=== PATIENT | male | born 1945 | race Caucasian/White ===

== ENCOUNTER 2020-08-12 10:28 | Observation (INO) | payer OTHER, MEDICARE ==
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
[2020-08-12 11:28] LABS: Basophils # (A) 0.1 k/uL (0-0.2); Basophils % (A) 1 %; Eosinophils # (A) 0.4 k/uL (0-0.7); Eosinophils % (A) 6 %; HCT 43.8 % (39.0-53.0); HGB 13.9 gm/dL (13.0-17.5); Lymphocytes # (A) 1.1 k/uL (1.0-4.8); Lymphocytes % (A) 20 %; MCH 30.9 pg (25.0-35.0); MCHC 31.8 g/dL (31.0-37.0); MCV 97.5 fL (80.0-100.0); Mean Platelet Volume 8.3; Monocytes # (A) 0.3 k/uL (0-1.0); Monocytes % (A) 5 %; Neutrophils # (A) 3.7 k/uL (1.3-7.7); Neutrophils % (A) 65 %; Platelet Count 161 k/uL (150-450); RDW 15.2 % (11.5-15.5); WBC 5.6 k/uL (3.8-10.6)
[2020-08-12 11:38] LABS: Calcium 9.4 mg/dL (8.4-10.2)
[2020-08-12 11:54] LABS: Potassium 3.6 mmol/L (3.5-5.1)
--- NOTE | 2020-08-12 13:21 | CT ---
EXAMINATION TYPE: CT angio thor/abd pel aorta DATE OF EXAM: 08/12/2020 COMPARISON: None HISTORY: Aneursylm. aortic CT DLP: 913.4 mGycm CONTRAST: CTA thoracic and abdominal aorta with 3-D reconstruction is performed and without and with IV Contras t, patient injected with 100 ml mL of Isovue 370. Contrast CTA of the thoracic and abdominal aorta was performed from the lung apex through the base of the pelvis. 3-D reconstruction imaging obtained at a separate workstation. CT Chest: THORACIC AORTA: There is ascending thoracic aortic aneurysm noted measuring 4.2 cm AP dimension. In a ddition the distal thoracic aorta the level of the hiatus measures 3.8 cm with mural thrombus noted. No dissection or mediastinal hematoma. Mild atheromatous changes are seen. LUNGS: The lungs are clear and free of infiltrate or atelectasis. Severe emphysematous changes are n oted. No pulmonary nodule or mass is detected. No pleural effusion or CT evidence of interstitial phuong ng disease. MEDIASTINUM: The heart is enlarged. No evidence for mediastinal mass or adenopathy. HILAR STRUCTURES: No evidence for mass. No hilar adenopathy is appreciated. OTHER: No significant abnormality. CONTRAST CT ABDOMEN AND PELVIS ABDOMINAL AORTA: There is a large saccular aneurysm involving the abdominal aorta extending from just below the level of the renal arteries through the aortic bifurcation. Aneurysm measures 11.5 cm in l ength by 8.6 cm in AP dimension and 8.8 cm in transverse dimension. Extensive mural thrombus. LIVER/GB- No significant abnormality is seen. PANCREAS- No significant abnormality is seen. SPLEEN- No significant abnormality is seen. ADRENALS- No significant abnormality is seen. KIDNEYS/BLADDER-there is decreased perfusion in the involving the left kidney relative to the right w ith the left kidney being slightly diminutive. The findings may reflect chronic decreased into the le ft kidney although acute process not excluded. BOWEL- No Significant abnormality GENITAL ORGANS: No gross abnormality seen. LYMPH NODES- No greater than 1cm abdominal or pelvic lymph nodes are appreciated. OSSEOUS STRUCTURES- No significant abnormality is seen. OTHER- No significant abnormality is seen. IMPRESSION- 1. Large saccular Aneurysm involving the abdominal aorta as noted above. 2. Decreased perfusion of the left kidney as noted above indicating vascular compromise. 3. Ascending thoracic aortic aneurysm as well as aneurysm of the descending thoracic aorta. 4 severe emphysematous changes.
[2020-08-12 14:09] LABS: Appearance,Urine Clear (Clear); Bilirubin,Urine Negative (Negative); Blood,Urine Negative (Negative); Color,Urine Yellow; Glucose,Urine (UA) 1+ (Negative); Ketones,Urine 1+ (Negative); Leukocyte Esterase,Urine Negative (Negative); Nitrite,Urine Negative (Negative); Protein,Urine Trace (Negative); Urobilinogen,Urine <2.0 mg/dL (<2.0)
[2020-08-12] MEDS ORDERED: NALOXONE 0.4 MG/ML 1 ML VIAL IV PRN (14:19)
[2020-08-12] MEDS ORDERED: SODIUM CHLORIDE 0.9% 1,000 ML IV SCH (14:30)
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
--- NOTE | 2020-08-12 16:52 | US ---
EXAMINATION TYPE: US carotid duplex BILAT DATE OF EXAM: 08/12/2020 COMPARISON: NONE CLINICAL HISTORY: bruit, hx CVA. AAA CVA EXAM MEASUREMENTS: RIGHT: Peak Systolic Velocity (PSV) cm/sec ----- Right CCA: 31.8 ----- Right ICA: 98.6 ----- Right ECA: 102.1 ICA/CCA ratio: 3.1 RIGHT: End Diastole cm/sec ----- Right CCA: 12.9 ----- Right ICA: 40.4 ----- Right ECA: 14.9 LEFT: Peak Systolic Velocity (PSV) cm/sec ----- Left CCA: 42.3 ----- Left ICA: 47.5 ----- Left ECA: 61.8 ICA/CCA ratio: 1.1 LEFT: End Diastole cm/sec ----- Left CCA: 18.1 ----- Left ICA: 18.9 ----- Left ECA: 7.9 VERTEBRALS (direction of flow): Right Vertebral: Antegrade Left Vertebral: Antegrade Rhythm: No significant stenosis seen IMPRESSION: There is antegrade flow in the vertebral arteries. The images and measurements suggest l ess than 25% stenosis in both internal carotid arteries. Criteria for Assigning % of Stenosis / Diameter reduction (Estimation based on the indirect measurements of the internal carotid artery velocities (ICA PSV). 1. Normal (no stenosis)=ICA PSV < 125 cm/s: ratio < 2.0: ICA EDV<40 cm/s. 2. Less than 50% stenosis=ICA PSV < 125 cm/s: ratio < 2.0: ICA EDV<40 cm/s. 3. 50 to 69% stenosis=ICA PSV of 125 to 230 cm/s: ration 2.0 ? 4.0: ICA EDV 40-100 cm/s. 4. Greater than 70% stenosis to near occlusion= ICA PSV > 230 cm/s: ratio > 4.0: ICA EDV > 100 cm/s. 5. Near occlusion= ICA PSV velocities may be low or undetectable: variable ratio and ICA EDV. 6. Total occlusion=unable to detect flow.
[2020-08-12] MEDS ORDERED: ACETAMINOPHEN TAB 325 MG TAB PO PRN (22:13)
[2020-08-12] MEDS ORDERED: APIXABAN 5 MG TAB PO SCH (22:15)
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
[2020-08-12] MEDS: NICOTINE 14MG/24HR PATCH TRANSDERM SCH (23:04)
[2020-08-12] MEDS: predniSONE 20 MG TAB PO SCH (23:05)
[2020-08-13] MEDS: IPRATROPIUM-ALBUTEROL 3 ML NEB INHALATION SCH ×5 (00:52→15:54)
[2020-08-13 07:35] LABS: Basophils % (A) 1 %; Eosinophils % (A) 0 %; HCT 42.6 % (39.0-53.0); HGB 13.8 gm/dL (13.0-17.5); Lymphocytes # (A) 0.4 k/uL (1.0-4.8); Lymphocytes % (A) 11 %; MCH 31.8 pg (25.0-35.0); MCHC 32.4 g/dL (31.0-37.0); MCV 98.2 fL (80.0-100.0); Mean Platelet Volume 8.2; Monocytes # (A) 0.1 k/uL (0-1.0); Monocytes % (A) 2 %; Neutrophils # (A) 3.5 k/uL (1.3-7.7); Neutrophils % (A) 85 %; Platelet Count 148 k/uL (150-450); RBC 4.34 m/uL (4.30-5.90); RDW 14.8 % (11.5-15.5); WBC 4.1 k/uL (3.8-10.6)
[2020-08-13 07:45] LABS: African American GFR (CKD) >90 (>60 ml/min/1.73 sqM); Anion Gap 6 mmol/L; Blood Urea Nitrogen 19 mg/dL (9-20); Calcium 9.2 mg/dL (8.4-10.2); Carbon Dioxide 28 mmol/L (22-30); Chloride 103 mmol/L (98-107); Glucose 133 mg/dL (74-99); Non-African American GFR(CKD) 80 (>60 ml/min/1.73 sqM); Potassium 4.3 mmol/L (3.5-5.1); Sodium 137 mmol/L (137-145)
[2020-08-13] MEDS ORDERED: SYMBICORT 160-4.5 MCG INHALER INHALATION SCH (08:00)
[2020-08-13] MEDS ORDERED: ALBUTEROL NEBULIZED 2.5 MG/3 ML INHALATION SCH (08:00)
[2020-08-13] MEDS ORDERED: CAFFEINE CITRATE 60 MG/3 ML VIAL IV PRN (08:50)
[2020-08-13] MEDS ORDERED: REGADENOSON 0.4 MG/5 ML SYRINGE IV PRN (08:50)
[2020-08-13] MEDS ORDERED: AMINOPHYLLINE 500 MG/20 ML VIAL IV PRN (08:50)
[2020-08-13] MEDS ORDERED: POTASSIUM CHLORIDE ER 10 MEQ TAB.ER.PRT PO SCH (09:00)
[2020-08-13] MEDS ORDERED: NON FORMULARY DRUG (Vitamin B Complex [Vitamin B Complex] 1 EACH Capsule) PO SCH (09:00)
[2020-08-13] MEDS ORDERED: THIAMINE 100 MG TAB PO SCH (09:00)
[2020-08-13] MEDS ORDERED: ATORVASTATIN 40 MG TAB PO SCH (09:00)
[2020-08-13] MEDS ORDERED: FUROSEMIDE 20 MG TAB PO SCH (09:00)
[2020-08-13] MEDS ORDERED: allopurinoL 300 MG TAB PO SCH (09:00)
[2020-08-13] MEDS ORDERED: ASPIRIN 81 MG PO SCH (09:00)
[2020-08-13] MEDS ORDERED: FOLIC ACID 1 MG TAB PO SCH (09:00)
[2020-08-13] MEDS ORDERED: DILTIAZEM CD 180 MG CAP.ER.24H PO SCH (09:00)
[2020-08-13] MEDS ORDERED: MULTIVITAMINS, THERA 1 EACH TAB PO SCH (09:00)
[2020-08-13] MEDS ORDERED: LOSARTAN 50 MG TAB PO SCH (09:00)
--- NOTE | 2020-08-13 11:25 | P.PN ---
Subjective Progress Note Date: 08/13/20 Principal diagnosis: Abdominal aortic aneurysm Without any acute changes through the night. Denies any chest pain, shortness of breath or abdominal pain. Cardiology and pulmonology on consult. Patient is scheduled for echocardiogram and stress test. Bilateral carotid duplex showed antegrade flow in the vertebral arteries. Images the measurement suggests less than 25% stenosis in both internal carotid arteries. Objective - Vital Signs Vital signs: Vital Signs Temp 98.1 F 08/13/20 08:00 Pulse 74 08/13/20 08:00 Resp 20 08/13/20 08:00 BP 139/97 08/13/20 08:00 Pulse Ox 94 L 08/13/20 08:00 Intake & Output 08/12/20 08/13/20 08/13/20 18:59 06:59 18:59 Intake Total 10 Balance 10 Weight 86.183 kg 82.6 kg Intake: Intake, IV Titration 10 Amount Sodium Chloride 0.9% 1, 10 000 ml @ 50 mls/hr IV . Q20H MITZY Rx#:[id number] Other: Voiding Method Toilet # Voids 1 - Exam General appearance: The patient is alert, oriented, in no acute distress. HET: Head is normocephalic and atraumatic. Neck: Supple without lymphadenopathy. Trachea midline. Heart: S1 S2. Regular rate and rhythm. Lungs: Diminished with bilateral wheezes Abdomen: Soft, nontender, nondistended with bowel sounds. Extremities: Normal skin color and turgor. No cyanosis, rash, ulceration, clubbing, or edema. . Neurological: No focal deficits. Strength and sensation are grossly intact. - Labs CBC & Chem 7: 08/13/20 06:59 08/13/20 06:59 Labs: Abnormal Lab Results - Last 24 Hours (Table) 08/12/20 08/12/20 08/13/20 Range/Units 11:04 13:50 06:59 Plt Count 148 L (150-450) k/uL Lymphocytes # 0.4 L (1.0-4.8) k/uL Glucose 108 H (74-99) mg/dL Ur Specific [place] 1.050 H (1.001-1.035) Urine Protein Trace H (Negative) Urine Glucose (UA) 1+ H (Negative) Urine Ketones 1+ H (Negative) 08/13/20 Range/Units 06:59 Plt Count (150-450) k/uL Lymphocytes # (1.0-4.8) k/uL Glucose 133 H (74-99) mg/dL Ur Specific [place] (1.001-1.035) Urine Protein (Negative) Urine Glucose (UA) (Negative) Urine Ketones (Negative) Assessment and Plan Assessment: 1. Abdominal aortic aneurysm 2. Hypertension 3. Recent CVA within the past 1 month duration, currently on Eliquis 4. Tobacco abuse, 65 year pack per day smoker 5. Emphysema Plan: CT angiogram reviewed by Dr. Devries and Dr. Graham. Due to the size of the abdominal aortic aneurysm and anatomy he is not a candidate for endovascular repair, and will need open surgery. Cardiology and pulmonology consulted for medical clearance. Await their commendations. Patient is asymptomatic, therefore there has no acute indication for emergent vascular surgery. Carotid duplex ordered and reviewed. If Patient is medically cleared and remaines stable patient will likely be scheduled within the week for outpatient aortic aneurysm repair. The impression and plan of care has been dictated as directed. Dr. Graham I performed a history and examination of this patient, discussed the same with the dictator. I agree with the dictator's note ,documented as a scribe. Any additional findings or plans will be noted.
--- NOTE | 2020-08-13 11:50 | ECHOF ---
Referral Reason:Smoker MEASUREMENTS -------- HEIGHT: 177.8 cm WEIGHT: 82.6 kg BP: IVSd: 2.0 cm (0.6 - 1.1) LVIDd: 4.3 cm (3.9 - 5.3) LVPWd: 1.7 cm (0.6 - 1.1) IVSs: 2.2 cm LVIDs: 3.3 cm LVPWs: 1.9 cm LAESV Index (A-L): 46.20 ml/m Ao Diam: 3.4 cm (2.0 - 3.7) AV Cusp: 1.4 cm (1.5 - 2.6) LA Diam: 4.2 cm (2.7 - 3.8) MV EXCURSION: 17.310 mm (> 18.000) MV EF SLOPE: 104 mm/s (70 - 150) EPSS: 0.7 cm AV maxP.22 mmHg AV meanP.96 mmHg RAP: 5.00 mmHg RVSP: 17.01 mmHg FINDINGS -------- Atrial fibrillation. This was a technically adequate study. The left ventricular size is normal. There is severe concentric left ventricular hypertrophy. Ove rall left ventricular systolic function is normal with, an EF between 55 - 60 %. The right ventricle is normal in size. LA is severely dilated >40 ml/m2 The right atrial size is normal. Interatrial and interventricular septum intact. There is mild aortic valve sclerosis. Peak/mean gradient across the Aortic Valve is 10.22mmHg / 6.9 6mmHg. The mitral valve leaflets are mildly thickened. Mild mitral regurgitation is present. The tricuspid valve appears structurally normal. Mild tricuspid regurgitation present. Right vent ricular systolic pressure is normal at < 35 mmHg. There is no pulmonic regurgitation present. The aortic root size is normal. IVC Not well visulized. There is no pericardial effusion. CONCLUSIONS -------- 1. There is severe concentric left ventricular hypertrophy. 2. Overall left ventricular systolic function is normal with, an EF between 55 - 60 %. 3. LA is severely dilated >40 ml/m2 4. There is mild aortic valve sclerosis. 5. Peak/mean gradient across the Aortic Valve is 10.22mmHg / 6.96mmHg. 6. The mitral valve leaflets are mildly thickened. 7. Mild mitral regurgitation is present. 8. Mild tricuspid regurgitation present. 9. There is no pericardial effusion. [employer] SUPERVISOR: Beatrice Giles RDCS
[2020-08-13 11:55] VITALS: BP 141/80; TEMP 98.3
[2020-08-13] MEDS: NICOTINE 14MG/24HR PATCH TRANSDERM SCH (12:03)
--- NOTE | 2020-08-13 12:04 | NM ---
EXAMINATION TYPE: NM stress lexiscan cardiolite DATE OF EXAM: 08/13/2020 COMPARISON: NONE HISTORY: pre op TECHNIQUE: After the intravenous administration of 10.6 mCi Tc 99m Sestamibi - Cardiolite resting SP ECT images acquired 45 minutes post injection. The patient received 0.4mg Lexiscan, 25.7 mCi Tc 99m Sestamibi - Stress images obtained [address] injection FINDINGS: Review of stress and rest SPECT images demonstrates no distinct perfusion abnormality. Gated analysi s shows normal wall motion with an estimated left ventricular ejection fraction of 53 %. IMPRESSION: No scintigraphic evidence for reversible ischemia.
[2020-08-13 12:09] VITALS: RESP 18
[2020-08-13] MEDS: predniSONE 20 MG TAB PO SCH (12:18)
[2020-08-13] MEDS ORDERED: METOPROLOL TARTRATE 12.5 MG TAB PO SCH (13:00)
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
--- NOTE | 2020-08-13 15:25 | EST ---
EXERCISE STRESS AGE: 74 SEX: Male HT: 5'9" WT: 182 lbs. PROTOCOL: Lexiscan Cardiolite STAGE: N/A DURATION OF EXERCISE: N/A HEART RATE REST: 83 BLOOD PRESSURE REST: 155/88 MAXIMUM HEART RATE ACHIEVED: 124 MAXIMUM BLOOD PRESSURE: 155/88 85% MPHR: 124 100% MPHR: 146 METS: N/A INDICATIONS: Pre-Surgical CLINICAL INFORMATION: Baseline rhythm is atrial fibrillation, rate of 83, poor R progression, nonspecific ST- T wave changes. Baseline blood pressure 155/88 mmHg. Patient received injection of Lexiscan. Electrocardiograph monitoring revealed no evidence of diagnostic ischemic ST deviation. Cardiolite was injected per protocol. CONCLUSION: 1. Nondiagnostic electrocardiograph stress testing. 2. Nuclear images will be reported separately. MMODL / IJN: [id number] /
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
[2020-08-13 16:20] VITALS: PULSE 92
--- NOTE | 2020-08-13 23:00 | P.DS ---
Providers Date of admission: 08/12/20 14:19 Expected date of discharge: 08/13/20 Attending physician: Jesus Lai Consults: 08/12/20 14:19 Consult Physician Stat Consulting Provider: Maroc Donovan Consult Reason/Comments: AAA Do you want consulting provider notified?: Yes 08/12/20 15:27 Consult Physician Urgent Consulting Provider: Judith Duran Consult Reason/Comments: Emphysema, clearance for abdominal aortic aneurysm repair Do you want consulting provider notified?: Yes 08/12/20 15:29 Consult Physician Urgent Consulting Provider: Stanley Daley Consult Reason/Comments: Cardiac clearance for open AAA repair Do you want consulting provider notified?: Yes Primary care physician: Ravin Olivas MD Hospital Course: Chief Complaint: Abdominal aortic aneurysm History of presenting complaint: This is a 74-year-old patient who follows with Dr. olivas from [place]. Chronic stable medical conditions include COPD, coronary artery disease with previous DE, Gideon arthritis, chronic nicotine dependence. Patient this morning came in for an outpatient for screening for abdominal aortic aneurysm. It was found to be 9.5 x 8.2 cm in the midportion. Internal thrombus seen surrounding the small bowel in the lumen. It also extends into the right and left common iliac arteries. Patient was therefore sent to the ER. Further computed tomography scan of the chest and abdomen in the ER showed 4.2 cm ascending thoracic aneurysm and 3.8 cm descending thoracic aorta with mural thrombus. Patient denies any abdominal pain. Does get charley horses. At the baseline is a short of breath and wheezing. He is an active smoker. No chest pain. Today-patient underwent a nuclear stress test. That was negative. Also had a PFTs before being discharged. Patient advised against smoking. Cardiology wanted to discontinue the eliquis. Dr. Devries wanted the patient go home on eliquis and didn't feel the risk was any higher for bleeding. Or rupture. Patient is to stop his eliquis on Wednesday. Patient is being scheduled for surgery as outpatient by Dr. Devries Discussion and discharge planning more than 35 minutes Consultation: Dr. Devries from vascular surgery Dr. ARIA Solis from cardiology Dr. Duran from pulmonary Past medical history to include: COPD, coronary artery disease with DE, osteoarthritis Social history: Smokes currently half a pack a day. Smoking for many years. About 2 beers a day. Retired Physical examination: VITAL SIGNS: 98.3, 94, 20, 141 bradycardia, 93% room air GENERAL: BMI 28.1, sitting up in bed, slightly short of breath EYES: Pupils equal. Conjunctiva normal. HEENT: External appearance of nose and ears normal, oral cavity grossly normal. NECK: JVD not raised; masses not palpable. HEART: First and second heart sounds are normal; no edema. LUNGS: Respiratory rate increased decreased breath sounds, mild wheezing. ABDOMEN: Soft, slight pulsation nontender, liver spleen not palpable, no masses palpable. PSYCH: Alert and oriented x3; mood and affect normal. INVESTIGATIONS, reviewed in the clinical context: 2-D echocardiogram-EF 55-60%. Severe concentric LVH. Nuclear stress test-negative ischemia White count 5.6 hemoglobin 13.9 platelets 161 potassium 3.6 creatinine 1.14 Carotid Doppler-less than 25% stenosis on both sides CT angiogram of the thorax and abdomen-ascending thoracic aortic aneurysm 4.2 cm Descending thoracic aorta 3.8 cm with mural thrombus Abdominal aortic and resume 7.5 cm in length and 8.8 cm in transverse dimension. Extensive mural thrombus decreased perfusion of the left kidney Center to the right Emphysema changes EKG tracing-atrial fibrillation Assessment: -Abdominal aortic aneurysm 8.8 cm, also involving the iliac arteries, with in traluminal thrombus -Ascending thoracic aortic is a 4.2 cm, descending thoracic aorta 3.8 cm with mural thrombus -Chronic nicotine dependence patient cigarette smoker -Emphysema, with some exacerbation in a current smoker -Coronary artery disease and a prior history of DE -Suspect peripheral arterial disease -Persistent atrial fibrillation rate controlled Disposition: Home Patient Condition at Discharge: Undetermined Plan - Discharge Summary Discharge Rx Participant: No New Discharge Prescriptions: New Ipratropium-Albuterol Nebulize [Duoneb 0.5 mg-3 mg/3 ml Soln] 3 ml INHALATION QID #120 ml Nicotine 14Mg/24Hr Patch [Habitrol] 1 patch TRANSDERM DAILY #14 patch Metoprolol Tartrate [Lopressor] 12.5 mg PO BID #60 tab predniSONE 10 mg PO DAILY #30 tab Continue Potassium Chloride [K-Tab ER] 10 meq PO DAILY Vitamin B Complex 1 cap PO DAILY Thiamine [Vitamin B-1] 100 mg PO DAILY Multivitamins, Thera [Multivitamin (formulary)] 1 tab PO DAILY Losartan Potassium 50 mg PO DAILY Furosemide [Lasix] 20 mg PO DAILY Aspirin 81 mg PO DAILY Folic Acid 1 mg PO DAILY Diltiazem HCl [Diltiazem HCl 24Hr ER (CD)] 360 mg PO DAILY Budesonide/Formoterol Fumarate [Symbicort 160-4.5 Mcg Inhaler] 2 puff INHALATION RT-BID Apixaban [Eliquis] 5 mg PO BID Atorvastatin Calcium [Lipitor] 40 mg PO DAILY Allopurinol [Zyloprim] 300 mg PO DAILY Acetaminophen [Tylenol] 325 mg PO Q6H PRN PRN Reason: Pain Or Fever > 100.5 Changed Albuterol Nebulized [Ventolin Nebulized] 2.5 mg INHALATION RT-TID PRN #1 PRN Reason: Wheezing Discharge Medication List Potassium Chloride [K-Tab ER] 10 meq PO DAILY 05/25/14 [History] Acetaminophen [Tylenol] 325 mg PO Q6H PRN 08/12/20 [History] Allopurinol [Zyloprim] 300 mg PO DAILY 08/12/20 [History] Apixaban [Eliquis] 5 mg PO BID 08/12/20 [History] Aspirin 81 mg PO DAILY 08/12/20 [History] Atorvastatin Calcium [Lipitor] 40 mg PO DAILY 08/12/20 [History] Budesonide/Formoterol Fumarate [Symbicort 160-4.5 Mcg Inhaler] 2 puff INHALATION RT-BID 08/12/20 [History] Diltiazem HCl [Diltiazem HCl 24Hr ER (CD)] 360 mg PO DAILY 08/12/20 [History] Folic Acid 1 mg PO DAILY 08/12/20 [History] Furosemide [Lasix] 20 mg PO DAILY 08/12/20 [History] Losartan Potassium 50 mg PO DAILY 08/12/20 [History] Multivitamins, Thera [Multivitamin (formulary)] 1 tab PO DAILY 08/12/20 [History] Thiamine [Vitamin B-1] 100 mg PO DAILY 08/12/20 [History] Vitamin B Complex 1 cap PO DAILY 08/12/20 [History] Albuterol Nebulized [Ventolin Nebulized] 2.5 mg INHALATION RT-TID PRN #1 08/13/20 [Rx] Ipratropium-Albuterol Nebulize [Duoneb 0.5 mg-3 mg/3 ml Soln] 3 ml INHALATION QID #120 ml 08/13/20 [Rx] Metoprolol Tartrate [Lopressor] 12.5 mg PO BID #60 tab 08/13/20 [Rx] Nicotine 14Mg/24Hr Patch [Habitrol] 1 patch TRANSDERM DAILY #14 patch 08/13/20 [Rx] predniSONE 10 mg PO DAILY #30 tab 08/13/20 [Rx] Follow up Appointment(s)/Referral(s): Judith Duran MD [STAFF PHYSICIAN] - 08/19/20 1:00 pm (WEDNESDAY ) Marco Donovan DO [Doctor of Osteopathic Medicine] - 08/21/20 (Scheduled for Abdominal aortic aneurysm repair) Ravin Olivas MD [Primary Care Provider] - 08/16/20 4:15 pm (WEDNESDAY) Patient Instructions/Handouts: Thoracic Aortic Aneurysm (DC) Activity/Diet/Wound Care/Special Instructions: STOP ELIQUIS ON Wednesday08/19/20 Discharge Disposition: HOME SELF-CARE
== END 2020-08-13 17:08 | disposition home or self-care (01) ==
LOC: EC 10:28 → 3SCARD 14:19 → INTOOBSV 14:19 → 3SCARD 20:14 → UNDODISIN 08-13 17:08
PROVIDERS: ADMIT Hospitalist; ATTEND Hospitalist
DX: I71.4 Abdominal aortic aneurysm, without rupture (principal); I71.2 Thoracic aortic aneurysm, without rupture; I48.19 Other persistent atrial fibrillation; I51.3 Intracardiac thrombosis, not elsewhere classified; I11.9 Hypertensive heart disease without heart failure; J43.9 Emphysema, unspecified; I08.3 Combined rheumatic disorders of mitral, aortic and tricuspid valves; I25.10 Atherosclerotic heart disease of native coronary artery without angina pectoris; I25.2 Old myocardial infarction; M19.90 Unspecified osteoarthritis, unspecified site; F17.210 Nicotine dependence, cigarettes, uncomplicated; Z79.01 Long term (current) use of anticoagulants; Z79.82 Long term (current) use of aspirin; Z79.51 Long term (current) use of inhaled steroids; Z79.899 Other long term (current) drug therapy; Z88.2 Allergy status to sulfonamides; Z86.73 Personal history of transient ischemic attack (TIA), and cerebral infarction without residual deficits; Z87.01 Personal history of pneumonia (recurrent); Z87.19 Personal history of other diseases of the digestive system; Z87.2 Personal history of diseases of the skin and subcutaneous tissue; Z90.89 Acquired absence of other organs; Z85.9 Personal history of malignant neoplasm, unspecified; Z98.890 Other specified postprocedural states; Z82.2 Family history of deafness and hearing loss; Z82.49 Family history of ischemic heart disease and other diseases of the circulatory system; Z82.3 Family history of stroke; Z82.61 Family history of arthritis
CPT/HCPCS: 93005 ×2; 99285; 36415; 94640 ×2; 94010; 94060; 93017; 93306; 80048 ×2; 84484; 85025 ×2; 81003; 93880; 71275; 74174; 78452; G0378 ×2; A9500; J2785; J7512 ×2; Q9967

== ENCOUNTER → 2020-08-12 | Outpatient (CLI) | payer OTHER, MEDICARE ==
--- NOTE | 2020-08-12 08:32 | US ---
EXAMINATION TYPE: US duplex aorta DATE OF EXAM: 08/12/2020 COMPARISON: NONE CLINICAL HISTORY: 74-year-old male Z13.6 screening for abd aorta aneurysm. Smoker x 65 years EXAM MEASUREMENTS: Abdominal Aorta: Proximal: 4.9 x 3.3cm Mid: 9.5 x 8.2cm Distal: 5.5 x 9.2cm The aneurysm has a and a 15.9 cm. Bifurcation: Right GAYATRI = 2.2 x 4.1cm; Left GAYATRI = 2.4 x 4.1cm. Internal thrombus seen surrounding small internal lumen within abdominal aortic aneurysm extending in to bilateral Common Iliac Arteries. Lumen is narrowed down to 2.7 cm in some portions of the aneurys m IMPRESSION: 1. Diffuse aneurysmal abdominal aorta. The mid segment measures up to a massive 9.5 cm. Proximally me asuring 4.9 cm and distally 5.5 cm. Prominent mural based plaque and thrombus narrowing the lumen elpidio n to 2.7 cm in some portions. 2. Aneurysm extends into the right and left common iliac arteries. The amusement park ride mechanic demonstrates measu rements of up to 4.1 cm which is very large. The amusement park ride mechanic attempted to call Dr. Olivas's office. No response at this time. The patient will b e escorted to the ER.
== END | disposition home or self-care (01) ==
LOC: RADUSWWP 07:44
PROVIDERS: ATTEND Family Medicine
DX: I71.4 Abdominal aortic aneurysm, without rupture (principal); I74.09 Other arterial embolism and thrombosis of abdominal aorta; I70.0 Atherosclerosis of aorta; I72.8 Aneurysm of other specified arteries
CPT/HCPCS: 93979

== ENCOUNTER 2020-08-21 05:33 | Inpatient (IN) | payer OTHER, MEDICARE ==
[~2020-08-21 05:33] MED LIST: DEXAMETHASONE SOD PHOSPHATE 4 MG/ML 1 ML VIAL IV ONE; LIDOCAINE 1% (10MG/ML) FOR IV START INTRADERMA PRN; MIDAZOLAM 2 MG/2 ML VIAL IV PRN; ONDANSETRON 4 MG/2 ML VIAL IVP ONE
[2020-08-21 06:19] LABS: Glucose,Whole Blood 102 mg/dL (75-99)
[2020-08-21] MEDS: LACTATED RINGERS 1,000 ML IV SCH ×4 (06:24→17:50)
[2020-08-21] MEDS ORDERED: fentaNYL (PF) 50 MCG/ML 2 ML AMP IVP PRN (07:00)
[2020-08-21] MEDS ORDERED: MIDAZOLAM 2 MG/2 ML VIAL IV ONE (07:26)
[2020-08-21] MEDS ORDERED: fentaNYL (PF) 50 MCG/ML 2 ML AMP IV ONE (07:26)
[2020-08-21] MEDS ORDERED: LIDOCAINE 1% INJ 10MG/ML (20 ML MDV) ONE (08:00)
[2020-08-21] MEDS ORDERED: PHENYLEPHRINE-0.9% NACL SYG 1,000 MCG/10 ML SYRINGE ONE (08:00)
[2020-08-21] MEDS ORDERED: PROTAMINE SULFATE 10 MG/ML 5 ML VIAL IV ONE (08:00)
[2020-08-21] MEDS ORDERED: INSULIN REGULAR 100 UNIT/ML VIAL ONE (08:00)
[2020-08-21] MEDS ORDERED: PROPOFOL 10 MG/ML 20 ML VIAL IV ONE (08:00)
[2020-08-21] MEDS ORDERED: fentaNYL (PF) 50 MCG/ML 2 ML AMP ONE (08:00)
[2020-08-21] MEDS ORDERED: ALBUMIN HUMAN 5% (25gm) 500 ML VIAL IVPB ONE (08:00)
[2020-08-21] MEDS ORDERED: VECURONIUM 10 MG VIAL IV ONE (08:00)
[2020-08-21] MEDS ORDERED: SODIUM BICARB 8.4% 50 ML SYR (1 MEQ/ML) ONE (08:00)
[2020-08-21] MEDS ORDERED: GLYCOPYRROLATE 0.2 MG/ML 2 ML VIAL ONE (08:00)
[2020-08-21] MEDS ORDERED: ePHEDrine SULFATE/0.9% NACL/PF 50 MG/5 ML SYRINGE IV ONE (08:00)
[2020-08-21] MEDS ORDERED: methylPREDNISolone SOD SUCCI 125 MG/2 ML VIAL ONE (08:00)
[2020-08-21] MEDS ORDERED: FUROSEMIDE 10 MG/ML 2 ML VIAL ONE (08:00)
[2020-08-21] MEDS ORDERED: MIDAZOLAM 2 MG/2 ML VIAL ONE (08:00)
[2020-08-21] MEDS ORDERED: HEPARIN SODIUM,PORCINE 10,000 UNIT/ML 1 ML VIAL ONE (08:00)
[2020-08-21] MEDS ORDERED: SODIUM CHLORIDE 0.9% 1,000 ML IV ONE ×2 (08:12→09:35)
[2020-08-21] MEDS ORDERED: HEPARIN SODIUM (1,000 UNIT/ML) 10,000 UNIT in SODIUM CHLORIDE 0.9% 1,000 ML IRRIGATION ONE (08:43)
[2020-08-21] MEDS ORDERED: ceFAZolin 4,000 MG in SODIUM CHLORIDE 0.9% 1,000 ML IRRIGATION ONE ×2 (08:43→10:46)
--- NOTE | 2020-08-21 10:25 | P.ANPRN ---
Procedure Note - Anesthesia - Nerve Block Performed Bilateral Rectus Abdominis Single Time Out Performed: Yes (725) Date of Procedure: 08/21/20 Procedure Start Time: 07:26 Procedure Stop Time: 07:32 Location of Patient: PreOp Indication: Acute Post-Operative Pain, Requested by Surgeon Specifically requested for management of pain by DrHolli: Marco Donovan Sedation Type: Sedate with meaningful contact maintained Preparation: Sterile Prep Position: Supine Catheter: None Needle Types: Pajunk Needle Gauge: 21 Ultrasound used to visualize needle placement: Yes Ultrasound used to observe medication spread: Yes Injectate: 0.5% Ropivacaine (see comment for volume) (20cc each side) Blood Aspirated: No Pain Paresthesia on Injection Noted: No Resistance on Injection: Normal Image Stored and Saved: Yes Events: Uneventful and Well Tolerated
--- NOTE | 2020-08-21 10:28 | P.ANPRN ---
Procedure Note - Anesthesia - Invasive Line Right Central Line Time Out Performed: Yes (735) Date of Procedure: 08/21/20 Time of Procedure: 07:36 Location of Patient: Phase I Preparation: Sterile Prep, Sterile Dressing Arterial Line Location: Radial Ultrasound Used: Yes Purpose - Visualization and Identification of Vasculature: Yes Needle Guage: 18g angio Image Stored and Saved: Yes Narrative: Central line placement per sterile protocol utilized. sterile prep. +local +angio +cvp +jwire +uneventful introduction and dilation right IJ cordis
[2020-08-21] MEDS ORDERED: LACTATED RINGERS 1,000 ML IV ONE ×5 (11:27→12:56)
[2020-08-21 14:38] LABS: Glucose,Whole Blood 148 mg/dL (75-99)
--- NOTE | 2020-08-21 14:48 | P.OP ---
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 Postoperative Diagnosis: Same. Procedure(s) Performed: Open repair of abdominal aortic aneurysm with 30 mm sleeve graft. Anesthesia: REBEKAH Surgeon: Marco Donovan Live Hanger #1: Mil Graham Live Hanger #2: Elvia Murillo Pathology: none sent Condition: stable Disposition: ICU Indications for Procedure: Patient is a 74-year-old male who was found to be suffering from an 8.8 cm abdo jimmy aortic aneurysm. This aneurysm did not meet anatomic criteria for stent graft repair and thus the patient would require open aneurysm repair. The procedure, risk and benefits were discussed with the patient. Patient wished to proceed. Description of Procedure: Patient brought the upper and placed in the supine position Mr. general endotracheal anesthesia delivered by the department anesthesiology. Preoperatively the patient had a Cordis central venous catheter placed as well as a radial artery catheter for hemodynamic monitoring. Murillo catheter was placed to gravity drainage. Pneumatic hose were placed on the lower extremities bilaterally patient received 2 g of Ancef intravenously in the perioperative period for prophylactic antibiotic therapy. Patient's abdomen inguinal areas and anterior thighs were sterilely prepped and draped in usual manner. Skin incision was made extending from the xiphoid level down to just above the pubic bone. The incision was deepened through the subcu change tissues. Hemostasis was achieved using electrocautery. The midline was identified and the fascia was incised. The fascial at the midline had previously placed mesh. The fascia was completely opened and entrance was gained to the peritoneal cavity. Omental adhesions were encountered to it being adherent to the anterior abdominal wall. These were taken down with electrocautery. Manual inspection abdominal pelvic contents demonstrated findings consistent with diverticular disease and will within the colon. There is no palpable mass concerning for malignancy. Stomach and liver gallbladder and spleen were all normal to palpation. Nasogastric tube was positioned within the stomach. Small bowel was retracted superiorly and laterally to the right. The peritoneum was incised over the abdominal aorta. Care was taken to avoid the duodenum which was significantly adhered to the sac. The inferior mesenteric vein was identified and mobilized from harm's way. The vena cava was densely adherent to the lateral aortic wall. This was carefully mobilized off of the aorta. Multiple crossing veins were encountered and these were ligated and divided as appropriate. Eventually it became obvious to reach the neck of the aneurysm the left renal vein would need to be sacrificed. This was doubly ligated on both sides and divided between the ligatures. The peritoneum overlying the aorta was then opened down to the aortic bifurcation. Once again significant inflammatory reaction was identified. The air team was carefully taken down. The origin of the right iliac and eventually the left iliac artery was identified. No attempt was made to separate the iliac vein from the overlying iliac artery for fear of injuring the iliac vein in this scenario difficult anatomy. This appeared mesenteric artery was identified dissected free of investing tissues and encircled Vesseloops. No pulse was identified within this artery. During dissection of the neck to more clearly identify the renal arteries a hole was created in the aorta. The aorta was then clamped and the patient was systemically heparinized. The iliac arteries were then clamped at their origins. The aortic sac was opened large amount of mural thrombus was removed. No back bleeding from the SERGIO was noted. The dissection of the sac was carried up to the more normal-appearing neck of the aorta at which point it was teed off. Similar procedure was performed at the lower end of the aorta at the bifurcation. The's of the iliac arteries were clearly identified. When halves were released backbleeding from the iliac arteries was identified. These were flushed with heparinized saline solution. A 30 mm woven graft was selected and end-to-side anastomosis between the proximal transected portion of the aorta and the graft was completed with 3-0 Prolene suture with the aid of pledgets along the back wall. The clamp on the air was released and the anastomotic line was noted to be hemostatic. The graft was then occluded with a vascular clamp. The graft was then cut to the appropriate length and end-to-side anastomosis between the distal aorta and the graft was completed with 3-0 Prolene suture. Just prior to completion of the anastomotic line the aortic graft was flushed backbleeding from the iliac arteries were was allowed to occur. Neither case produced any thrombotic/atherosclerotic material. The anastomotic line was completed. Flow was restored through 1 iliac artery and when the patient's blood pressure was stable flow was then restored through the meaning iliac artery. Excellent pulse in both iliac arteries was identified. Bleeding from the left upper quadrant was identified and this was venous in origin. This was controlled with Vicryl suture. Raw surface ooze was identified and a few other points of bleeding were identified from the aneurysmal sac. These were controlled with electrocautery and suture ligature where appropriate. The patient received 25 mg protamine to reverse the heparin effect. Surgicel as well as powdered Surgicel and FloSeal were placed about the anastomotic lines and raw surface areas to help assure hemostasis. This was performed after the peritoneal cavity was irrigated with antibiotic containing solution. The sac was then closed over the graft with the 2-0 chromic suture. The peritoneum was reapproximated using 3-0 Vicryl suture. Small large bowel were inspected and these were found to be unremarkable and there were returned to the normal anatomic positions. Omentum was pulled down as far as possible. The anterior abdominal wall was closed with looped PDS suture in a running fashion. The wound was then irrigated and skin edges were reapproximated utilizing skin hien. Appropriate dressings were applied. Patient tolerated the procedure relatively well. He was kept intubated and transferred to the intensive care unit in stable condition.
[2020-08-21] MEDS ORDERED: NOREPINEPHRIN 4 MG-0.9% NS PMX 4 MG/250 ML ML IV ONE (15:16)
[2020-08-21] MEDS ORDERED: propofoL 50 ML IV ONE ×2 (15:16)
[2020-08-21] MEDS ORDERED: IPRATROPIUM-ALBUTEROL 3 ML NEB INHALATION PRN (15:20)
[2020-08-21 15:26] LABS: ABG Base Excess -0.6 mmol/L; ABG HCO3 25 mmol/L (21-25); ABG PCO2 44 mmHg (35-45); ABG PH 7.36 (7.35-7.45); ABG PO2 224 mmHg (83-108); ABG TCO2 26 mmol/L (19-24)
[2020-08-21 15:27] LABS: HCT 36.7 % (39.0-53.0); HGB 12.2 gm/dL (13.0-17.5); MCH 32.7 pg (25.0-35.0); MCHC 33.3 g/dL (31.0-37.0); MCV 98.2 fL (80.0-100.0); Mean Platelet Volume 9.5; RBC 3.74 m/uL (4.30-5.90); RDW 14.7 % (11.5-15.5); WBC 8.7 k/uL (3.8-10.6)
[2020-08-21 15:31] LABS: Allen Test Performed? NO
[2020-08-21] MEDS: NOREPINEPHRINE 32 MG in SODIUM CHLORIDE 0.9% 218 ML IV SCH (15:45)
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
[2020-08-21 15:48] LABS: Platelet Count 70 k/uL (150-450)
--- NOTE | 2020-08-21 16:04 | XR ---
EXAMINATION TYPE: XR chest 1V portable DATE OF EXAM: 08/21/2020 COMPARISON: NONE HISTORY: NG tube placement, intubated TECHNIQUE: Single frontal view of the chest is obtained. FINDINGS: Endotracheal tube and NG tube are overlying appropriate positions. Patient is rotated. The re is no evident pneumothorax or pleural effusion. Patchy basilar density is noted. Heart is enlarged . Aorta is dense. IMPRESSION: Patchy basilar atelectasis. Intubation as described.
--- NOTE | 2020-08-21 16:06 | XR ---
EXAMINATION TYPE: XR chest 1V portable DATE OF EXAM: 08/21/2020 COMPARISON: Chest x-ray 08/21/2020 HISTORY: Shortness of breath, NG tube placement TECHNIQUE: Single frontal view of the chest is obtained. FINDINGS: Endotracheal tube and NG tube are overlying appropriate positions, distal tip the NG tube has been withdrawn slightly, side-port of the NG tube is now overlying the distal thoracic esophagus . No other interval change. IMPRESSION: NG tube has withdrawn and the side-port is now in the thoracic esophagus.
[2020-08-21] MEDS: HYDROCORTISONE SUCCINATE 100 MG/2 ML VIAL IV SCH ×2 (17:29→23:31)
[2020-08-21] MEDS: HEPARIN SODIUM,PORCINE 5,000 UNIT/ML 1 ML VIAL SQ SCH ×2 (17:30→23:31)
[2020-08-21] MEDS: IPRATROPIUM-ALBUTEROL 3 ML NEB INHALATION SCH ×2 (17:44→21:23)
[2020-08-21] MEDS: CHLORHEXIDINE GLUCONATE 15 ML CUP MUCOUS MEM SCH (20:22)
[2020-08-22] MEDS: IPRATROPIUM-ALBUTEROL 3 ML NEB INHALATION SCH ×6 (00:38→20:37)
[2020-08-22] MEDS ORDERED: SODIUM CHLORIDE 0.9% 1,000 ML IV ONE ×2 (00:48→20:44)
[2020-08-22] MEDS: LACTATED RINGERS 1,000 ML IV SCH ×5 (00:54→21:58)
[2020-08-22 03:42] LABS: HCT 34.4 % (39.0-53.0); MCH 32.1 pg (25.0-35.0); MCV 100.2 fL (80.0-100.0); Macrocytosis Slight; Mean Platelet Volume 10.5; RBC 3.44 m/uL (4.30-5.90); RDW 15.5 % (11.5-15.5); WBC 12.1 k/uL (3.8-10.6)
[2020-08-22 03:43] LABS: Platelet Count 80 k/uL (150-450)
[2020-08-22 03:59] LABS: Calcium 7.1 mg/dL (8.4-10.2); Potassium 4.7 mmol/L (3.5-5.1)
[2020-08-22 05:08] LABS: ABG Base Excess -0.5 mmol/L; ABG HCO3 25 mmol/L (21-25); ABG Oxygen Saturation 94.9 % (94-97); ABG PCO2 44 mmHg (35-45); ABG PH 7.36 (7.35-7.45); ABG PO2 74 mmHg (83-108); ABG TCO2 26 mmol/L (19-24)
--- NOTE | 2020-08-22 07:33 | XR ---
EXAMINATION TYPE: XR chest 1V portable DATE OF EXAM: 08/22/2020 COMPARISON: 08/21/2020 INDICATION: Tube placement TECHNIQUE: Single frontal view of the chest is obtained. FINDINGS: The heart size is normal. The pulmonary vasculature is normal. Some mild scattered infiltrate is present. Some more focal infiltrate may be at the left base. Correl ate for atelectasis or pneumonia. Endotracheal tube tip is 5.7 cm above the clover. Nasogastric tube transverses the [id number]. Right central venous catheter sheath is present IMPRESSION: 1. Increasing left lower lobe infiltrate. Correlate for pneumonia. Follow-up is recommended. 2. Lines and catheters discussed above.
--- NOTE | 2020-08-22 08:52 | P.PN ---
Subjective Progress Note Date: 08/22/20 Principal diagnosis: Ventilator management. 74-year-old male with a history of abdominal aortic aneurysm, history of myocardial infarction, CVA, essential hypertension, chronic atrial fibrillation, on Ahlquist, 65 year pack tobacco use, COPD, DJD, pneumonia, and questionable alcohol abuse syndrome. The patient underwent a open repair of abdominal aortic aneurysm with 30 mm sleeve graft. The patient lost about 4 L of blood in the operating room. The patient did receive 1 L of colloid, 1 L of Cell Saver, 5 L of crystalloid, 3 amps of sodium bicarbonate, and 1 unit of packed red blood cells. In addition, the patient did receive Lasix 20 mg IV push in the operating room. Currently, the patient's on a volume assist control mode, rate of 12, tidal volume 500, FiO2 60%, and PEEP of 5. Arterial blood gases show a PaO2 of 224, PaCO2 of 44, and a pH of 7.36. The FiO2 was dropped next day to 40%. No other changes were made. We did add DuoNeb every 4 hours around the clock. Currently, the patient is on Rolando-Synephrine for blood pressure support, and lactated Ringer's at 100 mL an hour. We'll switch his Rolando-Synephrine to norepinephrine. He's also on subcutaneous heparin, Ancef, and Protonix IV for GI prophylaxis. I did speak to the surgeon, Dr. Donovan. Progress note dated 08/22/2020. 74-year-old male, postop day #1, status post abdominal aortic aneurysm repair. Currently, the patient remains on the mechanical ventilator. He is on the volume assist control mode, rate 12, tidal volume 500, FiO2 40%, and a PEEP of 5. Arterial blood gases show a PaO2 of 74, a PaCO2 of 44, and pH is 7.36. The patient is currently on propofol at 45 mcg/kg/m, lactated Ringer's at 100 mL an hour, and norepinephrine at 10 mcg/m. Today, the patient will have a daily eruption of sedation, and spontaneous breathing trial, with the idea of getting him extubated. The patient received a lot of blood and blood products in the operating room including 1 L of colloid, 1 L of Cell Saver, 5 L of crystalloid, 3 ampules of sodium bicarbonate, and 1 unit of packed red blood cells. Estimated blood loss was 4 L. Objective - Vital Signs Vital signs: Vital Signs Temp 98.4 F 08/22/20 04:00 Pulse 107 H 08/22/20 07:56 Resp 22 08/22/20 07:00 BP 106/70 08/22/20 04:15 Pulse Ox 96 08/22/20 07:00 Intake & Output 08/21/20 08/22/20 08/22/20 18:59 06:59 18:59 Intake Total 8233.856 2447.384 153.712 Output Total 5130 265 10 Balance 3103.856 2182.384 143.712 Weight 90 kg Intake: IV 7903 2166 106 LR 500 1100 100 Sodium Chloride 0.9% 1, 1000 000 ml @ 999 mls/hr IV . Q1H1M [facility] Rx#:[id number] pressure bag 66 6 Intake, IV Titration 20.856 281.384 47.712 Amount Norepinephrine 32 mg In 12.581 58.679 Sodium Chloride 0.9% 218 ml @ 0.05 MCG/KG/MIN 2.02 mls/hr IV .Q24H [facility] Rx#: [id number] propofoL 500 mg In Empty 8.275 222.705 47.712 Bag 1 bag @ Titrate IV . Q0M [facility] Rx#:[id number] Blood Product 310 Rc As-1 Unit 310 [id number] Output: Urine 630 265 10 Estimated Blood Loss 4500 Other: Voiding Method Indwelling Catheter Indwelling Catheter ABP, PAP, CO, CI - Last Documented Arterial Blood Pressure 118/63 - Exam Sedated, and mechanically ventilated, with an orally placed endotracheal tube and NG tube. HEENT examination is grossly unremarkable. Neck supple. Full range of motion. No adenopathy thyromegaly or neck vein distention. Cardiovascular examination reveals regular rhythm rate. S1-S2 normal. No S3 or S4. No discernible murmur noted. Heart rate is 107 bpm. Lungs reveal mostly clear breath sounds. A few scattered rhonchi are noted. There are no wheezes. Breath sounds equal bilaterally. Abdomen is soft, without masses. No bowel sounds noted. Extremities are intact. No cyanosis clubbing or significant edema. Skin is without rash or lesion. Neurologic examination cannot be properly assessed. - Labs CBC & Chem 7: 08/22/20 03:28 08/22/20 03:28 Labs: Abnormal Lab Results - Last 24 Hours (Table) 08/21/20 08/21/20 08/21/20 Range/Units 06:14 14:36 15:20 WBC (3.8-10.6) k/uL RBC 3.74 L (4.30-5.90) m/uL Hgb 12.2 L (13.0-17.5) gm/dL Hct 36.7 L (39.0-53.0) % MCV (80.0-100.0) fL Plt Count 70 L D (150-450) k/uL ABG pO2 (83-108) mmHg ABG Total CO2 (19-24) mmol/L ABG O2 Saturation (94-97) % Sodium (137-145) mmol/L BUN (9-20) mg/dL Creatinine (0.66-1.25) mg/dL Glucose (74-99) mg/dL POC Glucose (mg/dL) 148 H (75-99) mg/dL Calcium (8.4-10.2) mg/dL Crossmatch See Detail 08/21/20 08/22/20 08/22/20 Range/Units 15:21 03:28 03:28 WBC 12.1 H (3.8-10.6) k/uL RBC 3.44 L (4.30-5.90) m/uL Hgb 11.0 L (13.0-17.5) gm/dL Hct 34.4 L (39.0-53.0) % MCV 100.2 H (80.0-100.0) fL Plt Count 80 L (150-450) k/uL ABG pO2 224 H (83-108) mmHg ABG Total CO2 26 H (19-24) mmol/L ABG O2 Saturation 100.0 H (94-97) % Sodium 135 L (137-145) mmol/L BUN 40 H (9-20) mg/dL Creatinine 1.67 H (0.66-1.25) mg/dL Glucose 162 H (74-99) mg/dL POC Glucose (mg/dL) (75-99) mg/dL Calcium 7.1 L (8.4-10.2) mg/dL Crossmatch 08/22/20 Range/Units 05:01 WBC (3.8-10.6) k/uL RBC (4.30-5.90) m/uL Hgb (13.0-17.5) gm/dL Hct (39.0-53.0) % MCV (80.0-100.0) fL Plt Count (150-450) k/uL ABG pO2 74 L (83-108) mmHg ABG Total CO2 26 H (19-24) mmol/L ABG O2 Saturation (94-97) % Sodium (137-145) mmol/L BUN (9-20) mg/dL Creatinine (0.66-1.25) mg/dL Glucose (74-99) mg/dL POC Glucose (mg/dL) (75-99) mg/dL Calcium (8.4-10.2) mg/dL Crossmatch Assessment and Plan Assessment: Postop day #1, status post open repair of abdominal aortic aneurysm, with 30 mm sleeve graft. Routine postoperative ventilator management. Significant blood loss during procedure, 4 L. Status post 1 L of colloid, 1 L of Cell Saver, 5 L of crystalloid, 3 ampules of sodium bicarbonate, and 1 unit PRBCs. Postoperative hypotension, being managed with fluids, and vasopressors. Rule out adrenal insufficiency, patient started on hydrocortisone, 50 mg IV push every 6 hours. History of previous myocardial infarction. History of CVA. History of essential hypertension. History of chronic atrial fibrillation, on Eliquis. History of [id number] history of tobacco use. Probable underlying COPD. Questionable history of alcohol abuse. History of DJD. History of pneumonia Plan: Plan dated 08/21/2020. A blood gas was done stat. The blood gas results were noted. FiO2 was dropped to 40%. We also added DuoNeb, every 4 hours [id number]. In addition, the patient's receiving Protonix IV for GI prophylaxis, and subcu heparin. In addition, the patient's receiving Ancef as an antibiotic. Also, because of concerns of adrenal insufficiency, the patient is started on hydrocortisone, 50 mg IV push every 6 hours. The Rolando-Synephrine will be switched over to norepinephrine. Morning labs x-rays and blood gases will be done. Hopefully we can get this patient extubated tomorrow morning. Additional recommendations and suggestions are forthcoming. Prognosis is guarded. Plan dated 08/22/2020. The patient's respiratory status is stable. The patient's chest x-ray looks relatively clear. The patient will have a daily interruption of sedation and spontaneous breathing trial today. Today is postop day #1. White count is 12.1, hemoglobin 11, hematocrit 34.4, and platelet count 80,000. Sodium 135, potassium 4.7, chlorides 106, CO2 26, anion gap 3, and BUN/creatinine 40 and 1.67. His medications are reviewed. His chest x-rays reviewed. His overall prognosis remains guarded. We did give him hydrocortisone, 50 mg IV push, every 6 hours, for suspected adrenal insufficiency. Additional recommendations and suggestions are forthcoming. We will continue to follow. Time with Patient: Greater than 30
[2020-08-22] MEDS: HYDROCORTISONE SUCCINATE 100 MG/2 ML VIAL IV SCH ×2 (09:03→17:45)
[2020-08-22] MEDS: HEPARIN SODIUM,PORCINE 5,000 UNIT/ML 1 ML VIAL SQ SCH ×2 (09:03→17:45)
[2020-08-22] MEDS: CHLORHEXIDINE GLUCONATE 15 ML CUP MUCOUS MEM SCH ×2 (09:03→20:59)
[2020-08-22] MEDS: HYDROmorphone 0.5 MG/0.5 ML SYRINGE IVP PRN ×2 (09:27→13:55)
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
--- NOTE | 2020-08-22 13:26 | P.PN ---
Subjective Progress Note Date: 08/22/20 Principal diagnosis: Abdominal aortic aneurysm As a 74-year-old male patient who came in for repair of an abdominal aortic aneurysm. He is postop day #1 for open abdominal aortic aneurysm repair with graft. He is seen and examined in the ICU. He remains intubated. Vital signs have been stable, hemoglobin stable at 11.0, platelets 80, WBC 12.6. He had no acute changes through the night. Objective - Vital Signs Vital signs: Vital Signs Temp 98.2 F 08/22/20 08:00 Pulse 105 H 08/22/20 09:00 Resp 23 08/22/20 09:00 BP 106/70 08/22/20 04:15 Pulse Ox 96 08/22/20 09:00 Intake & Output 08/21/20 08/22/20 08/22/20 18:59 06:59 18:59 Intake Total 8233.856 2447.384 415.712 Output Total 5130 265 27 Balance 3103.856 2182.384 388.712 Weight 90 kg Intake: IV 7903 2166 318 LR 500 1100 300 Sodium Chloride 0.9% 1, 1000 000 ml @ 999 mls/hr IV . Q1H1M [facility] Rx#:[id number] pressure bag 66 18 Intake, IV Titration 20.856 281.384 97.712 Amount Norepinephrine 32 mg In 12.581 58.679 Sodium Chloride 0.9% 218 ml @ 0.05 MCG/KG/MIN 2.02 mls/hr IV .Q24H [facility] Rx#: [id number] propofoL 500 mg In Empty 8.275 222.705 97.712 Bag 1 bag @ Titrate IV . Q0M [facility] Rx#:[id number] Blood Product 310 Rc As-1 Unit 310 [id number] Output: Urine 630 265 27 Estimated Blood Loss 4500 Other: Voiding Method Indwelling Catheter Indwelling Catheter ABP, PAP, CO, CI - Last Documented Arterial Blood Pressure 99/56 - Exam General appearance: The patient is sedated and intubated. HET: Head is normocephalic and atraumatic. Neck: Supple without lymphadenopathy. Trachea midline. Heart: S1 S2. Regular rate and rhythm. Lungs: No crackles or wheezes are heard. Abdomen: Soft, nontender, nondistended with bowel sounds. Incision with dressing clean dry and intact. Extremities: Bilateral lower extremities warm to touch, reported left DP Doppler signal and bright PT Doppler signal. Neurological: Intubated and sedated.. - Labs CBC & Chem 7: 08/22/20 03:28 08/22/20 03:28 Labs: Abnormal Lab Results - Last 24 Hours (Table) 08/21/20 08/21/20 08/21/20 Range/Units 06:14 14:36 15:20 WBC (3.8-10.6) k/uL RBC 3.74 L (4.30-5.90) m/uL Hgb 12.2 L (13.0-17.5) gm/dL Hct 36.7 L (39.0-53.0) % MCV (80.0-100.0) fL Plt Count 70 L D (150-450) k/uL ABG pO2 (83-108) mmHg ABG Total CO2 (19-24) mmol/L ABG O2 Saturation (94-97) % Sodium (137-145) mmol/L BUN (9-20) mg/dL Creatinine (0.66-1.25) mg/dL Glucose (74-99) mg/dL POC Glucose (mg/dL) 148 H (75-99) mg/dL Calcium (8.4-10.2) mg/dL Crossmatch See Detail 08/21/20 08/22/20 08/22/20 Range/Units 15:21 03:28 03:28 WBC 12.1 H (3.8-10.6) k/uL RBC 3.44 L (4.30-5.90) m/uL Hgb 11.0 L (13.0-17.5) gm/dL Hct 34.4 L (39.0-53.0) % MCV 100.2 H (80.0-100.0) fL Plt Count 80 L (150-450) k/uL ABG pO2 224 H (83-108) mmHg ABG Total CO2 26 H (19-24) mmol/L ABG O2 Saturation 100.0 H (94-97) % Sodium 135 L (137-145) mmol/L BUN 40 H (9-20) mg/dL Creatinine 1.67 H (0.66-1.25) mg/dL Glucose 162 H (74-99) mg/dL POC Glucose (mg/dL) (75-99) mg/dL Calcium 7.1 L (8.4-10.2) mg/dL Crossmatch 08/22/20 Range/Units 05:01 WBC (3.8-10.6) k/uL RBC (4.30-5.90) m/uL Hgb (13.0-17.5) gm/dL Hct (39.0-53.0) % MCV (80.0-100.0) fL Plt Count (150-450) k/uL ABG pO2 74 L (83-108) mmHg ABG Total CO2 26 H (19-24) mmol/L ABG O2 Saturation (94-97) % Sodium (137-145) mmol/L BUN (9-20) mg/dL Creatinine (0.66-1.25) mg/dL Glucose (74-99) mg/dL POC Glucose (mg/dL) (75-99) mg/dL Calcium (8.4-10.2) mg/dL Crossmatch Assessment and Plan Assessment: 1. Postop day #1 abdominal aortic aneurysm repair graft 2. Abdominal aortic aneurysm, 8.8 cm 3. Hypertension 4. Coronary artery disease 5. Atrial fibrillation 6. TIA/CVA 7. Long-standing history of tobacco use 8. COPD Plan: 1. Supportive care 2. Appreciate ICU management 3. Agree with trial of sedation holiday, possible extubation 4. Keep nothing by mouth 5. IV Dilaudid ordered 6. Consult primary medicine for medical management 7. We follow with you closely The impression and plan of care has been dictated as directed. Dr. Donovan I performed a history and examination of this patient, discussed the same with the dictator. I agree with the dictator's note ,documented as a scribe. Any additional findings or plans will be noted.
[2020-08-22 15:26] LABS: Basophils % (A) 0 %; Eosinophils % (A) 0 %; HCT 36.5 % (39.0-53.0); HGB 11.8 gm/dL (13.0-17.5); Lymphocytes # (A) 0.8 k/uL (1.0-4.8); Lymphocytes % (A) 5 %; MCH 32.1 pg (25.0-35.0); MCHC 32.2 g/dL (31.0-37.0); MCV 99.6 fL (80.0-100.0); Macrocytosis Slight; Mean Platelet Volume 10.2; Monocytes # (A) 0.5 k/uL (0-1.0); Monocytes % (A) 3 %; Neutrophils # (A) 16.9 k/uL (1.3-7.7); Neutrophils % (A) 92 %; RBC 3.67 m/uL (4.30-5.90); RDW 15.2 % (11.5-15.5); WBC 18.3 k/uL (3.8-10.6)
[2020-08-22 15:27] LABS: Platelet Count 72 k/uL (150-450)
[2020-08-22 17:32] LABS: Glucose,Whole Blood 120 mg/dL (75-99)
[2020-08-22] MEDS: DILTIAZEM 125 MG in SODIUM CHLORIDE 0.9% 100 ML IV SCH (19:07)
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
[2020-08-22] MEDS: HYDROmorphone 1 MG/ML 1 ML SYRINGE IVP PRN (21:01)
[2020-08-22] MEDS: NOREPINEPHRINE 32 MG in SODIUM CHLORIDE 0.9% 218 ML IV SCH (23:53)
[2020-08-23] MEDS: HYDROCORTISONE SUCCINATE 100 MG/2 ML VIAL IV SCH ×4 (00:13→23:37)
[2020-08-23] MEDS: HEPARIN SODIUM,PORCINE 5,000 UNIT/ML 1 ML VIAL SQ SCH ×4 (00:13→23:37)
[2020-08-23] MEDS ORDERED: SODIUM CHLORIDE 0.9% 1,000 ML IV ONE (00:14)
[2020-08-23 00:33] LABS: Allen Test Performed? Yes
[2020-08-23] MEDS: IPRATROPIUM-ALBUTEROL 3 ML NEB INHALATION SCH ×6 (00:42→21:49)
[2020-08-23 00:46] LABS: ABG PCO2 44 mmHg (35-45); ABG PH 7.32 (7.35-7.45)
[2020-08-23 00:47] LABS: ABG HCO3 23 mmol/L (21-25); ABG PO2 59 mmHg (83-108); ABG TCO2 24 mmol/L (19-24)
[2020-08-23] MEDS: DILTIAZEM 125 MG in SODIUM CHLORIDE 0.9% 100 ML IV SCH ×3 (03:14→23:28)
[2020-08-23 05:29] LABS: Potassium 4.6 mmol/L (3.5-5.1)
[2020-08-23 05:31] LABS: HGB 10.8 gm/dL (13.0-17.5); MCH 32.1 pg (25.0-35.0); MCHC 32.6 g/dL (31.0-37.0); MCV 98.5 fL (80.0-100.0); Macrocytosis Slight; Mean Platelet Volume 10.2; RBC 3.35 m/uL (4.30-5.90); RDW 15.6 % (11.5-15.5); WBC 10.9 k/uL (3.8-10.6)
[2020-08-23 05:39] LABS: ABG Base Excess -4.3 mmol/L; ABG HCO3 22 mmol/L (21-25); ABG Oxygen Saturation 93.1 % (94-97); ABG PCO2 40 mmHg (35-45); ABG PH 7.34 (7.35-7.45); ABG PO2 66 mmHg (83-108); ABG TCO2 23 mmol/L (19-24); Allen Test Performed? Yes
[2020-08-23 05:44] LABS: Platelet Count 75 k/uL (150-450)
[2020-08-23] MEDS: LACTATED RINGERS 1,000 ML IV SCH (06:15)
[2020-08-23 06:50] LABS: Band Neutrophils % 38 %; Lymphocytes # (M) 0.65 k/uL (1.0-4.8); Metamyelocytes # (M) 0.33 k/uL (0); Metamyelocytes % 3 %; Monocytes # (M) 0.11 k/uL (0-1.0); Myelocytes # (M) 0.11 k/uL (0); Myelocytes % 1 %; Neutrophils % (M) 52 %; Nucleated Red Blood Cells 0 /100 WBC (0-0); Total Cells Counted 200
[2020-08-23 06:51] LABS: Anisocytosis (M) Present
[2020-08-23 06:52] LABS: Large Platelets Present
--- NOTE | 2020-08-23 07:26 | XR ---
EXAMINATION TYPE: XR chest 1V portable DATE OF EXAM: 08/23/2020 COMPARISON: August 22, 2020 HISTORY: SOB, Follow Up FINDINGS: Indwelling tubes and catheters are unchanged. Increasing patchy basilar infiltrates noted. Stable appearance of the cardio-mediastinal structures at this time. IMPRESSION: 1. Increasing patchy basilar infiltrates noted.Clinical correlation and follow up until resolution i s recommended.
[2020-08-23] MEDS: ATORVASTATIN 40 MG TAB PO SCH (07:59)
[2020-08-23] MEDS: allopurinoL 300 MG TAB PO SCH (07:59)
[2020-08-23] MEDS: CHLORHEXIDINE GLUCONATE 15 ML CUP MUCOUS MEM SCH ×2 (08:08→21:10)
[2020-08-23] MEDS: SODIUM CHLORIDE 0.9% 1,000 ML IV SCH ×2 (10:24→21:28)
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
--- NOTE | 2020-08-23 11:17 | P.PN ---
Subjective Progress Note Date: 08/23/20 Principal diagnosis: Ventilator management. 74-year-old male with a history of abdominal aortic aneurysm, history of myocardial infarction, CVA, essential hypertension, chronic atrial fibrillation, on Ahlquist, 65 year pack tobacco use, COPD, DJD, pneumonia, and questionable alcohol abuse syndrome. The patient underwent a open repair of abdominal aortic aneurysm with 30 mm sleeve graft. The patient lost about 4 L of blood in the operating room. The patient did receive 1 L of colloid, 1 L of Cell Saver, 5 L of crystalloid, 3 amps of sodium bicarbonate, and 1 unit of packed red blood cells. In addition, the patient did receive Lasix 20 mg IV push in the operating room. Currently, the patient's on a volume assist control mode, rate of 12, tidal volume 500, FiO2 60%, and PEEP of 5. Arterial blood gases show a PaO2 of 224, PaCO2 of 44, and a pH of 7.36. The FiO2 was dropped next day to 40%. No other changes were made. We did add DuoNeb every 4 hours around the clock. Currently, the patient is on Rolando-Synephrine for blood pressure support, and lactated Ringer's at 100 mL an hour. We'll switch his Rolando-Synephrine to norepinephrine. He's also on subcutaneous heparin, Ancef, and Protonix IV for GI prophylaxis. I did speak to the surgeon, Dr. Donovan. Progress note dated 08/22/2020. 74-year-old male, postop day #1, status post abdominal aortic aneurysm repair. Currently, the patient remains on the mechanical ventilator. He is on the volume assist control mode, rate 12, tidal volume 500, FiO2 40%, and a PEEP of 5. Arterial blood gases show a PaO2 of 74, a PaCO2 of 44, and pH is 7.36. The patient is currently on propofol at 45 mcg/kg/m, lactated Ringer's at 100 mL an hour, and norepinephrine at 10 mcg/m. Today, the patient will have a daily eruption of sedation, and spontaneous breathing trial, with the idea of getting him extubated. The patient received a lot of blood and blood products in the operating room including 1 L of colloid, 1 L of Cell Saver, 5 L of crystalloid, 3 ampules of sodium bicarbonate, and 1 unit of packed red blood cells. Estimated blood loss was 4 L. Progress note dated 08/23/2020 74-year-old male, postop day #2, status post abdominal aortic aneurysm repair. Yesterday, we attempted a daily interruption of sedation and spontaneous breathing trial. Unfortunately, the patient did not do well. He remains on the mechanical ventilator, on the volume assist control mode, rate 12, tidal volume 500, FiO2 50%, and PEEP of 5. His arterial blood gases show a PaO2 of 66, PaCO2 of 40, and a pH is 7.34. He remains on Cardizem drip at 15 mg an hour, propofol at 40 mcg/kg/m, norepinephrine at 45 mcg/m, and lactated Ringer's at 100 mL an hour. We will start him on TPN. Because of no or little urine output, will have nephrology see the patient. He may need dialysis or continuous renal replacement therapy. In the operating room, because of a 4 L estimated blood loss, the patient received 1 L of colloid, 1 L of Cell Saver, 5 L of crystalloid, 3 ampules of sodium bicarbonate, and 1 unit of packed red blood cells. Objective - Vital Signs Vital signs: Vital Signs Temp 99.7 F H 08/23/20 08:00 Pulse 112 H 08/23/20 10:59 Resp 27 H 08/23/20 10:00 BP 107/60 08/23/20 06:45 Pulse Ox 93 L 08/23/20 10:00 Intake & Output 08/22/20 08/23/20 08/23/20 18:59 06:59 18:59 Intake Total 0038.861 1896.952 572.96 Output Total 119 23 12 Balance 8084.357 1421.952 560.96 Weight 90.6 kg Intake: IV 1672 2272 474 LR 1500 1200 400 Sodium Chloride 0.9% 1, 1000 000 ml @ 999 mls/hr IV . Q1H1M [facility] Rx#:[id number] ceFAZolin 1,000 mg In 100 50 Sodium Chloride 0.9% 50 ml @ 100 mls/hr IVPB Q8HR [facility] Rx#:[id number] pressure bag 72 72 24 Intake, IV Titration 319.982 512.952 98.96 Amount Diltiazem 125 mg In 77.917 Sodium Chloride 0.9% 100 ml @ 5 MG/HR 5 mls/hr IV .Q24H [facility] Rx#:[id number] Norepinephrine 32 mg In 72.270 206.645 Sodium Chloride 0.9% 218 ml @ 0.05 MCG/KG/MIN 2.02 mls/hr IV .Q24H [facility] Rx#: [id number] propofoL 500 mg In Empty 247.712 228.39 98.96 Bag 1 bag @ Titrate IV . Q0M [facility] Rx#:[id number] Output: Urine 119 23 12 Other: Voiding Method Indwelling Catheter Indwelling Catheter Indwelling Catheter ABP, PAP, CO, CI - Last Documented Arterial Blood Pressure 90/54 - Exam Sedated, and mechanically ventilated, with an orally placed endotracheal tube and NG tube. HEENT examination is grossly unremarkable. Neck supple. Full range of motion. No adenopathy thyromegaly or neck vein distention. Cardiovascular examination reveals regular rhythm rate. S1-S2 normal. No S3 or S4. No discernible murmur noted. Heart rate is 112 bpm. Heart sounds are distant. Lungs reveal mostly clear breath sounds. A few scattered rhonchi are noted. There are no wheezes. Breath sounds equal bilaterally. Abdomen is soft, without masses. No bowel sounds noted. Extremities are intact. No cyanosis clubbing or significant edema. Skin is without rash or lesion. Neurologic examination cannot be properly assessed. - Labs CBC & Chem 7: 08/23/20 05:05 08/23/20 05:05 Labs: Abnormal Lab Results - Last 24 Hours (Table) 08/21/20 08/22/20 08/22/20 Range/Units 06:14 14:55 17:31 WBC 18.3 H (3.8-10.6) k/uL RBC 3.67 L (4.30-5.90) m/uL Hgb 11.8 L (13.0-17.5) gm/dL Hct 36.5 L (39.0-53.0) % RDW (11.5-15.5) % Plt Count 72 L (150-450) k/uL Neutrophils # 16.9 H (1.3-7.7) k/uL Neutrophils # (Manual) (1.3-7.7) k/uL Lymphocytes # 0.8 L (1.0-4.8) k/uL Lymphocytes # (Manual) (1.0-4.8) k/uL Metamyelocytes # (Man) (0) k/uL Myelocytes # (Manual) (0) k/uL ABG pH (7.35-7.45) ABG pO2 (83-108) mmHg ABG O2 Saturation (94-97) % Sodium (137-145) mmol/L BUN (9-20) mg/dL Creatinine (0.66-1.25) mg/dL Glucose (74-99) mg/dL POC Glucose (mg/dL) 120 H (75-99) mg/dL Calcium (8.4-10.2) mg/dL Crossmatch See Detail 08/23/20 08/23/20 08/23/20 Range/Units 00:26 05:05 05:05 WBC 10.9 H (3.8-10.6) k/uL RBC 3.35 L (4.30-5.90) m/uL Hgb 10.8 L (13.0-17.5) gm/dL Hct 33.0 L (39.0-53.0) % RDW 15.6 H (11.5-15.5) % Plt Count 75 L (150-450) k/uL Neutrophils # (1.3-7.7) k/uL Neutrophils # (Manual) 9.80 H (1.3-7.7) k/uL Lymphocytes # (1.0-4.8) k/uL Lymphocytes # (Manual) 0.65 L (1.0-4.8) k/uL Metamyelocytes # (Man) 0.33 H (0) k/uL Myelocytes # (Manual) 0.11 H (0) k/uL ABG pH 7.32 L (7.35-7.45) ABG pO2 59 L* (83-108) mmHg ABG O2 Saturation 89.0 L (94-97) % Sodium 136 L (137-145) mmol/L BUN 53 H (9-20) mg/dL Creatinine 2.95 H (0.66-1.25) mg/dL Glucose 118 H (74-99) mg/dL POC Glucose (mg/dL) (75-99) mg/dL Calcium 7.0 L (8.4-10.2) mg/dL Crossmatch 08/23/20 Range/Units 05:31 WBC (3.8-10.6) k/uL RBC (4.30-5.90) m/uL Hgb (13.0-17.5) gm/dL Hct (39.0-53.0) % RDW (11.5-15.5) % Plt Count (150-450) k/uL Neutrophils # (1.3-7.7) k/uL Neutrophils # (Manual) (1.3-7.7) k/uL Lymphocytes # (1.0-4.8) k/uL Lymphocytes # (Manual) (1.0-4.8) k/uL Metamyelocytes # (Man) (0) k/uL Myelocytes # (Manual) (0) k/uL ABG pH 7.34 L (7.35-7.45) ABG pO2 66 L (83-108) mmHg ABG O2 Saturation 93.1 L (94-97) % Sodium (137-145) mmol/L BUN (9-20) mg/dL Creatinine (0.66-1.25) mg/dL Glucose (74-99) mg/dL POC Glucose (mg/dL) (75-99) mg/dL Calcium (8.4-10.2) mg/dL Crossmatch Microbiology - Last 24 Hours (Table) 08/22/20 21:08 Sputum Culture - Preliminary Sputum Assessment and Plan Assessment: Postop day #2, status post open repair of abdominal aortic aneurysm, with 30 mm sleeve graft. Routine postoperative ventilator management. Significant blood loss during procedure, 4 L. Status post 1 L of colloid, 1 L of Cell Saver, 5 L of crystalloid, 3 ampules of sodium bicarbonate, and 1 unit PRBCs. Postoperative hypotension, being managed with fluids, and vasopressors. Rule out adrenal insufficiency, patient started on hydrocortisone, 50 mg IV push every 6 hours. History of previous myocardial infarction. History of CVA. History of essential hypertension. History of chronic atrial fibrillation, on Eliquis. History of [id number] history of tobacco use. Probable underlying COPD. Questionable history of alcohol abuse. History of DJD. History of pneumonia Plan: Plan dated 08/23/2020. The patient will be started on total parenteral nutrition, as a surgeon with prefer the patient not have anything enterally. The patient remains on the mechanical ventilator. Not a candidate for weaning today. The patient's on Cardizem drip at 15 mg an hour, propofol at 40 mcg/kg/m, and norepinephrine at 45 mcg/m. The patient is getting hydrocortisone stress doses, 50 mg IV push, every 6 hours. Microbiology is as far negative. The patient overall prognosis is guarded. We'll continue to follow make appropriate recommendations. Time with Patient: Greater than 30
--- NOTE | 2020-08-23 11:32 | P.PN ---
Subjective Progress Note Date: 08/23/20 Principal diagnosis: Abdominal aortic aneurysm As a 74-year-old male patient who came in for repair of an abdominal aortic aneurysm. He is postop day #2 for open abdominal aortic aneurysm repair with graft. He is seen and examined in the ICU. He remains intubated. Vital signs have been stable, hemoglobin stable at 10.8, platelets 75, WBC 10.9, sodium 136, potassium 4.6, BUN 53, creatinine 2.95. Patient went into A. fib with RVR yesterday, cardiology is following and patient is on Cardizem drip. This patient does have a history of chronic atrial fibrillation and was on Eliquis. Patient has been hypotensive and is on Levophed. The nurse reported changing his abdominal dressing yesterday and noted a large clot, and was given report that the nightmares also change the dressing and removed a large clot. He has had approximately 25 mL's of maroon colored drainage from his NG tube. Decreased urine output, therefore nephrology is on consult. The patient remains sedated and intubated. Objective - Vital Signs Vital signs: Vital Signs Temp 99.7 F H 08/23/20 08:00 Pulse 113 H 08/23/20 08:00 Resp 27 H 08/23/20 08:00 BP 107/60 08/23/20 06:45 Pulse Ox 93 L 08/23/20 08:00 Intake & Output 08/22/20 08/23/20 08/23/20 18:59 06:59 18:59 Intake Total 4126.935 0626.952 312 Output Total 119 23 7 Balance 2766.571 4684.952 305 Weight 90.6 kg Intake: IV 1672 2272 262 LR 1500 1200 200 Sodium Chloride 0.9% 1, 1000 000 ml @ 999 mls/hr IV . Q1H1M [facility] Rx#:[id number] ceFAZolin 1,000 mg In 100 50 Sodium Chloride 0.9% 50 ml @ 100 mls/hr IVPB Q8HR [facility] Rx#:[id number] pressure bag 72 72 12 Intake, IV Titration 319.982 512.952 50 Amount Diltiazem 125 mg In 77.917 Sodium Chloride 0.9% 100 ml @ 5 MG/HR 5 mls/hr IV .Q24H [facility] Rx#:[id number] Norepinephrine 32 mg In 72.270 206.645 Sodium Chloride 0.9% 218 ml @ 0.05 MCG/KG/MIN 2.02 mls/hr IV .Q24H [facility] Rx#: [id number] propofoL 500 mg In Empty 247.712 228.39 50 Bag 1 bag @ Titrate IV . Q0M [facility] Rx#:[id number] Output: Urine 119 23 7 Other: Voiding Method Indwelling Catheter Indwelling Catheter Indwelling Catheter ABP, PAP, CO, CI - Last Documented Arterial Blood Pressure 96/59 - Exam General appearance: The patient is sedated and intubated. HET: Head is normocephalic and atraumatic. Neck: Supple without lymphadenopathy. Trachea midline. Heart: S1 S2. Regular rate and rhythm. Lungs: No crackles or wheezes are heard. Abdomen: Soft, nontender, nondistended with bowel sounds. Incision with dressing clean dry and intact with small area of marked drainage. Extremities: Bilateral lower extremities to touch, positive left DP Doppler signal and positive right PT Doppler signal. Neurological: Intubated and sedated.. - Labs CBC & Chem 7: 08/23/20 05:05 08/23/20 05:05 Labs: Abnormal Lab Results - Last 24 Hours (Table) 08/21/20 08/22/20 08/22/20 Range/Units 06:14 14:55 17:31 WBC 18.3 H (3.8-10.6) k/uL RBC 3.67 L (4.30-5.90) m/uL Hgb 11.8 L (13.0-17.5) gm/dL Hct 36.5 L (39.0-53.0) % RDW (11.5-15.5) % Plt Count 72 L (150-450) k/uL Neutrophils # 16.9 H (1.3-7.7) k/uL Neutrophils # (Manual) (1.3-7.7) k/uL Lymphocytes # 0.8 L (1.0-4.8) k/uL Lymphocytes # (Manual) (1.0-4.8) k/uL Metamyelocytes # (Man) (0) k/uL Myelocytes # (Manual) (0) k/uL ABG pH (7.35-7.45) ABG pO2 (83-108) mmHg ABG O2 Saturation (94-97) % Sodium (137-145) mmol/L BUN (9-20) mg/dL Creatinine (0.66-1.25) mg/dL Glucose (74-99) mg/dL POC Glucose (mg/dL) 120 H (75-99) mg/dL Calcium (8.4-10.2) mg/dL Crossmatch See Detail 08/23/20 08/23/20 08/23/20 Range/Units 00:26 05:05 05:05 WBC 10.9 H (3.8-10.6) k/uL RBC 3.35 L (4.30-5.90) m/uL Hgb 10.8 L (13.0-17.5) gm/dL Hct 33.0 L (39.0-53.0) % RDW 15.6 H (11.5-15.5) % Plt Count 75 L (150-450) k/uL Neutrophils # (1.3-7.7) k/uL Neutrophils # (Manual) 9.80 H (1.3-7.7) k/uL Lymphocytes # (1.0-4.8) k/uL Lymphocytes # (Manual) 0.65 L (1.0-4.8) k/uL Metamyelocytes # (Man) 0.33 H (0) k/uL Myelocytes # (Manual) 0.11 H (0) k/uL ABG pH 7.32 L (7.35-7.45) ABG pO2 59 L* (83-108) mmHg ABG O2 Saturation 89.0 L (94-97) % Sodium 136 L (137-145) mmol/L BUN 53 H (9-20) mg/dL Creatinine 2.95 H (0.66-1.25) mg/dL Glucose 118 H (74-99) mg/dL POC Glucose (mg/dL) (75-99) mg/dL Calcium 7.0 L (8.4-10.2) mg/dL Crossmatch 08/23/20 Range/Units 05:31 WBC (3.8-10.6) k/uL RBC (4.30-5.90) m/uL Hgb (13.0-17.5) gm/dL Hct (39.0-53.0) % RDW (11.5-15.5) % Plt Count (150-450) k/uL Neutrophils # (1.3-7.7) k/uL Neutrophils # (Manual) (1.3-7.7) k/uL Lymphocytes # (1.0-4.8) k/uL Lymphocytes # (Manual) (1.0-4.8) k/uL Metamyelocytes # (Man) (0) k/uL Myelocytes # (Manual) (0) k/uL ABG pH 7.34 L (7.35-7.45) ABG pO2 66 L (83-108) mmHg ABG O2 Saturation 93.1 L (94-97) % Sodium (137-145) mmol/L BUN (9-20) mg/dL Creatinine (0.66-1.25) mg/dL Glucose (74-99) mg/dL POC Glucose (mg/dL) (75-99) mg/dL Calcium (8.4-10.2) mg/dL Crossmatch Assessment and Plan Assessment: 1. Postop day #1 abdominal aortic aneurysm repair graft 2. Abdominal aortic aneurysm, 8.8 cm 3. Hypertension 4. Coronary artery disease 5. Atrial fibrillation 6. TIA/CVA 7. Long-standing history of tobacco use 8. COPD Plan: 1. Supportive care 2. Continue with ICU medical management and recommendations 4. Keep nothing by mouth 5. IV Dilaudid ordered 6. Consult primary medicine for medical management 7. Agree with TPN for nutrition 8. Appreciate recommendations from nephrology 9. Repeat labs in the a.m. We will continue to follow closely The above dictated assessment and findings were discussed with Dr. Devries. The impression and plan of care have been directed as dictated.
--- NOTE | 2020-08-23 11:46 | US ---
EXAMINATION TYPE: US kidneys/renal and bladder DATE OF EXAM: 08/23/2020 COMPARISON: NONE CLINICAL HISTORY: maia. EXAM MEASUREMENTS: Right Kidney: 9.2 x 4.2 x 4.1 cm Left Kidney: not visualized ICU patient done portable on a vent, in restraints, non-responsive. Technically difficult, limited st udy. Right Kidney: No hydronephrosis or masses as seen Left Kidney: unable to visualize Bladder: not visualized due to bandaging Fluid seen left flank. There is no evidence for hydronephrosis at this point in time. No nephrolithiasis is seen. No luke s are identified. The urinary bladder is anechoic. IMPRESSION: As above
[2020-08-23] MEDS: NOREPINEPHRINE 32 MG in SODIUM CHLORIDE 0.9% 218 ML IV SCH ×2 (11:59→23:25)
[2020-08-23 12:04] LABS: Glucose,Whole Blood 90 mg/dL (75-99)
[2020-08-23] MEDS: HYDROmorphone 1 MG/ML 1 ML SYRINGE IVP PRN (12:35)
[2020-08-23 12:58] LABS: Ionized Calcium 4.4 mg/dL (4.5-5.3)
[2020-08-23 13:06] LABS: Albumin 2.1 g/dL (3.5-5.0); Magnesium 1.6 mg/dL (1.6-2.3); Phosphorus 5.9 mg/dL (2.5-4.5)
[2020-08-23] MEDS ORDERED: Magnesium Replacement Protocol 1 EACH MISC MISCELLANE PRN (13:10)
--- NOTE | 2020-08-23 13:10 | CDI ---
Documentation Clarification Form Date: 08/23/2020 12:45:20 PM From: Bhavya Mccarthy RN, CCDS Admit Date: 08/21/2020 05:33:00 AM Patient Name: Taj Peoples Visit Number: [id number] ATTENTION: The Clinical Documentation Specialists (CDI) and [facility] Coding Staff appreciate your assistance in clarifying documentation. Please respond to the clarification below the line at the bottom and electronically sign. The CDI & [facility] Coding staff will review the response and follow-up if needed. Please note: Queries are made part of the Legal Health Record. If you have any questions, please contact the author of this message via ITS. Dr. Marco Donovan Shock is documented in the Nephrology Consult in a patient with documented with documented significant blood loss and postoperative hypotension being managed with fluids and pressors and requires further specificity. Patient history/risk factors: Chronic atrial fib on Eliquis, AAA, ND, CVA, tobacco use, COPD, questionable ETOH abuse Clinical Indicators: 2/3 Procedure note: 8.8 cm juxtarenal abdominal aortic aneurysm. Open repair of abdominal aortic aneurysm with 30 mm sleeve graft. 2/3 Pulmonary consult and subsequent progress notes: "Significant blood loss during procedure, 4 L. Status post 1 L of colloid, 1 L of Cell Saver, 5 L of crystalloid, 3 ampules of sodium bicarbonate, and 1 unit PRBCs. Postoperative hypotension, being managed with fluids, and vasopressors." 08/23 Nephrology Consult: Acute kidney injury secondary to ATN secondary to hypotension/shock. Baseline creatinine near 1 and is 2.95 today. Oliguric. Status post open AAA repair 08/21/2020. Acute blood loss anemia status post crystalloid and packed red cell transfusion during surgery. Shock maintained on max dose Levophed." 08/21 1445 ICU admission Vitals: HR 64, RR 17, ABP 128/74, CVP 12, Spo2 100% on 60% FIO2 MV Treatment: See pulmonary progress notes regarding Fluids received on OR 2/3 Decadron 4 mg IVP OT 2/3 Solu-Cortef 50 mg IVP Q 8 hrs. 2/3 Levophed Gtt titrate for B/P 2/3 1 unit PRBC's transfused 2/ 2L 0.9% NS IVF Bolus 2/5 1L 0.9% NS IVF Bolus followed by 100 cc/hr. In your professional opinion, can you please further specify the postoperative hypotension if known and if this diagnosis was expected or unexpected in relation to the patient's surgical procedure? Hypovolemic Shock Cause_blood / fluid loss Cardiogenic Shock Cause__unknown to me, please inquire of cardiology Other, please specify Unable to determine (Last Revision: April 2017) MTDD
[2020-08-23] MEDS: MAGNESIUM SULFATE-D5W PMX 1 GM in DEXTROSE/WATER 1 100ML.BAG IVPB SCH ×2 (13:16→15:22)
[2020-08-23] MEDS ORDERED: LIDOCAINE 1% INJ 10MG/ML (20 ML MDV) ONE (13:34)
[2020-08-23] MEDS ORDERED: LIDOCAINE 1% INJ 10MG/ML (20 ML MDV) SQ ONE (14:08)
--- NOTE | 2020-08-23 14:33 | XR ---
EXAMINATION TYPE: XR chest 1V confirm line [facility] [place] DATE OF EXAM: 08/23/2020 COMPARISON: Prior chest x-ray same dated earlier time HISTORY: PICC line placement TECHNIQUE: Single frontal view of the chest is obtained. FINDINGS: Right-sided PICC line is been placed in the interval, distal tip is overlying superior yovani a cava. No other significant interval change. Side-port of the NG tube is in the distal thoracic esop hagus. Postop changes noted to the abdomen. IMPRESSION: No evident application status post PICC line placement. NG tube shows the side port in t he distal thoracic esophagus level.
[2020-08-23] MEDS ORDERED: PARENTERAL ELECTROLYTES 20 ML, MVI, ADULT NO.4 WITH VIT K 10 ML, TRACE (CONC-1ML/DOSE) ... IV SCH ×4 (15:00)
--- NOTE | 2020-08-23 15:07 | P.PN ---
Subjective Pt is seen and examined on the ventilator with NG tube in place with dark maroon output. He underwent open repair of an abdominal aortic aneurysm. He is requiring levophed and cardizem was initiated today for tachycardia. Tracings indicate atrial fibrillation. Blood pressure 87/54 heart rate 133. Laboratory data reviewed, WBC 10.9, hemoglobin 10.8, platelets 75, pH 7.3, pCO2 66, sodium 136, potassium 4.6, creatinine 2.95 and magnesium 1.6. GENERAL: Sedated and maintained on mechanical ventilation. NECK: Supple without JVD or thyromegaly. LUNGS: Breath sounds clear to auscultation bilaterally. Respiration equal and unlabored. No wheezes, rales or rhonchi. HEART: Irregular rate and rhythm with systolic ejection murmur at the base, no rubs or gallops. S1 and S2 heard. EXTREMITIES: Normal range of motion, no edema. No clubbing or cyanosis. Peripheral pulses intact. ASSESSMENT Chronic persistent atrial fibrillation with RVR s/p abdominal aortic aneurysm repair PLAN Continue supportive measures with cardizem for rate control, however if blood pressure cannot tolerate this will need to be shut off. Nurse Practitioner note has been reviewed, I agree with a documented findings and plan of care. Patient was seen and examined. Objective - Vital Signs Vital signs: Vital Signs Temp 99.7 F H 08/23/20 12:00 Pulse 133 H 08/23/20 13:00 Resp 21 08/23/20 13:00 BP 107/60 08/23/20 06:45 Pulse Ox 93 L 08/23/20 13:00 Intake & Output 08/22/20 08/23/20 08/23/20 18:59 06:59 18:59 Intake Total 0221.417 0954.952 1222.701 Output Total 119 23 29 Balance 2158.192 2390.952 1193.701 Weight 90.6 kg 90.6 kg Intake: IV 1672 2272 792 LR 1500 1200 400 Sodium Chloride 0.9% 1, 300 000 ml @ 100 mls/hr IV . Q10H [facility] Rx#:[id number] Sodium Chloride 0.9% 1, 1000 000 ml @ 999 mls/hr IV . Q1H1M [facility] Rx#:[id number] ceFAZolin 1,000 mg In 100 50 Sodium Chloride 0.9% 50 ml @ 100 mls/hr IVPB Q8HR [facility] Rx#:[id number] pressure bag 72 72 42 Intake, IV Titration 319.982 512.952 430.701 Amount Diltiazem 125 mg In 77.917 125 Sodium Chloride 0.9% 100 ml @ 5 MG/HR 5 mls/hr IV .Q24H [facility] Rx#:[id number] Norepinephrine 32 mg In 72.270 206.645 159.941 Sodium Chloride 0.9% 218 ml @ 0.05 MCG/KG/MIN 2.02 mls/hr IV .Q24H [facility] Rx#: [id number] propofoL 500 mg In Empty 247.712 228.39 145.76 Bag 1 bag @ Titrate IV . Q0M [facility] Rx#:[id number] Output: Urine 119 23 29 Other: Voiding Method Indwelling Catheter Indwelling Catheter Indwelling Catheter ABP, PAP, CO, CI - Last Documented Arterial Blood Pressure 87/54 - Labs CBC & Chem 7: 08/23/20 05:05 08/23/20 05:05 Labs: Abnormal Lab Results - Last 24 Hours (Table) 08/21/20 08/22/20 08/22/20 Range/Units 06:14 14:55 17:31 WBC 18.3 H (3.8-10.6) k/uL RBC 3.67 L (4.30-5.90) m/uL Hgb 11.8 L (13.0-17.5) gm/dL Hct 36.5 L (39.0-53.0) % RDW (11.5-15.5) % Plt Count 72 L (150-450) k/uL Neutrophils # 16.9 H (1.3-7.7) k/uL Neutrophils # (Manual) (1.3-7.7) k/uL Lymphocytes # 0.8 L (1.0-4.8) k/uL Lymphocytes # (Manual) (1.0-4.8) k/uL Metamyelocytes # (Man) (0) k/uL Myelocytes # (Manual) (0) k/uL ABG pH (7.35-7.45) ABG pO2 (83-108) mmHg ABG O2 Saturation (94-97) % Sodium (137-145) mmol/L BUN (9-20) mg/dL Creatinine (0.66-1.25) mg/dL Glucose (74-99) mg/dL POC Glucose (mg/dL) 120 H (75-99) mg/dL Calcium (8.4-10.2) mg/dL Ionized Calcium Vee (4.5-5.3) mg/dL Phosphorus (2.5-4.5) mg/dL Albumin (3.5-5.0) g/dL Triglycerides (<150) mg/dL Crossmatch See Detail 08/23/20 08/23/20 08/23/20 Range/Units 00:26 05:05 05:05 WBC 10.9 H (3.8-10.6) k/uL RBC 3.35 L (4.30-5.90) m/uL Hgb 10.8 L (13.0-17.5) gm/dL Hct 33.0 L (39.0-53.0) % RDW 15.6 H (11.5-15.5) % Plt Count 75 L (150-450) k/uL Neutrophils # (1.3-7.7) k/uL Neutrophils # (Manual) 9.80 H (1.3-7.7) k/uL Lymphocytes # (1.0-4.8) k/uL Lymphocytes # (Manual) 0.65 L (1.0-4.8) k/uL Metamyelocytes # (Man) 0.33 H (0) k/uL Myelocytes # (Manual) 0.11 H (0) k/uL ABG pH 7.32 L (7.35-7.45) ABG pO2 59 L* (83-108) mmHg ABG O2 Saturation 89.0 L (94-97) % Sodium 136 L (137-145) mmol/L BUN 53 H (9-20) mg/dL Creatinine 2.95 H (0.66-1.25) mg/dL Glucose 118 H (74-99) mg/dL POC Glucose (mg/dL) (75-99) mg/dL Calcium 7.0 L (8.4-10.2) mg/dL Ionized Calcium Vee (4.5-5.3) mg/dL Phosphorus (2.5-4.5) mg/dL Albumin (3.5-5.0) g/dL Triglycerides (<150) mg/dL Crossmatch 08/23/20 08/23/20 Range/Units 05:31 11:51 WBC (3.8-10.6) k/uL RBC (4.30-5.90) m/uL Hgb (13.0-17.5) gm/dL Hct (39.0-53.0) % RDW (11.5-15.5) % Plt Count (150-450) k/uL Neutrophils # (1.3-7.7) k/uL Neutrophils # (Manual) (1.3-7.7) k/uL Lymphocytes # (1.0-4.8) k/uL Lymphocytes # (Manual) (1.0-4.8) k/uL Metamyelocytes # (Man) (0) k/uL Myelocytes # (Manual) (0) k/uL ABG pH 7.34 L (7.35-7.45) ABG pO2 66 L (83-108) mmHg ABG O2 Saturation 93.1 L (94-97) % Sodium (137-145) mmol/L BUN (9-20) mg/dL Creatinine (0.66-1.25) mg/dL Glucose (74-99) mg/dL POC Glucose (mg/dL) (75-99) mg/dL Calcium (8.4-10.2) mg/dL Ionized Calcium Vee 4.4 L (4.5-5.3) mg/dL Phosphorus 5.9 H (2.5-4.5) mg/dL Albumin 2.1 L (3.5-5.0) g/dL Triglycerides 250 H (<150) mg/dL Crossmatch Microbiology - Last 24 Hours (Table) 08/22/20 21:08 Gram Stain - Preliminary Sputum Sputum Culture - Preliminary
[2020-08-23] MEDS: SODIUM CHLORIDE 0.9% 150 ML with VASOPRESSIN 60 UNIT IV SCH ×2 (15:22)
--- NOTE | 2020-08-23 16:31 | IR ---
EXAMINATION TYPE: IR cvc insert >=5 years DATE OF EXAM: 08/23/2020 COMPARISON: NONE HISTORY: Needs long-term intravenous access for total parenteral nutrition FINDINGS: Maximal barrier technique was utilized. Hand hygiene obtained with soap and water and alco hol-based hand rub. The skin overlying the right brachial vein was localized with ultrasound and note d to be compressible and patent by ultrasound. An ultrasound image was obtained and submitted on pat ient's chart. Sterile technique utilized with the ultrasound machine. The skin overlying was prepped and draped and Lidocaine used for local anesthesia. A skin raymundo was made with a scalpel. Access was gained to the vein under direct ultrasound guidance with a 21-gauge needle and a 0.018 inch wire was advanced. Access site was dilated with a peel-away sheath and the catheter tailored to length. Cat heter advanced centrally and a post procedure chest x-ray verified placement. Catheter was fixed to the skin and a sterile dressing placed. Hemostasis achieved and the catheter was aspirated and flush ed with sterile saline. The patient remained in stable condition. IMPRESSION: STATUS POST ULTRASOUND GUIDED PICC LINE PLACEMENT, READY FOR USE. THIS PROCEDURE WAS PER FORMED BY THE UNDERSIGNED.
[2020-08-23 18:06] LABS: Potassium 4.8 mmol/L (3.5-5.1)
--- NOTE | 2020-08-23 19:28 | P.PN ---
Progress Note - Text Progress Note Date: 08/23/20 - Chief Complaint Abdominal surgery - History of Present Illness Consultation: This is a 74-year-old patient who follows with Dr. rollins from [employer]. Chronic stable medical conditions include COPD, coronary artery disease with previous AK, osteoarthritis, chronic nicotine dependence. Patient was recently in the hospital following outpatient screening for abdominal aortic aneurysm. It was found to be 9.5 x 8.2 cm in the midportion. Internal thrombus seen surrounding the small bowel in the lumen. It also extends into the right and left common iliac arteries. Patient was therefore sent to the ER. Further computed tomography scan of the chest and abdomen in the ER showed 4.2 cm ascending thoracic aneurysm and 3.8 cm descending thoracic aorta with mural thrombus. Patient denies any abdominal pain. Does get charley horses. At the baseline is a short of breath and wheezing. He is an active smoker. No chest pain. Patient was then discharged to return for surgery. August 21: patient underwent open repair of abdominal aortic aneurysm with a 30 mm sleeve graft. Currently in the ICU. On the ventilator intubated. FiO2 40 and a PEEP of 5. Has NG tube in place. Murillo catheter. Endotracheal tube. Drips include IV propofol and norepinephrine. Telemetry shows atrial fibrillation Today-ICU: On the ventilator with FiO2 50 to PEEP of 5. Drips include norepinephrine, propofol, Cardizem drip. Telemetry shows atrial fibrillation with a heart of 120s. NG tube patient putting out dark aspirate. Review of systems: Patient intubated Past medical history to include: COPD, coronary artery disease with AK, osteoarthritis, abdominal aortic aneurysm 8.8 cm, 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 Smoking for many years. About 2 beers a day. Retired Physical examination: VITAL SIGNS: 99.7, 121, 27, 93/56, 92% on 50% FiO2 GENERAL: BMI 29.3, laying in bed, intubated. EYES: Pupils equal. Conjunctiva normal. HEENT: External appearance of nose and ears normal, oral cavity-endotracheal tube, NG tube-dark aspirate NECK: JVD unable to assess; masses not palpable. HEART: Irregular heart sounds; no edema. LUNGS: Respiratory rate increased decreased breath sounds,. ABDOMEN: Soft, dressing over the midline incision, liver spleen not palpable, no masses palpable. PSYCH: Sedated EXTREMITIES: Diminished peripheral pulses INVESTIGATIONS, reviewed in the clinical context: Fabry fifth: White count 10.9 hemoglobin 10.8 platelets 75 potassium 4.6 bun 53 creatinine 2.95 White count 18.3 hemoglobin 11.8 platelets 72 potassium 4.7 bun 40 creatinine 1.67 Previous testin08/13/2020: White count 4.1 hemoglobin 13.8 platelets 148 bun 19 creatinine 0.94 Assessment: -Abdominal aortic aneurysm 8.8 cm, also involving the iliac arteries, with intraluminal thrombus-followed by open repair with a 30 minute per day sleeve graft on 08/21/2020 -Ascending thoracic aortic is a 4.2 cm, descending thoracic aorta 3.8 cm with mural thrombus -Chronic nicotine dependence patient cigarette smoker -Emphysema, with some exacerbation in a current smoker -Coronary artery disease and a prior history of AK -Suspect peripheral arterial disease -Persistent atrial fibrillation rate uncontrolled-on IV Cardizem drip -Acute hypoxic respiratory failure, requiring ventilator support -Acute kidney injury patient's creatinine was 0.94 on August 13. Possible ATN. Oliguric. -Upper GI bleed with NG tube putting out dark aspirate Plan: Patient's currently on DuoNeb, IV Ancef, IV Cardizem drip, IV Solu-Cortef, lactated Ringer's, norepinephrine, propofol. Patient on PPN. Started IV PPI. Poor urine output. Consult nephrology. Thank you Dr. Donovan
[2020-08-23 20:18] LABS: ABG Base Excess -9.9 mmol/L; ABG HCO3 19 mmol/L (21-25); ABG Oxygen Saturation 89.7 % (94-97); ABG PCO2 58 mmHg (35-45); ABG PO2 67 mmHg (83-108); ABG TCO2 21 mmol/L (19-24); Allen Test Performed? Yes
[2020-08-23 20:22] LABS: ABG PH 7.13 (7.35-7.45)
[2020-08-23] MEDS ORDERED: SODIUM BICARB 8.4% 50 ML SYR (1 MEQ/ML) IV STA (20:58)
[2020-08-24] MEDS: IPRATROPIUM-ALBUTEROL 3 ML NEB INHALATION SCH ×6 (00:51→19:08)
[2020-08-24 03:41] LABS: Glucose,Whole Blood 255 mg/dL (75-99)
[2020-08-24 04:06] LABS: HGB 9.7 gm/dL (13.0-17.5); Hypochromasia Slight; MCH 32.8 pg (25.0-35.0); MCHC 32.2 g/dL (31.0-37.0); Macrocytosis Slight; Mean Platelet Volume 10.1; RBC 2.94 m/uL (4.30-5.90); RDW 14.9 % (11.5-15.5); WBC 17.7 k/uL (3.8-10.6)
[2020-08-24 04:13] LABS: Platelet Count 74 k/uL (150-450)
[2020-08-24 04:17] LABS: Magnesium 2.3 mg/dL (1.6-2.3); Phosphorus 8.3 mg/dL (2.5-4.5); Potassium 5.1 mmol/L (3.5-5.1)
[2020-08-24 05:28] LABS: ABG Base Excess -7.9 mmol/L; ABG HCO3 20 mmol/L (21-25); ABG Oxygen Saturation 93.6 % (94-97); ABG PCO2 53 mmHg (35-45); ABG PO2 72 mmHg (83-108); ABG TCO2 22 mmol/L (19-24); Allen Test Performed? Yes
[2020-08-24 05:35] LABS: ABG PH 7.19 (7.35-7.45)
[2020-08-24 06:49] LABS: Glucose,Whole Blood 203 mg/dL (75-99)
[2020-08-24] MEDS: INSULIN ASPART (NovoLOG) 100 UNIT/ML VIAL SQ SCH ×3 (07:19→18:11)
[2020-08-24] MEDS: SODIUM CHLORIDE 0.9% 1,000 ML IV SCH (07:20)
--- NOTE | 2020-08-24 07:28 | XR ---
EXAMINATION TYPE: XR chest 1V portable DATE OF EXAM: 08/24/2020 COMPARISON: NONE HISTORY: SOB, Follow Up FINDINGS: Indwelling tubes and catheters are unchanged. Perihilar and basilar infiltrates persist. Stable appearance of the cardio-mediastinal structures at this time. Pleural effusion unchanged. IMPRESSION: 1. Stable portable chest. Clinical correlation and follow up until resolution is recommended.
[2020-08-24] MEDS: NOREPINEPHRINE 32 MG in SODIUM CHLORIDE 0.9% 218 ML IV SCH ×2 (08:28→16:24)
[2020-08-24] MEDS: ATORVASTATIN 40 MG TAB PO SCH (09:17)
[2020-08-24] MEDS: allopurinoL 300 MG TAB PO SCH (09:17)
[2020-08-24] MEDS ORDERED: FUROSEMIDE 100 MG in SODIUM CHLORIDE 0.9% 90 ML IV SCH (09:30)
[2020-08-24] MEDS: CHLORHEXIDINE GLUCONATE 15 ML CUP MUCOUS MEM SCH ×2 (10:09→20:25)
[2020-08-24] MEDS: HYDROCORTISONE SUCCINATE 100 MG/2 ML VIAL IV SCH ×2 (10:09→17:02)
[2020-08-24] MEDS: HEPARIN SODIUM,PORCINE 5,000 UNIT/ML 1 ML VIAL SQ SCH ×2 (10:10→17:04)
[2020-08-24] MEDS: PIPERACILLIN-TAZOBACTAM 3.375 GM in SODIUM CHLORIDE 0.9% 100 ML IVPB SCH ×2 (10:12→20:26)
[2020-08-24 10:18] LABS: ABG Base Excess -7.5 mmol/L; ABG HCO3 20 mmol/L (21-25); ABG PCO2 47 mmHg (35-45); ABG PH 7.24 (7.35-7.45); ABG PO2 68 mmHg (83-108); ABG TCO2 21 mmol/L (19-24)
[2020-08-24 10:20] LABS: Allen Test Performed? no
--- NOTE | 2020-08-24 10:35 | P.PN ---
Subjective Progress Note Date: 08/24/20 Principal diagnosis: Ventilator management. 74-year-old male with a history of abdominal aortic aneurysm, history of myocardial infarction, CVA, essential hypertension, chronic atrial fibrillation, on Ahlquist, 65 year pack tobacco use, COPD, DJD, pneumonia, and questionable alcohol abuse syndrome. The patient underwent a open repair of abdominal aortic aneurysm with 30 mm sleeve graft. The patient lost about 4 L of blood in the operating room. The patient did receive 1 L of colloid, 1 L of Cell Saver, 5 L of crystalloid, 3 amps of sodium bicarbonate, and 1 unit of packed red blood cells. In addition, the patient did receive Lasix 20 mg IV push in the operating room. Currently, the patient's on a volume assist control mode, rate of 12, tidal volume 500, FiO2 60%, and PEEP of 5. Arterial blood gases show a PaO2 of 224, PaCO2 of 44, and a pH of 7.36. The FiO2 was dropped next day to 40%. No other changes were made. We did add DuoNeb every 4 hours around the clock. Currently, the patient is on Rolando-Synephrine for blood pressure support, and lactated Ringer's at 100 mL an hour. We'll switch his Rolando-Synephrine to norepinephrine. He's also on subcutaneous heparin, Ancef, and Protonix IV for GI prophylaxis. I did speak to the surgeon, Dr. Donovan. Progress note dated 08/22/2020. 74-year-old male, postop day #1, status post abdominal aortic aneurysm repair. Currently, the patient remains on the mechanical ventilator. He is on the volume assist control mode, rate 12, tidal volume 500, FiO2 40%, and a PEEP of 5. Arterial blood gases show a PaO2 of 74, a PaCO2 of 44, and pH is 7.36. The patient is currently on propofol at 45 mcg/kg/m, lactated Ringer's at 100 mL an hour, and norepinephrine at 10 mcg/m. Today, the patient will have a daily eruption of sedation, and spontaneous breathing trial, with the idea of getting him extubated. The patient received a lot of blood and blood products in the operating room including 1 L of colloid, 1 L of Cell Saver, 5 L of crystalloid, 3 ampules of sodium bicarbonate, and 1 unit of packed red blood cells. Estimated blood loss was 4 L. Progress note dated 08/23/2020 74-year-old male, postop day #2, status post abdominal aortic aneurysm repair. Yesterday, we attempted a daily interruption of sedation and spontaneous breathing trial. Unfortunately, the patient did not do well. He remains on the mechanical ventilator, on the volume assist control mode, rate 12, tidal volume 500, FiO2 50%, and PEEP of 5. His arterial blood gases show a PaO2 of 66, PaCO2 of 40, and a pH is 7.34. He remains on Cardizem drip at 15 mg an hour, propofol at 40 mcg/kg/m, norepinephrine at 45 mcg/m, and lactated Ringer's at 100 mL an hour. We will start him on TPN. Because of no or little urine output, will have nephrology see the patient. He may need dialysis or continuous renal replacement therapy. In the operating room, because of a 4 L estimated blood loss, the patient received 1 L of colloid, 1 L of Cell Saver, 5 L of crystalloid, 3 ampules of sodium bicarbonate, and 1 unit of packed red blood cells. Progress note dated 08/24/2020. 74-year-old male, postop day #3, status post abdominal aortic aneurysm repair. Unfortunately, the patient has done poorly since coming back from the operating room. He remains on the mechanical ventilator, on the volume assist control mode, rate 26, to be increased up to 32, tidal volume 500, FiO2 60%, and PEEP of 13. Blood gases on those same settings but with a rate of 26, show a PaO2 of 72, PaCO2 of 53, and a pH 7.19. The patient is on a Cardizem drip at 10 mg an hour, propofol at 45 mcg/kg/m, TPN at 30 mL an hour, vasopressin at 0.03 units per minute, and norepinephrine at 57 mcg/m. In addition, the patient is on a saline IV at 100 mL an hour. We changed his antibiotics to Zosyn. Nephrology was consulted and the patient may very well require hemodialysis today. During the surgery, he had 4 L of estimated blood loss, and received 1 L of colloid, 1 L of Cell Saver, 5 L of crystalloid, 3 ampules of sodium bicarbonate, and 1 unit of packed red blood cells. Currently, his white count is 17.7, hemoglobin 9.7, hematocrit 30, and platelet count 74,000. A repeat blood gas after the vent changes were made show a PaO2 of 68, a PaCO2 which is now down to 47, and a pH which is 7.24, up from 7.19. Sodium is 136, potassium 5.1, chlorides 105, CO2 21, anion gap 10, BUN 64, and creatinine 4.38. Microbiology is currently pending or negative and I did ask the nurse to make sure that there was blood urine and sputum cultures. Objective - Vital Signs Vital signs: Vital Signs Temp 98.3 F 08/24/20 08:00 Pulse 105 H 08/24/20 09:15 Resp 26 H 08/24/20 09:15 BP 108/88 08/24/20 09:15 Pulse Ox 93 L 08/24/20 09:15 Intake & Output 08/23/20 08/24/20 08/24/20 18:59 06:59 18:59 Intake Total 2389.846 2047.679 725.721 Output Total 37 10 0 Balance 2352.846 2037.679 725.721 Weight 90.6 kg 98.1 kg Intake: IV 1679 1649 499 LR 400 Magnesium Sulfate-D5w Pmx 200 1 gm In Dextrose/Water 1 100ml.bag @ 100 mls/hr IVPB Q1H [facility] Rx#: [id number] Parenteral Electrolytes 60 360 90 20 ml Mvi, Adult No.4 with Vit K 10 ml Trace ( Conc-1Ml/Dose) 1 ml In Amino Acid 5%-D15w 1,000 ml @ 30 mls/hr IV .Q24H [facility] Rx#:[id number] Sodium Chloride 0.9% 1, 800 1200 300 000 ml @ 100 mls/hr IV . Q10H [facility] Rx#:[id number] ceFAZolin 1,000 mg In 150 50 100 Sodium Chloride 0.9% 50 ml @ 100 mls/hr IVPB Q8HR [facility] Rx#:[id number] pressure bag 69 39 9 Intake, IV Titration 710.846 398.679 226.721 Amount Diltiazem 125 mg In 175.25 74.75 Sodium Chloride 0.9% 100 ml @ 5 MG/HR 5 mls/hr IV .Q24H [facility] Rx#:[id number] Norepinephrine 32 mg In 267.234 92.536 226.721 Sodium Chloride 0.9% 218 ml @ 0.05 MCG/KG/MIN 2.02 mls/hr IV .Q24H [facility] Rx#: [id number] propofoL 500 mg In Empty 268.362 231.393 Bag 1 bag @ Titrate IV . Q0M [facility] Rx#:[id number] Output: Urine 37 10 0 Other: Voiding Method Indwelling Catheter Indwelling Catheter # Voids 0 ABP, PAP, CO, CI - Last Documented Arterial Blood Pressure 98/54 - Exam Sedated, and mechanically ventilated, with an orally placed endotracheal tube and NG tube. HEENT examination is grossly unremarkable. Neck supple. Full range of motion. No adenopathy thyromegaly or neck vein distention. Cardiovascular examination reveals regular rhythm rate. S1-S2 normal. No S3 or S4. No discernible murmur noted. Heart rate is 105 bpm. Heart sounds are distant. Lungs reveal coarse bilateral rhonchi. No wheezes. Breath sounds equal bilaterally. Her sounds are diminished throughout. No crackles are appreciated. Abdomen is soft, without masses. No bowel sounds noted. Extremities are intact. No cyanosis clubbing or significant edema. Skin is without rash or lesion. Neurologic examination cannot be properly assessed. - Labs CBC & Chem 7: 08/24/20 03:38 08/24/20 03:38 Labs: Abnormal Lab Results - Last 24 Hours (Table) 08/23/20 08/23/20 08/23/20 Range/Units 11:51 17:39 20:15 WBC (3.8-10.6) k/uL RBC (4.30-5.90) m/uL Hgb (13.0-17.5) gm/dL Hct (39.0-53.0) % MCV (80.0-100.0) fL Plt Count (150-450) k/uL ABG pH 7.13 L* (7.35-7.45) ABG pCO2 58 H (35-45) mmHg ABG pO2 67 L (83-108) mmHg ABG HCO3 19 L (21-25) mmol/L ABG O2 Saturation 89.7 L (94-97) % Sodium 136 L (137-145) mmol/L Carbon Dioxide 21 L (22-30) mmol/L BUN 57 H (9-20) mg/dL Creatinine 3.77 H (0.66-1.25) mg/dL Glucose 209 H (74-99) mg/dL POC Glucose (mg/dL) (75-99) mg/dL Calcium 7.0 L (8.4-10.2) mg/dL Ionized Calcium Vee 4.4 L (4.5-5.3) mg/dL Phosphorus 5.9 H (2.5-4.5) mg/dL Albumin 2.1 L (3.5-5.0) g/dL Triglycerides 250 H (<150) mg/dL 08/24/20 08/24/20 08/24/20 Range/Units 03:38 03:38 03:38 WBC 17.7 H (3.8-10.6) k/uL RBC 2.94 L (4.30-5.90) m/uL Hgb 9.7 L (13.0-17.5) gm/dL Hct 30.0 L (39.0-53.0) % MCV 102.0 H (80.0-100.0) fL Plt Count 74 L (150-450) k/uL ABG pH (7.35-7.45) ABG pCO2 (35-45) mmHg ABG pO2 (83-108) mmHg ABG HCO3 (21-25) mmol/L ABG O2 Saturation (94-97) % Sodium 136 L (137-145) mmol/L Carbon Dioxide 21 L (22-30) mmol/L BUN 64 H (9-20) mg/dL Creatinine 4.38 H (0.66-1.25) mg/dL Glucose 238 H (74-99) mg/dL POC Glucose (mg/dL) 255 H (75-99) mg/dL Calcium 7.0 L (8.4-10.2) mg/dL Ionized Calcium Vee (4.5-5.3) mg/dL Phosphorus 8.3 H (2.5-4.5) mg/dL Albumin (3.5-5.0) g/dL Triglycerides (<150) mg/dL 08/24/20 08/24/20 08/24/20 Range/Units 05:25 06:48 10:16 WBC (3.8-10.6) k/uL RBC (4.30-5.90) m/uL Hgb (13.0-17.5) gm/dL Hct (39.0-53.0) % MCV (80.0-100.0) fL Plt Count (150-450) k/uL ABG pH 7.19 L* 7.24 L (7.35-7.45) ABG pCO2 53 H 47 H (35-45) mmHg ABG pO2 72 L 68 L (83-108) mmHg ABG HCO3 20 L 20 L (21-25) mmol/L ABG O2 Saturation 93.6 L 93.0 L (94-97) % Sodium (137-145) mmol/L Carbon Dioxide (22-30) mmol/L BUN (9-20) mg/dL Creatinine (0.66-1.25) mg/dL Glucose (74-99) mg/dL POC Glucose (mg/dL) 203 H (75-99) mg/dL Calcium (8.4-10.2) mg/dL Ionized Calcium Vee (4.5-5.3) mg/dL Phosphorus (2.5-4.5) mg/dL Albumin (3.5-5.0) g/dL Triglycerides (<150) mg/dL Microbiology - Last 24 Hours (Table) 08/22/20 21:08 Gram Stain - Preliminary Sputum Sputum Culture - Preliminary Assessment and Plan Assessment: Postop day #3, status post open repair of abdominal aortic aneurysm, with 30 mm sleeve graft. Routine postoperative ventilator management. Significant blood loss during procedure, 4 L. Status post 1 L of colloid, 1 L of Cell Saver, 5 L of crystalloid, 3 ampules of sodium bicarbonate, and 1 unit PRBCs. Postoperative hypotension, being managed with fluids, and vasopressors. Rule out adrenal insufficiency, patient started on hydrocortisone, 50 mg IV push every 6 hours. History of previous myocardial infarction. History of CVA. History of essential hypertension. History of chronic atrial fibrillation, on Eliquis. History of [id number]-ayxa history of tobacco use. Probable underlying COPD. Questionable history of alcohol abuse. History of DJD. History of pneumonia Plan: Plan dated 08/24/2020. The patient remains on the mechanical ventilator. We do increase her rate from 26 to 32, and PaCO2 was improved, as was the pH. In addition, the patient remains on Cardizem at 10 mg an hour, propofol at 45 mcg/kg/m, TPN at 30 mL an hour, vasopressin at 0.03 units per minute, and norepinephrine at 57 mcg/m. The patient's also get a saline at 100 mL an hour. Nephrology has been consulted. The patient may benefit from hemodialysis. The antibiotic was changed to Zosyn. In addition, I've added Lasix drip at 10 mg an hour. Additional recommendations and suggestions are forthcoming. Prognosis is poor. We'll continue to follow make recommendations were necessary. Time with Patient: Greater than 30
[2020-08-24 11:47] LABS: Glucose,Whole Blood 214 mg/dL (75-99)
--- NOTE | 2020-08-24 13:39 | P.PCN ---
Date of Procedure: 08/24/20 Description of Procedure: DATE OF SERVICE: 08/24/2020. SURGEON: Mil Graham PREOPERATIVE DIAGNOSIS: Acute renal failure. POSTOPERATIVE DIAGNOSIS: Same. OPERATION: Ultrasound guided right common femoral vein temporary dialysis catheter placement. ANESTHESIA: Local ESTIMATED BLOOD LOSS: 5 mL COMPLICATIONS: None After written informed consent was obtained and all risks, benefits, competitions were described the procedure was performed at bedside. Utilizing ultrasound the right common femoral vein was visualized and shown to be patent without any thrombus. Utilizing a multipurpose needle the right common femoral vein was accessed. Dark nonpulsatile blood flow was visualized. Guidewire was placed and needle was removed. Serial dilation was then performed and a 20 cm straight Mahurkar dialysis catheter was then guided over the guidewire. Guidewire was then removed and ports were assessed for patency. All ports were easily flushed and hep-locked. The catheter was then sutured in place with nylon suture. The area was then cleansed and dressings were placed. Patient tolerated procedure well.
--- NOTE | 2020-08-24 13:50 | P.PN ---
Subjective Progress Note Date: 08/24/20 follow-up for acute kidney injury. Oliguric for the last 8 hours. On ventilator with 60% FiO2 and 13 of PEEP and 2 pressors with, vasopressin and Levophed. Objective - Vital Signs Vital signs: Vital Signs Temp 98.1 F 08/24/20 12:00 Pulse 101 H 08/24/20 13:30 Resp 32 H 08/24/20 13:30 BP 103/75 08/24/20 13:30 Pulse Ox 93 L 08/24/20 13:30 Intake & Output 08/23/20 08/24/20 08/24/20 18:59 06:59 18:59 Intake Total 2389.846 2047.679 1357.721 Output Total 37 10 0 Balance 2352.846 2037.679 1357.721 Weight 90.6 kg 98.1 kg Intake: IV 1679 1649 1131 LR 400 Magnesium Sulfate-D5w Pmx 200 1 gm In Dextrose/Water 1 100ml.bag @ 100 mls/hr IVPB Q1H [facility] Rx#: [id number] Parenteral Electrolytes 60 360 210 20 ml Mvi, Adult No.4 with Vit K 10 ml Trace ( Conc-1Ml/Dose) 1 ml In Amino Acid 5%-D15w 1,000 ml @ 30 mls/hr IV .Q24H [facility] Rx#:[id number] Sodium Chloride 0.9% 1, 800 1200 700 000 ml @ 100 mls/hr IV . Q10H [facility] Rx#:[id number] Zosyn 100 ceFAZolin 1,000 mg In 150 50 100 Sodium Chloride 0.9% 50 ml @ 100 mls/hr IVPB Q8HR [facility] Rx#:[id number] pressure bag 69 39 21 Intake, IV Titration 710.846 398.679 226.721 Amount Diltiazem 125 mg In 175.25 74.75 Sodium Chloride 0.9% 100 ml @ 5 MG/HR 5 mls/hr IV .Q24H [facility] Rx#:[id number] Norepinephrine 32 mg In 267.234 92.536 226.721 Sodium Chloride 0.9% 218 ml @ 0.05 MCG/KG/MIN 2.02 mls/hr IV .Q24H [facility] Rx#: [id number] propofoL 500 mg In Empty 268.362 231.393 Bag 1 bag @ Titrate IV . Q0M [facility] Rx#:[id number] Output: Urine 37 10 0 Other: Voiding Method Indwelling Catheter Indwelling Catheter Indwelling Catheter # Voids 0 ABP, PAP, CO, CI - Last Documented Arterial Blood Pressure 105/64 - Exam intubated and sedated. Decreased breath sounds S1 2 heard Abdominal midline scar edema - Labs CBC & Chem 7: 08/24/20 03:38 08/24/20 03:38 Labs: Abnormal Lab Results - Last 24 Hours (Table) 08/23/20 08/23/20 08/24/20 Range/Units 17:39 20:15 03:38 WBC (3.8-10.6) k/uL RBC (4.30-5.90) m/uL Hgb (13.0-17.5) gm/dL Hct (39.0-53.0) % MCV (80.0-100.0) fL Plt Count (150-450) k/uL ABG pH 7.13 L* (7.35-7.45) ABG pCO2 58 H (35-45) mmHg ABG pO2 67 L (83-108) mmHg ABG HCO3 19 L (21-25) mmol/L ABG O2 Saturation 89.7 L (94-97) % Sodium 136 L 136 L (137-145) mmol/L Carbon Dioxide 21 L 21 L (22-30) mmol/L BUN 57 H 64 H (9-20) mg/dL Creatinine 3.77 H 4.38 H (0.66-1.25) mg/dL Glucose 209 H 238 H (74-99) mg/dL POC Glucose (mg/dL) (75-99) mg/dL Calcium 7.0 L 7.0 L (8.4-10.2) mg/dL Phosphorus 8.3 H (2.5-4.5) mg/dL 08/24/20 08/24/20 08/24/20 Range/Units 03:38 03:38 05:25 WBC 17.7 H (3.8-10.6) k/uL RBC 2.94 L (4.30-5.90) m/uL Hgb 9.7 L (13.0-17.5) gm/dL Hct 30.0 L (39.0-53.0) % MCV 102.0 H (80.0-100.0) fL Plt Count 74 L (150-450) k/uL ABG pH 7.19 L* (7.35-7.45) ABG pCO2 53 H (35-45) mmHg ABG pO2 72 L (83-108) mmHg ABG HCO3 20 L (21-25) mmol/L ABG O2 Saturation 93.6 L (94-97) % Sodium (137-145) mmol/L Carbon Dioxide (22-30) mmol/L BUN (9-20) mg/dL Creatinine (0.66-1.25) mg/dL Glucose (74-99) mg/dL POC Glucose (mg/dL) 255 H (75-99) mg/dL Calcium (8.4-10.2) mg/dL Phosphorus (2.5-4.5) mg/dL 08/24/20 08/24/20 08/24/20 Range/Units 06:48 10:16 11:36 WBC (3.8-10.6) k/uL RBC (4.30-5.90) m/uL Hgb (13.0-17.5) gm/dL Hct (39.0-53.0) % MCV (80.0-100.0) fL Plt Count (150-450) k/uL ABG pH 7.24 L (7.35-7.45) ABG pCO2 47 H (35-45) mmHg ABG pO2 68 L (83-108) mmHg ABG HCO3 20 L (21-25) mmol/L ABG O2 Saturation 93.0 L (94-97) % Sodium (137-145) mmol/L Carbon Dioxide (22-30) mmol/L BUN (9-20) mg/dL Creatinine (0.66-1.25) mg/dL Glucose (74-99) mg/dL POC Glucose (mg/dL) 203 H 214 H (75-99) mg/dL Calcium (8.4-10.2) mg/dL Phosphorus (2.5-4.5) mg/dL Microbiology - Last 24 Hours (Table) 08/22/20 21:08 Gram Stain - Preliminary Sputum Sputum Culture - Preliminary Gram Neg Bacilli Assessment and Plan Assessment: #1 oliguric acute kidney injury secondary to hemodynamic ATN.Base Line creatinine 1.0 MG per DL #2 hypovolemic shock secondary to blood loss #3 acute respiratory failure on ventilator #4 volume overload #5 status post AAA repair. Plan: #1 start hemodialysis short treatment today plan again tomorrow. #2. stop Lasix and IV fluids. #3 renal ultrasound unable to visualize the left kidney. Check urine analysis and urine electrolytes. #4 avoid nephrotoxic agents and hypotensive episodes
[2020-08-24] MEDS: SODIUM CHLORIDE 0.9% 150 ML with VASOPRESSIN 60 UNIT IV SCH ×2 (15:29)
[2020-08-24] MEDS: AMINO ACID IV SCH ×4 (17:43)
[2020-08-24] MEDS: PARENTERAL ELECTROLYTES IV SCH ×4 (17:43)
[2020-08-24] MEDS: [UNRECOGNIZED DRUG - OTHER] IV SCH ×4 (17:43)
[2020-08-24] MEDS: DILTIAZEM 125 MG in SODIUM CHLORIDE 0.9% 100 ML IV SCH (17:56)
[2020-08-24 18:11] LABS: Glucose,Whole Blood 196 mg/dL (75-99)
--- NOTE | 2020-08-24 19:55 | P.PN ---
Progress Note - Text Progress Note Date: 08/24/20 - Chief Complaint Abdominal surgery Consultation: This is a 74-year-old patient who follows with Dr. rollins from [place]. Chronic stable medical conditions include COPD, coronary artery disease with previous CA, osteoarthritis, chronic nicotine dependence. Patient was recently in the hospital following outpatient screening for abdominal aortic aneurysm. It was found to be 9.5 x 8.2 cm in the midportion. Internal thrombus seen surrounding the small bowel in the lumen. It also extends into the right and left common iliac arteries. Patient was therefore sent to the ER. Further computed tomography scan of the chest and abdomen in the ER showed 4.2 cm as cending thoracic aneurysm and 3.8 cm descending thoracic aorta with mural thrombus. Patient denies any abdominal pain. Does get charley horses. At the baseline is a short of breath and wheezing. He is an active smoker. No chest pain. Patient was then discharged to return for surgery. August 21: patient underwent open repair of abdominal aortic aneurysm with a 30 mm sleeve graft. Currently in the ICU. On the ventilator intubated. FiO2 40 and a PEEP of 5. Has NG tube in place. Murillo catheter. Endotracheal tube. Drips include IV propofol and norepinephrine. Telemetry shows atrial f ibrillation Today-ICU: Ventilator with FiO2 16 a PEEP of 13. Drips include we will affect, vasopressin, propofol. A. fib remains uncontrolled with patient remaining on Cardizem drip. NG tube output of dark aspirate has decreased. Decreased urine output. Hemodialysis catheter was placed earlier by Dr. Graham. 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 Smoking for many years. About 2 beers a day. Retired Physical examination: VITAL SIGNS: 98, 110, 32, 85/61, 94% on the ventilator GENERAL: BMI 29.3, laying in bed, intubated. EYES: Pupils equal. Conjunctiva normal. HEENT: External appearance of nose and ears normal, oral cavity-endotracheal tube, NG tube-dark aspirate NECK: JVD unable to assess; masses not palpable. HEART: Irregular heart sounds; no edema. LUNGS: Respiratory rate increased decreased breath sounds,. ABDOMEN: Soft, dressing over the midline incision, liver spleen not palpable, no masses palpable. Murillo catheter PSYCH: Sedated INVESTIGATIONS, reviewed in the clinical context: August 24: White count 13.7 hemoglobin 9.7 platelets 74 potassium 5.1 bun 64 creatinine 4.38. ABG showed pH of 7.13 pCO2 58 pO2 67 Fabry fifth: White count 10.9 hemoglobin 10.8 platelets 75 potassium 4.6 bun 53 creatinine 2.95 White count 18.3 hemoglobin 11.8 platelets 72 potassium 4.7 bun 40 creatinine 1.67 Previous testin08/13/2020: White count 4.1 hemoglobin 13.8 platelets 148 bun 19 creatinine 0.94 Assessment: -Abdominal aortic aneurysm 8.8 cm, also involving the iliac arteries, with intraluminal thrombus-followed by open repair with a 30 minute per day sleeve graft on 08/21/2020 -Ascending thoracic aortic is a 4.2 cm, descending thoracic aorta 3.8 cm with mural thrombus -Chronic nicotine dependence patient cigarette smoker -Emphysema, with some exacerbation in a current smoker -Coronary artery disease and a prior history of CA -Suspect peripheral arterial disease -Persistent atrial fibrillation rate uncontrolled-on IV Cardizem drip -Acute hypoxic respiratory failure, requiring ventilator support -Acute kidney injury patient's creatinine was 0.94 on August 13. Possible ATN. Oliguric. Worsening. Hemodialysis catheter placed today on August 24. First hemodialysis today. -Upper GI bleed with NG tube putting out dark aspirate Plan: Patient's currently on DuoNeb, IV Ancef, IV Cardizem drip, IV Solu-Cortef, lactated Ringer's, norepinephrine, propofol. Started on hemodialysis today after placement of a hemodialysis catheter. Prognosis guarded. Thank you Dr. Donovan
[2020-08-24 23:22] LABS: Glucose,Whole Blood 189 mg/dL (75-99)
[2020-08-25] MEDS: HYDROCORTISONE SUCCINATE 100 MG/2 ML VIAL IV SCH ×3 (00:01→17:43)
[2020-08-25] MEDS: INSULIN ASPART (NovoLOG) 100 UNIT/ML VIAL SQ SCH ×4 (00:03→17:43)
[2020-08-25] MEDS: IPRATROPIUM-ALBUTEROL 3 ML NEB INHALATION SCH ×7 (00:16→23:54)
[2020-08-25] MEDS: DILTIAZEM 125 MG in SODIUM CHLORIDE 0.9% 100 ML IV SCH (01:45)
[2020-08-25] MEDS: NOREPINEPHRINE 32 MG in SODIUM CHLORIDE 0.9% 218 ML IV SCH ×2 (01:45→18:00)
[2020-08-25 04:56] LABS: ABG Base Excess -5.9 mmol/L; ABG HCO3 21 mmol/L (21-25); ABG Oxygen Saturation 97.6 % (94-97); ABG PCO2 46 mmHg (35-45); ABG PH 7.27 (7.35-7.45); ABG PO2 103 mmHg (83-108); ABG TCO2 22 mmol/L (19-24); Allen Test Performed? Yes
[2020-08-25 04:59] LABS: Basophils % (A) 0 %; Eosinophils % (A) 0 %; HCT 27.1 % (39.0-53.0); HGB 8.7 gm/dL (13.0-17.5); Lymphocytes # (A) 0.4 k/uL (1.0-4.8); Lymphocytes % (A) 3 %; MCH 32.4 pg (25.0-35.0); Macrocytosis Slight; Mean Platelet Volume 10.2; Monocytes # (A) 0.4 k/uL (0-1.0); Monocytes % (A) 3 %; Neutrophils # (A) 13.3 k/uL (1.3-7.7); Neutrophils % (A) 94 %; RBC 2.69 m/uL (4.30-5.90); RDW 15.5 % (11.5-15.5); WBC 14.2 k/uL (3.8-10.6)
[2020-08-25 05:10] LABS: Platelet Count 61 k/uL (150-450)
[2020-08-25 05:14] LABS: Calcium 7.3 mg/dL (8.4-10.2); Magnesium 2.3 mg/dL (1.6-2.3); Phosphorus 5.5 mg/dL (2.5-4.5); Potassium 4.8 mmol/L (3.5-5.1)
[2020-08-25 06:43] LABS: Glucose,Whole Blood 221 mg/dL (75-99)
[2020-08-25 06:45] LABS: Hepatitis B Surface AB- Quant 3.5 mIU/mL; Hepatitis B Surface Antibody Non-Reactive (Non-Reactive); Hepatitis B Surface Antigen Non-Reactive (Non-Reactive)
[2020-08-25] MEDS: PARENTERAL ELECTROLYTES IV SCH ×12 (06:48→17:47)
[2020-08-25] MEDS: AMINO ACID IV SCH ×12 (06:48→17:47)
[2020-08-25] MEDS: [UNRECOGNIZED DRUG - OTHER] IV SCH ×12 (06:48→17:47)
--- NOTE | 2020-08-25 07:27 | XR ---
EXAMINATION TYPE: XR chest 1V portable DATE OF EXAM: 08/25/2020 COMPARISON: August 24, 2020 HISTORY: SOB, Follow Up FINDINGS: Indwelling tubes and catheters are unchanged. No change in bibasilar opacities. Stable appearance of the cardio-mediastinal structures at this time. IMPRESSION: 1. Stable portable chest. Clinical correlation and follow up until resolution is recommended.
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
[2020-08-25] MEDS: ATORVASTATIN 40 MG TAB PO SCH (09:00)
[2020-08-25] MEDS ORDERED: allopurinoL 100 MG TAB PO SCH (09:00)
[2020-08-25] MEDS: PIPERACILLIN-TAZOBACTAM 3.375 GM in SODIUM CHLORIDE 0.9% 100 ML IVPB SCH ×2 (09:08→20:29)
[2020-08-25] MEDS: CHLORHEXIDINE GLUCONATE 15 ML CUP MUCOUS MEM SCH ×2 (09:08→20:29)
--- NOTE | 2020-08-25 11:42 | P.PN ---
Subjective Progress Note Date: 08/25/20 Principal diagnosis: Ventilator management. 74-year-old male with a history of abdominal aortic aneurysm, history of myocardial infarction, CVA, essential hypertension, chronic atrial fibrillation, on [place], 65 year pack tobacco use, COPD, DJD, pneumonia, and questionable alcohol abuse syndrome. The patient underwent a open repair of abdominal aortic aneurysm with 30 mm sleeve graft. The patient lost about 4 L of blood in the operating room. The patient did receive 1 L of colloid, 1 L of Cell Saver, 5 L of crystalloid, 3 amps of sodium bicarbonate, and 1 unit of packed red blood cells. In addition, the patient did receive Lasix 20 mg IV push in the operating room. Currently, the patient's on a volume assist control mode, rate of 12, tidal volume 500, FiO2 60%, and PEEP of 5. Arterial blood gases show a PaO2 of 224, PaCO2 of 44, and a pH of 7.36. The FiO2 was dropped next day to 40%. No other changes were made. We did add DuoNeb every 4 hours around the clock. Currently, the patient is on Rolando-Synephrine for blood pressure support, and lactated Ringer's at 100 mL an hour. We'll switch his Rolando-Synephrine to norepinephrine. He's also on subcutaneous heparin, Ancef, and Protonix IV for GI prophylaxis. I did speak to the surgeon, Dr. Donovan. Progress note dated 08/22/2020. 74-year-old male, postop day #1, status post abdominal aortic aneurysm repair. Currently, the patient remains on the mechanical ventilator. He is on the volume assist control mode, rate 12, tidal volume 500, FiO2 40%, and a PEEP of 5. Arterial blood gases show a PaO2 of 74, a PaCO2 of 44, and pH is 7.36. The patient is currently on propofol at 45 mcg/kg/m, lactated Ringer's at 100 mL an hour, and norepinephrine at 10 mcg/m. Today, the patient will have a daily eruption of sedation, and spontaneous breathing trial, with the idea of getting him extubated. The patient received a lot of blood and blood products in the operating room including 1 L of colloid, 1 L of Cell Saver, 5 L of crystalloid, 3 ampules of sodium bicarbonate, and 1 unit of packed red blood cells. Estimated blood loss was 4 L. Progress note dated 08/23/2020 74-year-old male, postop day #2, status post abdominal aortic aneurysm repair. Yesterday, we attempted a daily interruption of sedation and spontaneous breathing trial. Unfortunately, the patient did not do well. He remains on the mechanical ventilator, on the volume assist control mode, rate 12, tidal volume 500, FiO2 50%, and PEEP of 5. His arterial blood gases show a PaO2 of 66, PaCO2 of 40, and a pH is 7.34. He remains on Cardizem drip at 15 mg an hour, propofol at 40 mcg/kg/m, norepinephrine at 45 mcg/m, and lactated Ringer's at 100 mL an hour. We will start him on TPN. Because of no or little urine output, will have nephrology see the patient. He may need dialysis or continuous renal replacement therapy. In the operating room, because of a 4 L estimated blood loss, the patient received 1 L of colloid, 1 L of Cell Saver, 5 L of crystalloid, 3 ampules of sodium bicarbonate, and 1 unit of packed red blood cells. Progress note dated 08/24/2020. 74-year-old male, postop day #3, status post abdominal aortic aneurysm repair. Unfortunately, the patient has done poorly since coming back from the operating room. He remains on the mechanical ventilator, on the volume assist control mode, rate 26, to be increased up to 32, tidal volume 500, FiO2 60%, and PEEP of 13. Blood gases on those same settings but with a rate of 26, show a PaO2 of 72, PaCO2 of 53, and a pH 7.19. The patient is on a Cardizem drip at 10 mg an hour, propofol at 45 mcg/kg/m, TPN at 30 mL an hour, vasopressin at 0.03 units per minute, and norepinephrine at 57 mcg/m. In addition, the patient is on a saline IV at 100 mL an hour. We changed his antibiotics to Zosyn. Nephrology was consulted and the patient may very well require hemodialysis today. During the surgery, he had 4 L of estimated blood loss, and received 1 L of colloid, 1 L of Cell Saver, 5 L of crystalloid, 3 ampules of sodium bicarbonate, and 1 unit of packed red blood cells. Currently, his white count is 17.7, hemoglobin 9.7, hematocrit 30, and platelet count 74,000. A repeat blood gas after the vent changes were made show a PaO2 of 68, a PaCO2 which is now down to 47, and a pH which is 7.24, up from 7.19. Sodium is 136, potassium 5.1, chlorides 105, CO2 21, anion gap 10, BUN 64, and creatinine 4.38. Microbiology is currently pending or negative and I did ask the nurse to make sure that there was blood urine and sputum cultures. Progress note dated 08/25/2020. 74-year-old male, postop day #4, that is post abdominal aortic aneurysm repair. Unfortunately, the patient still on the mechanical ventilator and has not been able to be weaned as yet. The patient is currently on the volume assist control mode, rate 32, tidal volume 500, FiO2 60%, and PEEP of 13. Blood gases show a PaO2 of 103, PaCO2 46, pH 7.27. His blood gases consistent with combined respiratory and metabolic acidosis. The patient's on saline at 20 cc per hour, norepinephrine at 60 mcg/m, Cardizem drip at 10 mg an hour, vasopressin at 0.03 units per minute, propofol at 35 mcg/kg/m, and TPN at 80 mL an hour. His sputum is showing evidence of gram-negative bacilli. He remains on Zosyn. We did ask nephrology to see the patient because of his poor urine output and worsening renal function. Labs today show a white count of 14.2, hemoglobin 8.7, hematocrit 27.1, and platelet count 61,000. Sodium 135, potassium 4.8, chlorides 106, carbon dioxide 20, anion gap 9, BUN 65, and creatinine 4.08. Nephrology recommended hemodialysis. He likely will have it again today. Objective - Vital Signs Vital signs: Vital Signs Temp 99.5 F 08/25/20 08:00 Pulse 104 H 08/25/20 11:27 Resp 32 H 08/25/20 11:15 BP 106/66 08/25/20 11:15 Pulse Ox 96 08/25/20 11:15 Intake & Output 08/24/20 08/25/20 08/25/20 18:59 06:59 18:59 Intake Total 2506.082 2813.167 663.997 Output Total 2000 5 0 Balance 780.165 5896.167 663.997 Weight 101 kg Intake: IV 1846 1315 418 0.9 KVO 60 Parenteral Electrolytes 410 960 240 20 ml Mvi, Adult No.4 with Vit K 10 ml Trace ( Conc-1Ml/Dose) 1 ml In Amino Acid 5%-D15w 1,000 ml @ 30 mls/hr IV .Q24H [facility] Rx#:[id number] Sodium Chloride 0.9% 1, 1200 200 000 ml @ 100 mls/hr IV . Q10H [facility] Rx#:[id number] Zosyn 100 125 100 ceFAZolin 1,000 mg In 100 Sodium Chloride 0.9% 50 ml @ 100 mls/hr IVPB Q8HR [facility] Rx#:[id number] pressure bag 36 30 18 Intake, IV Titration 723.026 6319.167 245.997 Amount Diltiazem 125 mg In 125 78.167 Sodium Chloride 0.9% 100 ml @ 5 MG/HR 5 mls/hr IV .Q24H [facility] Rx#:[id number] Norepinephrine 32 mg In 435.082 250.000 151.018 Sodium Chloride 0.9% 218 ml @ 0.05 MCG/KG/MIN 2.02 mls/hr IV .Q24H [facility] Rx#: [id number] Parenteral Electrolytes 1020 20 ml In Amino Acid 5%- D15w 1,000 ml @ 80 mls/hr IV .BY DURATION [facility] Rx#: [id number] propofoL 500 mg In Empty 100 150 94.979 Bag 1 bag @ Titrate IV . Q0M [facility] Rx#:[id number] Output: Urine 0 5 0 Hemodialysis 1000 Other 1000 Other: Voiding Method Indwelling Catheter Indwelling Catheter ABP, PAP, CO, CI - Last Documented Arterial Blood Pressure 103/55 - Exam Sedated, and mechanically ventilated, with an orally placed endotracheal tube and NG tube. HEENT examination is grossly unremarkable. Neck supple. Full range of motion. No adenopathy thyromegaly or neck vein distention. Cardiovascular examination reveals regular rhythm rate. S1-S2 normal. No S3 or S4. No discernible murmur noted. Heart rate is 104 bpm. Heart sounds are distant. Lungs reveal coarse bilateral rhonchi. No wheezes. Breath sounds equal bilaterally. Her sounds are diminished throughout. No crackles are appreciated. Abdomen is soft, without masses. No bowel sounds noted. Extremities are intact. No cyanosis clubbing or significant edema. Skin is without rash or lesion. Neurologic examination cannot be properly assessed. - Labs CBC & Chem 7: 08/25/20 04:35 08/25/20 04:35 Labs: Abnormal Lab Results - Last 24 Hours (Table) 08/24/20 08/24/20 08/24/20 Range/Units 11:36 18:01 23:21 WBC (3.8-10.6) k/uL RBC (4.30-5.90) m/uL Hgb (13.0-17.5) gm/dL Hct (39.0-53.0) % MCV (80.0-100.0) fL Plt Count (150-450) k/uL Neutrophils # (1.3-7.7) k/uL Lymphocytes # (1.0-4.8) k/uL ABG pH (7.35-7.45) ABG pCO2 (35-45) mmHg ABG O2 Saturation (94-97) % Sodium (137-145) mmol/L Carbon Dioxide (22-30) mmol/L BUN (9-20) mg/dL Creatinine (0.66-1.25) mg/dL Glucose (74-99) mg/dL POC Glucose (mg/dL) 214 H 196 H 189 H (75-99) mg/dL Calcium (8.4-10.2) mg/dL Phosphorus (2.5-4.5) mg/dL 08/25/20 08/25/20 08/25/20 Range/Units 04:35 04:35 04:53 WBC 14.2 H (3.8-10.6) k/uL RBC 2.69 L (4.30-5.90) m/uL Hgb 8.7 L (13.0-17.5) gm/dL Hct 27.1 L (39.0-53.0) % MCV 101.0 H (80.0-100.0) fL Plt Count 61 L (150-450) k/uL Neutrophils # 13.3 H (1.3-7.7) k/uL Lymphocytes # 0.4 L (1.0-4.8) k/uL ABG pH 7.27 L (7.35-7.45) ABG pCO2 46 H (35-45) mmHg ABG O2 Saturation 97.6 H (94-97) % Sodium 135 L (137-145) mmol/L Carbon Dioxide 20 L (22-30) mmol/L BUN 65 H (9-20) mg/dL Creatinine 4.08 H (0.66-1.25) mg/dL Glucose 231 H (74-99) mg/dL POC Glucose (mg/dL) (75-99) mg/dL Calcium 7.3 L (8.4-10.2) mg/dL Phosphorus 5.5 H (2.5-4.5) mg/dL 08/25/20 Range/Units 06:39 WBC (3.8-10.6) k/uL RBC (4.30-5.90) m/uL Hgb (13.0-17.5) gm/dL Hct (39.0-53.0) % MCV (80.0-100.0) fL Plt Count (150-450) k/uL Neutrophils # (1.3-7.7) k/uL Lymphocytes # (1.0-4.8) k/uL ABG pH (7.35-7.45) ABG pCO2 (35-45) mmHg ABG O2 Saturation (94-97) % Sodium (137-145) mmol/L Carbon Dioxide (22-30) mmol/L BUN (9-20) mg/dL Creatinine (0.66-1.25) mg/dL Glucose (74-99) mg/dL POC Glucose (mg/dL) 221 H (75-99) mg/dL Calcium (8.4-10.2) mg/dL Phosphorus (2.5-4.5) mg/dL Microbiology - Last 24 Hours (Table) 08/24/20 11:00 Blood Culture - Final Blood 08/22/20 21:08 Gram Stain - Final Sputum Sputum Culture - Final Serratia marcescens Assessment and Plan Assessment: Postop day #4, status post open repair of abdominal aortic aneurysm, with 30 mm sleeve graft. Routine postoperative ventilator management. Significant blood loss during procedure, 4 L. Status post 1 L of colloid, 1 L of Cell Saver, 5 L of crystalloid, 3 ampules of sodium bicarbonate, and 1 unit PRBCs. Postoperative hypotension, being managed with fluids, and vasopressors. Rule out adrenal insufficiency, patient started on hydrocortisone, 50 mg IV push every 6 hours. Acute kidney injury, likely related to acute tubular necrosis, with a recent initiation of hemodialysis. Sputum with gram-negative bacilli, yet to be identified, currently on Zosyn. History of previous myocardial infarction. History of CVA. History of essential hypertension. History of chronic atrial fibrillation. History of [id number] history of tobacco use. Probable underlying COPD. Questionable history of alcohol abuse. History of DJD. History of pneumonia. Plan: Plan dated 05/25/2021. The patient remains on the mechanical ventilator. No vent changes today. The patient was started on hemodialysis yesterday. He likely will have another session today. The patient's currently on norepinephrine at 60 mcg/m, and vasopressin 0.03 units per minute. He remains on Cardizem 10 mg an hour, is being sedated with propofol at 35 mcg/kg/m, receiving TPN at 80 mL an hour. I did ask the nurse that when vascular rounds today, to ask whether or not we can stop the TPN in favor of enteral nutrition. Medications are reviewed. Labs and x-rays are reviewed. The patient's overall prognosis is very poor. The patient is a no code. He's postop day #4, status post open repair of abdominal aortic aneurysm. Appreciate input by nephrology. Additional recommendations and navarro ggestions are forthcoming. Time with Patient: Greater than 30
[2020-08-25 11:50] LABS: Glucose,Whole Blood 207 mg/dL (75-99)
--- NOTE | 2020-08-25 12:09 | P.PN ---
Subjective Progress Note Date: 08/25/20 follow-up for acute kidney injury. Still oliguric. On 60% FiO2 and 13 of PEEP and 2 pressors. Hemodialysis yesterday with 2 L of UF. Objective - Vital Signs Vital signs: Vital Signs Temp 99.5 F 08/25/20 08:00 Pulse 104 H 08/25/20 11:27 Resp 32 H 08/25/20 11:15 BP 106/66 08/25/20 11:15 Pulse Ox 96 08/25/20 11:15 Intake & Output 08/24/20 08/25/20 08/25/20 18:59 06:59 18:59 Intake Total 2506.082 2813.167 663.997 Output Total 2000 5 0 Balance 224.567 7454.167 663.997 Weight 101 kg Intake: IV 1846 1315 418 0.9 KVO 60 Parenteral Electrolytes 410 960 240 20 ml Mvi, Adult No.4 with Vit K 10 ml Trace ( Conc-1Ml/Dose) 1 ml In Amino Acid 5%-D15w 1,000 ml @ 30 mls/hr IV .Q24H [facility] Rx#:[id number] Sodium Chloride 0.9% 1, 1200 200 000 ml @ 100 mls/hr IV . Q10H [facility] Rx#:[id number] Zosyn 100 125 100 ceFAZolin 1,000 mg In 100 Sodium Chloride 0.9% 50 ml @ 100 mls/hr IVPB Q8HR [facility] Rx#:[id number] pressure bag 36 30 18 Intake, IV Titration 205.598 8386.167 245.997 Amount Diltiazem 125 mg In 125 78.167 Sodium Chloride 0.9% 100 ml @ 5 MG/HR 5 mls/hr IV .Q24H [facility] Rx#:[id number] Norepinephrine 32 mg In 435.082 250.000 151.018 Sodium Chloride 0.9% 218 ml @ 0.05 MCG/KG/MIN 2.02 mls/hr IV .Q24H [facility] Rx#: [id number] Parenteral Electrolytes 1020 20 ml In Amino Acid 5%- D15w 1,000 ml @ 80 mls/hr IV .BY DURATION [facility] Rx#: [id number] propofoL 500 mg In Empty 100 150 94.979 Bag 1 bag @ Titrate IV . Q0M [facility] Rx#:[id number] Output: Urine 0 5 0 Hemodialysis 1000 Other 1000 Other: Voiding Method Indwelling Catheter Indwelling Catheter Indwelling Catheter ABP, PAP, CO, CI - Last Documented Arterial Blood Pressure 103/55 - Exam intubated and sedated. Decreased breath sounds S1 2 heard Abdominal midline scar edema - Labs CBC & Chem 7: 08/25/20 04:35 08/25/20 04:35 Labs: Abnormal Lab Results - Last 24 Hours (Table) 08/24/20 08/24/20 08/25/20 Range/Units 18:01 23:21 04:35 WBC (3.8-10.6) k/uL RBC (4.30-5.90) m/uL Hgb (13.0-17.5) gm/dL Hct (39.0-53.0) % MCV (80.0-100.0) fL Plt Count (150-450) k/uL Neutrophils # (1.3-7.7) k/uL Lymphocytes # (1.0-4.8) k/uL ABG pH (7.35-7.45) ABG pCO2 (35-45) mmHg ABG O2 Saturation (94-97) % Sodium 135 L (137-145) mmol/L Carbon Dioxide 20 L (22-30) mmol/L BUN 65 H (9-20) mg/dL Creatinine 4.08 H (0.66-1.25) mg/dL Glucose 231 H (74-99) mg/dL POC Glucose (mg/dL) 196 H 189 H (75-99) mg/dL Calcium 7.3 L (8.4-10.2) mg/dL Phosphorus 5.5 H (2.5-4.5) mg/dL 08/25/20 08/25/20 08/25/20 Range/Units 04:35 04:53 06:39 WBC 14.2 H (3.8-10.6) k/uL RBC 2.69 L (4.30-5.90) m/uL Hgb 8.7 L (13.0-17.5) gm/dL Hct 27.1 L (39.0-53.0) % MCV 101.0 H (80.0-100.0) fL Plt Count 61 L (150-450) k/uL Neutrophils # 13.3 H (1.3-7.7) k/uL Lymphocytes # 0.4 L (1.0-4.8) k/uL ABG pH 7.27 L (7.35-7.45) ABG pCO2 46 H (35-45) mmHg ABG O2 Saturation 97.6 H (94-97) % Sodium (137-145) mmol/L Carbon Dioxide (22-30) mmol/L BUN (9-20) mg/dL Creatinine (0.66-1.25) mg/dL Glucose (74-99) mg/dL POC Glucose (mg/dL) 221 H (75-99) mg/dL Calcium (8.4-10.2) mg/dL Phosphorus (2.5-4.5) mg/dL 08/25/20 Range/Units 11:39 WBC (3.8-10.6) k/uL RBC (4.30-5.90) m/uL Hgb (13.0-17.5) gm/dL Hct (39.0-53.0) % MCV (80.0-100.0) fL Plt Count (150-450) k/uL Neutrophils # (1.3-7.7) k/uL Lymphocytes # (1.0-4.8) k/uL ABG pH (7.35-7.45) ABG pCO2 (35-45) mmHg ABG O2 Saturation (94-97) % Sodium (137-145) mmol/L Carbon Dioxide (22-30) mmol/L BUN (9-20) mg/dL Creatinine (0.66-1.25) mg/dL Glucose (74-99) mg/dL POC Glucose (mg/dL) 207 H (75-99) mg/dL Calcium (8.4-10.2) mg/dL Phosphorus (2.5-4.5) mg/dL Microbiology - Last 24 Hours (Table) 08/24/20 11:00 Blood Culture - Final Blood 08/22/20 21:08 Gram Stain - Final Sputum Sputum Culture - Final Serratia marcescens Assessment and Plan Assessment: #1 oliguric acute kidney injury secondary to hemodynamic ATN.Base [place] creatinine 1.0 MG per DL #2 hypovolemic shock secondary to blood loss #3 acute respiratory failure on ventilator #4 volume overload #5 status post AAA repair. Plan: #1 started hemodialysis yesterday, plan again tomorrow with 2.5 L UF. #2. Lasix and fluids stopped yesterday. #3 renal ultrasound unable to visualize the left kidney. Check urine analysis and urine electrolytes. #4 avoid nephrotoxic agents and hypotensive episodes
[2020-08-25 13:02] LABS: Glucose,Whole Blood 220 mg/dL (75-99)
--- NOTE | 2020-08-25 14:03 | P.PN ---
Progress Note - Text Progress Note Date: 08/25/20 Patient still intubated and on pressors. Labs are stable with slight decrease in Hgb. Patient started on hemodialysis yesterday and nephrology recs reviewed. Abdomen is still distended. 1. Postop day #4 abdominal aortic aneurysm repair graft 2. Abdominal aortic aneurysm, 8.8 cm 3. Hypotension on pressors 4. Acute renal failure on HD Plan: 1. Supportive care 2. Continue with ICU medical management and recommendations 3. Abdominal xray today and if no significant distension then Ok for trickle enteral feeds.
[2020-08-25] MEDS: SODIUM CHLORIDE 0.9% 150 ML with VASOPRESSIN 60 UNIT IV SCH ×2 (14:39)
--- NOTE | 2020-08-25 15:36 | XR ---
EXAMINATION TYPE: XR abdomen 1V DATE OF EXAM: 08/25/2020 COMPARISON: NONE HISTORY: Distended abdomen. Tube placement. TECHNIQUE: 2 views supine FINDINGS: There is nasogastric tube with the tip overlying the distal esophagus. There is some blunti ng left costophrenic angle. There are skin hien over the entire abdomen. There is retained fecal material in the large bowel.. IMPRESSION: NG tube is in the distal esophagus. Constipation.
--- NOTE | 2020-08-25 15:52 | P.PN ---
Subjective Progress Note Date: 08/25/20 Objective - Vital Signs Vital signs: Vital Signs Temp 99.5 F 08/25/20 08:00 Pulse 106 H 08/25/20 09:30 Resp 32 H 08/25/20 09:30 BP 118/46 08/25/20 07:00 Pulse Ox 97 08/25/20 09:30 Intake & Output 08/24/20 08/25/20 08/25/20 18:59 06:59 18:59 Intake Total 2506.082 2813.167 505.018 Output Total 2000 5 0 Balance 385.684 3867.167 505.018 Weight 101 kg Intake: IV 1846 1315 304 0.9 KVO 30 Parenteral Electrolytes 410 960 240 20 ml Mvi, Adult No.4 with Vit K 10 ml Trace ( Conc-1Ml/Dose) 1 ml In Amino Acid 5%-D15w 1,000 ml @ 30 mls/hr IV .Q24H [facility] Rx#:[id number] Sodium Chloride 0.9% 1, 1200 200 000 ml @ 100 mls/hr IV . Q10H [facility] Rx#:[id number] Zosyn 100 125 25 ceFAZolin 1,000 mg In 100 Sodium Chloride 0.9% 50 ml @ 100 mls/hr IVPB Q8HR [facility] Rx#:[id number] pressure bag 36 30 9 Intake, IV Titration 252.961 9071.167 201.018 Amount Diltiazem 125 mg In 125 78.167 Sodium Chloride 0.9% 100 ml @ 5 MG/HR 5 mls/hr IV .Q24H [facility] Rx#:[id number] Norepinephrine 32 mg In 435.082 250.000 151.018 Sodium Chloride 0.9% 218 ml @ 0.05 MCG/KG/MIN 2.02 mls/hr IV .Q24H [facility] Rx#: [id number] Parenteral Electrolytes 1020 20 ml In Amino Acid 5%- D15w 1,000 ml @ 80 mls/hr IV .BY DURATION [facility] Rx#: [id number] propofoL 500 mg In Empty 100 150 50 Bag 1 bag @ Titrate IV . Q0M [facility] Rx#:[id number] Output: Urine 0 5 0 Hemodialysis 1000 Other 1000 Other: Voiding Method Indwelling Catheter Indwelling Catheter ABP, PAP, CO, CI - Last Documented Arterial Blood Pressure 117/69 - Labs CBC & Chem 7: 08/25/20 04:35 08/25/20 04:35 Labs: Abnormal Lab Results - Last 24 Hours (Table) 08/24/20 08/24/20 08/24/20 Range/Units 10:16 11:36 18:01 WBC (3.8-10.6) k/uL RBC (4.30-5.90) m/uL Hgb (13.0-17.5) gm/dL Hct (39.0-53.0) % MCV (80.0-100.0) fL Plt Count (150-450) k/uL Neutrophils # (1.3-7.7) k/uL Lymphocytes # (1.0-4.8) k/uL ABG pH 7.24 L (7.35-7.45) ABG pCO2 47 H (35-45) mmHg ABG pO2 68 L (83-108) mmHg ABG HCO3 20 L (21-25) mmol/L ABG O2 Saturation 93.0 L (94-97) % Sodium (137-145) mmol/L Carbon Dioxide (22-30) mmol/L BUN (9-20) mg/dL Creatinine (0.66-1.25) mg/dL Glucose (74-99) mg/dL POC Glucose (mg/dL) 214 H 196 H (75-99) mg/dL Calcium (8.4-10.2) mg/dL Phosphorus (2.5-4.5) mg/dL 08/24/20 08/25/20 08/25/20 Range/Units 23:21 04:35 04:35 WBC 14.2 H (3.8-10.6) k/uL RBC 2.69 L (4.30-5.90) m/uL Hgb 8.7 L (13.0-17.5) gm/dL Hct 27.1 L (39.0-53.0) % MCV 101.0 H (80.0-100.0) fL Plt Count 61 L (150-450) k/uL Neutrophils # 13.3 H (1.3-7.7) k/uL Lymphocytes # 0.4 L (1.0-4.8) k/uL ABG pH (7.35-7.45) ABG pCO2 (35-45) mmHg ABG pO2 (83-108) mmHg ABG HCO3 (21-25) mmol/L ABG O2 Saturation (94-97) % Sodium 135 L (137-145) mmol/L Carbon Dioxide 20 L (22-30) mmol/L BUN 65 H (9-20) mg/dL Creatinine 4.08 H (0.66-1.25) mg/dL Glucose 231 H (74-99) mg/dL POC Glucose (mg/dL) 189 H (75-99) mg/dL Calcium 7.3 L (8.4-10.2) mg/dL Phosphorus 5.5 H (2.5-4.5) mg/dL 08/25/20 08/25/20 Range/Units 04:53 06:39 WBC (3.8-10.6) k/uL RBC (4.30-5.90) m/uL Hgb (13.0-17.5) gm/dL Hct (39.0-53.0) % MCV (80.0-100.0) fL Plt Count (150-450) k/uL Neutrophils # (1.3-7.7) k/uL Lymphocytes # (1.0-4.8) k/uL ABG pH 7.27 L (7.35-7.45) ABG pCO2 46 H (35-45) mmHg ABG pO2 (83-108) mmHg ABG HCO3 (21-25) mmol/L ABG O2 Saturation 97.6 H (94-97) % Sodium (137-145) mmol/L Carbon Dioxide (22-30) mmol/L BUN (9-20) mg/dL Creatinine (0.66-1.25) mg/dL Glucose (74-99) mg/dL POC Glucose (mg/dL) 221 H (75-99) mg/dL Calcium (8.4-10.2) mg/dL Phosphorus (2.5-4.5) mg/dL Microbiology - Last 24 Hours (Table) 08/22/20 21:08 Gram Stain - Preliminary Sputum Sputum Culture - Preliminary Gram Neg Bacilli Assessment and Plan (1) GI bleed Narrative/Plan: 74-year-old male seen in the intensive care unit status post abdominal aortic aneurysm repair. Concerns were for possible coffee-ground output from his nasogastric tube. Patient has had no other signs or symptoms of GI bleeding. Patient's hemoglobin stable at 8.7 today. Unclear if findings are secondary to trauma from the nasogastric tube, gastritis, esophagitis, peptic ulcer disease or other etiology. Discussion with the nursing staff and no further bloody output from the NG tube and no evidence of lower GI bleeding or blood per rectum. Current Visit: Yes Status: Acute Code(s): K92.2 - GASTROINTESTINAL HEMORRHAGE, UNSPECIFIED SNOMED Code(s): 25697525 (2) Status post abdominal aortic aneurysm (AAA) repair Current Visit: Yes Status: Acute Code(s): Z98.890 - OTHER SPECIFIED POSTPROCEDURAL STATES; Z86.79 - PERSONAL HISTORY OF OTHER DISEASES OF THE CIRCULATORY SYSTEM SNOMED Code(s): 142168192 Plan: Supportive care Continue to monitor for signs or symptoms of GI bleed including output from nasogastric tube Continue monitor hemoglobin and hematocrit and transfuse as needed Continue Protonix therapy Continue other medical management per primary team, rn flight service and vascular surgery No plans for endoscopic evaluation at this time, and if patient continues to have suspicion of GI bleed or further precipitous fall in hemoglobin and will consider EGD at that time although patient remains high risk due to recent surgery okay for tube feeds if cleared by surgical service Fecal burden noted on x-ray, if no bowel movements after initiation of tube feeds patient will be started on daily Dulcolax suppository Thank you for allowing us to participate in the care of the patient
--- NOTE | 2020-08-25 17:07 | P.PN ---
Progress Note - Text Progress Note Date: 08/25/20 - Chief Complaint Abdominal surgery Consultation: This is a 74-year-old patient who follows with Dr. rollins from [place]. Chronic stable medical conditions include COPD, coronary artery disease with previous VT, osteoarthritis, chronic nicotine dependence. Patient was recently in the hospital following outpatient screening for abdominal aortic aneurysm. It was found to be 9.5 x 8.2 cm in the midportion. Internal thrombus seen surrounding the small bowel in the lumen. It also extends into the right and left common iliac arteries. Patient was therefore sent to the ER. Further computed tomography scan of the chest and abdomen in the ER showed 4.2 cm as cending thoracic aneurysm and 3.8 cm descending thoracic aorta with mural thrombus. Patient denies any abdominal pain. Does get charley horses. At the baseline is a short of breath and wheezing. He is an active smoker. No chest pain. Patient was then discharged to return for surgery. August 21: patient underwent open repair of abdominal aortic aneurysm with a 30 mm sleeve graft. Currently in the ICU. On the ventilator intubated. FiO2 40 and a PEEP of 5. Has NG tube in place. Murillo catheter. Endotracheal tube. Drips include IV propofol and norepinephrine. Telemetry shows atrial f ibrillation. Hemodialysis catheter was placed and started on hemodialysis.- August 24 Today-ICU: Ventilator with FiO2 60; PEEP of 13. Drips include levo fed, vasopressin, propofol. A. fib better controlled with patient remaining on Cardizem drip. NG tube output of dark aspirate has decreased. Poor urine output. 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 Smoking for many years. About 2 beers a day. Retired Physical examination: VITAL SIGNS: 100.4, 91, 32, 106/66, 96% on the ventilator GENERAL: BMI 29.3, laying in bed, intubated. EYES: Pupils equal. Conjunctiva normal. HEENT: External appearance of nose and ears normal, oral cavity-endotracheal tube, NG tube-dark aspirate NECK: JVD unable to assess; masses not palpable. HEART: Irregular heart sounds; no edema. LUNGS: Respiratory rate increased decreased breath sounds,. ABDOMEN: Soft, dressing over the midline incision, liver spleen not palpable, no masses palpable. Murillo catheter PSYCH: Sedated INVESTIGATIONS, reviewed in the clinical context: August 25: White count 14.2 hemoglobin 8.7 platelets 61 potassium 4.8 bun 65 creatinine 4.08 August 24: White count 13.7 hemoglobin 9.7 platelets 74 potassium 5.1 bun 64 creatinine 4.38. ABG showed pH of 7.13 pCO2 58 pO2 67 Fabry fifth: White count 10.9 hemoglobin 10.8 platelets 75 potassium 4.6 bun 53 creatinine 2.95 White count 18.3 hemoglobin 11.8 platelets 72 potassium 4.7 bun 40 creatinine 1.67 Previous testin08/13/2020: White count 4.1 hemoglobin 13.8 platelets 148 bun 19 creatinine 0.94 Assessment: -Abdominal aortic aneurysm 8.8 cm, also involving the iliac arteries, with intraluminal thrombus-followed by open repair sleeve graft on 08/21/2020 -Ascending thoracic aortic is a 4.2 cm, descending thoracic aorta 3.8 cm with mural thrombus -Chronic nicotine dependence patient cigarette smoker -Emphysema, with some exacerbation in a current smoker -Coronary artery disease and a prior history of VT -Suspect peripheral arterial disease -Persistent atrial fibrillation rate uncontrolled-on IV Cardizem drip -Acute hypoxic respiratory failure, requiring ventilator support -Acute kidney injury patient's creatinine was 0.94 on August 13. Possible ATN. Oliguric. Worsening. Hemodialysis catheter placed on August 24. Started hemodialysis -Upper GI bleed with NG tube putting out dark aspirate Plan: Remains critically ill. Current medications include DuoNeb, IV Cardizem drip, IV Solu-Cortef 50 mg every 8, he will fed, TPN, IV Zosyn IV propofol, vasopressin. Prognosis guarded Thank you Dr. Dnoovan
[2020-08-25 17:40] LABS: Glucose,Whole Blood 222 mg/dL (75-99)
[2020-08-25] MEDS: INSULIN DETEMIR (LEVEMIR) 100 UNIT/ML SYR SQ SCH (20:29)
[2020-08-26] MEDS: DILTIAZEM 125 MG in SODIUM CHLORIDE 0.9% 100 ML IV SCH (00:21)
[2020-08-26] MEDS: HYDROCORTISONE SUCCINATE 100 MG/2 ML VIAL IV SCH ×3 (00:25→17:40)
[2020-08-26] MEDS: INSULIN ASPART (NovoLOG) 100 UNIT/ML VIAL SQ SCH ×4 (00:26→17:45)
[2020-08-26 00:33] LABS: Glucose,Whole Blood 250 mg/dL (75-99)
[2020-08-26] MEDS: NOREPINEPHRINE 32 MG in SODIUM CHLORIDE 0.9% 218 ML IV SCH ×2 (03:09→17:42)
[2020-08-26] MEDS: IPRATROPIUM-ALBUTEROL 3 ML NEB INHALATION SCH ×5 (03:47→19:04)
[2020-08-26 04:15] LABS: HCT 25.8 % (39.0-53.0); HGB 8.1 gm/dL (13.0-17.5); Hypochromasia Slight; MCH 31.8 pg (25.0-35.0); MCHC 31.3 g/dL (31.0-37.0); MCV 101.4 fL (80.0-100.0); Macrocytosis Slight; Mean Platelet Volume 11.4; RBC 2.54 m/uL (4.30-5.90); RDW 15.4 % (11.5-15.5)
[2020-08-26 04:16] LABS: Platelet Count 54 k/uL (150-450)
[2020-08-26 04:17] LABS: Calcium 7.7 mg/dL (8.4-10.2); Magnesium 2.5 mg/dL (1.6-2.3); Phosphorus 5.6 mg/dL (2.5-4.5); Potassium 5.3 mmol/L (3.5-5.1)
[2020-08-26 04:34] LABS: Band Neutrophils % 21 %; Lymphocytes # (M) 0.66 k/uL (1.0-4.8); Monocytes # (M) 0.66 k/uL (0-1.0); Neutrophils % (M) 67 %; Nucleated Red Blood Cells 1 /100 WBC (0-0); Total Cells Counted 200
[2020-08-26 04:35] LABS: Toxic Granulation Present
[2020-08-26 05:19] LABS: ABG Base Excess -8.7 mmol/L; ABG HCO3 19 mmol/L (21-25); ABG Oxygen Saturation 99.1 % (94-97); ABG PCO2 46 mmHg (35-45); ABG PH 7.23 (7.35-7.45); ABG PO2 147 mmHg (83-108); ABG TCO2 20 mmol/L (19-24)
[2020-08-26] MEDS: [UNRECOGNIZED DRUG - OTHER] IV SCH ×4 (06:23)
[2020-08-26] MEDS: PARENTERAL ELECTROLYTES IV SCH ×4 (06:23)
[2020-08-26] MEDS: AMINO ACID IV SCH ×4 (06:23)
[2020-08-26 06:31] LABS: Glucose,Whole Blood 196 mg/dL (75-99)
--- NOTE | 2020-08-26 07:29 | P.PN ---
Subjective Progress Note Date: 08/26/20 74-year-old here patient with known history of abdominal aortic aneurysm and known history of coronary artery previous [place]. The patient also known to have previous history of CVA, chronic atrial fibrillation, hypertension and [id number] smoking history. The patient has osteoarthritis. The patient unde rwent an open repair of an abdominal aortic aneurysm with 30 mm sleeve graft. Note that the patient a large abdominal aortic aneurysm measuring 9.5 x 8.2 cm in size with internal thrombus. The aneurysm was extending into the right and left common iliac artery. The patient also known to have a 4.2 cm ascending aortic aneurysm and at 3.8 cm ascending thoracic aortic aneurysm with a mural thrombus. The patient lost approximately 4 L of blood and operating room. The patient was given a total of 1 L of Cell Saver, a lot of crystalloids and colloids and operating room and she also required packed RBC transfusion. She was kept intubated on a mechanical ventilator and following that she was tr ansferred to the intensive care unit. The patient is currently postop day #5 following the abdominal aortic aneurysm repair. The patient remains on a mechanical ventilator. She is currently on assist control mode at the rate of 32 and a tidal volume of 500 and FiO2 of 60% with a PEEP of 13. The patient has been on normal saline at rate of 20 mL an hour and the patient is also requiring norepinephrine infusion which is running at 60 g per minute. She is on Cardizem drip for rate control at the rate of 10 mg an hour regarding her atrial fibrillation and she is also on vasopressin and the dose of 0.03 units per minute. She is was sedated with propofol and currently she is on 35 mcg/kg per minute. The patient remains in atrial fibrillation for now on a Cardizem drip. In terms of feeding, the patient is receiving TPN at the rate of 80 mL an hour. The patient continues to have a low urine output. She developed an acute kidney injury postop and she will possibly require hemodialysis. The patient is going gram-negative bacteria and this sputum and the chest x-ray is showing bilobar infiltrate affecting the lower lobes bilaterally. ET tube is in a good location and the patient has a PICC line in the right upper extremity. NG tube was also in place. Assess him of the abdomen from yesterday showed retained fecal material in the large bowel. NG tube is in the distal esophagus. There is evidence of constipation. Hemodialysis catheter was placed on 08/24/2020 and the patient was started on hemodialysis. There is some dark aspirate from the NG tube consistent possibly with an upper GI bleed. This sputum sample pipe turner to be positive for Serratia marcescens and the patient is currently on IV Zosyn. On the morning of , the patient is being seen for a follow-up. The patient remains sedated with propofol which is running at 20 mcg/kg per minute. The patient's is sedated on mechanical ventilator. The patient is an assist- control mode volume cycled with a tidal volume of 500 and FiO2 of 60% with a PEEP of 13 and the rate of 32. Peak air pressures around 35 and the static pressures 24. Chest x-ray showing lower lobe pulmonary infiltrates slightly worse on the left. ET tube is in a good location. NG tube is in a good location and the patient continued to have a PICC line in his right upper extremity. The blood gases from this morning shows a pH of 7.23 with a pCO2 of 46 and pO2 of 147. He is still in acute kidney injury. Creatinine is up to 4.9. Hemodialysis catheter was inserted yesterday and he received his first session of hemodialysis 2 days ago He had no dialysis was done yesterday. Potassium level is up to 5.3, serum bicarb is down to 18 and the creatinine is up to 4.93. He also has urine output in order of 0 mL an hour. His platelet count has dropped down to 50 4K and the white cell count is at 11 with a hemoglobin of 8.1. He remains in atrial fibrillation. He remains on a Cardizem drip for rate control at the rate of 5 mg an hour. His heart rate is under adequate control for now. He remains on norepinephrine at a dose of 0.4 mcg/kg per minute and he remains on nasal Objective - Vital Signs Vital signs: Vital Signs Temp 99 F 08/26/20 04:00 Pulse 93 08/26/20 07:00 Resp 34 H 08/26/20 07:00 BP 133/76 08/26/20 07:00 Pulse Ox 98 08/26/20 07:00 Intake & Output 08/25/20 08/26/20 08/26/20 18:59 06:59 18:59 Intake Total 5003.154 0116.18 113.439 Output Total 0 0 7 Balance 2626.120 6579.18 106.439 Weight 101 kg 99.5 kg Intake: IV 1139 1233 103 0.9 KVO 200 220 20 Parenteral Electrolytes 400 880 80 20 ml In Amino Acid 5%- D15w 1,000 ml @ 80 mls/hr IV .BY DURATION MITZY Rx#: [id number] Parenteral Electrolytes 400 20 ml Mvi, Adult No.4 with Vit K 10 ml Trace ( Conc-1Ml/Dose) 1 ml In Amino Acid 5%-D15w 1,000 ml @ 30 mls/hr IV .Q24H MITZY Rx#:[id number] Zosyn 100 100 pressure bag 39 33 3 Intake, IV Titration 302.806 2517.18 10.439 Amount Diltiazem 125 mg In 125 Sodium Chloride 0.9% 100 ml @ 5 MG/HR 5 mls/hr IV .Q24H MITZY Rx#:[id number] Norepinephrine 32 mg In 250.000 280.75 10.439 Sodium Chloride 0.9% 218 ml @ 0.05 MCG/KG/MIN 2.02 mls/hr IV .Q24H MITZY Rx#: [id number] Parenteral Electrolytes 1008 20 ml In Amino Acid 5%- D15w 1,000 ml @ 80 mls/hr IV .BY DURATION MITZY Rx#: [id number] Parenteral Electrolytes 1031 20 ml Mvi, Adult No.4 with Vit K 10 ml Trace ( Conc-1Ml/Dose) 1 ml In Amino Acid 5%-D15w 1,000 ml @ 80 mls/hr IV .BY DURATION MITZY Rx#: [id number] propofoL 500 mg In Empty 190.429 143.43 Bag 1 bag @ Titrate IV . Q0M MITZY Rx#:[id number] Output: Urine 0 0 7 Other: Voiding Method Indwelling Catheter Indwelling Catheter ABP, PAP, CO, CI - Last Documented Arterial Blood Pressure 152/66 - Exam Sedated, and mechanically ventilated, with an orally placed endotracheal tube and NG tube. Head exam was generally normal. There was no scleral icterus or corneal arcus. Mucous membranes were moist. Neck was supple and without jugular venous distension, thyromegaly, or carotid bruits. Carotids were easily palpable bilaterally. There was no adenopathy. The patient continues to have a Cordis in his right IJ Cardiac exam revealed the PMI to be normally situated and sized. The rhythm was irregular and not consistent with atrial fibrillation and no extrasystoles were noted during several minutes of auscultation. The first and second heart sounds were normal and physiologic splitting of the second heart sound was noted. There were no murmurs, rubs, clicks, or gallops. Lungs reveal coarse bilateral rhonchi. No wheezes. Breath sounds equal bilaterally. Her sounds are diminished throughout. No crackles are ap preciated. Abdomen is soft, without masses. No bowel sounds noted. The surgical wound site is dry clean and intact. There are no drains Extremities are intact. No cyanosis clubbing or significant edema. Pulses in the lower extremities are quite diminished. The toes are somewhat cyanotic marina cially on the right. There is diminished pulses. There are obtained by Doppler signals in both, and the patient has a dialysis catheter in his right femoral vein. Skin is without rash or lesion. Cyanotic in the toes bilaterally. Neurologic examination cannot be properly assessed. Sedated, comfortable - Labs CBC & Chem 7: 08/26/20 03:35 08/26/20 03:35 Labs: Abnormal Lab Results - Last 24 Hours (Table) 08/25/20 08/25/20 08/25/20 Range/Units 11:39 13:00 17:38 WBC (3.8-10.6) k/uL RBC (4.30-5.90) m/uL Hgb (13.0-17.5) gm/dL Hct (39.0-53.0) % MCV (80.0-100.0) fL Plt Count (150-450) k/uL Neutrophils # (Manual) (1.3-7.7) k/uL Lymphocytes # (Manual) (1.0-4.8) k/uL Nucleated RBCs (0-0) /100 WBC ABG pH (7.35-7.45) ABG pCO2 (35-45) mmHg ABG pO2 (83-108) mmHg ABG HCO3 (21-25) mmol/L ABG O2 Saturation (94-97) % Sodium (137-145) mmol/L Potassium (3.5-5.1) mmol/L Carbon Dioxide (22-30) mmol/L BUN (9-20) mg/dL Creatinine (0.66-1.25) mg/dL Glucose (74-99) mg/dL POC Glucose (mg/dL) 207 H 220 H 222 H (75-99) mg/dL Calcium (8.4-10.2) mg/dL Phosphorus (2.5-4.5) mg/dL Magnesium (1.6-2.3) mg/dL 08/26/20 08/26/20 08/26/20 Range/Units 00:22 03:35 03:35 WBC 11.0 H (3.8-10.6) k/uL RBC 2.54 L (4.30-5.90) m/uL Hgb 8.1 L (13.0-17.5) gm/dL Hct 25.8 L (39.0-53.0) % MCV 101.4 H (80.0-100.0) fL Plt Count 54 L (150-450) k/uL Neutrophils # (Manual) 9.60 H (1.3-7.7) k/uL Lymphocytes # (Manual) 0.66 L (1.0-4.8) k/uL Nucleated RBCs 1 H (0-0) /100 WBC ABG pH (7.35-7.45) ABG pCO2 (35-45) mmHg ABG pO2 (83-108) mmHg ABG HCO3 (21-25) mmol/L ABG O2 Saturation (94-97) % Sodium 133 L (137-145) mmol/L Potassium 5.3 H (3.5-5.1) mmol/L Carbon Dioxide 18 L (22-30) mmol/L BUN 87 H (9-20) mg/dL Creatinine 4.93 H (0.66-1.25) mg/dL Glucose 192 H (74-99) mg/dL POC Glucose (mg/dL) 250 H (75-99) mg/dL Calcium 7.7 L (8.4-10.2) mg/dL Phosphorus 5.6 H (2.5-4.5) mg/dL Magnesium 2.5 H (1.6-2.3) mg/dL 08/26/20 08/26/20 Range/Units 05:12 06:30 WBC (3.8-10.6) k/uL RBC (4.30-5.90) m/uL Hgb (13.0-17.5) gm/dL Hct (39.0-53.0) % MCV (80.0-100.0) fL Plt Count (150-450) k/uL Neutrophils # (Manual) (1.3-7.7) k/uL Lymphocytes # (Manual) (1.0-4.8) k/uL Nucleated RBCs (0-0) /100 WBC ABG pH 7.23 L (7.35-7.45) ABG pCO2 46 H (35-45) mmHg ABG pO2 147 H (83-108) mmHg ABG HCO3 19 L (21-25) mmol/L ABG O2 Saturation 99.1 H (94-97) % Sodium (137-145) mmol/L Potassium (3.5-5.1) mmol/L Carbon Dioxide (22-30) mmol/L BUN (9-20) mg/dL Creatinine (0.66-1.25) mg/dL Glucose (74-99) mg/dL POC Glucose (mg/dL) 196 H (75-99) mg/dL Calcium (8.4-10.2) mg/dL Phosphorus (2.5-4.5) mg/dL Magnesium (1.6-2.3) mg/dL Microbiology - Last 24 Hours (Table) 08/24/20 11:00 Blood Culture Gram Stain - Preliminary Blood Blood Culture - Preliminary Gram Neg Bacilli 08/24/20 11:00 Blood Culture - Preliminary Blood No Growth after 24 hours 08/24/20 11:00 Blood Culture - Final Blood 08/22/20 21:08 Gram Stain - Final Sputum Sputum Culture - Final Serratia marcescens Assessment and Plan Plan: 1 abdominal aortic aneurysm, 8.8 cm involving the iliac arteries and involving an intraluminal thrombus status post open repair of abdominal aortic aneurysm, with 30 mm sleeve graft. The patient is postop day #5 2 acute hypoxic respiratory failure post abdominal aortic aneurysm repair. The patient has bilateral pulmonary infiltrates with gram-negative pneumonia and the cultures are positive for sedation marcescens and the patient is currently on IV Zosyn him a remains intubated on a mechanical ventilator with a FiO2 of 60% with a PEEP of 13, volume cycle assist-control mode of ventilation. 3 shock, consider septic shock and the patient has been resuscitated aggressively with IV fluids.. The patient had a significant blood loss during procedure, 4 L. Status post 1 L of colloid, 1 L of Cell Saver, 5 L of crystalloid, 3 ampules of sodium bicarbonate, and 1 unit PRBCs. For now, the patient is still on a combination of vasopressin physiologic dose, norepinephrine and the patient is also on stress dose hydrocortisone, there are diminished pulses in all 4 extremities specially in the feet and the patient has Doppler signals in his feet along with some cyanotic toes. 4 suspect adrenal insufficiency, patient started on hydrocortisone, 50 mg IV push every 6 hours. 5 Acute kidney injury, likely related to acute tubular necrosis, with a recent initiation of hemodialysis. The last hemodialysis was 2 days ago. Potassium level from today is at 5.3 with a serum bicarb of 18. The patient will need dialysis today 6 sedation marcescens pneumonia ,, currently on Zosyn. 7 CAD with a previous history of previous myocardial infarction. 8 History of CVA. 9 History of essential hypertension. 10 History of chronic atrial fibrillation. Patient is currently on a Cardizem drip for rate control running at 5 mg an hour 11 History of [id number] history of tobacco use. 12 COPD. 13 Questionable history of alcohol abuse. 14 History of DJD. 15 TPN for nutritional support 16 thrombocytopenia with drop in the platelet count down to 54. Consider drug- induced thrombocytopenia. Consider consumptive secondary to his underlying shock state. Patient has not received any heparin products. . Plan: Continue vent support and drop the FiO2 down to 50% and PEEP down to 12 and we will gradually wean off the PEEP depending on his oxygenation and oxygen saturation. Blood gases from today was reviewed. There is a component of permissive hypercapnia. Chest x-ray still showing bilateral lower lobe pul monary infiltrates stopped IV Zosyn and switch her to IV cefepime and consideration for drug induce d thrombocytopenia Hemodialysis will be needed today Keep the patient sedated with propofol continue pressors and wean off the levofed keeping their physiologic vasopressin Continue the stress dose hydrocortisone Stop the Cardizem drip Monitor platelet counts and check PT/PTT PT/INR d-dimer and fibrinogen looking for any component of DIC. No anticoagulants will be used for today Initiate low-dose enteral feeding for nutritional support keeping TPN and if he is able to tolerate we'll transition and the patient gradually to enteral feeding rather TPN monitor the pulses in all 4 extremities Put the patient on IV Protonix Check an echocardiogram to evaluate his LV function specially his underlying shock Condition is critical we'll continue to follow and monitor the patient will make further recommendations based on the progress. Critically care evaluation, more than 30 minutes Time with Patient: Greater than 30
--- NOTE | 2020-08-26 07:29 | XR ---
EXAMINATION TYPE: XR chest 1V portable DATE OF EXAM: 08/26/2020 Comparison: 08/25/2020 Clinical History: 74 year-old male tube placement Findings: ET tube is satisfactory. The NG tube is short. The tip is approximately 8 cm from the GE junction and the sidehole is approximately 16 cm from the GE junction. Heart mildly enlarged. Mild interstitial prominence similar with some patchy lower lung densities whi ch appear relatively similar. May be a trace left effusion. Right PICC tip at the mid SVC. Impression: 1. Note that the NG tube is short. Advance by at least 18 cm so that the side hole enters the stomach . 2. Continued patchy lower lung infiltrates. Possible trace left effusion.
[2020-08-26] MEDS ORDERED: CEFEPIME 2 GM in SODIUM CHLORIDE 0.9% 100 ML IVPB ONE ×2 (09:00→14:00)
[2020-08-26 10:17] LABS: D-Dimer 6.1 mg/L FEU (<0.60); INR 0.8 (<1.2); Prothrombin Time 9.2 sec (9.0-12.0)
[2020-08-26 10:18] LABS: Partial Thromboplastin Time 30.8 sec (22.0-30.0)
--- NOTE | 2020-08-26 10:44 | PN ---
PROGRESS NOTE David is a 74-year-old gentleman who has a large abdominal aortic aneurysm who underwent surgery currently intubated on the vent, developed renal failure postoperatively. PHYSICAL EXAMINATION: On exam today, heart rate is 78 beats per minute. Blood pressure 112/60, respiratory rate is 24. Chest exam reveals diminished air entry at the bases. Heart exam reveals first and second heart sounds. No gallop. Examination of extremities reveals mild edema. Peripheral pulses are felt. LABS: Labs show a hemoglobin of 8.1, platelet count is low at 54. Potassium is 5.3, BUN is 87, creatinine is 4.9. ASSESSMENT: 1. Abdominal aortic aneurysm, status post surgery. 2. Permanent atrial fibrillation with controlled ventricular rate. 3. Acute renal failure secondary following the abdominal aortic surgery. 4. AAA, status post repair. PLAN: The patient is not a candidate for anticoagulation at this time because of the low platelet count. Continue rest of his medications and continue hemodialysis. MMODL / IJN: [id number] /
--- NOTE | 2020-08-26 11:13 | ECHOF ---
Referral Reason:Septic shock MEASUREMENTS -------- HEIGHT: 175.3 cm WEIGHT: 99.3 kg BP: IVSd: 1.4 cm (0.6 - 1.1) LVIDd: 4.6 cm (3.9 - 5.3) LVPWd: 0.9 cm (0.6 - 1.1) IVSs: 1.9 cm LVIDs: 3.8 cm LVPWs: 1.4 cm Ao Diam: 3.3 cm (2.0 - 3.7) AV Cusp: 2.3 cm (1.5 - 2.6) LA Diam: 3.3 cm (2.7 - 3.8) MV E Sigifredo: 0.54 m/s MV DecT: 214 ms MV A Sigifredo: 0.49 m/s MV E/A Ratio: 1.10 RAP: 5.00 mmHg RVSP: 16.30 mmHg FINDINGS -------- This was a technically difficult study with suboptimal views. Limited study for LV function. Pt o n vent Overall left ventricular systolic function is normal with, an EF between 55 - 60 %. Lumason used There is no pericardial effusion. CONCLUSIONS -------- 1. This was a technically difficult study with suboptimal views. 2. Limited study for LV function. 3. Pt on vent 4. Overall left ventricular systolic function is normal with, an EF between 55 - 60 %. 5. There is no pericardial effusion. BULLET LUBRICANT MIXER: Beatrice Giles, [facility]
[2020-08-26 11:51] LABS: Glucose,Whole Blood 144 mg/dL (75-99)
[2020-08-26] MEDS: ATORVASTATIN 40 MG TAB PO SCH (12:38)
[2020-08-26] MEDS: CHLORHEXIDINE GLUCONATE 15 ML CUP MUCOUS MEM SCH ×2 (12:38→22:29)
[2020-08-26] MEDS: PANTOPRAZOLE 40 MG/10 ML VIAL IVP SCH ×2 (12:38→22:29)
[2020-08-26] MEDS: SODIUM CHLORIDE 0.9% 150 ML with VASOPRESSIN 60 UNIT IV SCH ×2 (14:05)
--- NOTE | 2020-08-26 14:33 | P.PN ---
Subjective Progress Note Date: 08/26/20 Principal diagnosis: Coffee-ground emesis She was seen and examined in the ICU. The patient remains dated on mechanical ventilation. he has not had any further coffee-ground output from the NG tube. Plan is to start trickle feedings today. No bowel movement reported. Objective - Vital Signs Vital signs: Vital Signs Temp 99 F 08/26/20 04:00 Pulse 82 08/26/20 07:55 Resp 32 H 08/26/20 07:55 BP 133/76 08/26/20 07:00 Pulse Ox 98 08/26/20 07:00 Intake & Output 08/25/20 08/26/20 08/26/20 18:59 06:59 18:59 Intake Total 3269.617 4324.18 113.439 Output Total 0 0 7 Balance 5096.953 4722.18 106.439 Weight 101 kg 99.5 kg Intake: IV 1139 1233 103 0.9 KVO 200 220 20 Parenteral Electrolytes 400 880 80 20 ml In Amino Acid 5%- D15w 1,000 ml @ 80 mls/hr IV .BY DURATION [facility] Rx#: [id number] Parenteral Electrolytes 400 20 ml Mvi, Adult No.4 with Vit K 10 ml Trace ( Conc-1Ml/Dose) 1 ml In Amino Acid 5%-D15w 1,000 ml @ 30 mls/hr IV .Q24H [facility] Rx#:[id number] Zosyn 100 100 pressure bag 39 33 3 Intake, IV Titration 861.108 7758.18 10.439 Amount Diltiazem 125 mg In 125 Sodium Chloride 0.9% 100 ml @ 5 MG/HR 5 mls/hr IV .Q24H [facility] Rx#:[id number] Norepinephrine 32 mg In 250.000 280.75 10.439 Sodium Chloride 0.9% 218 ml @ 0.05 MCG/KG/MIN 2.02 mls/hr IV .Q24H [facility] Rx#: [id number] Parenteral Electrolytes 1008 20 ml In Amino Acid 5%- D15w 1,000 ml @ 80 mls/hr IV .BY DURATION [facility] Rx#: [id number] Parenteral Electrolytes 1031 20 ml Mvi, Adult No.4 with Vit K 10 ml Trace ( Conc-1Ml/Dose) 1 ml In Amino Acid 5%-D15w 1,000 ml @ 80 mls/hr IV .BY DURATION [facility] Rx#: [id number] propofoL 500 mg In Empty 190.429 143.43 Bag 1 bag @ Titrate IV . Q0M [facility] Rx#:[id number] Output: Urine 0 0 7 Other: Voiding Method Indwelling Catheter Indwelling Catheter ABP, PAP, CO, CI - Last Documented Arterial Blood Pressure 152/66 - Exam General appearance: sedated on mechanical ventilation HET: Head is normocephalic and atraumatic. Conjunctiva pink. Sclera and icteric. Neck: Supple without lymphadenopathy. Abdomen: Soft,nondistended, dressing clean dry and intact. Extremities:lateral lower extremity edema, cool to the touch. Neurological: sedated on mechanical ventilation. - Labs CBC & Chem 7: 08/26/20 03:35 08/26/20 03:35 Labs: Abnormal Lab Results - Last 24 Hours (Table) 08/25/20 08/25/20 08/25/20 Range/Units 11:39 13:00 17:38 WBC (3.8-10.6) k/uL RBC (4.30-5.90) m/uL Hgb (13.0-17.5) gm/dL Hct (39.0-53.0) % MCV (80.0-100.0) fL Plt Count (150-450) k/uL Neutrophils # (Manual) (1.3-7.7) k/uL Lymphocytes # (Manual) (1.0-4.8) k/uL Nucleated RBCs (0-0) /100 WBC ABG pH (7.35-7.45) ABG pCO2 (35-45) mmHg ABG pO2 (83-108) mmHg ABG HCO3 (21-25) mmol/L ABG O2 Saturation (94-97) % Sodium (137-145) mmol/L Potassium (3.5-5.1) mmol/L Carbon Dioxide (22-30) mmol/L BUN (9-20) mg/dL Creatinine (0.66-1.25) mg/dL Glucose (74-99) mg/dL POC Glucose (mg/dL) 207 H 220 H 222 H (75-99) mg/dL Calcium (8.4-10.2) mg/dL Phosphorus (2.5-4.5) mg/dL Magnesium (1.6-2.3) mg/dL 08/26/20 08/26/20 08/26/20 Range/Units 00:22 03:35 03:35 WBC 11.0 H (3.8-10.6) k/uL RBC 2.54 L (4.30-5.90) m/uL Hgb 8.1 L (13.0-17.5) gm/dL Hct 25.8 L (39.0-53.0) % MCV 101.4 H (80.0-100.0) fL Plt Count 54 L (150-450) k/uL Neutrophils # (Manual) 9.60 H (1.3-7.7) k/uL Lymphocytes # (Manual) 0.66 L (1.0-4.8) k/uL Nucleated RBCs 1 H (0-0) /100 WBC ABG pH (7.35-7.45) ABG pCO2 (35-45) mmHg ABG pO2 (83-108) mmHg ABG HCO3 (21-25) mmol/L ABG O2 Saturation (94-97) % Sodium 133 L (137-145) mmol/L Potassium 5.3 H (3.5-5.1) mmol/L Carbon Dioxide 18 L (22-30) mmol/L BUN 87 H (9-20) mg/dL Creatinine 4.93 H (0.66-1.25) mg/dL Glucose 192 H (74-99) mg/dL POC Glucose (mg/dL) 250 H (75-99) mg/dL Calcium 7.7 L (8.4-10.2) mg/dL Phosphorus 5.6 H (2.5-4.5) mg/dL Magnesium 2.5 H (1.6-2.3) mg/dL 08/26/20 08/26/20 Range/Units 05:12 06:30 WBC (3.8-10.6) k/uL RBC (4.30-5.90) m/uL Hgb (13.0-17.5) gm/dL Hct (39.0-53.0) % MCV (80.0-100.0) fL Plt Count (150-450) k/uL Neutrophils # (Manual) (1.3-7.7) k/uL Lymphocytes # (Manual) (1.0-4.8) k/uL Nucleated RBCs (0-0) /100 WBC ABG pH 7.23 L (7.35-7.45) ABG pCO2 46 H (35-45) mmHg ABG pO2 147 H (83-108) mmHg ABG HCO3 19 L (21-25) mmol/L ABG O2 Saturation 99.1 H (94-97) % Sodium (137-145) mmol/L Potassium (3.5-5.1) mmol/L Carbon Dioxide (22-30) mmol/L BUN (9-20) mg/dL Creatinine (0.66-1.25) mg/dL Glucose (74-99) mg/dL POC Glucose (mg/dL) 196 H (75-99) mg/dL Calcium (8.4-10.2) mg/dL Phosphorus (2.5-4.5) mg/dL Magnesium (1.6-2.3) mg/dL Microbiology - Last 24 Hours (Table) 08/24/20 11:00 Blood Culture Gram Stain - Preliminary Blood Blood Culture - Preliminary Gram Neg Bacilli 08/24/20 11:00 Blood Culture - Preliminary Blood No Growth after 24 hours 08/24/20 11:00 Blood Culture - Final Blood 08/22/20 21:08 Gram Stain - Final Sputum Sputum Culture - Final Serratia marcescens Assessment and Plan (1) GI bleed Narrative/Plan: Narrative/Plan: 74-year-old male seen in the intensive care unit status post abdominal aortic aneurysm repair. Concerns were for possible coffee-ground output from his nasogastric tube. Patient has had no other signs or symptoms of GI bleeding. Patient's hemoglobin stable at 8.7 today. Unclear if findings are secondary to trauma from the nasogastric tube, gastritis, esophagitis, peptic ulcer disease or other etiology. Discussion with the nursing staff and no further bloody output from the NG tube and no evidence of lower GI bleeding or blood per rectum. Current Visit: Yes Status: Acute Code(s): K92.2 - GASTROINTESTINAL HEMORRHAGE, UNSPECIFIED SNOMED Code(s): 25467669 (2) Status post abdominal aortic aneurysm (AAA) repair Current Visit: Yes Status: Acute Code(s): Z98.890 - OTHER SPECIFIED POSTPROCEDURAL STATES; Z86.79 - PERSONAL HISTORY OF OTHER DISEASES OF THE CIR CULATORY SYSTEM SNOMED Code(s): 974360740 Plan: Supportive care Continue to monitor for signs or symptoms of GI bleed including output from na sogastric tube Continue monitor hemoglobin and hematocrit and transfuse as needed Continue Protonix therapy Continue other medical management per primary team, bank cashier service and vascular surgery No plans for endoscopic evaluation at this time, and if patient continues to have suspicion of GI bleed or further precipitous fall in hemoglobin and will consider EGD at that time although patient remains high risk due to recent surgery okay for tube feeds if cleared by surgical service if no bowel movement status post tube feeding, consider Dulcolax suppository nightly. Thank you for allowing us to participate in the care of the patient, we will be on standby at this time Dr. Stark I agree with the dictator's note, documented as a scribe by Darleen Roberson.
--- NOTE | 2020-08-26 14:52 | P.PN ---
Subjective Progress Note Date: 08/26/20 Principal diagnosis: Abdominal aortic aneurysm she was seen and examined in the ICU. He is still sedated and intubated on pressors. Cardizem drip has been discontinued, he continues on vasopressin and Levophed. Echocardiogram ordered. Zosyn discontinued, patient continues on cefepime. He is getting hemodialysis through his right femoral temporary catheter. Hemoglobin is stable at 8.1. He has had no further episodes of bleeding. X-ray of abdomen reviewed, showing constipation. No further coffee ground output through the NG tube. Objective - Vital Signs Vital signs: Vital Signs Temp 99 F 08/26/20 04:00 Pulse 82 08/26/20 07:55 Resp 32 H 08/26/20 07:55 BP 133/76 08/26/20 07:00 Pulse Ox 98 08/26/20 07:00 Intake & Output 08/25/20 08/26/20 08/26/20 18:59 06:59 18:59 Intake Total 3059.742 1875.18 113.439 Output Total 0 0 7 Balance 4359.253 7147.18 106.439 Weight 101 kg 99.5 kg Intake: IV 1139 1233 103 0.9 KVO 200 220 20 Parenteral Electrolytes 400 880 80 20 ml In Amino Acid 5%- D15w 1,000 ml @ 80 mls/hr IV .BY DURATION [facility] Rx#: [id number] Parenteral Electrolytes 400 20 ml Mvi, Adult No.4 with Vit K 10 ml Trace ( Conc-1Ml/Dose) 1 ml In Amino Acid 5%-D15w 1,000 ml @ 30 mls/hr IV .Q24H [facility] Rx#:[id number] Zosyn 100 100 pressure bag 39 33 3 Intake, IV Titration 521.870 3833.18 10.439 Amount Diltiazem 125 mg In 125 Sodium Chloride 0.9% 100 ml @ 5 MG/HR 5 mls/hr IV .Q24H [facility] Rx#:[id number] Norepinephrine 32 mg In 250.000 280.75 10.439 Sodium Chloride 0.9% 218 ml @ 0.05 MCG/KG/MIN 2.02 mls/hr IV .Q24H [facility] Rx#: [id number] Parenteral Electrolytes 1008 20 ml In Amino Acid 5%- D15w 1,000 ml @ 80 mls/hr IV .BY DURATION [facility] Rx#: [id number] Parenteral Electrolytes 1031 20 ml Mvi, Adult No.4 with Vit K 10 ml Trace ( Conc-1Ml/Dose) 1 ml In Amino Acid 5%-D15w 1,000 ml @ 80 mls/hr IV .BY DURATION [facility] Rx#: [id number] propofoL 500 mg In Empty 190.429 143.43 Bag 1 bag @ Titrate IV . Q0M [facility] Rx#:[id number] Output: Urine 0 0 7 Other: Voiding Method Indwelling Catheter Indwelling Catheter ABP, PAP, CO, CI - Last Documented Arterial Blood Pressure 152/66 - Exam General appearance: sedated on mechanical ventilation HET: Head is normocephalic and atraumatic. Conjunctiva pink. Sclera and icteric. Neck: Supple without lymphadenopathy. Abdomen: Soft, mild distention, dressing clean dry and intact. Extremities: bilateral lower extremity edema, cool to the touch. Left foot with DP Doppler signal, right PT Doppler signal. Neurological: sedated on mechanical ventilation. - Labs CBC & Chem 7: 08/26/20 03:35 08/26/20 03:35 Labs: Abnormal Lab Results - Last 24 Hours (Table) 08/25/20 08/25/20 08/25/20 Range/Units 11:39 13:00 17:38 WBC (3.8-10.6) k/uL RBC (4.30-5.90) m/uL Hgb (13.0-17.5) gm/dL Hct (39.0-53.0) % MCV (80.0-100.0) fL Plt Count (150-450) k/uL Neutrophils # (Manual) (1.3-7.7) k/uL Lymphocytes # (Manual) (1.0-4.8) k/uL Nucleated RBCs (0-0) /100 WBC ABG pH (7.35-7.45) ABG pCO2 (35-45) mmHg ABG pO2 (83-108) mmHg ABG HCO3 (21-25) mmol/L ABG O2 Saturation (94-97) % Sodium (137-145) mmol/L Potassium (3.5-5.1) mmol/L Carbon Dioxide (22-30) mmol/L BUN (9-20) mg/dL Creatinine (0.66-1.25) mg/dL Glucose (74-99) mg/dL POC Glucose (mg/dL) 207 H 220 H 222 H (75-99) mg/dL Calcium (8.4-10.2) mg/dL Phosphorus (2.5-4.5) mg/dL Magnesium (1.6-2.3) mg/dL 08/26/20 08/26/20 08/26/20 Range/Units 00:22 03:35 03:35 WBC 11.0 H (3.8-10.6) k/uL RBC 2.54 L (4.30-5.90) m/uL Hgb 8.1 L (13.0-17.5) gm/dL Hct 25.8 L (39.0-53.0) % MCV 101.4 H (80.0-100.0) fL Plt Count 54 L (150-450) k/uL Neutrophils # (Manual) 9.60 H (1.3-7.7) k/uL Lymphocytes # (Manual) 0.66 L (1.0-4.8) k/uL Nucleated RBCs 1 H (0-0) /100 WBC ABG pH (7.35-7.45) ABG pCO2 (35-45) mmHg ABG pO2 (83-108) mmHg ABG HCO3 (21-25) mmol/L ABG O2 Saturation (94-97) % Sodium 133 L (137-145) mmol/L Potassium 5.3 H (3.5-5.1) mmol/L Carbon Dioxide 18 L (22-30) mmol/L BUN 87 H (9-20) mg/dL Creatinine 4.93 H (0.66-1.25) mg/dL Glucose 192 H (74-99) mg/dL POC Glucose (mg/dL) 250 H (75-99) mg/dL Calcium 7.7 L (8.4-10.2) mg/dL Phosphorus 5.6 H (2.5-4.5) mg/dL Magnesium 2.5 H (1.6-2.3) mg/dL 08/26/20 08/26/20 Range/Units 05:12 06:30 WBC (3.8-10.6) k/uL RBC (4.30-5.90) m/uL Hgb (13.0-17.5) gm/dL Hct (39.0-53.0) % MCV (80.0-100.0) fL Plt Count (150-450) k/uL Neutrophils # (Manual) (1.3-7.7) k/uL Lymphocytes # (Manual) (1.0-4.8) k/uL Nucleated RBCs (0-0) /100 WBC ABG pH 7.23 L (7.35-7.45) ABG pCO2 46 H (35-45) mmHg ABG pO2 147 H (83-108) mmHg ABG HCO3 19 L (21-25) mmol/L ABG O2 Saturation 99.1 H (94-97) % Sodium (137-145) mmol/L Potassium (3.5-5.1) mmol/L Carbon Dioxide (22-30) mmol/L BUN (9-20) mg/dL Creatinine (0.66-1.25) mg/dL Glucose (74-99) mg/dL POC Glucose (mg/dL) 196 H (75-99) mg/dL Calcium (8.4-10.2) mg/dL Phosphorus (2.5-4.5) mg/dL Magnesium (1.6-2.3) mg/dL Microbiology - Last 24 Hours (Table) 08/24/20 11:00 Blood Culture Gram Stain - Preliminary Blood Blood Culture - Preliminary Gram Neg Bacilli 08/24/20 11:00 Blood Culture - Preliminary Blood No Growth after 24 hours 08/24/20 11:00 Blood Culture - Final Blood 08/22/20 21:08 Gram Stain - Final Sputum Sputum Culture - Final Serratia marcescens Assessment and Plan Assessment: 1. Postop day #4 abdominal aortic aneurysm repair graft 2. Abdominal aortic aneurysm, 8.8 cm 3. Hypotension, remains on pressors 4. Acute renal failure on hemodialysis 5. Coronary artery disease 6. Atrial fibrillation 7. TIA/CVA 8. Long-standing history of tobacco use 9. COPD Plan: 1. Supportive care 2. Continue with ICU medical management and recommendations 3. Abdominal x-ray ordered and reviewed 4. May start trickle enteral feeds 5. Appreciate recommendations from nephrology, continue hemodialysis as ordered per nephrology 6. Repeat labs in the a.m. We will continue to follow closely The above dictated assessment and findings were discussed with Dr. Murillo. The impression and plan of care have been directed as dictated.
--- NOTE | 2020-08-26 15:32 | PN ---
PROGRESS NOTE Patient is seen for followup for acute kidney injury. Currently he is maintained on hemodialysis. The patient is on pressors. He remains on the vent with FiO2 at 50% and PEEP of 12. We are going for about 2-1/2 hours with UF goal of about 1-2 L. It looks like we will be able to get about 2.2 L. The patient continues to have no significant urine output. PHYSICAL EXAMINATION: On examination this morning, blood pressure was 92/59, heart rate 81 per minute. Patient is afebrile. Examination shows bilateral breath sounds heard bilaterally. Abdomen is soft. Examination of lower extremities shows edema 2+ bilaterally upper and lower extremities. REGULATORY PRODUCT MANAGER exam cannot be performed as patient is sedated. LABS: Labs show hemoglobin 8.1, sodium 133, potassium 5.3, chloride 105, CO2 is 18, BUN 87, serum creatinine 4.93. Calcium 7.7, phosphorus 5.6. ASSESSMENT: 1. Acute kidney injury, acute tubular necrosis, currently oliguric, hemodialysis dependent. We will plan for possible dialysis again tomorrow if the patient is hemodynamically stable. 2. Acute respiratory failure, hypoxic, currently on the ventilator secondary to pneumonia. 3. Bilateral infiltrates and pneumonia with blood cultures positive for gram-negative bacilli and sputum culture positive for Serratia marcescens. 4. Sepsis secondary to pneumonia with gram-negative bacteremia maintained on antibiotics, maintained on pressors. 5. Abdominal aortic aneurysm, status post open repair with 30 mm sleeve graft. Patient is postoperative day #5. 6. History of chronic atrial fibrillation. The patient was in atrial fibrillation with rapid ventricular response and was on Cardizem drip, which is now discontinued. PLAN: Goal UF of about 2 L today. Will likely repeat dialysis again tomorrow as long as patient is hemodynamically stable. MMODL / IJN: [id number] /
[2020-08-26 17:42] LABS: Glucose,Whole Blood 219 mg/dL (75-99)
--- NOTE | 2020-08-26 20:34 | P.PN ---
Progress Note - Text Progress Note Date: 08/26/20 - Chief Complaint Abdominal surgery Consultation: This is a 74-year-old patient who follows with Dr. rollins from [place]. Chronic stable medical conditions include COPD, coronary artery disease with previous CA, osteoarthritis, chronic nicotine dependence. Patient was recently in the hospital following outpatient screening for abdominal aortic aneurysm. It was found to be 9.5 x 8.2 cm in the midportion. Internal thrombus seen surrounding the small bowel in the lumen. It also extends into the right and left common iliac arteries. Patient was therefore sent to the ER. Further computed tomography scan of the chest and abdomen in the ER showed 4.2 cm as cending thoracic aneurysm and 3.8 cm descending thoracic aorta with mural thrombus. Patient denies any abdominal pain. Does get charley horses. At the baseline is a short of breath and wheezing. He is an active smoker. No chest pain. Patient was then discharged to return for surgery. August 21: patient underwent open repair of abdominal aortic aneurysm with a 30 mm sleeve graft. Currently in the ICU. On the ventilator intubated. FiO2 40 and a PEEP of 5. Has NG tube in place. Murillo catheter. Endotracheal tube. Drips include IV propofol and norepinephrine. Telemetry shows atrial f ibrillation. Hemodialysis catheter was placed and started on hemodialysis.- August 24 Today-ICU: Ventilator with FiO2 50, PEEP of 12. Drips include levo fed, vasopressin, propofol. A. fib better controlled -taken off Cardizem drip. NG tube output of dark aspirate has decreased. Poor urine output. Hemodialysis today. 2 L removed. 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 Smoking for many years. About 2 beers a day. Retired Physical examination: VITAL SIGNS: 97.4, 84, 32, 140/59, 97% on the ventilator GENERAL: BMI 29.3, laying in bed, intubated. EYES: Pupils equal. Conjunctiva normal. HEENT: External appearance of nose and ears normal, oral cavity-endotracheal tube, NG tube-dark aspirate NECK: JVD unable to assess; masses not palpable. HEART: Irregular heart sounds; no edema. LUNGS: Respiratory rate increased decreased breath sounds,. ABDOMEN: Soft, dressing over the midline incision, liver spleen not palpable, no masses palpable. Murillo catheter EXTREMITIES: Bluish discoloration of both the feet, cold PSYCH: Sedated INVESTIGATIONS, reviewed in the clinical context: August 26: White count 11 hemoglobin 8.1 platelets 54 potassium 5.3 bun 87 creatinine 4.93 2-D echocardiogram-limited: EF 55% August 25: White count 14.2 hemoglobin 8.7 platelets 61 potassium 4.8 bun 65 creatinine 4.08 August 24: White count 13.7 hemoglobin 9.7 platelets 74 potassium 5.1 bun 64 creatinine 4.38. ABG showed pH of 7.13 pCO2 58 pO2 67 August: White count 10.9 hemoglobin 10.8 platelets 75 potassium 4.6 bun 53 creatinine 2.95 White count 18.3 hemoglobin 11.8 platelets 72 potassium 4.7 bun 40 creatinine 1.67 Previous testin08/13/2020: White count 4.1 hemoglobin 13.8 platelets 148 bun 19 creatinine 0.94 Assessment: -Abdominal aortic aneurysm 8.8 cm, also involving the iliac arteries, with intraluminal thrombus-followed by open repair sleeve graft on 08/21/2020 -Ascending thoracic aortic is a 4.2 cm, descending thoracic aorta 3.8 cm with mural thrombus -Chronic nicotine dependence patient cigarette smoker -Emphysema, with some exacerbation in a current smoker -Coronary artery disease and a prior history of CA -Suspect peripheral arterial disease -Persistent atrial fibrillation rate uncontrolled-was on IV Cardizem drip. Heart rate now controlled. Off Cardizem drip. -Acute hypoxic respiratory failure, requiring ventilator support-slow to respond -Acute kidney injury patient's creatinine was 0.94 on August 13. Possible ATN. Oliguric. Worsening. Hemodialysis catheter placed on August 24. Started hemodialysis -Upper GI bleed with NG tube putting out dark aspirate-amount has gone down -TPN Plan: Remains critically ill. Current medications include DuoNeb, IV Solu-Cortef 50 mg every 8, 2 feeding started at 10 mL an hour,, TPN, IV Zosyn IV propofol, vasopressin. Spoke to Dr. Licona. He will be speaking to patient's son who lives in [place]. Thank you Dr. Donovan
[2020-08-26] MEDS ORDERED: CEFEPIME 2 GM in SODIUM CHLORIDE 0.9% 100 ML IVPB SCH (21:00)
[2020-08-26] MEDS: AMINO ACID 5% IV SCH ×5 (22:00)
[2020-08-26] MEDS: MVI IV SCH ×5 (22:00)
[2020-08-26] MEDS: CALCIUM GLUCONATE IV SCH ×5 (22:00)
[2020-08-26] MEDS: SODIUM ACETATE IV SCH ×5 (22:00)
[2020-08-26] MEDS: INSULIN DETEMIR (LEVEMIR) 100 UNIT/ML SYR SQ SCH (22:29)
[2020-08-26 23:57] LABS: Glucose,Whole Blood 161 mg/dL (75-99)
[2020-08-27] MEDS: IPRATROPIUM-ALBUTEROL 3 ML NEB INHALATION SCH ×6 (00:26→19:55)
[2020-08-27] MEDS: HYDROCORTISONE SUCCINATE 100 MG/2 ML VIAL IV SCH ×4 (00:39→23:59)
[2020-08-27] MEDS: CEFEPIME 2 GM in SODIUM CHLORIDE 0.9% 100 ML IVPB SCH ×3 (00:40→23:58)
[2020-08-27] MEDS: INSULIN ASPART (NovoLOG) 100 UNIT/ML VIAL SQ SCH ×5 (00:40→23:59)
[2020-08-27 05:14] LABS: ABG Base Excess -4.3 mmol/L; ABG HCO3 22 mmol/L (21-25); ABG Oxygen Saturation 98.4 % (94-97); ABG PCO2 40 mmHg (35-45); ABG PH 7.34 (7.35-7.45); ABG PO2 107 mmHg (83-108); ABG TCO2 23 mmol/L (19-24)
--- NOTE | 2020-08-27 06:38 | XR ---
EXAMINATION TYPE: XR chest 1V portable DATE OF EXAM: 08/27/2020 CLINICAL HISTORY: Difficulty breathing progress study. TECHNIQUE: Single AP portable semiupright view of the chest is obtained. COMPARISON: Chest x-ray from one day earlier and older studies. FINDINGS: Stable endotracheal and orogastric tubes, orogastric tube terminates in distal esophagus a nd should be advanced. Stable right-sided PICC line. Stable mild cardiomegaly with atherosclerotic change in the aortic knob. Reticular interstitial promi nence with left greater than right bibasilar opacities. Osseous structures intact. IMPRESSION: 1. Stable positioning of orogastric tube terminating in distal esophagus, recommend advancing 15 to 2 0 cm. 2. Mild cardiomegaly with left greater than right bibasilar acute infiltrate and/or atelectasis and p robable small to tiny left pleural effusion all redemonstrated.
[2020-08-27 06:52] LABS: Glucose,Whole Blood 188 mg/dL (75-99)
[2020-08-27 07:29] LABS: Calcium 8.1 mg/dL (8.4-10.2); Magnesium 2.5 mg/dL (1.6-2.3); Phosphorus 5.3 mg/dL (2.5-4.5); Potassium 5.3 mmol/L (3.5-5.1)
[2020-08-27 07:46] LABS: Basophils % (A) 0 %; Eosinophils % (A) 0 %; HCT 24.7 % (39.0-53.0); HGB 7.8 gm/dL (13.0-17.5); Lymphocytes # (A) 0.5 k/uL (1.0-4.8); Lymphocytes % (A) 4 %; MCH 31.9 pg (25.0-35.0); MCHC 31.7 g/dL (31.0-37.0); MCV 100.5 fL (80.0-100.0); Macrocytosis Slight; Mean Platelet Volume 11.9; Monocytes # (A) 0.2 k/uL (0-1.0); Monocytes % (A) 2 %; Neutrophils # (A) 10.6 k/uL (1.3-7.7); Neutrophils % (A) 94 %; RBC 2.46 m/uL (4.30-5.90); RDW 15.6 % (11.5-15.5); WBC 11.4 k/uL (3.8-10.6)
[2020-08-27 07:55] LABS: Platelet Count 50 k/uL (150-450)
--- NOTE | 2020-08-27 08:27 | P.PN ---
Subjective Progress Note Date: 08/27/20 74-year-old here patient with known history of abdominal aortic aneurysm and known history of coronary artery previous CA. The patient also known to have previous history of CVA, chronic atrial fibrillation, hypertension and [id number] smoking history. The patient has osteoarthritis. The patient und erwent an open repair of an abdominal aortic aneurysm with 30 mm sleeve graft. Note that the patient a large abdominal aortic aneurysm measuring 9.5 x 8.2 cm in size with internal thrombus. The aneurysm was extending into the right and left common iliac artery. The patient also known to have a 4.2 cm ascending aortic aneurysm and at 3.8 cm ascending thoracic aortic aneurysm with a mural thrombus. The patient lost approximately 4 L of blood and operating room. The patient was given a total of 1 L of Cell Saver, a lot of crystalloids and colloids and operating room and she also required packed RBC transfusion. She was kept intubated on a mechanical ventilator and following that she was t ransferred to the intensive care unit. The patient is currently postop day #5 following the abdominal aortic aneurysm repair. The patient remains on a mechanical ventilator. She is currently on assist control mode at the rate of 32 and a tidal volume of 500 and FiO2 of 60% with a PEEP of 13. The patient has been on normal saline at rate of 20 mL an hour and the patient is also requiring norepinephrine infusion which is running at 60 g per minute. She is on Cardizem drip for rate control at the rate of 10 mg an hour regarding her atrial fibrillation and she is also on vasopressin and the dose of 0.03 units per minute. She is was sedated with propofol and currently she is on 35 mcg/kg per minute. The patient remains in atrial fibrillation for now on a Cardizem drip. In terms of feeding, the patient is receiving TPN at the rate of 80 mL an hour. The patient continues to have a low urine output. She developed an acute kidney injury postop and she will possibly require hemodialysis. The patient is going gram-negative bacteria and this sputum and the chest x-ray is showing bilobar infiltrate affecting the lower lobes bilaterally. ET tube is in a good location and the patient has a PICC line in the right upper extremity. NG tube was also in place. Assess him of the abdomen from yesterday showed retained fecal material in the large bowel. NG tube is in the distal esophagus. There is evidence of constipation. Hemodialysis catheter was placed on 08/24/2020 and the patient was started on hemodialysis. There is some dark aspirate from the NG tube consistent possibly with an upper GI bleed. This sputum sample turning lathe tender to be positive for Serratia marcescens and the patient is currently on IV Zosyn. On the morning of , the patient is being seen for a follow-up. The patient remains sedated with propofol which is running at 20 mcg/kg per minute. The patient's is sedated on mechanical ventilator. The patient is an assist- control mode volume cycled with a tidal volume of 500 and FiO2 of 60% with a PEEP of 13 and the rate of 32. Peak air pressures around 35 and the static pressures 24. Chest x-ray showing lower lobe pulmonary infiltrates slightly wor se on the left. ET tube is in a good location. NG tube is in a good location and the patient continued to have a PICC line in his right upper extremity. The blood gases from this morning shows a pH of 7.23 with a pCO2 of 46 and pO2 of 147. He is still in acute kidney injury. Creatinine is up to 4.9. Hemodialysis catheter was inserted yesterday and he received his first session of hemodialysis 2 days ago He had no dialysis was done yesterday. Potassium level is up to 5.3, serum bicarb is down to 18 and the creatinine is up to 4.93. He also has urine output in order of 0 mL an hour. His platelet count has dropped down to 50 4K and the white cell count is at 11 with a hemoglobin of 8. 1. He remains in atrial fibrillation. He remains on a Cardizem drip for rate control at the rate of 5 mg an hour. His heart rate is under adequate control for now. He remains on norepinephrine at a dose of 0.4 mcg/kg per minute and he remains on nasal On today's evaluation of 08/27/2020 I'm seeing the patient for a follow-up. This morning, the patient remains sedated on propofol which is running at 20 mcg/kg per minute. He is sedated and he is adequately sedated and comfortable on a mechanical ventilator. He remains on assist control mode of ventilation. This morning, he is on a PEEP of 12 with an FiO2 of 50% and a tidal volume of 500 at a rate of 32. The blood. From today shows a pH of 7.34 with a pCO2 of 40 and pO2 of 107. The patient had Serratia marcescens in his sputum and the repeat chest x-ray shows bibasilar pulmonary infiltrates worse on the left. ET tube is in a good location. NG tube is also in a good location. No significant orotracheal secretions. He is quite secretions with the mechanical ventilator. Hemodynamically, the patient continues to be on pressors. Vasopressin is on a physiologic dose. Levo fed has been cut down to micrograms per minute and the patient is requiring less pressors. The patient remains on stress dose hydrocortisone. IV fluids with normal state rate of 20 mL an hour. He is not making any urine output. He received hemodialysis yesterday and repeat electrodesiccation with a potassium of 5.3 and a serum bicarb of 20. A total of 2.2 L of fluid was taken off yesterday. He remains in atrial fibrillation. Rate is controlled. The patient is off Cardizem drip. He is currently on no anticoagulation. At evaluation was stopped because of lower platelet count of 50,000 and the patient was having some bleeding from his orogastric tube. Abdomen is distended. Bowel sounds are sluggish. Lower rate enteral feeding was reinitiated yesterday. On today's evaluation the patient is postop day #6. I elected discussion with his son and [place] his name is Enoch and I updated them on the condition. He has adequate perfusion to his lower extremities and the pulses in the lower extremities are much better palpable today and he is less cyanotic. Objective - Vital Signs Vital signs: Vital Signs Temp 98.1 F 08/27/20 04:00 Pulse 90 08/27/20 07:54 Resp 34 H 08/27/20 07:00 BP 107/82 08/26/20 14:00 Pulse Ox 96 08/27/20 07:00 Intake & Output 08/26/20 08/27/20 08/27/20 18:59 06:59 18:59 Intake Total 1383.701 986 236 Output Total 2211 20 0 Balance -827.299 966 236 Weight 99.5 kg 104.7 kg Intake: IV 1063 936 186 0.9 KVO 260 330 60 Parenteral Electrolytes 740 540 120 20 ml In Amino Acid 5%- D15w 1,000 ml @ 80 mls/hr IV .BY DURATION MITZY Rx#: [id number] pressure bag 63 66 6 Intake, IV Titration 260.701 50 Amount Norepinephrine 32 mg In 161.711 Sodium Chloride 0.9% 218 ml @ 0.05 MCG/KG/MIN 2.02 mls/hr IV .Q24H MITZY Rx#: [id number] propofoL 500 mg In Empty 98.99 50 Bag 1 bag @ Titrate IV . Q0M MITZY Rx#:[id number] Tube Feeding 30 20 Other 30 30 Output: Urine 11 20 0 Hemodialysis 2200 Other: Voiding Method Indwelling Catheter Indwelling Catheter # Voids 0 ABP, PAP, CO, CI - Last Documented Arterial Blood Pressure 130/71 - Exam Sedated, and mechanically ventilated, with an orally placed endotracheal tube and NG tube. Head exam was generally normal. There was no scleral icterus or corneal arcus. Mucous membranes were moist. Neck was supple and without jugular venous distension, thyromegaly, or carotid bruits. Carotids were easily palpable bilaterally. There was no adenopathy. The patient continues to have a Cordis in his right IJ Cardiac exam revealed the PMI to be normally situated and sized. The rhythm was irregular and not consistent with atrial fibrillation and no extrasystoles were noted during several minutes of auscultation. The first and second heart sounds were normal and physiologic splitting of the second heart sound was noted. There were no murmurs, rubs, clicks, or gallops. Lungs reveal coarse bilateral rhonchi. No wheezes. Breath sounds equal bilaterally. Her sounds are diminished throughout. No crackles are appreciated. Abdomen is soft, without masses. No bowel sounds noted. The surgical wound site is dry clean and intact. There are no drains Extremities are intact. No cyanosis clubbing or significant edema. Pulses in the lower extremities are quite diminished. The toes are somewhat cyanotic especially on the right. There is diminished pulses. There are obtained by Doppler signals in both, and the patient has a dialysis catheter in his right femoral vein. Skin is without rash or lesion. Cyanotic in the toes bilaterally. Neurologic examination cannot be properly assessed. Sedated, comfortable - Labs CBC & Chem 7: 08/27/20 06:15 08/27/20 06:15 Labs: Abnormal Lab Results - Last 24 Hours (Table) 02/03/0808/26/20 08/26/20 Range/Units 09:48 11:40 17:40 WBC (3.8-10.6) k/uL RBC (4.30-5.90) m/uL Hgb (13.0-17.5) gm/dL Hct (39.0-53.0) % MCV (80.0-100.0) fL RDW (11.5-15.5) % Plt Count (150-450) k/uL Neutrophils # (1.3-7.7) k/uL Lymphocytes # (1.0-4.8) k/uL APTT 30.8 H (22.0-30.0) sec Fibrinogen 1029 H (200-500) mg/dL D-Dimer 6.10 H (<0.60) mg/L FEU ABG pH (7.35-7.45) ABG O2 Saturation (94-97) % Sodium (137-145) mmol/L Potassium (3.5-5.1) mmol/L Carbon Dioxide (22-30) mmol/L BUN (9-20) mg/dL Creatinine (0.66-1.25) mg/dL Glucose (74-99) mg/dL POC Glucose (mg/dL) 144 H 219 H (75-99) mg/dL Calcium (8.4-10.2) mg/dL Phosphorus (2.5-4.5) mg/dL Magnesium (1.6-2.3) mg/dL 08/26/20 08/27/20 08/27/20 Range/Units 23:56 05:09 06:15 WBC (3.8-10.6) k/uL RBC (4.30-5.90) m/uL Hgb (13.0-17.5) gm/dL Hct (39.0-53.0) % MCV (80.0-100.0) fL RDW (11.5-15.5) % Plt Count (150-450) k/uL Neutrophils # (1.3-7.7) k/uL Lymphocytes # (1.0-4.8) k/uL APTT (22.0-30.0) sec Fibrinogen (200-500) mg/dL D-Dimer (<0.60) mg/L FEU ABG pH 7.34 L (7.35-7.45) ABG O2 Saturation 98.4 H (94-97) % Sodium 134 L (137-145) mmol/L Potassium 5.3 H (3.5-5.1) mmol/L Carbon Dioxide 20 L (22-30) mmol/L BUN 84 H (9-20) mg/dL Creatinine 4.38 H (0.66-1.25) mg/dL Glucose 184 H (74-99) mg/dL POC Glucose (mg/dL) 161 H (75-99) mg/dL Calcium 8.1 L (8.4-10.2) mg/dL Phosphorus 5.3 H (2.5-4.5) mg/dL Magnesium 2.5 H (1.6-2.3) mg/dL 08/27/20 08/27/20 Range/Units 06:15 06:51 WBC 11.4 H (3.8-10.6) k/uL RBC 2.46 L (4.30-5.90) m/uL Hgb 7.8 L (13.0-17.5) gm/dL Hct 24.7 L (39.0-53.0) % MCV 100.5 H (80.0-100.0) fL RDW 15.6 H (11.5-15.5) % Plt Count 50 L (150-450) k/uL Neutrophils # 10.6 H (1.3-7.7) k/uL Lymphocytes # 0.5 L (1.0-4.8) k/uL APTT (22.0-30.0) sec Fibrinogen (200-500) mg/dL D-Dimer (<0.60) mg/L FEU ABG pH (7.35-7.45) ABG O2 Saturation (94-97) % Sodium (137-145) mmol/L Potassium (3.5-5.1) mmol/L Carbon Dioxide (22-30) mmol/L BUN (9-20) mg/dL Creatinine (0.66-1.25) mg/dL Glucose (74-99) mg/dL POC Glucose (mg/dL) 188 H (75-99) mg/dL Calcium (8.4-10.2) mg/dL Phosphorus (2.5-4.5) mg/dL Magnesium (1.6-2.3) mg/dL Microbiology - Last 24 Hours (Table) 08/24/20 11:00 Blood Culture Gram Stain - Final Blood Blood Culture - Final Serratia marcescens 08/24/20 11:00 Blood Culture - Preliminary Blood No Growth after 48 hours Assessment and Plan Plan: 1 abdominal aortic aneurysm, 8.8 cm involving the iliac arteries and involving an intraluminal thrombus status post open repair of abdominal aortic aneurysm, with 30 mm sleeve graft. The patient is postop day #6 2 acute hypoxic respiratory failure post abdominal aortic aneurysm repair. The patient has bilateral pulmonary infiltrates with gram-negative pneumonia and the cultures are positive for sedation marcescens and the patient is currently on IV Zosyn him a remains intubated on a mechanical ventilator with a FiO2 of 50% with a PEEP of 12, volume cycle assist-control mode of ventilation. 3 shock, consider septic shock and the patient has been resuscitated aggressively with IV fluids.. The patient had a significant blood loss during procedure, 4 L. Status post 1 L of colloid, 1 L of Cell Saver, 5 L of crystalloid, 3 ampules of sodium bicarbonate, and 1 unit PRBCs. For now, the patient is still on a combination of vasopressin physiologic dose, norepinephrine dose has been reduced since yesterday and the patient is showing bilateral pleural effusions with lower extremities and he is less cyanotic. Norepinephrine infusion is currently running at 9 g per minute and he remains on physiologic dose of vasopressin. Tolerated dialysis well. 4 suspect adrenal insufficiency, patient started on hydrocortisone, 50 mg IV push every 6 hours. 5 Acute kidney injury, likely related to acute tubular necrosis, with a recent initiation of hemodialysis. Dialysis was yesterday and the patient was also infiltrated for a total of 2.2 L 6 Serratia marcescens pneumonia ,, currently on cefipime 7 CAD with a previous history of previous myocardial infarction. 8 History of CVA. 9 History of essential hypertension. 10 History of chronic atrial fibrillation. Patient is currently off the Cardizem drip 11 History of [id number] history of tobacco use. 12 COPD. 13 Questionable history of alcohol abuse. 14 History of DJD. 15 TPN for nutritional support and enteral feeding for nutritional support was also initiated 16 thrombocytopenia with drop in the platelet count down to 54. Consider drug- induced thrombocytopenia. Consider consumptive secondary to his underlying shock state. Patient has not received any heparin products. Meanwhile, the correlation profile indicated a low-grade DIC. . Plan: Continue vent support and drop the FiO2 down to 50% and PEEP down to 10 and we will gradually wean off the PEEP depending on his oxygenation and oxygen saturation. I'm also reducing the respiratory rate down to 26 and tidal volume down to 450 and the repeat blood gases will be done in our Any IV cefepime Hemodialysis today Keep the patient sedated with propofol, currently running at 20 mg per KG per minute continue pressors and wean off the levofed keeping their physiologic vasopress in, the pressors are being weaned off Continue the stress dose hydrocortisone Continue enteral feeding for nutritional support and inferior able to advance, we'll gradually wean off the TPN and discontinue monitor the pulses in all 4 extremities Put the patient on IV Protonix Platelet counts are stable Echocardiogram showed is stable LV function with an ejection fraction of 55% Condition is critical we'll continue to follow and monitor the patient will make further recommendations based on the progress. Critically care evaluation, more than 30 minutes Time with Patient: Greater than 30
--- NOTE | 2020-08-27 08:49 | XR ---
EXAMINATION TYPE: XR abdomen 1V DATE OF EXAM: 08/27/2020 8:44 AM CLINICAL HISTORY: NG tube placement. TECHNIQUE: Single portable supine KUB image of the abdomen is obtained. COMPARISON: Abdominal x-ray [address] abdomen and pelvis August 12, 2020 FINDINGS: New nasogastric tube projects below diaphragm. Evidence of recent surgery redemonstrated with overlying vertical skin hien. Some scattered gas pr ominent bowel loops remain present. Suspect postoperative ileus. Redemonstration of right femoral jero tral venous catheter in the pelvis. Multilevel spurring and disc space narrowing in the spine. Patchy opacity left lung base consistent with atelectasis and/or infiltrate noted on current study. IMPRESSION: As above.
[2020-08-27 09:26] LABS: ABG Base Excess -5.3 mmol/L; ABG HCO3 21 mmol/L (21-25); ABG Oxygen Saturation 97.9 % (94-97); ABG PCO2 43 mmHg (35-45); ABG PO2 105 mmHg (83-108); ABG TCO2 22 mmol/L (19-24); Allen Test Performed? Yes
--- NOTE | 2020-08-27 09:58 | PN ---
PROGRESS NOTE Taj is a 74-year-old gentleman with history of abdominal aortic aneurysm, status post surgery with acute renal failure, anemia, thrombocytopenia. This morning, he has showed some improvement in his condition. He is requiring less pressors. Remains in atrial fibrillation with controlled ventricular rate. PHYSICAL EXAMINATION: Blood pressure is 130/70. Chest exam reveals diminished air entry at the bases. Heart exam reveals first and second heart sounds. No gallop. No murmur. Abdomen appears slightly distended. Examination of extremities reveals bilateral mild edema. LABS: Labs show that the hemoglobin is 7.8, platelet count is 50. Potassium is 5.3. BUN is 84, creatinine is 4.3. ASSESSMENT: 1. Abdominal aortic aneurysm, status post surgery. 2. Acute renal failure. 3. Thrombocytopenia. 4. Atrial fibrillation with controlled ventricular rate. PLAN: Patient is not a candidate for anticoagulation. Continue current supportive care including dialysis. MMODL / IJN: [id number] /
--- NOTE | 2020-08-27 10:21 | P.PCN ---
Date of Procedure: 08/27/20 Preoperative Diagnosis: arterial line, for hemodynamic monitoring Postoperative Diagnosis: insertion of an arterial line Procedure(s) Performed: Arterial line insertion Anesthesia: local Surgeon: Peter Licona Pathology: other Condition: critical Disposition: ICU Operative Findings: Indication: Hemodynamic monitoring. A time-out was completed verifying correct patient, procedure, site, positioning, and implant(s) or special equipment if applicable. Allens test was performed to ensure adequate perfusion. The patient's left wrist was prepped and draped in sterile fashion. 1% Lidocaine was used to anesthetize the area. An 18G Arrow arterial line was introduced into the left radial artery. The catheter was threaded over the guide wire and the needle was removed with appropriate pulsatile blood return. Blood loss was minimal. The catheter was then sutured in place to the skin and a sterile dressing applied. Perfusion to the extremity distal to the point of catheter insertion was checked and found to be adequate. The patient tolerated the procedure well and there were no complications.
[2020-08-27] MEDS: CHLORHEXIDINE GLUCONATE 15 ML CUP MUCOUS MEM SCH ×2 (10:57→20:15)
[2020-08-27] MEDS: PANTOPRAZOLE 40 MG/10 ML VIAL IVP SCH ×2 (10:57→20:15)
[2020-08-27] MEDS: ATORVASTATIN 40 MG TAB PO SCH (10:57)
[2020-08-27 11:36] LABS: Glucose,Whole Blood 186 mg/dL (75-99)
--- NOTE | 2020-08-27 16:06 | PN ---
PROGRESS NOTE The patient is seen for followup for acute kidney injury. He is currently hemodialysis dependent. Patient will be having his third treatment of hemodialysis today. We were able to get about 2 L of fluid off yesterday. The patient remains on the vent. He is currently off of pressors. Continues to have no significant urine output. FiO2 is down to 50% and PEEP has been decreased as well. PHYSICAL EXAMINATION: On examination this morning, patient is sedated. He is on the vent. LABS: Labs show sodium 134, potassium 5.3, chloride 103, CO2 is 20, BUN 84, serum creatinine 4.38, phosphorus 5.3, magnesium 2.5, hemoglobin 7.8. ASSESSMENT: 1. Acute kidney injury, acute tubular necrosis, oliguric, currently hemodialysis dependent. We will arrange for hemodialysis again today. 2. Volume overload, expect further improvement with dialysis today. 3. Acute hypoxic respiratory failure secondary to pneumonia. 4. Bilateral infiltrates and pneumonia with positive blood cultures for gram-negative bacilli and sputum culture positive for Serratia marcescens. 5. Severe sepsis, hypotension secondary to pneumonia. 6. Abdominal aortic aneurysm, status post open repair with 30 mm sleeve graft. 7. History of chronic atrial fibrillation, currently with controlled ventricular response. PLAN: Repeat hemodialysis today with increased UF of about 2 L as tolerated. MMODL / IJN: [id number] /
[2020-08-27] MEDS: AMINO ACID 5% IV SCH ×5 (16:17)
[2020-08-27] MEDS: MVI IV SCH ×5 (16:17)
[2020-08-27] MEDS: CALCIUM GLUCONATE IV SCH ×5 (16:17)
[2020-08-27] MEDS: SODIUM ACETATE IV SCH ×5 (16:17)
[2020-08-27] MEDS: SODIUM CHLORIDE 0.9% 150 ML with VASOPRESSIN 60 UNIT IV SCH ×2 (16:17)
[2020-08-27 17:52] LABS: Glucose,Whole Blood 188 mg/dL (75-99)
--- NOTE | 2020-08-27 17:57 | P.PN ---
Subjective Progress Note Date: 08/27/20 Patient seen and examined. Still sedated and vented but improving on pressors. NG tube is in good position. Patient is currently getting trickle tube feeds. He is on a Cardizem drip due to atrial fibrillation. Per nursing and ICU team he continues to improve. Objective - Vital Signs Vital signs: Vital Signs Temp 98.3 F 08/27/20 16:00 Pulse 94 08/27/20 16:30 Resp 24 08/27/20 17:00 BP 117/54 08/27/20 14:23 Pulse Ox 97 08/27/20 17:00 Intake & Output 08/26/20 08/27/20 08/27/20 18:59 06:59 18:59 Intake Total 1383.912 914 8260.771 Output Total 2211 20 2500 Balance -827.299 966 -1130.229 Weight 99.5 kg 104.7 kg Intake: IV 9050 195 0359 0.9 KVO 260 330 330 Parenteral Electrolytes 740 540 660 20 ml In Amino Acid 5%- D15w 1,000 ml @ 80 mls/hr IV .BY DURATION MITZY Rx#: [id number] pressure bag 63 66 33 Intake, IV Titration 260.701 50 186.771 Amount Norepinephrine 32 mg In 161.711 131.923 Sodium Chloride 0.9% 218 ml @ 0.05 MCG/KG/MIN 2.02 mls/hr IV .Q24H MITZY Rx#: [id number] propofoL 500 mg In Empty 98.99 50 54.848 Bag 1 bag @ Titrate IV . Q0M MITZY Rx#:[id number] Tube Feeding 30 130 Other 30 30 Output: Urine 11 20 0 Hemodialysis 2200 2500 Other: Voiding Method Indwelling Catheter Indwelling Catheter Indwelling Catheter # Voids 0 ABP, PAP, CO, CI - Last Documented Arterial Blood Pressure 109/43 - Exam Sedated and on vent. NG tube is in place. No scleral icterus, moist mucous membranes No JVD noted. No masses. Cordis in right IJ Lungs are coarse bilaterally Abdomen soft, dressings in place without significant saturation. Bowel sounds noted. Bilateral femoral pulses noted. No cyanosis. Cool feet and toes. There are diminished pulses in the lower extremities. Dialysis catheter in place in the right femoral vein. - Labs CBC & Chem 7: 08/27/20 06:15 08/27/20 06:15 Labs: Abnormal Lab Results - Last 24 Hours (Table) 08/26/20 08/27/20 08/27/20 Range/Units 23:56 05:09 06:15 WBC (3.8-10.6) k/uL RBC (4.30-5.90) m/uL Hgb (13.0-17.5) gm/dL Hct (39.0-53.0) % MCV (80.0-100.0) fL RDW (11.5-15.5) % Plt Count (150-450) k/uL Neutrophils # (1.3-7.7) k/uL Lymphocytes # (1.0-4.8) k/uL ABG pH 7.34 L (7.35-7.45) ABG O2 Saturation 98.4 H (94-97) % Sodium 134 L (137-145) mmol/L Potassium 5.3 H (3.5-5.1) mmol/L Carbon Dioxide 20 L (22-30) mmol/L BUN 84 H (9-20) mg/dL Creatinine 4.38 H (0.66-1.25) mg/dL Glucose 184 H (74-99) mg/dL POC Glucose (mg/dL) 161 H (75-99) mg/dL Calcium 8.1 L (8.4-10.2) mg/dL Phosphorus 5.3 H (2.5-4.5) mg/dL Magnesium 2.5 H (1.6-2.3) mg/dL 08/27/20 08/27/20 08/27/20 Range/Units 06:15 06:51 09:20 WBC 11.4 H (3.8-10.6) k/uL RBC 2.46 L (4.30-5.90) m/uL Hgb 7.8 L (13.0-17.5) gm/dL Hct 24.7 L (39.0-53.0) % MCV 100.5 H (80.0-100.0) fL RDW 15.6 H (11.5-15.5) % Plt Count 50 L (150-450) k/uL Neutrophils # 10.6 H (1.3-7.7) k/uL Lymphocytes # 0.5 L (1.0-4.8) k/uL ABG pH 7.30 L (7.35-7.45) ABG O2 Saturation 97.9 H (94-97) % Sodium (137-145) mmol/L Potassium (3.5-5.1) mmol/L Carbon Dioxide (22-30) mmol/L BUN (9-20) mg/dL Creatinine (0.66-1.25) mg/dL Glucose (74-99) mg/dL POC Glucose (mg/dL) 188 H (75-99) mg/dL Calcium (8.4-10.2) mg/dL Phosphorus (2.5-4.5) mg/dL Magnesium (1.6-2.3) mg/dL 08/27/20 Range/Units 11:35 WBC (3.8-10.6) k/uL RBC (4.30-5.90) m/uL Hgb (13.0-17.5) gm/dL Hct (39.0-53.0) % MCV (80.0-100.0) fL RDW (11.5-15.5) % Plt Count (150-450) k/uL Neutrophils # (1.3-7.7) k/uL Lymphocytes # (1.0-4.8) k/uL ABG pH (7.35-7.45) ABG O2 Saturation (94-97) % Sodium (137-145) mmol/L Potassium (3.5-5.1) mmol/L Carbon Dioxide (22-30) mmol/L BUN (9-20) mg/dL Creatinine (0.66-1.25) mg/dL Glucose (74-99) mg/dL POC Glucose (mg/dL) 186 H (75-99) mg/dL Calcium (8.4-10.2) mg/dL Phosphorus (2.5-4.5) mg/dL Magnesium (1.6-2.3) mg/dL Microbiology - Last 24 Hours (Table) 08/24/20 11:00 Blood Culture - Preliminary Blood No Growth after 72 hours 08/24/20 11:00 Blood Culture Gram Stain - Final Blood Blood Culture - Final Serratia marcescens Assessment and Plan Assessment: 1. Postop day #6 abdominal aortic aneurysm repair graft 2. Abdominal aortic aneurysm, 8.8 cm 3. Hypotension, remains on pressors 4. Acute renal failure on hemodialysis 5. Coronary artery disease 6. Atrial fibrillation 7. TIA/CVA 8. Long-standing history of tobacco use 9. COPD Plan: Supportive care Continue with ICU medical management and recommendations Appreciate recommendations from nephrology, continue hemodialysis as ordered per nephrology Repeat labs in the a.m. We will continue to follow closely
--- NOTE | 2020-08-27 18:27 | P.PN ---
Progress Note - Text Progress Note Date: 08/27/20 - Chief Complaint Abdominal surgery Consultation: This is a 74-year-old patient who follows with Dr. rollins from [place]. Chronic stable medical conditions include COPD, coronary artery disease with previous DE, osteoarthritis, chronic nicotine dependence. Patient was recently in the hospital following outpatient screening for abdominal aortic aneurysm. It was found to be 9.5 x 8.2 cm in the midportion. Internal thrombus seen surrounding the small bowel in the lumen. It also extends into the right and left common iliac arteries. Patient was therefore sent to the ER. Further computed tomography scan of the chest and abdomen in the ER showed 4.2 cm as cending thoracic aneurysm and 3.8 cm descending thoracic aorta with mural thrombus. Patient denies any abdominal pain. Does get charley horses. At the baseline is a short of breath and wheezing. He is an active smoker. No chest pain. Patient was then discharged to return for surgery. August 21: patient underwent open repair of abdominal aortic aneurysm with a 30 mm sleeve graft. Currently in the ICU. On the ventilator intubated. FiO2 40 and a PEEP of 5. Has NG tube in place. Murillo catheter. Endotracheal tube. Drips include IV propofol and norepinephrine. Telemetry shows atrial f ibrillation. Hemodialysis catheter was placed and started on hemodialysis.- August 24 Today-ICU: On the ventilator with FiO2 50 and a PEEP of 8. Minimal urine output. Drips include Diprivan and, vasopressin, 3 mics of levo fed, deviated 60 in 2 feeding at 10 mL an hour/Nepro. Hemodialysis today. 2.5 L removed. Remains in atrial fibrillation a heart rate of 120. Active Medications Albuterol/Ipratropium (Ipratropium-Albuterol 3 Ml Neb) 3 ml INHALATION RT-Q2H PRN PRN Reason: Shortness Of Breath Or Wheezing Albuterol/Ipratropium (Ipratropium-Albuterol 3 Ml Neb) 3 ml INHALATION RT-Q4H [facility] Last Admin: 08/27/20 16:10 Dose: 3 ml Documented by: Atorvastatin Calcium (Atorvastatin 40 Mg Tab) 40 mg PO DAILY [facility] Last Admin: 08/27/20 10:57 Dose: 40 mg Documented by: Chlorhexidine Gluconate (Chlorhexidine Gluconate 15 Ml Cup) 15 ml MUCOUS MEM BID [facility] Last Admin: 08/27/20 10:57 Dose: 15 ml Documented by: Hydrocortisone Sodium Succinate (Hydrocortisone Succinate 100 Mg/2 Ml Vial) 50 mg IV Q8HR [facility] Last Admin: 08/27/20 16:37 Dose: 50 mg Documented by: Hydromorphone HCl (Hydromorphone 1 Mg/Ml 1 Ml Syringe) 1 mg IVP Q3HR PRN PRN Reason: Pain Last Admin: 08/23/20 12:35 Dose: 1 mg Documented by: Norepinephrine Bitartrate 32 (mg/ Sodium Chloride) 250 mls @ 2.02 mls/hr IV .Q24H [facility]; Protocol Last Titration: 08/27/20 13:15 Dose: 0.03 mcg/kg/min, 1.212 mls/hr Documented by: Propofol 500 mg/ IV Solution 50 mls @ 0 mls/hr IV .Q0M [facility]; Protocol Last Admin: 08/27/20 15:08 Dose: 20 mcg/kg/min, 12.12 mls/hr Documented by: Vasopressin 60 unit/ Sodium (Chloride) 153 mls @ 4.59 mls/hr IV .Q24H [facility] Last Admin: 08/27/20 16:17 Dose: 4.59 mls/hr Documented by: Cefepime HCl 2 gm/ Sodium (Chloride) 100 mls @ 25 mls/hr IVPB Q12H [facility] Last Admin: 08/27/20 14:57 Dose: 25 mls/hr Documented by: Sodium Acetate 40 meq/ Calcium Gluconate 1 gm/ Amino Acids/Dextrose 1,030 mls @ 60 mls/hr IV .BY DURATION [facility] Last Admin: 08/26/20 22:00 Dose: 60 mls/hr Documented by: Parenteral Vitamin Supplement 10 ml/ Chromium/Copper/Manganese/Seleni/Zn 1 ml/Sodium Acetate 40 meq/ Calcium Gluconate 1 gm/ Amino Acids/Dextrose 1,041 mls @ 60 mls/hr IV .BY DURATION [facility] Last Admin: 08/27/20 16:17 Dose: 60 mls/hr Documented by: Insulin Aspart (Insulin Aspart (Novolog) 100 Unit/Ml Vial) 0 unit SQ Q6H [facility]; Protocol Last Admin: 08/27/20 13:49 Dose: 2 unit Documented by: Insulin Detemir (Insulin Detemir (Levemir) 100 Unit/Ml Syr) 16 unit SQ HS [facility] Last Admin: 08/26/20 22:29 Dose: 16 unit Documented by: Lidocaine HCl (Lidocaine 1% (10mg/Ml) For Iv Start) 0.1 ml INTRADERMA PER PROTOCOL PRN PRN Reason: IV Start Miscellaneous Information (Magnesium Replacement Protocol 1 Each Misc) 1 each MISCELLANE DAILY PRN; Protocol PRN Reason: Per Protocol Pantoprazole Sodium (Pantoprazole 40 Mg/10 Ml Vial) 40 mg IVP BID [facility] Last Admin: 08/27/20 10:57 Dose: 40 mg Documented by: Review of systems: Patient intubated Past medical history to include: COPD, coronary artery disease with DE, osteoarthritis, abdominal aortic aneurysm 8.8 cm, 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 Smoking for many years. About 2 beers a day. Retired Physical examination: VITAL SIGNS: 98.1, 93, 21, 117/54, 100% on the ventilator GENERAL: BMI 29.3, laying in bed, intubated. EYES: Pupils equal. Conjunctiva normal. HEENT: External appearance of nose and ears normal, oral cavity-endotracheal tube, NG tube-dark aspirate NECK: JVD unable to assess; masses not palpable. HEART: Irregular heart sounds; no edema. LUNGS: Respiratory rate increased decreased breath sounds,. ABDOMEN: Soft, dressing over the midline incision, liver spleen not palpable, no masses palpable. Murillo catheter EXTREMITIES: Bluish discoloration of both the feet, cold PSYCH: Sedated INVESTIGATIONS, reviewed in the clinical context: August 27: White count 9.4 hemoglobin 7.8 platelet 50 potassium 5.3 bun 84 creatinine 4.38 Blood culture-positive for Serratia marcescens Chest [id number] August 26: White count 11 hemoglobin 8.1 platelets 54 potassium 5.3 bun 87 creatinine 4.93 2-D echocardiogram-limited: EF 55% August 25: White count 14.2 hemoglobin 8.7 platelets 61 potassium 4.8 bun 65 creatinine 4.08 August 24: White count 13.7 hemoglobin 9.7 platelets 74 potassium 5.1 bun 64 creatinine 4.38. ABG showed pH of 7.13 pCO2 58 pO2 67 August: White count 10.9 hemoglobin 10.8 platelets 75 potassium 4.6 bun 53 creatinine 2.95 Sputum culture-positive for Serratia marcescens White count 18.3 hemoglobin 11.8 platelets 72 potassium 4.7 bun 40 creatinine 1.67 Previous testin08/13/2020: White count 4.1 hemoglobin 13.8 platelets 148 bun 19 creatinine 0.94 Assessment: -Abdominal aortic aneurysm 8.8 cm, also involving the iliac arteries, with intraluminal thrombus-followed by open repair sleeve graft on 08/21/2020 -Ascending thoracic aortic is a 4.2 cm, descending thoracic aorta 3.8 cm with mural thrombus -Bilateral pneumonia with sputum and blood cultures both positive for Serratia marcescens -Hypotensive shock-on vasopressin and a small does of levo fed. -Chronic nicotine dependence patient cigarette smoker -Emphysema, with some exacerbation in a current smoker -Coronary artery disease and a prior history of DE -Suspect peripheral arterial disease -Persistent atrial fibrillation rate uncontrolled-was on IV Cardizem drip. . Off Cardizem drip. Ventricular rate fluctuating -Acute hypoxic respiratory failure, requiring ventilator support-slow to respond -Acute kidney injury patient's creatinine was 0.94 on August 13. Possible ATN. Oliguric. Worsening. Hemodialysis catheter placed on August 24. Started on hemodialysis -Upper GI bleed with NG tube putting out dark aspirate-amount has gone down 88 -TPN and slow to feeding Plan: Remains critically ill. Current medications include DuoNeb, IV cefepime, IV Solu-Cortef, Levemir, norepinephrine, TPN, IV vasopressin. Prognosis remains guarded. Dr. Licona fur machine operator spoke to patient's son yesterday who lives in [place]. Thank you Dr. Donovan
[2020-08-27 20:15] LABS: Glucose,Whole Blood 189 mg/dL (75-99)
[2020-08-27] MEDS: INSULIN DETEMIR (LEVEMIR) 100 UNIT/ML SYR SQ SCH (20:15)
[2020-08-27 23:55] LABS: Glucose,Whole Blood 183 mg/dL (75-99)
[2020-08-28] MEDS: IPRATROPIUM-ALBUTEROL 3 ML NEB INHALATION SCH ×6 (00:16→19:49)
[2020-08-28 04:41] LABS: Magnesium 2.4 mg/dL (1.6-2.3); Phosphorus 5.3 mg/dL (2.5-4.5); Potassium 4.8 mmol/L (3.5-5.1)
[2020-08-28 05:29] LABS: ABG HCO3 24 mmol/L (21-25); ABG Oxygen Saturation 96.6 % (94-97); ABG PCO2 50 mmHg (35-45); ABG PH 7.29 (7.35-7.45); ABG PO2 94 mmHg (83-108); ABG TCO2 25 mmol/L (19-24); Allen Test Performed? Yes
[2020-08-28 05:51] LABS: Glucose,Whole Blood 183 mg/dL (75-99)
[2020-08-28] MEDS: INSULIN ASPART (NovoLOG) 100 UNIT/ML VIAL SQ SCH ×4 (05:52→23:50)
[2020-08-28 06:16] LABS: Anisocytosis Slight; HCT 21.7 % (39.0-53.0); MCH 31.3 pg (25.0-35.0); MCHC 31.1 g/dL (31.0-37.0); MCV 100.6 fL (80.0-100.0); Macrocytosis Slight; Mean Platelet Volume 12.8; RBC 2.16 m/uL (4.30-5.90)
[2020-08-28 06:20] LABS: HGB 6.8 gm/dL (13.0-17.5); Platelet Count 45 k/uL (150-450)
[2020-08-28 06:35] LABS: Band Neutrophils % 15 %; Lymphocytes # (M) 0.67 k/uL (1.0-4.8); Neutrophils % (M) 79 %; Nucleated Red Blood Cells 1 /100 WBC (0-0); Total Cells Counted 100; WBC 11.2 k/uL (3.8-10.6)
[2020-08-28 06:36] LABS: Anisocytosis (M) Present; Ovalocytes Present; Poikilocytosis (M) Present; Polychromasia Present; Target Cells Present
--- NOTE | 2020-08-28 07:44 | XR ---
EXAMINATION TYPE: XR chest 1V portable DATE OF EXAM: 08/28/2020 Comparison: 08/27/2020 Clinical History: 74-year-old male patient on vent Findings: ET tube satisfactory. NG tube courses below the diaphragm. Heart remains mildly enlarged. Right PICC tip mid SVC. Continued bibasilar consolidation. Mild interstitial prominence persists. Impression: Cardiomegaly with continued bibasilar consolidation and possible small effusions. Correlate for CHF o r infectious/aspiration pneumonitis as possible etiologies.
[2020-08-28] MEDS: MVI IV SCH ×10 (08:27→23:22)
[2020-08-28] MEDS: HYDROCORTISONE SUCCINATE 100 MG/2 ML VIAL IV SCH ×3 (08:27→23:23)
[2020-08-28] MEDS: CHLORHEXIDINE GLUCONATE 15 ML CUP MUCOUS MEM SCH ×2 (08:27→20:29)
[2020-08-28] MEDS: SODIUM ACETATE IV SCH ×10 (08:27→23:22)
[2020-08-28] MEDS: CALCIUM GLUCONATE IV SCH ×10 (08:27→23:22)
[2020-08-28] MEDS: AMINO ACID 5% IV SCH ×10 (08:27→23:22)
[2020-08-28] MEDS: ATORVASTATIN 40 MG TAB PO SCH (08:27)
[2020-08-28] MEDS: PANTOPRAZOLE 40 MG/10 ML VIAL IVP SCH ×2 (08:27→20:29)
--- NOTE | 2020-08-28 09:04 | P.PN ---
Subjective Progress Note Date: 08/28/20 74-year-old here patient with known history of abdominal aortic aneurysm and known history of coronary artery previous ID. The patient also known to have previous history of CVA, chronic atrial fibrillation, hypertension and [id number] smoking history. The patient has osteoarthritis. The patient und erwent an open repair of an abdominal aortic aneurysm with 30 mm sleeve graft. Note that the patient a large abdominal aortic aneurysm measuring 9.5 x 8.2 cm in size with internal thrombus. The aneurysm was extending into the right and left common iliac artery. The patient also known to have a 4.2 cm ascending aortic aneurysm and at 3.8 cm ascending thoracic aortic aneurysm with a mural thrombus. The patient lost approximately 4 L of blood and operating room. The patient was given a total of 1 L of Cell Saver, a lot of crystalloids and colloids and operating room and she also required packed RBC transfusion. She was kept intubated on a mechanical ventilator and following that she was t ransferred to the intensive care unit. The patient is currently postop day #5 following the abdominal aortic aneurysm repair. The patient remains on a mechanical ventilator. She is currently on assist control mode at the rate of 32 and a tidal volume of 500 and FiO2 of 60% with a PEEP of 13. The patient has been on normal saline at rate of 20 mL an hour and the patient is also requiring norepinephrine infusion which is running at 60 g per minute. She is on Cardizem drip for rate control at the rate of 10 mg an hour regarding her atrial fibrillation and she is also on vasopressin and the dose of 0.03 units per minute. She is was sedated with propofol and currently she is on 35 mcg/kg per minute. The patient remains in atrial fibrillation for now on a Cardizem drip. In terms of feeding, the patient is receiving TPN at the rate of 80 mL an hour. The patient continues to have a low urine output. She developed an acute kidney injury postop and she will possibly require hemodialysis. The patient is going gram-negative bacteria and this sputum and the chest x-ray is showing bilobar infiltrate affecting the lower lobes bilaterally. ET tube is in a good location and the patient has a PICC line in the right upper extremity. NG tube was also in place. Assess him of the abdomen from yesterday showed retained fecal material in the large bowel. NG tube is in the distal esophagus. There is evidence of constipation. Hemodialysis catheter was placed on 08/24/2020 and the patient was started on hemodialysis. There is some dark aspirate from the NG tube consistent possibly with an upper GI bleed. 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 On the morning of , the patient is being seen for a follow-up. The patient remains sedated with propofol which is running at 20 mcg/kg per minute. The patient's is sedated on mechanical ventilator. The patient is an assist- control mode volume cycled with a tidal volume of 500 and FiO2 of 60% with a PEEP of 13 and the rate of 32. Peak air pressures around 35 and the static pressures 24. Chest x-ray showing lower lobe pulmonary infiltrates slightly wor se on the left. ET tube is in a good location. NG tube is in a good location and the patient continued to have a PICC line in his right upper extremity. The blood gases from this morning shows a pH of 7.23 with a pCO2 of 46 and pO2 of 147. He is still in acute kidney injury. Creatinine is up to 4.9. Hemodialysis catheter was inserted yesterday and he received his first session of hemodialysis 2 days ago He had no dialysis was done yesterday. Potassium level is up to 5.3, serum bicarb is down to 18 and the creatinine is up to 4.93. He also has urine output in order of 0 mL an hour. His platelet count has dropped down to 50 4K and the white cell count is at 11 with a hemoglobin of 8. 1. He remains in atrial fibrillation. He remains on a Cardizem drip for rate control at the rate of 5 mg an hour. His heart rate is under adequate control for now. He remains on norepinephrine at a dose of 0.4 mcg/kg per minute and he remains on nasal On today's evaluation of 08/27/2020 I'm seeing the patient for a follow-up. This morning, the patient remains sedated on propofol which is running at 20 mcg/kg per minute. He is sedated and he is adequately sedated and comfortable on a mechanical ventilator. He remains on assist control mode of ventilation. This morning, he is on a PEEP of 12 with an FiO2 of 50% and a tidal volume of 500 at a rate of 32. The blood. From today shows a pH of 7.34 with a pCO2 of 40 and pO2 of 107. The patient had Serratia marcescens in his sputum and the repeat chest x-ray shows bibasilar pulmonary infiltrates worse on the left. ET tube is in a good location. NG tube is also in a good location. No significant orotracheal secretions. He is quite secretions with the mechanical ventilator. Hemodynamically, the patient continues to be on pressors. Vasopressin is on a physiologic dose. Levo fed has been cut down to micrograms per minute and the patient is requiring less pressors. The patient remains on stress dose hydrocortisone. IV fluids with normal state rate of 20 mL an hour. He is not making any urine output. He received hemodialysis yesterday and repeat electrodesiccation with a potassium of 5.3 and a serum bicarb of 20. A total of 2.2 L of fluid was taken off yesterday. He remains in atrial fibrillation. Rate is controlled. The patient is off Cardizem drip. He is currently on no anticoagulation. At evaluation was stopped because of lower platelet count of 50,000 and the patient was having some bleeding from his orogastric tube. Abdomen is distended. Bowel sounds are sluggish. Lower rate enteral feeding was reinitiated yesterday. On today's evaluation the patient is postop day #6. I elected discussion with his son and [place] his name is Enoch and I updated them on the condition. He has adequate perfusion to his lower extremities and the pulses in the lower extremities are much better palpable today and he is less cyanotic. 08/28/2020 I'm seeing the patient for a follow-up. He remains sedated with propofol and asynchronous the mechanical ventilator. In terms of his vent support, were able to wean down the PEEP down to 6 yesterday with an FiO2 of 50% and a tidal volume of 450 with a rate of 26. The blood gases from today showed a pH of 7.29 with a pCO2 of 50 and pO2 of 94. His chest x-ray showing some pulmonary vessel congestion and some limited infiltration of the lung bases bilaterally. ET tube is in a good location. No significant orotracheal secretions at this point. There is cardiomegaly and some limited effusion the lung bases. Meanwhile, the patient is hemodynamically doing better. I was able to wean down his stresses gradually. Norepinephrine infusion is currently running at 0.03 g. KG per minute and it was reduced significantly to lower levels and he is still on a physiologic dose of vasopressin. His last ration of hemodialysis was yesterday which was able to tolerate. He remains in atrial fibrillation. Slightly more tachycardic on today's evaluation and he is off the Cardizem drip and his heart rate is ranging between 101 10, irregular. Also, the patient had a upper GI bleed again. The tube feeds was discontinued and the patient had a total of 1 L of coffee-ground/bloody/dark bloody gastric material aspirated from the stomach. His abdomen is nondistended this point in time. Bowel sounds are hypoactive. He remains on TPN for nutritional support which is currently running at the rate of 60 mL an hour. Along with his upper GI bleed, hemoglobin dropped down to 6.8. His platelet count is at 45 which is slightly lower compared to yesterday. His creatinine is at 3.3 with a BUN of 80 and a potassium level is at 4.8. His blood culture was also positive for Serratia consistent with gram-negative Serratia pneumonia cultured in the sputum and in the blood. His antibiotic coverage is IV Cefepime Objective - Vital Signs Vital signs: Vital Signs Temp 97.6 F 08/28/20 04:00 Pulse 98 08/28/20 07:35 Resp 27 H 08/28/20 07:30 BP 117/54 08/27/20 14:23 Pulse Ox 97 08/28/20 07:30 Intake & Output 08/27/20 08/28/20 08/28/20 18:59 06:59 18:59 Intake Total 2512.771 711.416 Output Total 2500 1108 Balance 12.771 -396.584 Weight 105.6 kg Intake: IV 1116 429 0.9 KVO 360 390 Parenteral Electrolytes 720 20 ml In Amino Acid 5%- D15w 1,000 ml @ 80 mls/hr IV .BY DURATION MITZY Rx#: [id number] pressure bag 36 39 Intake, IV Titration 1216.771 152.416 Amount Norepinephrine 32 mg In 131.923 18.301 Sodium Chloride 0.9% 218 ml @ 0.05 MCG/KG/MIN 2.02 mls/hr IV .Q24H MITZY Rx#: [id number] Sodium Acetate 40 meq 1030 Calcium Gluconate 1 gm In Amino Acid 5%-D15w 1,000 ml @ 60 mls/hr IV .BY DURATION MITZY Rx#: [id number] propofoL 500 mg In Empty 54.848 134.115 Bag 1 bag @ Titrate IV . Q0M MITZY Rx#:[id number] Tube Feeding 150 70 Other 30 60 Output: Gastric Drainage 1100 Urine 0 8 Hemodialysis 2500 Other: Voiding Method Indwelling Catheter Indwelling Catheter ABP, PAP, CO, CI - Last Documented Arterial Blood Pressure 116/51 - Exam Sedated, and mechanically ventilated, with an orally placed endotracheal tube and NG tube. Head exam was generally normal. There was no scleral icterus or corneal arcus. Mucous membranes were moist. Neck was supple and without jugular venous distension, thyromegaly, or carotid bruits. Carotids were easily palpable bilaterally. There was no adenopathy. The patient continues to have a Cordis in his right IJ Cardiac exam revealed the PMI to be normally situated and sized. The rhythm was irregular and not consistent with atrial fibrillation and no extrasystoles were noted during several minutes of auscultation. The first and second heart sounds were normal and physiologic splitting of the second heart sound was noted. There were no murmurs, rubs, clicks, or gallops. Lungs reveal coarse bilateral rhonchi. No wheezes. Breath sounds equal bilaterally. Her sounds are diminished throughout. No crackles are appreciated. Abdomen is soft, without masses. No bowel sounds noted. The surgical wound site is dry clean and intact. There are no drains, and the bowel sounds are quite hypoactive and nearly absent on today's evaluation. No significant abdominal distention. Extremities are intact. No cyanosis clubbing or significant edema. Pulses in the lower extremities are quite diminished. The toes are somewhat cyanotic especially on the right. There is diminished pulses. There are obtained by Doppler signals in both, and the patient has a dialysis catheter in his right femoral vein. Skin is without rash or lesion. Cyanotic in the toes bilaterally. Neurologic examination cannot be properly assessed. Sedated, comfortable - Labs CBC & Chem 7: 08/28/20 04:10 08/28/20 04:10 Labs: Abnormal Lab Results - Last 24 Hours (Table) 08/27/20 08/27/20 08/27/20 Range/Units 09:20 11:35 17:51 WBC (3.8-10.6) k/uL RBC (4.30-5.90) m/uL Hgb (13.0-17.5) gm/dL Hct (39.0-53.0) % MCV (80.0-100.0) fL RDW (11.5-15.5) % Plt Count (150-450) k/uL Neutrophils # (Manual) (1.3-7.7) k/uL Lymphocytes # (Manual) (1.0-4.8) k/uL Nucleated RBCs (0-0) /100 WBC ABG pH 7.30 L (7.35-7.45) ABG pCO2 (35-45) mmHg ABG Total CO2 (19-24) mmol/L ABG O2 Saturation 97.9 H (94-97) % BUN (9-20) mg/dL Creatinine (0.66-1.25) mg/dL Glucose (74-99) mg/dL POC Glucose (mg/dL) 186 H 188 H (75-99) mg/dL Calcium (8.4-10.2) mg/dL Phosphorus (2.5-4.5) mg/dL Magnesium (1.6-2.3) mg/dL Crossmatch 08/27/20 08/27/20 08/28/20 Range/Units 20:13 23:53 04:10 WBC (3.8-10.6) k/uL RBC (4.30-5.90) m/uL Hgb (13.0-17.5) gm/dL Hct (39.0-53.0) % MCV (80.0-100.0) fL RDW (11.5-15.5) % Plt Count (150-450) k/uL Neutrophils # (Manual) (1.3-7.7) k/uL Lymphocytes # (Manual) (1.0-4.8) k/uL Nucleated RBCs (0-0) /100 WBC ABG pH (7.35-7.45) ABG pCO2 (35-45) mmHg ABG Total CO2 (19-24) mmol/L ABG O2 Saturation (94-97) % BUN 80 H (9-20) mg/dL Creatinine 3.35 H (0.66-1.25) mg/dL Glucose 163 H (74-99) mg/dL POC Glucose (mg/dL) 189 H 183 H (75-99) mg/dL Calcium 8.0 L (8.4-10.2) mg/dL Phosphorus 5.3 H (2.5-4.5) mg/dL Magnesium 2.4 H (1.6-2.3) mg/dL Crossmatch 08/28/20 08/28/20 08/28/20 Range/Units 04:10 05:25 05:49 WBC 11.2 H (3.8-10.6) k/uL RBC 2.16 L (4.30-5.90) m/uL Hgb 6.8 L* (13.0-17.5) gm/dL Hct 21.7 L (39.0-53.0) % MCV 100.6 H (80.0-100.0) fL RDW 16.0 H (11.5-15.5) % Plt Count 45 L (150-450) k/uL Neutrophils # (Manual) 10.50 H (1.3-7.7) k/uL Lymphocytes # (Manual) 0.67 L (1.0-4.8) k/uL Nucleated RBCs 1 H (0-0) /100 WBC ABG pH 7.29 L (7.35-7.45) ABG pCO2 50 H (35-45) mmHg ABG Total CO2 25 H (19-24) mmol/L ABG O2 Saturation (94-97) % BUN (9-20) mg/dL Creatinine (0.66-1.25) mg/dL Glucose (74-99) mg/dL POC Glucose (mg/dL) 183 H (75-99) mg/dL Calcium (8.4-10.2) mg/dL Phosphorus (2.5-4.5) mg/dL Magnesium (1.6-2.3) mg/dL Crossmatch 08/28/20 Range/Units 06:37 WBC (3.8-10.6) k/uL RBC (4.30-5.90) m/uL Hgb (13.0-17.5) gm/dL Hct (39.0-53.0) % MCV (80.0-100.0) fL RDW (11.5-15.5) % Plt Count (150-450) k/uL Neutrophils # (Manual) (1.3-7.7) k/uL Lymphocytes # (Manual) (1.0-4.8) k/uL Nucleated RBCs (0-0) /100 WBC ABG pH (7.35-7.45) ABG pCO2 (35-45) mmHg ABG Total CO2 (19-24) mmol/L ABG O2 Saturation (94-97) % BUN (9-20) mg/dL Creatinine (0.66-1.25) mg/dL Glucose (74-99) mg/dL POC Glucose (mg/dL) (75-99) mg/dL Calcium (8.4-10.2) mg/dL Phosphorus (2.5-4.5) mg/dL Magnesium (1.6-2.3) mg/dL Crossmatch See Detail Microbiology - Last 24 Hours (Table) 08/24/20 11:00 Blood Culture - Preliminary Blood No Growth after 72 hours Assessment and Plan Plan: 1 abdominal aortic aneurysm, 8.8 cm involving the iliac arteries and involving an intraluminal thrombus status post open repair of abdominal aortic aneurysm, with 30 mm sleeve graft. The patient is postop day #7 2 acute hypoxic respiratory failure post abdominal aortic aneurysm repair. The patient has bilateral pulmonary infiltrates with gram-negative pneumonia and the cultures are positive for sedation marcescens and the patient is currently on IV cefepime. The patient was septic with Serratia marcescens and the blood culture was also positive and the patient remains on IV cefepime for now. Pressors have been reduced significantly. 3 shock, consider septic shock and the patient has been resuscitated aggressively with IV fluids. Upon further investigation, the patient was confirmed to be in septic shock with Serratia marcescens and the origin was an underlying pneumonia. The patient is currently on IV cefepime. Note that the patient had a significant blood loss during procedure, 4 L. Status post 1 L of colloid, 1 L of Cell Saver, 5 L of crystalloid, 3 ampules of sodium bicarbonate, and 1 unit PRBCs. For now, the patient is still on a combination of vasopressin physiologic dose, norepinephrine dose has been reduced and currently it's running at 0.03 mcg/kg per minute in addition to vasopressin physiologic dose. 4 suspect adrenal insufficiency, patient started on hydrocortisone, 50 mg IV push every 6 hours. 5 Acute kidney injury, likely related to acute tubular necrosis, currently on hemodialysis 6 Serratia marcescens pneumonia with secondary septic shock with positive blood cultures,, currently on cefipime 7 CAD with a previous history of previous myocardial infarction. 8 History of CVA. 9 History of essential hypertension. 10 History of chronic atrial fibrillation. Patient is currently off the Cardizem drip 11 History of [id number] history of tobacco use. 12 COPD. 13 Questionable history of alcohol abuse. 14 History of DJD. 15 TPN for nutritional support and enteral feeding for nutritional support was also initiated 16 thrombocytopenia with drop in the platelet count down to 54. Consider drug- induced thrombocytopenia. Consider consumptive secondary to his underlying shock state. Patient has not received any heparin products. Meanwhile, the correlation profile indicated a low-grade DIC. 17 upper GI bleed 18 acute on chronic anemia with a drop in hemoglobin down to 6.8, exacerbated by an upper GI bleed . Plan: Continue vent support and drop the FiO2 down to 40% and PEEP down to 5 and reduce the rate down to 22 and tidal volume down to 450 Hold tube feeds History of a unit of packed RBC Monitor hemoglobin and watch for any GI bleed Continue TPN for nutritional support Continue IV cefepime Prefer to proceed another session of hemodialysis today Hold enteral feeding Continue TPN for nutritional support Continue IV Protonix Monitor platelet counts Continue assess dose hydrocortisone Platelet counts are stable Echocardiogram showed is stable LV function with an ejection fraction of 55% We'll give the patient sedation holiday after receiving his hemodialysis and packed RBC transfusion and assess his readiness to wean. Condition is critical we'll continue to follow and monitor the patient will make further recommendations based on the progress. Critically care evaluation, more than 30 minutes Time with Patient: Greater than 30
--- NOTE | 2020-08-28 11:45 | PN ---
PROGRESS NOTE Taj is a 74-year-old gentleman who was admitted to hospital following surgery for abdominal aortic aneurysm and he developed acute renal failure. He remains in atrial fibrillation today with controlled ventricular rate. He is anemic and receiving blood transfusions. He is still requiring dialysis. PHYSICAL EXAMINATION: On exam, heart rate is 100 beats per minute. Blood pressure is 107/47. Respiratory rate is 18. Chest exam reveals diminished air entry at the bases. Heart exam reveals first and second heart sounds. No gallop. LABS: Labs show a hemoglobin of 6.8. Potassium is 4.8. Creatinine is 3.3. ASSESSMENT: 1. Persistent atrial fibrillation with controlled ventricular rate. 2. Abdominal aortic aneurysm, status post surgery. 3. Renal failure. PLAN: The patient is not a candidate for anticoagulation. He is going to continue current medications and supportive care. MMODL / IJN: [id number] /
[2020-08-28 12:21] LABS: Glucose,Whole Blood 138 mg/dL (75-99)
[2020-08-28] MEDS: CEFEPIME 2 GM in SODIUM CHLORIDE 0.9% 100 ML IVPB SCH (12:25)
--- NOTE | 2020-08-28 14:12 | P.PN ---
Subjective Progress Note Date: 08/28/20 Principal diagnosis: Abdominal aortic aneurysm The patient was seen and examined in the ICU. He remains sedated and intubated. He was getting trickle tube feedings, however he had approximately a liter out of NG tube so discontinued. His hemoglobin was 6.8, 1 unit of PRBCs disorder. Objective - Vital Signs Vital signs: Vital Signs Temp 97.6 F 08/28/20 04:00 Pulse 98 08/28/20 07:35 Resp 27 H 08/28/20 07:30 BP 117/54 08/27/20 14:23 Pulse Ox 97 08/28/20 07:30 Intake & Output 08/27/20 08/28/20 08/28/20 18:59 06:59 18:59 Intake Total 1482.771 711.416 Output Total 2500 1108 Balance -1017.229 -396.584 Weight 105.6 kg Intake: IV 1116 429 0.9 KVO 360 390 Parenteral Electrolytes 720 20 ml In Amino Acid 5%- D15w 1,000 ml @ 80 mls/hr IV .BY DURATION MITZY Rx#: [id number] pressure bag 36 39 Intake, IV Titration 186.771 152.416 Amount Norepinephrine 32 mg In 131.923 18.301 Sodium Chloride 0.9% 218 ml @ 0.05 MCG/KG/MIN 2.02 mls/hr IV .Q24H MITZY Rx#: [id number] propofoL 500 mg In Empty 54.848 134.115 Bag 1 bag @ Titrate IV . Q0M MITZY Rx#:[id number] Tube Feeding 150 70 Other 30 60 Output: Gastric Drainage 1100 Urine 0 8 Hemodialysis 2500 Other: Voiding Method Indwelling Catheter Indwelling Catheter ABP, PAP, CO, CI - Last Documented Arterial Blood Pressure 116/51 - Exam General appearance: sedated on mechanical ventilation HET: Head is normocephalic and atraumatic. Conjunctiva pink. Sclera and icteric. NG tube intact with suction. Neck: Supple without lymphadenopathy. Abdomen: Soft, mild distention, dressing clean dry and intact. Anasarca. Extremities: bilateral lower extremity edema, warm to the touch with good capillary refill. Left foot with DP Doppler signal, right PT Doppler signal. Neurological: sedated on mechanical ventilation. - Labs CBC & Chem 7: 08/28/20 04:10 08/28/20 04:10 Labs: Abnormal Lab Results - Last 24 Hours (Table) 08/27/20 08/27/20 08/27/20 Range/Units 09:20 11:35 17:51 WBC (3.8-10.6) k/uL RBC (4.30-5.90) m/uL Hgb (13.0-17.5) gm/dL Hct (39.0-53.0) % MCV (80.0-100.0) fL RDW (11.5-15.5) % Plt Count (150-450) k/uL Neutrophils # (Manual) (1.3-7.7) k/uL Lymphocytes # (Manual) (1.0-4.8) k/uL Nucleated RBCs (0-0) /100 WBC ABG pH 7.30 L (7.35-7.45) ABG pCO2 (35-45) mmHg ABG Total CO2 (19-24) mmol/L ABG O2 Saturation 97.9 H (94-97) % BUN (9-20) mg/dL Creatinine (0.66-1.25) mg/dL Glucose (74-99) mg/dL POC Glucose (mg/dL) 186 H 188 H (75-99) mg/dL Calcium (8.4-10.2) mg/dL Phosphorus (2.5-4.5) mg/dL Magnesium (1.6-2.3) mg/dL Crossmatch 08/27/20 08/27/20 08/28/20 Range/Units 20:13 23:53 04:10 WBC (3.8-10.6) k/uL RBC (4.30-5.90) m/uL Hgb (13.0-17.5) gm/dL Hct (39.0-53.0) % MCV (80.0-100.0) fL RDW (11.5-15.5) % Plt Count (150-450) k/uL Neutrophils # (Manual) (1.3-7.7) k/uL Lymphocytes # (Manual) (1.0-4.8) k/uL Nucleated RBCs (0-0) /100 WBC ABG pH (7.35-7.45) ABG pCO2 (35-45) mmHg ABG Total CO2 (19-24) mmol/L ABG O2 Saturation (94-97) % BUN 80 H (9-20) mg/dL Creatinine 3.35 H (0.66-1.25) mg/dL Glucose 163 H (74-99) mg/dL POC Glucose (mg/dL) 189 H 183 H (75-99) mg/dL Calcium 8.0 L (8.4-10.2) mg/dL Phosphorus 5.3 H (2.5-4.5) mg/dL Magnesium 2.4 H (1.6-2.3) mg/dL Crossmatch 08/28/20 08/28/20 08/28/20 Range/Units 04:10 05:25 05:49 WBC 11.2 H (3.8-10.6) k/uL RBC 2.16 L (4.30-5.90) m/uL Hgb 6.8 L* (13.0-17.5) gm/dL Hct 21.7 L (39.0-53.0) % MCV 100.6 H (80.0-100.0) fL RDW 16.0 H (11.5-15.5) % Plt Count 45 L (150-450) k/uL Neutrophils # (Manual) 10.50 H (1.3-7.7) k/uL Lymphocytes # (Manual) 0.67 L (1.0-4.8) k/uL Nucleated RBCs 1 H (0-0) /100 WBC ABG pH 7.29 L (7.35-7.45) ABG pCO2 50 H (35-45) mmHg ABG Total CO2 25 H (19-24) mmol/L ABG O2 Saturation (94-97) % BUN (9-20) mg/dL Creatinine (0.66-1.25) mg/dL Glucose (74-99) mg/dL POC Glucose (mg/dL) 183 H (75-99) mg/dL Calcium (8.4-10.2) mg/dL Phosphorus (2.5-4.5) mg/dL Magnesium (1.6-2.3) mg/dL Crossmatch 08/28/20 Range/Units 06:37 WBC (3.8-10.6) k/uL RBC (4.30-5.90) m/uL Hgb (13.0-17.5) gm/dL Hct (39.0-53.0) % MCV (80.0-100.0) fL RDW (11.5-15.5) % Plt Count (150-450) k/uL Neutrophils # (Manual) (1.3-7.7) k/uL Lymphocytes # (Manual) (1.0-4.8) k/uL Nucleated RBCs (0-0) /100 WBC ABG pH (7.35-7.45) ABG pCO2 (35-45) mmHg ABG Total CO2 (19-24) mmol/L ABG O2 Saturation (94-97) % BUN (9-20) mg/dL Creatinine (0.66-1.25) mg/dL Glucose (74-99) mg/dL POC Glucose (mg/dL) (75-99) mg/dL Calcium (8.4-10.2) mg/dL Phosphorus (2.5-4.5) mg/dL Magnesium (1.6-2.3) mg/dL Crossmatch See Detail Microbiology - Last 24 Hours (Table) 08/24/20 11:00 Blood Culture - Preliminary Blood No Growth after 72 hours Assessment and Plan Assessment: 1. Postop abdominal aortic aneurysm repair graft 2. Abdominal aortic aneurysm, 8.8 cm 3. Hypotension, remains on pressors 4. Acute renal failure on hemodialysis 5. Coronary artery disease 6. Atrial fibrillation 7. TIA/CVA 8. Long-standing history of tobacco use 9. COPD Plan: 1. Supportive care 2. Continue with ICU medical management and recommendations 3. Agree with PRBC 4. May start trickle enteral feeds 5. Appreciate recommendations from nephrology, continue hemodialysis as ordered per nephrology 6. Repeat labs in the a.m. including CMP We will continue to follow closely The above dictated assessment and findings were discussed with Dr. Murillo. The impression and plan of care have been directed as dictated.
--- NOTE | 2020-08-28 14:27 | PN ---
PROGRESS NOTE Patient is seen for followup for acute kidney injury. Patient is currently hemodialysis dependent. We dialyzed him yesterday and we had about 2.5 L of fluid taken off. The patient tolerated his treatment well. He is maintained on a low-dose Levophed. His PEEP has decreased further to only about 5, FiO2 is also decreased further to 40%. The patient remains on the vent. He is sedated. PHYSICAL EXAMINATION: Blood pressure is 118/48, heart rate 92 per minute. He is afebrile. EXAMINATION OF THE HEART: S1, S2. EXAMINATION OF THE LUNGS: Bilateral breath sounds are heard. Abdomen is soft, nontender. Examination of lower extremities shows edema 1+ bilaterally. [facility] exam cannot be performed. The patient is having dark colored aspirate in his NG tube. LABS: Labs show hemoglobin 6.8, white cell count 11.2. Sodium 138, potassium 4.8, chloride 107. BUN 80, creatinine 3.35. ASSESSMENT: 1. Acute kidney injury oliguric acute tubular necrosis, currently hemodialysis dependent. Patient has had daily treatments. We will dialyze him again today with UF of about 2 L and plan again for tomorrow mostly for volume overload. 2. Anemia with gastrointestinal bleed. Hemoglobin 6.8. Patient is being transfused packed RBCs. Acute blood-loss anemia. 3. Acute hypoxic respiratory failure, currently on the vent. 4. Abdominal aortic aneurysm, status post open repair with sleeve graft. 5. Chronic atrial fibrillation with controlled ventricular response. 6. Sepsis secondary to pneumonia. Sputum culture grew Serratia marcescens and blood cultures were positive for gram-negative bacteremia which was also Serratia. The patient is maintained on antibiotics. PLAN: Hemodialysis today mostly for ultrafiltration and repeat ultrafiltration in a.m. MMODL / IJN: [id number] /
[2020-08-28] MEDS: SODIUM CHLORIDE 0.9% 150 ML with VASOPRESSIN 60 UNIT IV SCH ×2 (15:14)
[2020-08-28] MEDS: NOREPINEPHRINE 32 MG in SODIUM CHLORIDE 0.9% 218 ML IV SCH (16:09)
[2020-08-28 16:25] LABS: Anisocytosis Slight; Basophils % (A) 0 %; Eosinophils % (A) 0 %; HGB 7.8 gm/dL (13.0-17.5); Lymphocytes # (A) 0.4 k/uL (1.0-4.8); Lymphocytes % (A) 3 %; MCH 31.9 pg (25.0-35.0); MCHC 32.6 g/dL (31.0-37.0); MCV 97.8 fL (80.0-100.0); Macrocytosis Slight; Mean Platelet Volume 12.6; Monocytes # (A) 0.3 k/uL (0-1.0); Monocytes % (A) 2 %; Neutrophils # (A) 10.5 k/uL (1.3-7.7); Neutrophils % (A) 94 %; RBC 2.45 m/uL (4.30-5.90); RDW 16.7 % (11.5-15.5); WBC 11.2 k/uL (3.8-10.6)
[2020-08-28 17:20] LABS: Platelet Count 41 k/uL (150-450)
[2020-08-28 17:51] LABS: Glucose,Whole Blood 158 mg/dL (75-99)
--- NOTE | 2020-08-28 20:02 | P.PN ---
Progress Note - Text Progress Note Date: 08/28/20 - Chief Complaint Abdominal surgery Consultation: This is a 74-year-old patient who follows with Dr. rollins from [place]. Chronic stable medical conditions include COPD, coronary artery disease with previous NH, osteoarthritis, chronic nicotine dependence. Patient was recently in the hospital following outpatient screening for abdominal aortic aneurysm. It was found to be 9.5 x 8.2 cm in the midportion. Internal thrombus seen surrounding the small bowel in the lumen. It also extends into the right and left common iliac arteries. Patient was therefore sent to the ER. Further computed tomography scan of the chest and abdomen in the ER showed 4.2 cm as cending thoracic aneurysm and 3.8 cm descending thoracic aorta with mural thrombus. Patient denies any abdominal pain. Does get charley horses. At the baseline is a short of breath and wheezing. He is an active smoker. No chest pain. Patient was then discharged to return for surgery. August 21: patient underwent open repair of abdominal aortic aneurysm with a 30 mm sleeve graft. Currently in the ICU. On the ventilator intubated. FiO2 40 and a PEEP of 5. Has NG tube in place. Murillo catheter. Endotracheal tube. Drips include IV propofol and norepinephrine. Telemetry shows atrial f ibrillation. Hemodialysis catheter was placed and started on hemodialysis.- August 24 Today-ICU: On the ventilator with FiO2 40 and a PEEP of 5. Drips include norepinephrine, vasopressin propofol. Remains in atrial fibrillation somewhat uncontrolled. 4 urine output. NG tube put out 1 L of dark aspirate overnight. Hemodialysis today. Review of systems-patient intubated Active Medications Albuterol/Ipratropium (Ipratropium-Albuterol 3 Ml Neb) 3 ml INHALATION RT-Q2H PRN PRN Reason: Shortness Of Breath Or Wheezing Albuterol/Ipratropium (Ipratropium-Albuterol 3 Ml Neb) 3 ml INHALATION RT-Q4H [facility] Last Admin: 08/28/20 19:49 Dose: 3 ml Documented by: Atorvastatin Calcium (Atorvastatin 40 Mg Tab) 40 mg PO DAILY [facility] Last Admin: 08/28/20 08:27 Dose: 40 mg Documented by: Chlorhexidine Gluconate (Chlorhexidine Gluconate 15 Ml Cup) 15 ml MUCOUS MEM BID [facility] Last Admin: 08/28/20 08:27 Dose: 15 ml Documented by: Hydrocortisone Sodium Succinate (Hydrocortisone Succinate 100 Mg/2 Ml Vial) 50 mg IV Q8HR [facility] Last Admin: 08/28/20 16:10 Dose: 50 mg Documented by: Hydromorphone HCl (Hydromorphone 1 Mg/Ml 1 Ml Syringe) 1 mg IVP Q3HR PRN PRN Reason: Pain Last Admin: 08/23/20 12:35 Dose: 1 mg Documented by: Norepinephrine Bitartrate 32 (mg/ Sodium Chloride) 250 mls @ 2.02 mls/hr IV .Q24H [facility]; Protocol Last Titration: 08/28/20 19:06 Dose: 0.03 mcg/kg/min, 1.212 mls/hr Documented by: Propofol 500 mg/ IV Solution 50 mls @ 0 mls/hr IV .Q0M [facility]; Protocol Last Admin: 08/28/20 18:01 Dose: 30 mcg/kg/min, 19.008 mls/hr Documented by: Vasopressin 60 unit/ Sodium (Chloride) 153 mls @ 4.59 mls/hr IV .Q24H [facility] Last Admin: 08/28/20 15:14 Dose: 4.59 mls/hr Documented by: Sodium Acetate 40 meq/ Calcium Gluconate 1 gm/ Amino Acids/Dextrose 1,030 mls @ 60 mls/hr IV .BY DURATION [facility] Stop: 08/28/20 22:59 Last Admin: 08/28/20 08:27 Dose: 60 mls/hr Documented by: Parenteral Vitamin Supplement 10 ml/ Chromium/Copper/Manganese/Seleni/Zn 1 ml/Sodium Acetate 40 meq/ Calcium Gluconate 1 gm/ Amino Acids/Dextrose 1,041 mls @ 60 mls/hr IV .BY DURATION [facility] Stop: 08/28/20 22:59 Last Admin: 08/27/20 16:17 Dose: 60 mls/hr Documented by: Sodium Acetate 40 meq/ Calcium Gluconate 1 gm/ Amino Acids/Dextrose 1,030 mls @ 70 mls/hr IV .BY DURATION [facility] Parenteral Vitamin Supplement 10 ml/ Chromium/Copper/Manganese/Seleni/Zn 1 ml/Sodium Acetate 40 meq/ Calcium Gluconate 1 gm/ Amino Acids/Dextrose 1,041 mls @ 70 mls/hr IV .BY DURATION [facility] Cefepime HCl 1 gm/ Sodium (Chloride) 50 mls @ 12.5 mls/hr IVPB Q12H [facility] Insulin Aspart (Insulin Aspart (Novolog) 100 Unit/Ml Vial) 0 unit SQ Q6H [facility]; Protocol Last Admin: 08/28/20 18:01 Dose: 1 unit Documented by: Insulin Detemir (Insulin Detemir (Levemir) 100 Unit/Ml Syr) 16 unit SQ HS [facility] Last Admin: 08/27/20 20:15 Dose: 16 unit Documented by: Lidocaine HCl (Lidocaine 1% (10mg/Ml) For Iv Start) 0.1 ml INTRADERMA PER PROTOCOL PRN PRN Reason: IV Start Miscellaneous Information (Magnesium Replacement Protocol 1 Each Misc) 1 each MISCELLANE DAILY PRN; Protocol PRN Reason: Per Protocol Pantoprazole Sodium (Pantoprazole 40 Mg/10 Ml Vial) 40 mg IVP BID [facility] Last Admin: 08/28/20 08:27 Dose: 40 mg Documented by: Past medical history to include: COPD, coronary artery disease with NH, osteoarthritis, abdominal aortic aneurysm 8.8 cm, 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 Smoking for many years. About 2 beers a day. Retired Physical examination: VITAL SIGNS: 97.5, 97, 24, 106/50, 95% on the ventilator GENERAL: BMI 29.3, laying in bed, intubated. EYES: Pupils equal. Conjunctiva normal. HEENT: External appearance of nose and ears normal, oral cavity-endotracheal tube, NG tube-dark aspirate NECK: JVD unable to assess; masses not palpable. HEART: Irregular heart sounds; no edema. LUNGS: Respiratory rate increased decreased breath sounds,. ABDOMEN: Soft, dressing over the midline incision, liver spleen not palpable, no masses palpable. Murillo catheter EXTREMITIES: Bluish discoloration of both the feet, cold PSYCH: Sedated INVESTIGATIONS, reviewed in the clinical context: August 28: White count 11.2 hemoglobin 7.8 platelets 41 August 27: White count 9.4 hemoglobin 7.8 platelet 50 potassium 5.3 bun 84 creatinine 4.38 Blood culture-positive for Serratia marcescens Chest [id number] August 26: White count 11 hemoglobin 8.1 platelets 54 potassium 5.3 bun 87 creatinine 4.93 2-D echocardiogram-limited: EF 55% August 25: White count 14.2 hemoglobin 8.7 platelets 61 potassium 4.8 bun 65 creatinine 4.08 August 24: White count 13.7 hemoglobin 9.7 platelets 74 potassium 5.1 bun 64 creatinine 4.38. ABG showed pH of 7.13 pCO2 58 pO2 August: White count 10.9 hemoglobin 10.8 platelets 75 potassium 4.6 bun 53 creatinine 2.95 Sputum culture-positive for Serratia marcescens White count 18.3 hemoglobin 11.8 platelets 72 potassium 4.7 bun 40 creatinine 1.67 Previous testin08/13/2020: White count 4.1 hemoglobin 13.8 platelets 148 bun 19 creatinine 0.94 Assessment: -Abdominal aortic aneurysm 8.8 cm, also involving the iliac arteries, with intraluminal thrombus-followed by open repair sleeve graft on 08/21/2020 -Ascending thoracic aortic is a 4.2 cm, descending thoracic aorta 3.8 cm with mural thrombus -Bilateral pneumonia with sputum and blood cultures both positive for Serratia marcescens -Hypotensive shock-on vasopressin and a small does of levo fed. -Chronic nicotine dependence patient cigarette smoker -Emphysema, with some exacerbation in a current smoker -Coronary artery disease and a prior history of NH -Suspect peripheral arterial disease -Persistent atrial fibrillation rate uncontrolled-was on IV Cardizem drip. . Off Cardizem drip. Ventricular rate fluctuating -Acute hypoxic respiratory failure, requiring ventilator support-slow to respond -Acute kidney injury patient's creatinine was 0.94 on August 13. Possible ATN. Oliguric. Worsening. Hemodialysis catheter placed on August 24. Started on hemodialysis -Upper GI bleed with NG tube putting out dark aspirate-amount has gone down 88 -TPN and slow to feeding currently held -thrombocytopenia, from underlying sepsis Plan: Remains critically ill. Current medications include DuoNeb, IV cefepime, IV Solu-Cortef, Levemir, norepinephrine, TPN, IV vasopressin. Prognosis remains guarded. Thank you Dr. Donovan
[2020-08-28] MEDS: INSULIN DETEMIR (LEVEMIR) 100 UNIT/ML SYR SQ SCH (20:30)
[2020-08-28] MEDS ORDERED: MVI IV SCH ×5 (23:00)
[2020-08-28] MEDS ORDERED: SODIUM ACETATE IV SCH ×5 (23:00)
[2020-08-28] MEDS ORDERED: AMINO ACID 5% IV SCH ×5 (23:00)
[2020-08-28] MEDS ORDERED: CALCIUM GLUCONATE IV SCH ×5 (23:00)
[2020-08-28] MEDS: CEFEPIME 1 GM in SODIUM CHLORIDE 0.9% 50 ML IVPB SCH (23:23)
[2020-08-28 23:47] LABS: Glucose,Whole Blood 184 mg/dL (75-99)
[2020-08-29] MEDS: IPRATROPIUM-ALBUTEROL 3 ML NEB INHALATION SCH ×7 (00:26→23:22)
[2020-08-29 04:49] LABS: Albumin 1.8 g/dL (3.5-5.0); Calcium 8.2 mg/dL (8.4-10.2); Magnesium 2.3 mg/dL (1.6-2.3); Phosphorus 5.3 mg/dL (2.5-4.5); Potassium 4.5 mmol/L (3.5-5.1); Total Protein 3.8 g/dL (6.3-8.2)
[2020-08-29 04:51] LABS: Anisocytosis Slight; Basophils % (A) 0 %; Eosinophils % (A) 0 %; HCT 23.4 % (39.0-53.0); HGB 7.4 gm/dL (13.0-17.5); Lymphocytes # (A) 0.5 k/uL (1.0-4.8); Lymphocytes % (A) 4 %; MCH 31.2 pg (25.0-35.0); MCHC 31.8 g/dL (31.0-37.0); MCV 98.1 fL (80.0-100.0); Macrocytosis Slight; Mean Platelet Volume 13.3; Monocytes # (A) 0.3 k/uL (0-1.0); Monocytes % (A) 3 %; Neutrophils # (A) 11.2 k/uL (1.3-7.7); Neutrophils % (A) 93 %; RBC 2.39 m/uL (4.30-5.90)
[2020-08-29 04:52] LABS: Platelet Count 42 k/uL (150-450)
[2020-08-29 04:57] LABS: ABG Base Excess -2.6 mmol/L; ABG HCO3 24 mmol/L (21-25); ABG PCO2 49 mmHg (35-45); ABG PH 7.29 (7.35-7.45); ABG PO2 83 mmHg (83-108); ABG TCO2 25 mmol/L (19-24); Allen Test Performed? Yes
[2020-08-29 06:04] LABS: Glucose,Whole Blood 204 mg/dL (75-99)
[2020-08-29] MEDS: INSULIN ASPART (NovoLOG) 100 UNIT/ML VIAL SQ SCH ×4 (06:12→23:11)
--- NOTE | 2020-08-29 08:01 | XR ---
EXAMINATION TYPE: XR chest 1V DATE OF EXAM: 08/29/2020 COMPARISON: 08/28/2020 INDICATION: Difficulty breathing, ventilated TECHNIQUE: Single frontal view of the chest is obtained. FINDINGS: The heart size is mildly prominent. The pulmonary vasculature is normal. Mild patchy infiltrates are present at the lung bases. Endotracheal tube tip is above the clover. Nasogastric tube transverses the thorax. PICC line enters on the right with the tip in the superior vena cava region. IMPRESSION: 1. Mild bibasilar infiltrates. Correlate for atelectasis or pneumonia. 2. Lines and catheters discussed above.
[2020-08-29] MEDS: PANTOPRAZOLE 40 MG/10 ML VIAL IVP SCH ×2 (08:30→20:03)
[2020-08-29] MEDS: ATORVASTATIN 40 MG TAB PO SCH (08:30)
[2020-08-29] MEDS: HYDROCORTISONE SUCCINATE 100 MG/2 ML VIAL IV SCH (08:30)
[2020-08-29] MEDS: CHLORHEXIDINE GLUCONATE 15 ML CUP MUCOUS MEM SCH ×2 (08:30→20:03)
[2020-08-29] MEDS ORDERED: GLYCERIN ADULT SUPPOSITORY 1 EACH RECTAL STA (09:23)
--- NOTE | 2020-08-29 10:46 | P.PN ---
Subjective Progress Note Date: 08/29/20 74-year-old here patient with known history of abdominal aortic aneurysm and known history of coronary artery previous [place]. The patient also known to have previous history of CVA, chronic atrial fibrillation, hypertension and [id number] smoking history. The patient has osteoarthritis. The patient und erwent an open repair of an abdominal aortic aneurysm with 30 mm sleeve graft. Note that the patient a large abdominal aortic aneurysm measuring 9.5 x 8.2 cm in size with internal thrombus. The aneurysm was extending into the right and left common iliac artery. The patient also known to have a 4.2 cm ascending aortic aneurysm and at 3.8 cm ascending thoracic aortic aneurysm with a mural thrombus. The patient lost approximately 4 L of blood and operating room. The patient was given a total of 1 L of Cell Saver, a lot of crystalloids and colloids and operating room and she also required packed RBC transfusion. She was kept intubated on a mechanical ventilator and following that she was t ransferred to the intensive care unit. The patient is currently postop day #5 following the abdominal aortic aneurysm repair. The patient remains on a mechanical ventilator. She is currently on assist control mode at the rate of 32 and a tidal volume of 500 and FiO2 of 60% with a PEEP of 13. The patient has been on normal saline at rate of 20 mL an hour and the patient is also requiring norepinephrine infusion which is running at 60 g per minute. She is on Cardizem drip for rate control at the rate of 10 mg an hour regarding her atrial fibrillation and she is also on vasopressin and the dose of 0.03 units per minute. She is was sedated with propofol and currently she is on 35 mcg/kg per minute. The patient remains in atrial fibrillation for now on a Cardizem drip. In terms of feeding, the patient is receiving TPN at the rate of 80 mL an hour. The patient continues to have a low urine output. She developed an acute kidney injury postop and she will possibly require hemodialysis. The patient is going gram-negative bacteria and this sputum and the chest x-ray is showing bilobar infiltrate affecting the lower lobes bilaterally. ET tube is in a good location and the patient has a PICC line in the right upper extremity. NG tube was also in place. Assess him of the abdomen from yesterday showed retained fecal material in the large bowel. NG tube is in the distal esophagus. There is evidence of constipation. Hemodialysis catheter was placed on 08/24/2020 and the patient was started on hemodialysis. There is some dark aspirate from the NG tube consistent possibly with an upper GI bleed. This sputum sample outreach liaison to be positive for Serratia marcescens and the patient is currently on IV Zosyn. On the morning of , the patient is being seen for a follow-up. The patient remains sedated with propofol which is running at 20 mcg/kg per minute. The patient's is sedated on mechanical ventilator. The patient is an assist- control mode volume cycled with a tidal volume of 500 and FiO2 of 60% with a PEEP of 13 and the rate of 32. Peak air pressures around 35 and the static pressures 24. Chest x-ray showing lower lobe pulmonary infiltrates slightly wor se on the left. ET tube is in a good location. NG tube is in a good location and the patient continued to have a PICC line in his right upper extremity. The blood gases from this morning shows a pH of 7.23 with a pCO2 of 46 and pO2 of 147. He is still in acute kidney injury. Creatinine is up to 4.9. Hemodialysis catheter was inserted yesterday and he received his first session of hemodialysis 2 days ago He had no dialysis was done yesterday. Potassium level is up to 5.3, serum bicarb is down to 18 and the creatinine is up to 4.93. He also has urine output in order of 0 mL an hour. His platelet count has dropped down to 50 4K and the white cell count is at 11 with a hemoglobin of 8. 1. He remains in atrial fibrillation. He remains on a Cardizem drip for rate control at the rate of 5 mg an hour. His heart rate is under adequate control for now. He remains on norepinephrine at a dose of 0.4 mcg/kg per minute and he remains on nasal On today's evaluation of 08/27/2020 I'm seeing the patient for a follow-up. This morning, the patient remains sedated on propofol which is running at 20 mcg/kg per minute. He is sedated and he is adequately sedated and comfortable on a mechanical ventilator. He remains on assist control mode of ventilation. This morning, he is on a PEEP of 12 with an FiO2 of 50% and a tidal volume of 500 at a rate of 32. The blood. From today shows a pH of 7.34 with a pCO2 of 40 and pO2 of 107. The patient had Serratia marcescens in his sputum and the repeat chest x-ray shows bibasilar pulmonary infiltrates worse on the left. ET tube is in a good location. NG tube is also in a good location. No significant orotracheal secretions. He is quite secretions with the mechanical ventilator. Hemodynamically, the patient continues to be on pressors. Vasopressin is on a physiologic dose. Levo fed has been cut down to micrograms per minute and the patient is requiring less pressors. The patient remains on stress dose hydrocortisone. IV fluids with normal state rate of 20 mL an hour. He is not making any urine output. He received hemodialysis yesterday and repeat electrodesiccation with a potassium of 5.3 and a serum bicarb of 20. A total of 2.2 L of fluid was taken off yesterday. He remains in atrial fibrillation. Rate is controlled. The patient is off Cardizem drip. He is currently on no anticoagulation. At evaluation was stopped because of lower platelet count of 50,000 and the patient was having some bleeding from his orogastric tube. Abdomen is distended. Bowel sounds are sluggish. Lower rate enteral feeding was reinitiated yesterday. On today's evaluation the patient is postop day #6. I elected discussion with his son and [place] his name is Enoch and I updated them on the condition. He has adequate perfusion to his lower extremities and the pulses in the lower extremities are much better palpable today and he is less cyanotic. 08/28/2020 I'm seeing the patient for a follow-up. He remains sedated with propofol and asynchronous the mechanical ventilator. In terms of his vent support, were able to wean down the PEEP down to 6 yesterday with an FiO2 of 50% and a tidal volume of 450 with a rate of 26. The blood gases from today showed a pH of 7.29 with a pCO2 of 50 and pO2 of 94. His chest x-ray showing some pulmonary vessel congestion and some limited infiltration of the lung bases bilaterally. ET tube is in a good location. No significant orotracheal secretions at this point. There is cardiomegaly and some limited effusion the lung bases. Meanwhile, the patient is hemodynamically doing better. I was able to wean down his stresses gradually. Norepinephrine infusion is currently running at 0.03 g. KG per minute and it was reduced significantly to lower levels and he is still on a physiologic dose of vasopressin. His last ration of hemodialysis was yesterday which was able to tolerate. He remains in atrial fibrillation. Slightly more tachycardic on today's evaluation and he is off the Cardizem drip and his heart rate is ranging between 101 10, irregular. Also, the patient had a upper GI bleed again. The tube feeds was discontinued and the patient had a total of 1 L of coffee-ground/bloody/dark bloody gastric material aspirated from the stomach. His abdomen is nondistended this point in time. Bowel sounds are hypoactive. He remains on TPN for nutritional support which is currently running at the rate of 60 mL an hour. Along with his upper GI bleed, hemoglobin dropped down to 6.8. His platelet count is at 45 which is slightly lower compared to yesterday. His creatinine is at 3.3 with a BUN of 80 and a potassium level is at 4.8. His blood culture was also positive for Serratia consistent with gram-negative Serratia pneumonia cultured in the sputum and in the blood. His antibiotic coverage is IV Cefepime 08/29/2020, the patient is in the ICU, sedated with propofol intubated on a mechanical ventilator with assist control mode at the rate of 22 with a tidal volume of 450 and FiO2 of 40% with a PEEP of 5. Chest x-ray unchanged with small bilateral pleural effusions and infiltrates in the lung bases. The patient's blood gases showed a pH of 7.29 with a pCO2 of 49 and pO2 of 83. We have done some improvement in his oxygenation as his FiO2 has been weaned down to 40% and his PEEP is down to 5. He did have Serratia pneumonia with septice nighat and the patient is still on antibiotics and the patient is covered with IV cefepime. He is afebrile. He was then is some better. She is currently on NE infusion which is running at a dose of 0.03 Suppressant is a physiologic dose. He remains in the same antibiotic coverage. He is receiving TPN for nutritional support. Initial attempt to feed him enterally failed as the patient had increa sed residual and bleeding was suspected. He was given a unit of packed RBC and hemoglobin is up to 7.4. NG tube if it was suctioning and the patient has sluggish bowel movements. Discussed the case with general surgery and vascular surgery and we decided to proceed with Reglan and glycerin suppository and try to feed him again. Meanwhile the patient remains on IV Protonix. Platelet counts are at 42, essentially stable and the patient has developed some thrombocytopenia during his postoperative course. He is off the Cardizem drip. His cardiac rhythm is atrial fibrillation. Is postop day #8. Remains intubated on a mechanical ventilator. He is in the process of getting a sedation holiday. He had dialysis yesterday and he is supposed to have dialysis today. Continues to have increased volume overload. Objective - Vital Signs Vital signs: Vital Signs Temp 97.7 F 08/29/20 08:00 Pulse 118 H 08/29/20 10:00 Resp 27 H 08/29/20 10:00 BP 106/50 08/28/20 15:15 Pulse Ox 94 L 08/29/20 10:00 Intake & Output 08/28/20 08/29/20 08/29/20 18:59 06:59 18:59 Intake Total 0755.872 4655.480 515.836 Output Total 2055 13 50 Balance -059.313 0026.480 465.836 Weight 105.6 kg 101.1 kg Intake: IV 363 1250 389 0.9 KVO 330 350 100 Mvi, Adult No.4 with Vit 770 280 K 10 ml Trace (Conc-1Ml/ Dose) 1 ml Sodium Acetate 40 meq Calcium Gluconate 1 gm In Amino Acid 5%- D15w 1,000 ml @ 70 mls/hr IV .BY DURATION [facility]ZY Rx#: [id number] ceFAZolin 1,000 mg In 100 Sodium Chloride 0.9% 50 ml @ 100 mls/hr IVPB Q8HR [facility] Rx#:[id number] pressure bag 33 30 9 Intake, IV Titration 1062.265 269.480 66.836 Amount Cefepime 2 gm In Sodium 100 Chloride 0.9% 100 ml @ 25 mls/hr IVPB Q12H [facility] Rx# :[id number] Mvi, Adult No.4 with Vit 180 K 10 ml Trace (Conc-1Ml/ Dose) 1 ml Sodium Acetate 40 meq Calcium Gluconate 1 gm In Amino Acid 5%- D15w 1,000 ml @ 60 mls/hr IV .BY DURATION MITZY Rx#: [id number] Norepinephrine 32 mg In 22.765 11.979 Sodium Chloride 0.9% 218 ml @ 0.05 MCG/KG/MIN 2.02 mls/hr IV .Q24H [facility] Rx#: [id number] Sodium Acetate 40 meq 560 70 Calcium Gluconate 1 gm In Amino Acid 5%-D15w 1,000 ml @ 70 mls/hr IV .BY DURATION MITZY Rx#: [id number] Sodium Chloride 0.9% 150 49.5 4.5 13.5 ml @ 0.03 UNITS/MIN 4.59 mls/hr IV .Q24H [facility] with Vasopressin 60 unit Rx#: [id number] propofoL 500 mg In Empty 150.000 183.001 53.336 Bag 1 bag @ Titrate IV . Q0M [facility] Rx#:[id number] Blood Product 310 Rc As-1 Unit 310 [id number] Other 60 Output: Gastric Drainage 50 Urine 5 13 0 Oral Regurgitation 50 Hemodialysis 2000 Other: Voiding Method Indwelling Catheter Indwelling Catheter Indwelling Catheter ABP, PAP, CO, CI - Last Documented Arterial Blood Pressure 107/56 - Exam Sedated, and mechanically ventilated, with an orally placed endotracheal tube a nd NG tube. Head exam was generally normal. There was no scleral icterus or corneal arcus. Mucous membranes were moist. Neck was supple and without jugular venous distension, thyromegaly, or carotid bruits. Carotids were easily palpable bilaterally. There was no adenopathy. The patient continues to have a Cordis in his right IJ Cardiac exam revealed the PMI to be normally situated and sized. The rhythm was irregular and not consistent with atrial fibrillation and no extrasystoles were noted during several minutes of auscultation. The first and second heart sounds were normal and physiologic splitting of the second heart sound was noted. There were no murmurs, rubs, clicks, or gallops. Lungs reveal coarse bilateral rhonchi. No wheezes. Breath sounds equal bilaterally. Her sounds are diminished throughout. No crackles are appreciated. Abdomen is soft, without masses. No bowel sounds noted. The surgical wound site is dry clean and intact. There are no drains, and the bowel sounds are quite hypoactive and nearly absent on today's evaluation. No significant abdominal distention. Extremities are intact. No cyanosis clubbing or significant edema. Pulses in the lower extremities are quite diminished. The toes are somewhat cyanotic especially on the right. There is diminished pulses. There are obtained by Doppler signals in both, and the patient has a dialysis catheter in his right femoral vein. Skin is without rash or lesion. Cyanotic in the toes bilaterally. Neurologic examination cannot be properly assessed. Sedated, comfortable - Labs CBC & Chem 7: 08/29/20 04:00 08/29/20 04:00 Labs: Abnormal Lab Results - Last 24 Hours (Table) 08/28/20 08/28/20 08/28/20 Range/Units 06:37 12:20 16:13 WBC 11.2 H (3.8-10.6) k/uL RBC 2.45 L (4.30-5.90) m/uL Hgb 7.8 L (13.0-17.5) gm/dL Hct 24.0 L (39.0-53.0) % RDW 16.7 H (11.5-15.5) % Plt Count 41 L (150-450) k/uL Neutrophils # 10.5 H (1.3-7.7) k/uL Lymphocytes # 0.4 L (1.0-4.8) k/uL ABG pH (7.35-7.45) ABG pCO2 (35-45) mmHg ABG Total CO2 (19-24) mmol/L BUN (9-20) mg/dL Creatinine (0.66-1.25) mg/dL Glucose (74-99) mg/dL POC Glucose (mg/dL) 138 H (75-99) mg/dL Calcium (8.4-10.2) mg/dL Phosphorus (2.5-4.5) mg/dL AST (17-59) U/L Alkaline Phosphatase (38-126) U/L Total Protein (6.3-8.2) g/dL Albumin (3.5-5.0) g/dL Crossmatch See Detail 08/28/20 08/28/20 08/29/20 Range/Units 17:49 23:46 04:00 WBC (3.8-10.6) k/uL RBC (4.30-5.90) m/uL Hgb (13.0-17.5) gm/dL Hct (39.0-53.0) % RDW (11.5-15.5) % Plt Count (150-450) k/uL Neutrophils # (1.3-7.7) k/uL Lymphocytes # (1.0-4.8) k/uL ABG pH (7.35-7.45) ABG pCO2 (35-45) mmHg ABG Total CO2 (19-24) mmol/L BUN 74 H (9-20) mg/dL Creatinine 2.73 H (0.66-1.25) mg/dL Glucose 181 H (74-99) mg/dL POC Glucose (mg/dL) 158 H 184 H (75-99) mg/dL Calcium 8.2 L (8.4-10.2) mg/dL Phosphorus 5.3 H (2.5-4.5) mg/dL AST 171 H (17-59) U/L Alkaline Phosphatase 195 H (38-126) U/L Total Protein 3.8 L (6.3-8.2) g/dL Albumin 1.8 L (3.5-5.0) g/dL Crossmatch 08/29/20 08/29/20 08/29/20 Range/Units 04:00 04:55 06:02 WBC 12.0 H (3.8-10.6) k/uL RBC 2.39 L (4.30-5.90) m/uL Hgb 7.4 L (13.0-17.5) gm/dL Hct 23.4 L (39.0-53.0) % RDW 17.0 H (11.5-15.5) % Plt Count 42 L (150-450) k/uL Neutrophils # 11.2 H (1.3-7.7) k/uL Lymphocytes # 0.5 L (1.0-4.8) k/uL ABG pH 7.29 L (7.35-7.45) ABG pCO2 49 H (35-45) mmHg ABG Total CO2 25 H (19-24) mmol/L BUN (9-20) mg/dL Creatinine (0.66-1.25) mg/dL Glucose (74-99) mg/dL POC Glucose (mg/dL) 204 H (75-99) mg/dL Calcium (8.4-10.2) mg/dL Phosphorus (2.5-4.5) mg/dL AST (17-59) U/L Alkaline Phosphatase (38-126) U/L Total Protein (6.3-8.2) g/dL Albumin (3.5-5.0) g/dL Crossmatch Microbiology - Last 24 Hours (Table) 08/24/20 11:00 Blood Culture - Preliminary Blood No Growth after 96 hours Assessment and Plan Plan: 1 abdominal aortic aneurysm, 8.8 cm involving the iliac arteries and involving an intraluminal thrombus status post open repair of abdominal aortic aneurysm, with 30 mm sleeve graft. The patient is postop day #8 2 acute hypoxic respiratory failure post abdominal aortic aneurysm repair. The patient has bilateral pulmonary infiltrates with gram-negative pneumonia and the cultures are positive for sedation marcescens and the patient is currently on IV cefepime. The patient was septic with Serratia marcescens and the blood culture was also positive and the patient remains on IV cefepime for now. Pressors have been reduced significantly. On today's evaluation, the patient is on norepinephrine at 0.03 mcg/kg per minute. Vasopressin is at the physiologic dose. His BP is under adequate control with low-dose pressors. 3 shock, consider septic shock and the patient has been resuscitated ag gressively with IV fluids. Upon further investigation, the patient was confirmed to be in septic shock with Serratia marcescens and the origin was an underlying pneumonia. The patient is currently on IV cefepime. Note that the patient had a significant blood loss during procedure, 4 L. Status post 1 L of colloid, 1 L of Cell Saver, 5 L of crystalloid, 3 ampules of sodium bicarbonate, and 1 unit PRBCs. For now, the patient is still on a combination of vasopressin physiologic dose, norepinephrine dose has been reduced and currently it's running at 0.03 mcg/kg per minute in addition to vasopressin physiologic dose. 4 suspect adrenal insufficiency, patient started on hydrocortisone, 50 mg IV push every 6 hours. 5 Acute kidney injury, likely related to acute tubular necrosis, currently on hemodialysis, undergoing hemodialysis on a daily basis and the last bout of hemodialysis was yesterday without a total of 2 L of fluid was removed 6 Serratia marcescens pneumonia with secondary septic shock with positive blood cultures,, currently on cefipime 7 CAD with a previous history of previous myocardial infarction. 8 History of CVA. 9 History of essential hypertension. 10 History of chronic atrial fibrillation. Patient is currently off the Cardizem drip 11 History of 49-atcy-afvo history of tobacco use. 12 COPD. 13 Questionable history of alcohol abuse. 14 History of DJD. 15 TPN for nutritional support and enteral feeding for nutritional support was also initiated 16 thrombocytopenia with drop in the platelet count down to 54. Consider drug- induced thrombocytopenia. Consider consumptive secondary to his underlying shock state. Patient has not received any heparin products. Meanwhile, the correlation profile indicated a low-grade DIC. 17 upper GI bleed inactive in stable 18 acute on chronic anemia with a drop in hemoglobin down to 6.8, exacerbated by an upper GI bleed, currently inactive in stable . Plan: Continue vent support , no changes Add Reglan and try again enteral feeding for nutritional support. Monitor hemoglobin an, continue TPN Continue TPN for nutritional support Continue IV cefepime Prefer to proceed another session of hemodialysis today Continue TPN for nutritional support Continue IV Protonix Monitor platelet counts hydrocortisone to be discontinued Platelet counts are stable Patient holiday and assess patient's mental status. While off sedation, the patient is becoming more tachycardic and we will utilize Cardizem if needed for rate control regarding his atrial fibrillation in the form of a Cardizem drip. Vasopressin will be discontinued. Echocardiogram showed is stable LV function with an ejection fraction of 55% Condition is critical we'll continue to follow and monitor the patient will make further recommendations based on the progress. Critically care evaluation, more than 30 minutes
[2020-08-29] MEDS: CEFEPIME 1 GM in SODIUM CHLORIDE 0.9% 50 ML IVPB SCH ×2 (11:14→23:42)
[2020-08-29] MEDS: METOCLOPRAMIDE 5 MG/ML 2 ML VIAL IVP SCH ×3 (11:14→23:11)
[2020-08-29] MEDS: DILTIAZEM 125 MG in SODIUM CHLORIDE 0.9% 100 ML IV SCH ×2 (11:22→23:57)
[2020-08-29 11:43] LABS: Glucose,Whole Blood 152 mg/dL (75-99)
--- NOTE | 2020-08-29 12:08 | P.PN ---
Subjective Progress Note Date: 08/29/20 Principal diagnosis: Abdominal aortic aneurysm Patient seen and examined in the ICU. He still remains sedated and on mechanical ventilation. Propofol is being weaned. The nurse reported only having a 50 mL the ground output from NG tube yesterday and through the evening. She'll to have hemodialysis today. Abdominal dressing was changed yesterday evening. Hemoglobin stable at 7.4, patient received 1 unit of PRBC yesterday. Objective - Vital Signs Vital signs: Vital Signs Temp 97.7 F 08/29/20 08:00 Pulse 122 H 08/29/20 09:25 Resp 30 H 08/29/20 09:00 BP 106/50 08/28/20 15:15 Pulse Ox 94 L 08/29/20 09:00 Intake & Output 08/28/20 08/29/20 08/29/20 18:59 06:59 18:59 Intake Total 9051.180 5113.480 421.336 Output Total 2055 13 50 Balance -848.886 4605.480 371.336 Weight 105.6 kg 101.1 kg Intake: IV 363 1250 299 0.9 KVO 330 350 80 Mvi, Adult No.4 with Vit 770 210 K 10 ml Trace (Conc-1Ml/ Dose) 1 ml Sodium Acetate 40 meq Calcium Gluconate 1 gm In Amino Acid 5%- D15w 1,000 ml @ 70 mls/hr IV .BY DURATION [facility] Rx#: [id number] ceFAZolin 1,000 mg In 100 Sodium Chloride 0.9% 50 ml @ 100 mls/hr IVPB Q8HR [facility] Rx#:[id number] pressure bag 33 30 9 Intake, IV Titration 1062.265 269.480 62.336 Amount Cefepime 2 gm In Sodium 100 Chloride 0.9% 100 ml @ 25 mls/hr IVPB Q12H [facility] Rx# :[id number] Mvi, Adult No.4 with Vit 180 K 10 ml Trace (Conc-1Ml/ Dose) 1 ml Sodium Acetate 40 meq Calcium Gluconate 1 gm In Amino Acid 5%- D15w 1,000 ml @ 60 mls/hr IV .BY DURATION [facility] Rx#: [id number] Norepinephrine 32 mg In 22.765 11.979 Sodium Chloride 0.9% 218 ml @ 0.05 MCG/KG/MIN 2.02 mls/hr IV .Q24H [facility] Rx#: [id number] Sodium Acetate 40 meq 560 70 Calcium Gluconate 1 gm In Amino Acid 5%-D15w 1,000 ml @ 70 mls/hr IV .BY DURATION [facility] Rx#: [id number] Sodium Chloride 0.9% 150 49.5 4.5 9.0 ml @ 0.03 UNITS/MIN 4.59 mls/hr IV .Q24H [facility] with Vasopressin 60 unit Rx#: [id number] propofoL 500 mg In Empty 150.000 183.001 53.336 Bag 1 bag @ Titrate IV . Q0M [facility] Rx#:[id number] Blood Product 310 Rc As-1 Unit 310 [id number] Other 60 Output: Gastric Drainage 50 Urine 5 13 0 Oral Regurgitation 50 Hemodialysis 1999 Other: Voiding Method Indwelling Catheter Indwelling Catheter Indwelling Catheter ABP, PAP, CO, CI - Last Documented Arterial Blood Pressure 105/56 - Exam General appearance: sedated on mechanical ventilation HET: Head is normocephalic and atraumatic. Conjunctiva pink. Sclera and icteric. NG tube intact with suction. Neck: Supple without lymphadenopathy. Abdomen: Soft, mild distention, dressing clean dry and intact. Hypoactive bowel sounds. Anasarca. Extremities: bilateral l upper and ower extremity edema, warm to the touch with good capillary refill. Left foot with DP Doppler signal and left foot with palpable dorsalis pedis pulse. Neurological: sedated on mechanical ventilation. - Labs CBC & Chem 7: 08/29/20 04:00 08/29/20 04:00 Labs: Abnormal Lab Results - Last 24 Hours (Table) 08/28/20 08/28/20 08/28/20 Range/Units 06:37 12:20 16:13 WBC 11.2 H (3.8-10.6) k/uL RBC 2.45 L (4.30-5.90) m/uL Hgb 7.8 L (13.0-17.5) gm/dL Hct 24.0 L (39.0-53.0) % RDW 16.7 H (11.5-15.5) % Plt Count 41 L (150-450) k/uL Neutrophils # 10.5 H (1.3-7.7) k/uL Lymphocytes # 0.4 L (1.0-4.8) k/uL ABG pH (7.35-7.45) ABG pCO2 (35-45) mmHg ABG Total CO2 (19-24) mmol/L BUN (9-20) mg/dL Creatinine (0.66-1.25) mg/dL Glucose (74-99) mg/dL POC Glucose (mg/dL) 138 H (75-99) mg/dL Calcium (8.4-10.2) mg/dL Phosphorus (2.5-4.5) mg/dL AST (17-59) U/L Alkaline Phosphatase (38-126) U/L Total Protein (6.3-8.2) g/dL Albumin (3.5-5.0) g/dL Crossmatch See Detail 08/28/20 08/28/20 08/29/20 Range/Units 17:49 23:46 04:00 WBC (3.8-10.6) k/uL RBC (4.30-5.90) m/uL Hgb (13.0-17.5) gm/dL Hct (39.0-53.0) % RDW (11.5-15.5) % Plt Count (150-450) k/uL Neutrophils # (1.3-7.7) k/uL Lymphocytes # (1.0-4.8) k/uL ABG pH (7.35-7.45) ABG pCO2 (35-45) mmHg ABG Total CO2 (19-24) mmol/L BUN 74 H (9-20) mg/dL Creatinine 2.73 H (0.66-1.25) mg/dL Glucose 181 H (74-99) mg/dL POC Glucose (mg/dL) 158 H 184 H (75-99) mg/dL Calcium 8.2 L (8.4-10.2) mg/dL Phosphorus 5.3 H (2.5-4.5) mg/dL AST 171 H (17-59) U/L Alkaline Phosphatase 195 H (38-126) U/L Total Protein 3.8 L (6.3-8.2) g/dL Albumin 1.8 L (3.5-5.0) g/dL Crossmatch 08/29/20 08/29/20 08/29/20 Range/Units 04:00 04:55 06:02 WBC 12.0 H (3.8-10.6) k/uL RBC 2.39 L (4.30-5.90) m/uL Hgb 7.4 L (13.0-17.5) gm/dL Hct 23.4 L (39.0-53.0) % RDW 17.0 H (11.5-15.5) % Plt Count 42 L (150-450) k/uL Neutrophils # 11.2 H (1.3-7.7) k/uL Lymphocytes # 0.5 L (1.0-4.8) k/uL ABG pH 7.29 L (7.35-7.45) ABG pCO2 49 H (35-45) mmHg ABG Total CO2 25 H (19-24) mmol/L BUN (9-20) mg/dL Creatinine (0.66-1.25) mg/dL Glucose (74-99) mg/dL POC Glucose (mg/dL) 204 H (75-99) mg/dL Calcium (8.4-10.2) mg/dL Phosphorus (2.5-4.5) mg/dL AST (17-59) U/L Alkaline Phosphatase (38-126) U/L Total Protein (6.3-8.2) g/dL Albumin (3.5-5.0) g/dL Crossmatch Microbiology - Last 24 Hours (Table) 08/24/20 11:00 Blood Culture - Preliminary Blood No Growth after 96 hours Assessment and Plan Assessment: 1. Postop abdominal aortic aneurysm repair graft 2. Abdominal aortic aneurysm, 8.8 cm 3. Hypotension, remains on pressors 4. Acute renal failure on hemodialysis 5. Coronary artery disease 6. Atrial fibrillation 7. TIA/CVA 8. Long-standing history of tobacco use 9. COPD Plan: 1. Supportive care 2. Continue with ICU medical management and recommendations 3. Repeat labs in the morning, transfuse for hemoglobin less than 7 4. May start trickle enteral feeds this afternoon/evening 5. Appreciate recommendations from nephrology, continue hemodialysis as ordered per nephrology 6. Start Reglan 10 mg IVP every 6 hours 7. Glycerin rectal suppository ordered We will continue to follow closely The impression and plan of care has been dictated as directed. Dr. Murillo I performed a history and examination of this patient, discussed the same with the dictator. I agree with the dictator's note ,documented as a scribe. Any additional findings or plans will be noted.
[2020-08-29] MEDS: AMINO ACID 5% IV SCH ×5 (12:52)
[2020-08-29] MEDS: MVI IV SCH ×5 (12:52)
[2020-08-29] MEDS: CALCIUM GLUCONATE IV SCH ×5 (12:52)
[2020-08-29] MEDS: SODIUM ACETATE IV SCH ×5 (12:52)
--- NOTE | 2020-08-29 12:58 | PN ---
PROGRESS NOTE Taj is a 74-year-old gentleman who was admitted to hospital following abdominal aortic aneurysm repair. He developed anuria and is currently on hemodialysis. PHYSICAL EXAMINATION: On exam, comfortable at rest. Heart rate is 110 beats per minute. Blood pressure is 100/50. Respiratory rate is 28. They are currently in the process of waking him to wean and extubate him. Chest exam reveals diminished air entry bilaterally. Heart exam reveals first and second heart sounds, irregular rhythm. Abdomen is soft. Examination of extremities revealed mild edema. Peripheral pulses are felt. LABS: Labs show a hemoglobin of 7.4, platelet count is 182. Potassium is 4.5. BUN is 74, creatinine is 2.7. ASSESSMENT: 1. Persistent atrial fibrillation with controlled ventricular rate. 2. Acute renal failure. 3. Status post AAA surgery. 4. Anemia, thrombocytopenia. PLAN: Will continue supportive care. Prognosis is guarded. MMODL / IJN: [id number] /
--- NOTE | 2020-08-29 13:07 | PN ---
PROGRESS NOTE Patient is seen for followup for acute kidney injury, currently hemodialysis dependent. Patient is being dialyzed on a daily basis mostly for volume overload, which has helped his respiratory status. PEEP is down to 5 now. FiO2 is at 40%. The patient remains on minimum pressors. Levophed is minimum and vaso has been discontinued. PHYSICAL EXAMINATION: On examination today, blood pressure this morning 111/57, heart rate was 122 per minute. Patient is afebrile. He remains on the vent. He is sedated. EXAMINATION OF THE HEART: S1, S2. EXAMINATION OF THE LUNGS: Bilateral breath sounds are heard. Abdomen is distended. Examination of lower extremities shows edema 2+ bilaterally as well as significant scrotal edema. DIRECTOR OF SAFETY exam cannot be performed. LABS: Labs show sodium 139, potassium 4.5, chloride 106. BUN 74, creatinine 2.73. Hemoglobin 7.4 g/dL. ASSESSMENT: 1. Acute kidney injury, acute tubular necrosis, oliguric, currently hemodialysis dependent along with volume overload. The patient is receiving daily dialysis mostly for volume overload. 2. Acute hypoxic respiratory failure secondary to pneumonia. Sputum culture grew Serratia marcescens. 3. Severe sepsis, gram-negative with blood cultures and sputum culture growing Serratia marcescens, maintained on antibiotics. 4. Anemia with gastrointestinal bleed, status post packed RBCs transfusion, not tolerating tube feeds. 5. Atrial fibrillation with rapid ventricular response, started on Cardizem drip. PLAN: May continue TPN. Monitor electrolytes. Dialysis today with UF of about 2 L as tolerated. We will do only ultrafiltration and no dialysis. MMODL / IJN: [id number] /
[2020-08-29 17:32] LABS: Glucose,Whole Blood 119 mg/dL (75-99)
[2020-08-29] MEDS: INSULIN DETEMIR (LEVEMIR) 100 UNIT/ML SYR SQ SCH (20:03)
--- NOTE | 2020-08-29 20:05 | P.PN ---
Progress Note - Text Progress Note Date: 08/29/20 - Chief Complaint Abdominal surgery Consultation: This is a 74-year-old patient who follows with Dr. rollins from [place]. Chronic stable medical conditions include COPD, coronary artery disease with previous ID, osteoarthritis, chronic nicotine dependence. Patient was recently in the hospital following outpatient screening for abdominal aortic aneurysm. It was found to be 9.5 x 8.2 cm in the midportion. Internal thrombus seen surrounding the small bowel in the lumen. It also extends into the right and left common iliac arteries. Patient was therefore sent to the ER. Further computed tomography scan of the chest and abdomen in the ER showed 4.2 cm as cending thoracic aneurysm and 3.8 cm descending thoracic aorta with mural thrombus. Patient denies any abdominal pain. Does get charley horses. At the baseline is a short of breath and wheezing. He is an active smoker. No chest pain. Patient was then discharged to return for surgery. August 21: patient underwent open repair of abdominal aortic aneurysm with a 30 mm sleeve graft. Currently in the ICU. On the ventilator intubated. FiO2 40 and a PEEP of 5. Has NG tube in place. Murillo catheter. Endotracheal tube. Drips include IV propofol and norepinephrine. Telemetry shows atrial f ibrillation. Hemodialysis catheter was placed and started on hemodialysis.- August 24 Today-ICU: On the ventilator with the FiO2 40 and a PEEP of 5. Atrial fibrillation rate went up. Cardizem resumed. Patient remains on norepinephrine. Vasopressin was discontinued earlier today. Getting hemodialysis today. No 2 feeding currently. Propofol also held earlier today. Patient has not been waking up. Poor urine output Review of systems-patient intubated Active Medications Albuterol/Ipratropium (Ipratropium-Albuterol 3 Ml Neb) 3 ml INHALATION RT-Q2H PRN PRN Reason: Shortness Of Breath Or Wheezing Albuterol/Ipratropium (Ipratropium-Albuterol 3 Ml Neb) 3 ml INHALATION RT-Q4H [facility] Last Admin: 08/29/20 19:35 Dose: 3 ml Documented by: Atorvastatin Calcium (Atorvastatin 40 Mg Tab) 40 mg PO DAILY [facility] Last Admin: 08/29/20 08:30 Dose: 40 mg Documented by: Chlorhexidine Gluconate (Chlorhexidine Gluconate 15 Ml Cup) 15 ml MUCOUS MEM BID [facility] Last Admin: 08/29/20 08:30 Dose: 15 ml Documented by: Hydromorphone HCl (Hydromorphone 1 Mg/Ml 1 Ml Syringe) 1 mg IVP Q3HR PRN PRN Reason: Pain Last Admin: 08/23/20 12:35 Dose: 1 mg Documented by: Norepinephrine Bitartrate 32 (mg/ Sodium Chloride) 250 mls @ 2.02 mls/hr IV .Q24H [facility]; Protocol Last Titration: 08/29/20 18:25 Dose: 0.12 mcg/kg/min, 4.849 mls/hr Documented by: Propofol 500 mg/ IV Solution 50 mls @ 0 mls/hr IV .Q0M [facility]; Protocol Last Titration: 08/29/20 18:24 Dose: 15 mcg/kg/min, 9.099 mls/hr Documented by: Sodium Acetate 40 meq/ Calcium Gluconate 1 gm/ Amino Acids/Dextrose 1,030 mls @ 70 mls/hr IV .BY DURATION [facility] Last Admin: 08/29/20 12:52 Dose: 70 mls/hr Documented by: Parenteral Vitamin Supplement 10 ml/ Chromium/Copper/Manganese/Seleni/Zn 1 ml/Sodium Acetate 40 meq/ Calcium Gluconate 1 gm/ Amino Acids/Dextrose 1,041 mls @ 70 mls/hr IV .BY DURATION [facility] Last Admin: 08/28/20 23:22 Dose: 70 mls/hr Documented by: Cefepime HCl 1 gm/ Sodium (Chloride) 50 mls @ 12.5 mls/hr IVPB Q12H [facility] Last Admin: 08/29/20 11:14 Dose: 12.5 mls/hr Documented by: Diltiazem HCl 125 mg/ Sodium (Chloride) 125 mls @ 7.5 mls/hr IV .[id number] [facility] Last Infusion: 08/29/20 13:15 Dose: 7.5 mg/hr, 7.5 mls/hr Documented by: Insulin Aspart (Insulin Aspart (Novolog) 100 Unit/Ml Vial) 0 unit SQ Q6H [facility]; Protocol Last Admin: 08/29/20 17:40 Dose: Not Given Documented by: Insulin Detemir (Insulin Detemir (Levemir) 100 Unit/Ml Syr) 16 unit SQ HS [facility] Last Admin: 08/28/20 20:30 Dose: 16 unit Documented by: Lidocaine HCl (Lidocaine 1% (10mg/Ml) For Iv Start) 0.1 ml INTRADERMA PER PROTOCOL PRN PRN Reason: IV Start Metoclopramide HCl (Metoclopramide 5 Mg/Ml 2 Ml Vial) 10 mg IVP Q6HR [facility] Last Admin: 08/29/20 17:41 Dose: 10 mg Documented by: Miscellaneous Information (Magnesium Replacement Protocol 1 Each Misc) 1 each MISCELLANE DAILY PRN; Protocol PRN Reason: Per Protocol Pantoprazole Sodium (Pantoprazole 40 Mg/10 Ml Vial) 40 mg IVP BID [facility] Last Admin: 08/29/20 08:30 Dose: 40 mg Documented by: Past medical history to include: COPD, coronary artery disease with ID, osteoarthritis, abdominal aortic aneurysm 8.8 cm, 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 Smoking for many years. About 2 beers a day. Retired Physical examination: VITAL SIGNS: 97.9, 110, 29, 104/52, 92% on ventilator GENERAL: BMI 29.3, laying in bed, intubated. EYES: Pupils equal. Conjunctiva normal. HEENT: External appearance of nose and ears normal, oral cavity-endotracheal tube, NG tube-dark aspirate NECK: JVD unable to assess; masses not palpable. HEART: Irregular heart sounds; no edema. LUNGS: Respiratory rate increased decreased breath sounds,. ABDOMEN: Soft, dressing over the midline incision, liver spleen not palpable, no masses palpable. Murillo catheter EXTREMITIES: Bluish discoloration of both the feet, cold PSYCH: Sedated INVESTIGATIONS, reviewed in the clinical context: August 29: WBC 12 hemoglobin 7.4 platelets 42 potassium 4.5 bun 74 creatinine 2.73 August 28: White count 11.2 hemoglobin 7.8 platelets 41 August 27: White count 9.4 hemoglobin 7.8 platelet 50 potassium 5.3 bun 84 creatinine 4.38 Blood culture-positive for Serratia marcescens Chest [id number] August 26: White count 11 hemoglobin 8.1 platelets 54 potassium 5.3 bun 87 creatinine 4.93 2-D echocardiogram-limited: EF 55% August 25: White count 14.2 hemoglobin 8.7 platelets 61 potassium 4.8 bun 65 creatinine 4.08 August 24: White count 13.7 hemoglobin 9.7 platelets 74 potassium 5.1 bun 64 creatinine 4.38. ABG showed pH of 7.13 pCO2 58 pO2 67 August fifth: White count 10.9 hemoglobin 10.8 platelets 75 potassium 4.6 bun 53 creatinine 2.95 Sputum culture-positive for Serratia marcescens White count 18.3 hemoglobin 11.8 platelets 72 potassium 4.7 bun 40 creatinine 1.67 Previous testin08/13/2020: White count 4.1 hemoglobin 13.8 platelets 148 bun 19 creatinine 0.94 Assessment: -Abdominal aortic aneurysm 8.8 cm, also involving the iliac arteries, with intraluminal thrombus-followed by open repair sleeve graft on 08/21/2020 -Ascending thoracic aortic is a 4.2 cm, descending thoracic aorta 3.8 cm with mural thrombus -Bilateral pneumonia with sputum and blood cultures both positive for Serratia marcescens-on IV cefepime -Hypotensive shock-on vasopressin [now stopped] and a small does of levo fed. -Chronic nicotine dependence patient cigarette smoker -Emphysema, with some exacerbation in a current smoker-on DuoNeb -Coronary artery disease and a prior history of ID -Suspect peripheral arterial disease -Persistent atrial fibrillation rate uncontrolled, on and off Cardizem drip -Acute hypoxic respiratory failure, requiring ventilator support-slow to respond -Acute kidney injury patient's creatinine was 0.94 on August 13. Possible ATN. Oliguric. Worsening. Hemodialysis catheter placed on August 24. on hemodialysis -Upper GI bleed with NG tube putting out dark aspirate-on PPI -TPN and slow to feeding currently held -thrombocytopenia, from underlying sepsis Plan: Remains critically ill. Current medications include DuoNeb, IV cefepime, IV Solu-Cortef, Levemir, norepinephrine, TPN, IV vasopressin-discontinued. Propofol discontinued today. Prognosis poor. Hydrocortisone discontinued by applications sales representative. Thank you Dr. Donovan
[2020-08-29 23:09] LABS: Glucose,Whole Blood 141 mg/dL (75-99)
[2020-08-30] MEDS: IPRATROPIUM-ALBUTEROL 3 ML NEB INHALATION SCH ×6 (03:06→23:23)
[2020-08-30] MEDS: AMINO ACID 5% IV SCH ×5 (03:10)
[2020-08-30] MEDS: CALCIUM GLUCONATE IV SCH ×5 (03:10)
[2020-08-30] MEDS: SODIUM ACETATE IV SCH ×5 (03:10)
[2020-08-30] MEDS: MVI IV SCH ×5 (03:10)
[2020-08-30 04:04] LABS: Anisocytosis Slight; Basophils % (A) 0 %; Eosinophils # (A) 0.1 k/uL (0-0.7); Eosinophils % (A) 1 %; HCT 24.6 % (39.0-53.0); HGB 7.8 gm/dL (13.0-17.5); Lymphocytes # (A) 0.6 k/uL (1.0-4.8); Lymphocytes % (A) 5 %; MCH 31.3 pg (25.0-35.0); MCHC 31.9 g/dL (31.0-37.0); Macrocytosis Slight; Mean Platelet Volume 13.6; Monocytes # (A) 0.2 k/uL (0-1.0); Monocytes % (A) 2 %; Neutrophils # (A) 11.1 k/uL (1.3-7.7); Neutrophils % (A) 92 %; RBC 2.51 m/uL (4.30-5.90); RDW 16.3 % (11.5-15.5); WBC 12.1 k/uL (3.8-10.6)
[2020-08-30 04:12] LABS: Platelet Count 45 k/uL (150-450)
[2020-08-30 04:17] LABS: Ionized Calcium 5.1 mg/dL (4.5-5.3)
[2020-08-30 04:28] LABS: Albumin 1.9 g/dL (3.5-5.0); Calcium 8.1 mg/dL (8.4-10.2); Magnesium 2.2 mg/dL (1.6-2.3); Potassium 4.3 mmol/L (3.5-5.1); Total Protein 3.9 g/dL (6.3-8.2)
[2020-08-30 05:18] LABS: ABG Base Excess -2.1 mmol/L; ABG HCO3 24 mmol/L (21-25); ABG Oxygen Saturation 93.6 % (94-97); ABG PCO2 49 mmHg (35-45); ABG PO2 70 mmHg (83-108); ABG TCO2 26 mmol/L (19-24); Allen Test Performed? Yes
[2020-08-30] MEDS: METOCLOPRAMIDE 5 MG/ML 2 ML VIAL IVP SCH ×4 (05:54→23:50)
[2020-08-30 05:58] LABS: Glucose,Whole Blood 123 mg/dL (75-99)
[2020-08-30] MEDS: NOREPINEPHRINE 32 MG in SODIUM CHLORIDE 0.9% 218 ML IV SCH (06:09)
[2020-08-30] MEDS: INSULIN ASPART (NovoLOG) 100 UNIT/ML VIAL SQ SCH ×3 (06:09→17:40)
--- NOTE | 2020-08-30 07:13 | XR ---
EXAMINATION TYPE: XR chest 1V DATE OF EXAM: 08/30/2020 COMPARISON: 08/29/2020 HISTORY: SOB, Follow Up FINDINGS: Indwelling tubes and catheters are unchanged. No change in perihilar and bibasilar opacities. Stable appearance of the cardio-mediastinal structures at this time. Pleural effusion unchanged. IMPRESSION: 1. Stable portable chest. Clinical correlation and follow up until resolution is recommended.
[2020-08-30] MEDS: ATORVASTATIN 40 MG TAB PO SCH (08:22)
[2020-08-30] MEDS: CHLORHEXIDINE GLUCONATE 15 ML CUP MUCOUS MEM SCH ×2 (08:22→21:05)
[2020-08-30] MEDS: PANTOPRAZOLE 40 MG/10 ML VIAL IVP SCH ×2 (08:22→21:05)
--- NOTE | 2020-08-30 08:38 | P.PN ---
Subjective Progress Note Date: 08/30/20 74-year-old here patient with known history of abdominal aortic aneurysm and known history of coronary artery previous PA. The patient also known to have previous history of CVA, chronic atrial fibrillation, hypertension and [id number] smoking history. The patient has osteoarthritis. The patient und erwent an open repair of an abdominal aortic aneurysm with 30 mm sleeve graft. Note that the patient a large abdominal aortic aneurysm measuring 9.5 x 8.2 cm in size with internal thrombus. The aneurysm was extending into the right and left common iliac artery. The patient also known to have a 4.2 cm ascending aortic aneurysm and at 3.8 cm ascending thoracic aortic aneurysm with a mural thrombus. The patient lost approximately 4 L of blood and operating room. The patient was given a total of 1 L of Cell Saver, a lot of crystalloids and colloids and operating room and she also required packed RBC transfusion. She was kept intubated on a mechanical ventilator and following that she was t ransferred to the intensive care unit. The patient is currently postop day #5 following the abdominal aortic aneurysm repair. The patient remains on a mechanical ventilator. She is currently on assist control mode at the rate of 32 and a tidal volume of 500 and FiO2 of 60% with a PEEP of 13. The patient has been on normal saline at rate of 20 mL an hour and the patient is also requiring norepinephrine infusion which is running at 60 g per minute. She is on Cardizem drip for rate control at the rate of 10 mg an hour regarding her atrial fibrillation and she is also on vasopressin and the dose of 0.03 units per minute. She is was sedated with propofol and currently she is on 35 mcg/kg per minute. The patient remains in atrial fibrillation for now on a Cardizem drip. In terms of feeding, the patient is receiving TPN at the rate of 80 mL an hour. The patient continues to have a low urine output. She developed an acute kidney injury postop and she will possibly require hemodialysis. The patient is going gram-negative bacteria and this sputum and the chest x-ray is showing bilobar infiltrate affecting the lower lobes bilaterally. ET tube is in a good location and the patient has a PICC line in the right upper extremity. NG tube was also in place. Assess him of the abdomen from yesterday showed retained fecal material in the large bowel. NG tube is in the distal esophagus. There is evidence of constipation. Hemodialysis catheter was placed on 08/24/2020 and the patient was started on hemodialysis. There is some dark aspirate from the NG tube consistent possibly with an upper GI bleed. This sputum sample sleeve turner to be positive for Serratia marcescens and the patient is currently on IV Zosyn. On the morning of , the patient is being seen for a follow-up. The patient remains sedated with propofol which is running at 20 mcg/kg per minute. The patient's is sedated on mechanical ventilator. The patient is an assist- control mode volume cycled with a tidal volume of 500 and FiO2 of 60% with a PEEP of 13 and the rate of 32. Peak air pressures around 35 and the static pressures 24. Chest x-ray showing lower lobe pulmonary infiltrates slightly wor se on the left. ET tube is in a good location. NG tube is in a good location and the patient continued to have a PICC line in his right upper extremity. The blood gases from this morning shows a pH of 7.23 with a pCO2 of 46 and pO2 of 147. He is still in acute kidney injury. Creatinine is up to 4.9. Hemodialysis catheter was inserted yesterday and he received his first session of hemodialysis 2 days ago He had no dialysis was done yesterday. Potassium level is up to 5.3, serum bicarb is down to 18 and the creatinine is up to 4.93. He also has urine output in order of 0 mL an hour. His platelet count has dropped down to 50 4K and the white cell count is at 11 with a hemoglobin of 8. 1. He remains in atrial fibrillation. He remains on a Cardizem drip for rate control at the rate of 5 mg an hour. His heart rate is under adequate control for now. He remains on norepinephrine at a dose of 0.4 mcg/kg per minute and he remains on nasal On today's evaluation of 08/27/2020 I'm seeing the patient for a follow-up. This morning, the patient remains sedated on propofol which is running at 20 mcg/kg per minute. He is sedated and he is adequately sedated and comfortable on a mechanical ventilator. He remains on assist control mode of ventilation. This morning, he is on a PEEP of 12 with an FiO2 of 50% and a tidal volume of 500 at a rate of 32. The blood. From today shows a pH of 7.34 with a pCO2 of 40 and pO2 of 107. The patient had Serratia marcescens in his sputum and the repeat chest x-ray shows bibasilar pulmonary infiltrates worse on the left. ET tube is in a good location. NG tube is also in a good location. No significant orotracheal secretions. He is quite secretions with the mechanical ventilator. Hemodynamically, the patient continues to be on pressors. Vasopressin is on a physiologic dose. Levo fed has been cut down to micrograms per minute and the patient is requiring less pressors. The patient remains on stress dose hydrocortisone. IV fluids with normal state rate of 20 mL an hour. He is not making any urine output. He received hemodialysis yesterday and repeat electrodesiccation with a potassium of 5.3 and a serum bicarb of 20. A total of 2.2 L of fluid was taken off yesterday. He remains in atrial fibrillation. Rate is controlled. The patient is off Cardizem drip. He is currently on no anticoagulation. At evaluation was stopped because of lower platelet count of 50,000 and the patient was having some bleeding from his orogastric tube. Abdomen is distended. Bowel sounds are sluggish. Lower rate enteral feeding was reinitiated yesterday. On today's evaluation the patient is postop day #6. I elected discussion with his son and [place] his name is Enoch and I updated them on the condition. He has adequate perfusion to his lower extremities and the pulses in the lower extremities are much better palpable today and he is less cyanotic. 08/28/2020 I'm seeing the patient for a follow-up. He remains sedated with propofol and asynchronous the mechanical ventilator. In terms of his vent support, were able to wean down the PEEP down to 6 yesterday with an FiO2 of 50% and a tidal volume of 450 with a rate of 26. The blood gases from today showed a pH of 7.29 with a pCO2 of 50 and pO2 of 94. His chest x-ray showing some pulmonary vessel congestion and some limited infiltration of the lung bases bilaterally. ET tube is in a good location. No significant orotracheal secretions at this point. There is cardiomegaly and some limited effusion the lung bases. Meanwhile, the patient is hemodynamically doing better. I was able to wean down his stresses gradually. Norepinephrine infusion is currently running at 0.03 g. KG per minute and it was reduced significantly to lower levels and he is still on a physiologic dose of vasopressin. His last ration of hemodialysis was yesterday which was able to tolerate. He remains in atrial fibrillation. Slightly more tachycardic on today's evaluation and he is off the Cardizem drip and his heart rate is ranging between 101 10, irregular. Also, the patient had a upper GI bleed again. The tube feeds was discontinued and the patient had a total of 1 L of coffee-ground/bloody/dark bloody gastric material aspirated from the stomach. His abdomen is nondistended this point in time. Bowel sounds are hypoactive. He remains on TPN for nutritional support which is currently running at the rate of 60 mL an hour. Along with his upper GI bleed, hemoglobin dropped down to 6.8. His platelet count is at 45 which is slightly lower compared to yesterday. His creatinine is at 3.3 with a BUN of 80 and a potassium level is at 4.8. His blood culture was also positive for Serratia consistent with gram-negative Serratia pneumonia cultured in the sputum and in the blood. His antibiotic coverage is IV Cefepime 08/29/2020, the patient is in the ICU, sedated with propofol intubated on a mechanical ventilator with assist control mode at the rate of 22 with a tidal volume of 450 and FiO2 of 40% with a PEEP of 5. Chest x-ray unchanged with small bilateral pleural effusions and infiltrates in the lung bases. The patient's blood gases showed a pH of 7.29 with a pCO2 of 49 and pO2 of 83. We have done some improvement in his oxygenation as his FiO2 has been weaned down to 40% and his PEEP is down to 5. He did have Serratia pneumonia with septice nighat and the patient is still on antibiotics and the patient is covered with IV cefepime. He is afebrile. He was then is some better. She is currently on NE infusion which is running at a dose of 0.03 Suppressant is a physiologic dose. He remains in the same antibiotic coverage. He is receiving TPN for nutritional support. Initial attempt to feed him enterally failed as the patient had increa sed residual and bleeding was suspected. He was given a unit of packed RBC and hemoglobin is up to 7.4. NG tube if it was suctioning and the patient has sluggish bowel movements. Discussed the case with general surgery and vascular surgery and we decided to proceed with Reglan and glycerin suppository and try to feed him again. Meanwhile the patient remains on IV Protonix. Platelet counts are at 42, essentially stable and the patient has developed some thrombocytopenia during his postoperative course. He is off the Cardizem drip. His cardiac rhythm is atrial fibrillation. Is postop day #8. Remains intubated on a mechanical ventilator. He is in the process of getting a sedation holiday. He had dialysis yesterday and he is supposed to have dialysis today. Continues to have increased volume overload. 08/30 2020 I'm seeing the patient for a follow-up in the intensive care unit. The patient is on a mechanical ventilator and based on today's vent setting, the patient on assist control mode rate of 22 with a tidal volume of 450 and FiO2 of 40% with a PEEP of 5. The chest x-rays unchanged showing bilateral pulmonary infiltrates in lung bases and ET tube and OG tube are both in good location. The blood gases from today showed a pH of 7.3 with a pCO2 of 49 and pO2 of 70. The patient has no orotracheal secretions. He was diagnosed having a saturation pneumonia with septicemia and he remains on IV Zosyn. The chest x-ray still showing persistent bilateral pulmonary infiltrates. He is afebrile. Meanwhile, he was given a session of dialysis yesterday with a total of 2 L of ultrafiltration. He continues to have edema in all 4 extremities and his scrotum although the edema is essentially improving. Hemodynamically, the patient is still on pressors. After cutting down his norepinephrine infusion to lower doses, he had to be increased back up to 0.18 mcg/kg per minute. He was taken off the vasopressin physiologic dose and he was started on Cardizem 7.5 mg per hour for rate control Specially that patient is in atrial fibrillation and he was having rapid ventricular response specially when he was taken off the sedation yesterday. Note that the patient was given a sedation holiday. He did not recovered his mentation. He got to the point where he was not following any commands and he was getting restless and tachypneic and tachycardic and he was biting on the orotracheal tube. Based on that, the sedation holiday was aborted and he was placed back on propofol which is running at 25 mcg/kg per minute. As far as nutrition, the patient on TPN for nutritional support running at the rate of 70 mL an hour. Gen. surgery and vascular surgery were concerned about him receiving TPN and they want to reinitiate the enteral feeding for nutritional support. There was a concern of ileus and an upper GI bleed. Were not ET tube is in place and output is minimal. I do not mind starting the patient on a tracheal tube feeding at a lower rate on today's evaluation a trial basis. His abdominal wound is dry clean and intact. He has sluggish bowel sounds. He does have diffuse edema and probably bowel edema contributing to his ileus. He was started on Reglan yesterday. Otherwise, no other significant events. On his blood work, he has a white cell count of 12.1 with a hemoglobin of 7.8 which is essentially stable. Weight is also stable at 45,000. The BUN is at 38 with a creatinine of 3.1. Potassium level is at 4.3. He is postop day #9 Objective - Vital Signs Vital signs: Vital Signs Temp 98.8 F 08/30/20 04:00 Pulse 92 08/30/20 07:53 Resp 27 H 08/30/20 07:00 BP 100/51 08/29/20 17:46 Pulse Ox 93 L 08/30/20 07:00 Intake & Output 08/29/20 08/30/20 08/30/20 18:59 06:59 18:59 Intake Total 2154.796 1483.149 159.447 Output Total 65 85 0 Balance 2089.796 1398.149 159.447 Weight 100 kg Intake: IV 722 1204 103 0.9 KVO 260 345 30 Cefepime 1 gm In Sodium 50 Chloride 0.9% 50 ml @ 12. 5 mls/hr IVPB Q12H [facility] Rx #:[id number] Mvi, Adult No.4 with Vit 420 K 10 ml Trace (Conc-1Ml/ Dose) 1 ml Sodium Acetate 40 meq Calcium Gluconate 1 gm In Amino Acid 5%- D15w 1,000 ml @ 70 mls/hr IV .BY DURATION [facility] Rx#: [id number] Sodium Acetate 40 meq 770 70 Calcium Gluconate 1 gm In Amino Acid 5%-D15w 1,000 ml @ 70 mls/hr IV .BY DURATION [facility] Rx#: [id number] pressure bag 42 39 3 Intake, IV Titration 1372.796 279.149 56.447 Amount Diltiazem 125 mg In 14.417 80.25 Sodium Chloride 0.9% 100 ml @ 7.5 MG/HR 7.5 mls/hr IV .[id number] [facility] Rx#: [id number] Mvi, Adult No.4 with Vit 1041 K 10 ml Trace (Conc-1Ml/ Dose) 1 ml Sodium Acetate 40 meq Calcium Gluconate 1 gm In Amino Acid 5%- D15w 1,000 ml @ 70 mls/hr IV .BY DURATION [facility] Rx#: [id number] Norepinephrine 32 mg In 29.219 104.617 7.812 Sodium Chloride 0.9% 218 ml @ 0.05 MCG/KG/MIN 2.02 mls/hr IV .Q24H [facility] Rx#: [id number] Sodium Acetate 40 meq 210 Calcium Gluconate 1 gm In Amino Acid 5%-D15w 1,000 ml @ 70 mls/hr IV .BY DURATION [facility] Rx#: [id number] Sodium Chloride 0.9% 150 18.0 ml @ 0.03 UNITS/MIN 4.59 mls/hr IV .Q24H [facility] with Vasopressin 60 unit Rx#: [id number] propofoL 500 mg In Empty 60.160 94.282 48.635 Bag 1 bag @ Titrate IV . Q0M [facility] Rx#:[id number] Other 60 Output: Urine 15 25 0 Oral Regurgitation 50 60 Other: Voiding Method Indwelling Catheter Indwelling Catheter ABP, PAP, CO, CI - Last Documented Arterial Blood Pressure 129/55 - Exam Sedated, and mechanically ventilated, with an orally placed endotracheal tube and NG tube. Head exam was generally normal. There was no scleral icterus or corneal arcus. Mucous membranes were moist. Neck was supple and without jugular venous distension, thyromegaly, or carotid bruits. Carotids were easily palpable bilaterally. There was no adenopathy. The patient continues to have a Cordis in his right IJ Cardiac exam revealed the PMI to be normally situated and sized. The rhythm was irregular and not consistent with atrial fibrillation and no extrasystoles were noted during several minutes of auscultation. The first and second heart sounds were normal and physiologic splitting of the second heart sound was noted. There were no murmurs, rubs, clicks, or gallops. Lungs reveal coarse bilateral rhonchi. No wheezes. Breath sounds equal bilaterally. Her sounds are diminished throughout. No crackles are appreciated. Abdomen is soft, without masses. No bowel sounds noted. The surgical wound site is dry clean and intact. There are no drains, and the bowel sounds are quite hypoactive and nearly absent on today's evaluation. No significant a bdominal distention. Extremities are intact. No cyanosis clubbing or significant edema. Pulses in the lower extremities are quite diminished. The toes are somewhat cyanotic especially on the right. There is diminished pulses. There are obtained by Doppler signals in both, and the patient has a dialysis catheter in his right femoral vein. Skin is without rash or lesion. Cyanotic in the toes bilaterally. Neurologic examination cannot be properly assessed. Sedated, comfortable - Labs CBC & Chem 7: 08/30/20 03:50 08/30/20 03:50 Labs: Abnormal Lab Results - Last 24 Hours (Table) 08/29/20 08/29/20 08/29/20 Range/Units 11:40 17:30 23:07 WBC (3.8-10.6) k/uL RBC (4.30-5.90) m/uL Hgb (13.0-17.5) gm/dL Hct (39.0-53.0) % RDW (11.5-15.5) % Plt Count (150-450) k/uL Neutrophils # (1.3-7.7) k/uL Lymphocytes # (1.0-4.8) k/uL ABG pH (7.35-7.45) ABG pCO2 (35-45) mmHg ABG pO2 (83-108) mmHg ABG Total CO2 (19-24) mmol/L ABG O2 Saturation (94-97) % BUN (9-20) mg/dL Creatinine (0.66-1.25) mg/dL Glucose (74-99) mg/dL POC Glucose (mg/dL) 152 H 119 H 141 H (75-99) mg/dL Calcium (8.4-10.2) mg/dL Phosphorus (2.5-4.5) mg/dL AST (17-59) U/L Alkaline Phosphatase (38-126) U/L Total Protein (6.3-8.2) g/dL Albumin (3.5-5.0) g/dL 08/30/20 08/30/20 08/30/20 Range/Units 03:50 03:50 05:03 WBC 12.1 H (3.8-10.6) k/uL RBC 2.51 L (4.30-5.90) m/uL Hgb 7.8 L (13.0-17.5) gm/dL Hct 24.6 L (39.0-53.0) % RDW 16.3 H (11.5-15.5) % Plt Count 45 L (150-450) k/uL Neutrophils # 11.1 H (1.3-7.7) k/uL Lymphocytes # 0.6 L (1.0-4.8) k/uL ABG pH 7.30 L (7.35-7.45) ABG pCO2 49 H (35-45) mmHg ABG pO2 70 L (83-108) mmHg ABG Total CO2 26 H (19-24) mmol/L ABG O2 Saturation 93.6 L (94-97) % BUN 85 H (9-20) mg/dL Creatinine 3.19 H (0.66-1.25) mg/dL Glucose 115 H (74-99) mg/dL POC Glucose (mg/dL) (75-99) mg/dL Calcium 8.1 L (8.4-10.2) mg/dL Phosphorus 5.0 H (2.5-4.5) mg/dL AST 186 H (17-59) U/L Alkaline Phosphatase 224 H (38-126) U/L Total Protein 3.9 L (6.3-8.2) g/dL Albumin 1.9 L (3.5-5.0) g/dL 08/30/20 Range/Units 05:57 WBC (3.8-10.6) k/uL RBC (4.30-5.90) m/uL Hgb (13.0-17.5) gm/dL Hct (39.0-53.0) % RDW (11.5-15.5) % Plt Count (150-450) k/uL Neutrophils # (1.3-7.7) k/uL Lymphocytes # (1.0-4.8) k/uL ABG pH (7.35-7.45) ABG pCO2 (35-45) mmHg ABG pO2 (83-108) mmHg ABG Total CO2 (19-24) mmol/L ABG O2 Saturation (94-97) % BUN (9-20) mg/dL Creatinine (0.66-1.25) mg/dL Glucose (74-99) mg/dL POC Glucose (mg/dL) 123 H (75-99) mg/dL Calcium (8.4-10.2) mg/dL Phosphorus (2.5-4.5) mg/dL AST (17-59) U/L Alkaline Phosphatase (38-126) U/L Total Protein (6.3-8.2) g/dL Albumin (3.5-5.0) g/dL Microbiology - Last 24 Hours (Table) 08/24/20 11:00 Blood Culture - Preliminary Blood No Growth after 120 hours Assessment and Plan Plan: 1 abdominal aortic aneurysm, 8.8 cm involving the iliac arteries and involving an intraluminal thrombus status post open repair of abdominal aortic aneurysm, with 30 mm sleeve graft. The patient is postop day #9 2 acute hypoxic respiratory failure post abdominal aortic aneurysm repair. The patient has bilateral pulmonary infiltrates with Serratia marcescens and the pat ient is currently on IV cefepime. The she is on a lower dose of pressors and the patient is still on IV cefepime and the chest x-ray findings are stable with bilateral pulmonary infiltrates and his FiO2 is down to 40% with a PEEP of 5. Not ready for extubation because of his hemodynamics and his unresponsiveness. 3 shock, consider septic shock and the patient has been resuscitated aggressivel y with IV fluids. Upon further investigation, the patient was confirmed to be in septic shock with Serratia marcescens and the origin was an underlying pneumonia. The patient is currently on IV cefepime. Note that the patient had a significant blood loss during procedure, 4 L. Status post 1 L of colloid, 1 L of Cell Saver, 5 L of crystalloid, 3 ampules of sodium bicarbonate, and 1 unit PRBCs. For now, the patient is still norepinephrine and vasopressin been discontinued. He is still requiring pressors 4 altered mentation, probably related to metabolic encephalopathy. Given a sedation holiday that was not successful and this will be tried on again and possibly the CAT scan of the brain if no reasonable recovery in his mentation. 5 Acute kidney injury, likely related to acute tubular necrosis, currently on hemodialysis, undergoing hemodialysis on a daily basis and the last bout of hemodialysis was yesterday without a total of 2 L of fluid was removed receiving daily hemodialysis 6 Serratia marcescens pneumonia with secondary septic shock with positive blood cultures,, currently on cefipime 7 CAD with a previous history of previous myocardial infarction. 8 History of CVA. 9 History of essential hypertension. 10 History of chronic atrial fibrillation. Patient is currently off the Cardizem drip 7.5 mg an hour 11 History of 75-wblk-rley history of tobacco use. 12 COPD. 13 Questionable history of alcohol abuse. 14 History of DJD. 15 TPN for nutritional support and enteral feeding for nutritional support was also initiated 16 thrombocytopenia with drop in the platelet count down to 45. Consider drug- induced thrombocytopenia. Consider consumptive secondary to his underlying shock state. Patient has not received any heparin products. Meanwhile, the correlation profile indicated a low-grade DIC. 17 upper GI bleed inactive in stable 18 acute on chronic anemia . Plan: Continue vent support , no changes Reglan added and try again enteral feeding for nutritional support. Continue TPN for nutritional support Continue IV cefepime Prefer to proceed another session of hemodialysis today Continue IV Protonix Monitor platelet counts Another sedation holiday and assess patient's mental status. . Echocardiogram showed is stable LV function with an ejection fraction of 55% CT of the brain as the patient does not show reasonable neurologic recovery off sedation Condition is critical we'll continue to follow and monitor the patient will make further recommendations based on the progress. Critically care evaluation, more than 30 minutes
[2020-08-30 09:11] VITALS: BP 110/60
--- NOTE | 2020-08-30 10:06 | PN ---
PROGRESS NOTE David is a 74-year-old gentleman who was admitted to ICU following abdominal aortic aneurysm surgery, acute renal failure and respiratory failure. We have not been able to extubate him yesterday. He remains in atrial fibrillation with controlled ventricular rate. Platelet count is still low at 45. His potassium is 4.3. BUN is 85, creatinine 3.1 and he is still being dialyzed. PHYSICAL EXAMINATION: On exam, heart rate is 90 beats per minute. Blood pressure is 129/55. Respiratory rate is 20. Chest exam reveals good air entry. I do not hear any crackles or rhonchi. Heart exam reveals first and second heart sounds, irregular rhythm. No murmur. Abdomen is soft. Examination of extremities did not reveal any edema. LABS: Labs show that his blood gases show a pH of 7.3, pCO2 of 49, and PO2 of 70. Hemoglobin is 7.8, platelet count is 45. ASSESSMENT: 1. Persistent atrial fibrillation with controlled ventricular rate. 2. Abdominal aortic aneurysm, status post surgery. 3. Acute renal failure. 4. Respiratory failure. 5. Thrombocytopenia. PLAN: I will continue the patient on intravenous Cardizem for rate control. He is not a candidate for anticoagulation. MMODL / IJN: [id number] /
[2020-08-30 10:41] VITALS: BMI 32.5
[2020-08-30 12:21] LABS: Glucose,Whole Blood 131 mg/dL (75-99)
[2020-08-30] MEDS: CEFEPIME 1 GM in SODIUM CHLORIDE 0.9% 50 ML IVPB SCH ×2 (13:25→23:51)
--- NOTE | 2020-08-30 13:41 | P.PN ---
Subjective Progress Note Date: 08/30/20 Principal diagnosis: Abdominal aortic aneurysm Patient seen and examined in the ICU for follow up. He still remains sedated and on mechanical ventilation. They tried doing a sedation holiday yesterday, however the patient did not tolerate for very long. He has had no further signs of GI bleed. Abdominal dressing dry and intact, with some serosanguineous weeping from the bottom of the incision. Hemoglobin remained stable at 7.8 platelets 45. She had a glycerin rectal suppository yesterday and a small bowel movement was noted yesterday evening. Trickle tube feedings will be started today. He remains on TPN for nutrition as well. For hemodialysis catheter in right groin intact. Objective - Vital Signs Vital signs: Vital Signs Temp 98.4 F 08/30/20 08:00 Pulse 96 08/30/20 09:00 Resp 29 H 08/30/20 09:00 BP 110/60 08/30/20 08:00 Pulse Ox 92 L 08/30/20 09:00 Intake & Output 08/29/20 08/30/20 08/30/20 18:59 06:59 18:59 Intake Total 2154.796 1483.149 424.700 Output Total 65 85 0 Balance 2089.796 1398.149 424.700 Weight 100 kg Intake: IV 722 1204 295 0.9 KVO 260 345 70 Cefepime 1 gm In Sodium 50 Chloride 0.9% 50 ml @ 12. 5 mls/hr IVPB Q12H [facility] Rx #:[id number] Mvi, Adult No.4 with Vit 420 K 10 ml Trace (Conc-1Ml/ Dose) 1 ml Sodium Acetate 40 meq Calcium Gluconate 1 gm In Amino Acid 5%- D15w 1,000 ml @ 70 mls/hr IV .BY DURATION [facility] Rx#: [id number] Sodium Acetate 40 meq 770 210 Calcium Gluconate 1 gm In Amino Acid 5%-D15w 1,000 ml @ 70 mls/hr IV .BY DURATION [facility] Rx#: [id number] pressure bag 42 39 15 Intake, IV Titration 1372.796 279.149 69.700 Amount Diltiazem 125 mg In 14.417 80.25 Sodium Chloride 0.9% 100 ml @ 7.5 MG/HR 7.5 mls/hr IV .[id number] [facility] Rx#: [id number] Mvi, Adult No.4 with Vit 1041 K 10 ml Trace (Conc-1Ml/ Dose) 1 ml Sodium Acetate 40 meq Calcium Gluconate 1 gm In Amino Acid 5%- D15w 1,000 ml @ 70 mls/hr IV .BY DURATION [facility] Rx#: [id number] Norepinephrine 32 mg In 29.219 104.617 21.065 Sodium Chloride 0.9% 218 ml @ 0.05 MCG/KG/MIN 2.02 mls/hr IV .Q24H [facility] Rx#: [id number] Sodium Acetate 40 meq 210 Calcium Gluconate 1 gm In Amino Acid 5%-D15w 1,000 ml @ 70 mls/hr IV .BY DURATION [facility] Rx#: [id number] Sodium Chloride 0.9% 150 18.0 ml @ 0.03 UNITS/MIN 4.59 mls/hr IV .Q24H [facility] with Vasopressin 60 unit Rx#: [id number] propofoL 500 mg In Empty 60.160 94.282 48.635 Bag 1 bag @ Titrate IV . Q0M [facility] Rx#:[id number] Oral 60 Other 60 Output: Urine 15 25 0 Oral Regurgitation 50 60 Other: Voiding Method Indwelling Catheter Indwelling Catheter Indwelling Catheter ABP, PAP, CO, CI - Last Documented Arterial Blood Pressure 124/53 - Exam General appearance: sedated on mechanical ventilation HET: Head is normocephalic and atraumatic. Conjunctiva pink. Sclera and icteric. NG tube intact with suction. Neck: Supple without lymphadenopathy. Abdomen: Soft, mild distention, dressing clean dry and intact. Hypoactive bowel sounds. Anasarca. Extremities: bilateral l upper and ower extremity edema, warm to the touch with good capillary refill. Left foot with DP Doppler signal and left foot with palpable dorsalis pedis pulse. Neurological: sedated on mechanical ventilation. - Labs CBC & Chem 7: 08/30/20 03:50 08/30/20 03:50 Labs: Abnormal Lab Results - Last 24 Hours (Table) 08/29/20 08/29/20 08/29/20 Range/Units 11:40 17:30 23:07 WBC (3.8-10.6) k/uL RBC (4.30-5.90) m/uL Hgb (13.0-17.5) gm/dL Hct (39.0-53.0) % RDW (11.5-15.5) % Plt Count (150-450) k/uL Neutrophils # (1.3-7.7) k/uL Lymphocytes # (1.0-4.8) k/uL ABG pH (7.35-7.45) ABG pCO2 (35-45) mmHg ABG pO2 (83-108) mmHg ABG Total CO2 (19-24) mmol/L ABG O2 Saturation (94-97) % BUN (9-20) mg/dL Creatinine (0.66-1.25) mg/dL Glucose (74-99) mg/dL POC Glucose (mg/dL) 152 H 119 H 141 H (75-99) mg/dL Calcium (8.4-10.2) mg/dL Phosphorus (2.5-4.5) mg/dL AST (17-59) U/L Alkaline Phosphatase (38-126) U/L Total Protein (6.3-8.2) g/dL Albumin (3.5-5.0) g/dL 08/30/20 08/30/20 08/30/20 Range/Units 03:50 03:50 05:03 WBC 12.1 H (3.8-10.6) k/uL RBC 2.51 L (4.30-5.90) m/uL Hgb 7.8 L (13.0-17.5) gm/dL Hct 24.6 L (39.0-53.0) % RDW 16.3 H (11.5-15.5) % Plt Count 45 L (150-450) k/uL Neutrophils # 11.1 H (1.3-7.7) k/uL Lymphocytes # 0.6 L (1.0-4.8) k/uL ABG pH 7.30 L (7.35-7.45) ABG pCO2 49 H (35-45) mmHg ABG pO2 70 L (83-108) mmHg ABG Total CO2 26 H (19-24) mmol/L ABG O2 Saturation 93.6 L (94-97) % BUN 85 H (9-20) mg/dL Creatinine 3.19 H (0.66-1.25) mg/dL Glucose 115 H (74-99) mg/dL POC Glucose (mg/dL) (75-99) mg/dL Calcium 8.1 L (8.4-10.2) mg/dL Phosphorus 5.0 H (2.5-4.5) mg/dL AST 186 H (17-59) U/L Alkaline Phosphatase 224 H (38-126) U/L Total Protein 3.9 L (6.3-8.2) g/dL Albumin 1.9 L (3.5-5.0) g/dL 08/30/20 Range/Units 05:57 WBC (3.8-10.6) k/uL RBC (4.30-5.90) m/uL Hgb (13.0-17.5) gm/dL Hct (39.0-53.0) % RDW (11.5-15.5) % Plt Count (150-450) k/uL Neutrophils # (1.3-7.7) k/uL Lymphocytes # (1.0-4.8) k/uL ABG pH (7.35-7.45) ABG pCO2 (35-45) mmHg ABG pO2 (83-108) mmHg ABG Total CO2 (19-24) mmol/L ABG O2 Saturation (94-97) % BUN (9-20) mg/dL Creatinine (0.66-1.25) mg/dL Glucose (74-99) mg/dL POC Glucose (mg/dL) 123 H (75-99) mg/dL Calcium (8.4-10.2) mg/dL Phosphorus (2.5-4.5) mg/dL AST (17-59) U/L Alkaline Phosphatase (38-126) U/L Total Protein (6.3-8.2) g/dL Albumin (3.5-5.0) g/dL Microbiology - Last 24 Hours (Table) 08/24/20 11:00 Blood Culture - Preliminary Blood No Growth after 120 hours Assessment and Plan Assessment: 1. Postop abdominal aortic aneurysm repair graft 2. Abdominal aortic aneurysm, 8.8 cm 3. Hypotension, remains on pressors 4. Acute renal failure on hemodialysis 5. Coronary artery disease 6. Atrial fibrillation 7. TIA/CVA 8. Long-standing history of tobacco use 9. COPD Plan: 1. Supportive care 2. Continue with ICU medical management and recommendations 3. Repeat labs in the morning, transfuse for hemoglobin less than 7 4. May start trickle enteral feeds this afternoon/evening 5. Appreciate recommendations from nephrology, continue hemodialysis as ordered per nephrology 6. Start Reglan 10 mg IVP every 6 hours 7. Glycerin rectal suppository ordered We will continue to follow closely The impression and plan of care has been dictated as directed. Dr. Murillo I performed a history and examination of this patient, discussed the same with the dictator. I agree with the dictator's note ,documented as a scribe. Any additional findings or plans will be noted.
--- NOTE | 2020-08-30 15:36 | PN ---
PROGRESS NOTE The patient is seen for followup for acute kidney injury. Patient remains oliguric and dialysis-dependent. He has been having daily treatments, mostly for ultrafiltration. We were able to get another 2 liters yesterday. The patient tolerated it fairly well. He is currently maintained on a very small dose of Levophed. Patient remains on the vent. FiO2 is at 40%. PEEP is down to 5. No active bleeding noted. He continues to have no significant urine output. Patient is maintained on Cardizem drip at 7.5 mg/hour for atrial fibrillation. His heart rate is fairly controlled. PHYSICAL EXAMINATION: On examination today, patient is sedated. Blood pressure this morning 113/49, heart rate of 90 per minute. He is afebrile. EXAMINATION OF THE HEART: S1 and S2. EXAMINATION OF LUNGS: Bilateral breath sounds are heard. ABDOMEN: Soft, non-tender. Examination of lower extremities shows edema bilaterally with significant scrotal edema. HEAD MACHINIST exam cannot be performed. LABS: Hemoglobin 7.8, sodium 139, potassium 4.3, chloride 105, BUN 85 serum creatinine 3.19, phosphorus 5.0, calcium 8.1. ASSESSMENT: 1. Acute kidney injury, hemodialysis-dependent, acute tubular necrosis. We will hold off on dialysis today and plan for a treatment tomorrow with goal UF of about 2 to 3 liters as tolerated. 2. Acute hypoxic respiratory failure secondary to pneumonia and sepsis. 3. Serratia marcescens pneumonia with bacteremia and sepsis with blood cultures also growing Serratia marcescens, maintained on antibiotics. 4. Anemia, acute blood loss associated with gastrointestinal bleed, currently stable, status post packed RBCs transfusion. 5. Atrial fibrillation with rapid ventricular response, currently with controlled ventricular response, maintained on Cardizem drip. 6. Volume overload, currently improving. PLAN: Hemodialysis in a.m. Goal UF of about 2-3 liters as tolerated. MMODL / IJN: [id number] /
[2020-08-30] MEDS: DILTIAZEM 125 MG in SODIUM CHLORIDE 0.9% 100 ML IV SCH (16:38)
[2020-08-30 17:34] LABS: Glucose,Whole Blood 150 mg/dL (75-99)
[2020-08-30] MEDS ORDERED: MVI, ADULT NO.4 WITH VIT K 10 ML, TRACE (CONC-1ML/DOSE) 1 ML, SODIUM ACETATE 40 MEQ, CA... IV SCH ×10 (19:00)
--- NOTE | 2020-08-30 19:05 | P.PN ---
Progress Note - Text Progress Note Date: 08/30/20 - Chief Complaint Abdominal surgery Consultation: This is a 74-year-old patient who follows with Dr. rollins from [place]. Chronic stable medical conditions include COPD, coronary artery disease with previous IL, osteoarthritis, chronic nicotine dependence. Patient was recently in the hospital following outpatient screening for abdominal aortic aneurysm. It was found to be 9.5 x 8.2 cm in the midportion. Internal thrombus seen surrounding the small bowel in the lumen. It also extends into the right and left common iliac arteries. Patient was therefore sent to the ER. Further computed tomography scan of the chest and abdomen in the ER showed 4.2 cm as cending thoracic aneurysm and 3.8 cm descending thoracic aorta with mural thrombus. Patient denies any abdominal pain. Does get charley horses. At the baseline is a short of breath and wheezing. He is an active smoker. No chest pain. Patient was then discharged to return for surgery. August 21: patient underwent open repair of abdominal aortic aneurysm with a 30 mm sleeve graft. Currently in the ICU. On the ventilator intubated. FiO2 40 and a PEEP of 5. Has NG tube in place. Murillo catheter. Endotracheal tube. Drips include IV propofol and norepinephrine. Telemetry shows atrial f ibrillation. Hemodialysis catheter was placed and started on hemodialysis.- August 24 Today-ICU: ventilator with the FiO2 40 / PEEP of 5. Atrial fibrillation rate uncontrolled-remains on Cardizem drip 7.5 mg. on norepinephrine. Trickle tube feeding to be started today.. Patient put back on propofol for tube biting. Poor urine output. Continue with TPN. NG tube was put about 50 mL a shift-sl ight coffee-ground Review of systems-patient intubated Active Medications Albuterol/Ipratropium (Ipratropium-Albuterol 3 Ml Neb) 3 ml INHALATION RT-Q2H PRN PRN Reason: Shortness Of Breath Or Wheezing Albuterol/Ipratropium (Ipratropium-Albuterol 3 Ml Neb) 3 ml INHALATION RT-Q4H [facility] Last Admin: 08/30/20 15:04 Dose: 3 ml Documented by: Atorvastatin Calcium (Atorvastatin 40 Mg Tab) 40 mg PO DAILY [facility] Last Admin: 08/30/20 08:22 Dose: 40 mg Documented by: Chlorhexidine Gluconate (Chlorhexidine Gluconate 15 Ml Cup) 15 ml MUCOUS MEM BID [facility] Last Admin: 08/30/20 08:22 Dose: 15 ml Documented by: Glycerin (Glycerin Adult Suppository 1 Each) 1 each RECTAL DAILY [facility] Stop: 08/30/20 21:01 Hydromorphone HCl (Hydromorphone 1 Mg/Ml 1 Ml Syringe) 1 mg IVP Q3HR PRN PRN Reason: Pain Last Admin: 08/23/20 12:35 Dose: 1 mg Documented by: Norepinephrine Bitartrate 32 (mg/ Sodium Chloride) 250 mls @ 2.02 mls/hr IV .Q24H [facility]; Protocol Last Titration: 08/30/20 09:01 Dose: 0.12 mcg/kg/min, 4.849 mls/hr Documented by: Propofol 500 mg/ IV Solution 50 mls @ 0 mls/hr IV .Q0M [facility]; Protocol Last Titration: 08/30/20 13:30 Dose: 0 mcg/kg/min, 0 mls/hr Documented by: Cefepime HCl 1 gm/ Sodium (Chloride) 50 mls @ 12.5 mls/hr IVPB Q12H [facility] Last Admin: 08/30/20 13:25 Dose: 12.5 mls/hr Documented by: Diltiazem HCl 125 mg/ Sodium (Chloride) 125 mls @ 7.5 mls/hr IV .[id number] [facility] Last Admin: 08/30/20 16:38 Dose: 7.5 mg/hr, 7.5 mls/hr Documented by: Parenteral Vitamin Supplement 10 ml/ Zinc/Copper/Manganese/Selenium 1 ml/ Sodium Acetate 40 meq/ Calcium Gluconate 1 gm / Amino Acids/Dextrose 1,041 mls @ 55 mls/hr IV .[id number] [facility] Insulin Aspart (Insulin Aspart (Novolog) 100 Unit/Ml Vial) 0 unit SQ Q6H [facility]; Protocol Last Admin: 08/30/20 17:40 Dose: 1 unit Documented by: Insulin Detemir (Insulin Detemir (Levemir) 100 Unit/Ml Syr) 16 unit SQ HS [facility] Last Admin: 08/29/20 20:03 Dose: 16 unit Documented by: Lidocaine HCl (Lidocaine 1% (10mg/Ml) For Iv Start) 0.1 ml INTRADERMA PER PROTOCOL PRN PRN Reason: IV Start Metoclopramide HCl (Metoclopramide 5 Mg/Ml 2 Ml Vial) 10 mg IVP Q6HR [facility] Last Admin: 08/30/20 17:38 Dose: 10 mg Documented by: Miscellaneous Information (Magnesium Replacement Protocol 1 Each Misc) 1 each MISCELLANE DAILY PRN; Protocol PRN Reason: Per Protocol Pantoprazole Sodium (Pantoprazole 40 Mg/10 Ml Vial) 40 mg IVP BID [facility] Last Admin: 08/30/20 08:22 Dose: 40 mg Documented by: Past medical history to include: COPD, coronary artery disease with IL, osteoarthritis, abdominal aortic aneurysm 8.8 cm, 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 Smoking for many years. About 2 beers a day. Retired Physical examination: VITAL SIGNS: 98.7, 96, 33, 110/50, 93% on 50% GENERAL: laying in bed, intubated. EYES: Pupils equal. Conjunctiva normal. HEENT: External appearance of nose and ears normal, oral cavity-endotracheal tube, NG tube-dark aspirate NECK: JVD unable to assess; masses not palpable. HEART: Irregular heart sounds; no edema. LUNGS: Respiratory rate increased decreased breath sounds,. ABDOMEN: Soft, dressing over the midline incision, liver spleen not palpable, no masses palpable. Murillo catheter EXTREMITIES: Bluish discoloration of both the feet, cold PSYCH: Sedated INVESTIGATIONS, reviewed in the clinical context: August 30: WBC 12.1 hemoglobin 7.8 platelets 45 potassium 4.3 bun 85 creatinine 3.19 phosphorus 5 albumin 1.9 August 29: WBC 12 hemoglobin 7.4 platelets 42 potassium 4.5 bun 74 creatinine 2.73 August 28: White count 11.2 hemoglobin 7.8 platelets 41 August 27: White count 9.4 hemoglobin 7.8 platelet 50 potassium 5.3 bun 84 creatinine 4.38 Blood culture-positive for Serratia marcescens Chest [id number] August 26: White count 11 hemoglobin 8.1 platelets 54 potassium 5.3 bun 87 creatinine 4.93 2-D echocardiogram-limited: EF 55% August 25: White count 14.2 hemoglobin 8.7 platelets 61 potassium 4.8 bun 65 creatinine 4.08 August 24: White count 13.7 hemoglobin 9.7 platelets 74 potassium 5.1 bun 64 creatinine 4.38. ABG showed pH of 7.13 pCO2 58 pO2 67 August fifth: White count 10.9 hemoglobin 10.8 platelets 75 potassium 4.6 bun 53 creatinine 2.95 Sputum culture-positive for Serratia marcescens White count 18.3 hemoglobin 11.8 platelets 72 potassium 4.7 bun 40 creatinine 1.67 Previous testin08/13/2020: White count 4.1 hemoglobin 13.8 platelets 148 bun 19 creatinine 0.94 Assessment: -Abdominal aortic aneurysm 8.8 cm, also involving the iliac arteries, with intraluminal thrombus-followed by open repair sleeve graft on 08/21/2020 -Ascending thoracic aortic is a 4.2 cm, descending thoracic aorta 3.8 cm with mural thrombus -Bilateral pneumonia with sputum and blood cultures both positive for Serratia marcescens-on IV cefepime -Hypotensive shock-on vasopressin [now stopped] and a small does of levo fed. -Chronic nicotine dependence patient cigarette smoker -Emphysema, with some exacerbation in a current smoker-on DuoNeb -Coronary artery disease and a prior history of IL -Suspect peripheral arterial disease -Persistent atrial fibrillation rate uncontrolled, on and off Cardizem drip -Acute hypoxic respiratory failure, requiring ventilator support-slow to respond -Acute kidney injury patient's creatinine was 0.94 on August 13. Possible ATN. Oliguric. Worsening. Hemodialysis catheter placed on August 24. on hemodialysis -Upper GI bleed with NG tube putting out dark aspirate-on PPI -TPN and slow to feeding currently held -thrombocytopenia, from underlying sepsis Plan: Remains critically ill. Current medications include DuoNeb, IV cefepime, Levemir, norepinephrine, TPN, . Propofol . Prognosis poor. Tracheal tube feeding being started. Thank you Dr. Donovan
[2020-08-30] MEDS ORDERED: GLYCERIN ADULT SUPPOSITORY 1 EACH RECTAL SCH (21:00)
[2020-08-30] MEDS: INSULIN DETEMIR (LEVEMIR) 100 UNIT/ML SYR SQ SCH (21:04)
[2020-08-31] LABS: Glucose,Whole Blood 138 mg/dL (75-99)
[2020-08-31] MEDS: INSULIN ASPART (NovoLOG) 100 UNIT/ML VIAL SQ SCH ×3 (00:16→12:17)
[2020-08-31] MEDS: IPRATROPIUM-ALBUTEROL 3 ML NEB INHALATION SCH ×3 (03:35→12:15)
--- NOTE | 2020-08-31 04:20 | CT ---
EXAM: CT Head Without Intravenous Contrast CLINICAL HISTORY: ITS.REASON CT Reason: Altered Mental Status TECHNIQUE: Axial computed tomography images of the head/brain without intravenous contrast. CTDI is 49.27 mGy and DLP is 1008.4 mGy-cm. This CT exam was performed using one or more of the following dose reduction techniques: automated exposure control, adjustment of the mA and/or kV according to patient size, and/or use of iterative reconstruction technique. COMPARISON: No relevant prior studies available. FINDINGS: Brain: No hemorrhage or mass effect. Old right MCA territory infarct involving the right frontal operculum and insula. Ventricles: No hydrocephalus. Bones/joints: Unremarkable. Soft tissues: Unremarkable. Sinuses: Unremarkable. Mastoid air cells: Clear. IMPRESSION: No acute hemorrhage, hydrocephalus, or mass effect. Old right MCA territory infarct.
[2020-08-31 05:11] LABS: ABG Base Excess -6.6 mmol/L; ABG HCO3 21 mmol/L (21-25); ABG Oxygen Saturation 90.1 % (94-97); ABG PCO2 48 mmHg (35-45); ABG PH 7.24 (7.35-7.45); ABG PO2 64 mmHg (83-108); ABG TCO2 22 mmol/L (19-24)
[2020-08-31 05:28] LABS: Allen Test Performed? no
[2020-08-31 05:30] LABS: Calcium 8.4 mg/dL (8.4-10.2); Magnesium 2.4 mg/dL (1.6-2.3); Phosphorus 6.9 mg/dL (2.5-4.5); Potassium 4.7 mmol/L (3.5-5.1)
[2020-08-31 05:39] LABS: Anisocytosis Slight; HCT 27.1 % (39.0-53.0); HGB 8.3 gm/dL (13.0-17.5); Hypochromasia Slight; MCH 30.6 pg (25.0-35.0); MCHC 30.8 g/dL (31.0-37.0); MCV 99.5 fL (80.0-100.0); Macrocytosis Slight; Mean Platelet Volume 13.9; RBC 2.73 m/uL (4.30-5.90); RDW 16.4 % (11.5-15.5); WBC 11.6 k/uL (3.8-10.6)
[2020-08-31 05:57] LABS: Platelet Count 64 k/uL (150-450)
[2020-08-31 06:12] LABS: Glucose,Whole Blood 147 mg/dL (75-99)
[2020-08-31] MEDS: NOREPINEPHRINE 32 MG in SODIUM CHLORIDE 0.9% 218 ML IV SCH (06:23)
[2020-08-31] MEDS: DILTIAZEM 125 MG in SODIUM CHLORIDE 0.9% 100 ML IV SCH (06:23)
[2020-08-31 06:32] LABS: Anisocytosis (M) Present; Band Neutrophils % 5 %; Eosinophils # (M) 0.12 k/uL (0-0.7); Large Platelets Present; Lymphocytes # (M) 0.12 k/uL (1.0-4.8); Monocytes # (M) 0.12 k/uL (0-1.0); Neutrophils % (M) 92 %; Nucleated Red Blood Cells 0 /100 WBC (0-0); Ovalocytes Present; Polychromasia Present; Total Cells Counted 100
[2020-08-31] MEDS: METOCLOPRAMIDE 5 MG/ML 2 ML VIAL IVP SCH ×2 (06:39→12:19)
--- NOTE | 2020-08-31 07:46 | XR ---
EXAMINATION TYPE: XR chest 1V DATE OF EXAM: 08/31/2020 COMPARISON: 08/30/2020 HISTORY: 74-year-old male pneumonia, ventilator TECHNIQUE: Single frontal view of the chest is obtained. FINDINGS: ET tube tip is located 4 cm from the clover. NG tube courses below the diaphragm. Right PICC at the m id SVC level. Heart borderline enlarged. Diffuse interstitial opacities persist with patchy lower adelina g densities and possible trace effusions. IMPRESSION: Continued interstitial densities as well as bibasilar opacities and possible trace effusions. Either pneumonia or sequela of CHF.
--- NOTE | 2020-08-31 08:32 | P.PN ---
Subjective patient is seen in follow-up for acute kidney injury, currently hemodialysis dependent. On high-dose Levophed. Off vasopressin. remains on Cardizem drip for A. fib. Oliguric. on 40% FiO2. Vital signs: blood pressure in the systolic 90s. On 44 mics of Levophed. General: The patient appeared well nourished and normally developed. HEENT: intubated. LUNGS: Breath sounds decreased. HEART: Rate and Rhythm are regular. ABDOMEN: no gross distention noted. EXTREMITITES: 2+ edema. Objective - Vital Signs Vital signs: Vital Signs Temp 98.8 F 08/31/20 08:15 Pulse 80 08/31/20 08:15 Resp 25 H 08/31/20 08:15 BP 110/60 08/30/20 08:00 Pulse Ox 91 L 08/31/20 08:16 Intake & Output 08/30/20 08/31/20 08/31/20 18:59 06:59 18:59 Intake Total 1554.000 982.601 193.477 Output Total 5 12 0 Balance 1549.000 970.601 193.477 Weight 100 kg 103 kg Intake: IV 1169 466.5 116.0 0.9 KVO 250 240 40 Cardizem 82.5 15.0 Cefepime 1 gm In Sodium 100 50.0 Chloride 0.9% 50 ml @ 12. 5 mls/hr IVPB Q12H [facility] Rx #:[id number] Mvi, Adult No.4 with Vit 55 K 10 ml Trace (Conc-1Ml/ Dose) 1 ml Sodium Acetate 40 meq Calcium Gluconate 1 gm In Amino Acid 4.25% -D10w 1,000 ml @ 55 mls/ hr IV .[id number] [facility] Rx#: [id number] Sodium Acetate 40 meq 750 55 Calcium Gluconate 1 gm In Amino Acid 5%-D15w 1,000 ml @ 70 mls/hr IV .BY DURATION [facility] Rx#: [id number] pressure bag 69 39 6 Intake, IV Titration 245.000 316.101 27.477 Amount Diltiazem 125 mg In 125 103.125 Sodium Chloride 0.9% 100 ml @ 7.5 MG/HR 7.5 mls/hr IV .[id number] [facility] Rx#: [id number] Norepinephrine 32 mg In 21.065 185.376 27.477 Sodium Chloride 0.9% 218 ml @ 0.05 MCG/KG/MIN 2.02 mls/hr IV .Q24H [facility] Rx#: [id number] propofoL 500 mg In Empty 98.935 27.6 Bag 1 bag @ Titrate IV . Q0M [facility] Rx#:[id number] Oral 60 Tube Feeding 50 110 20 Other 30 90 30 Output: Urine 5 12 0 Other: Voiding Method Indwelling Catheter Indwelling Catheter # Voids 0 ABP, PAP, CO, CI - Last Documented Arterial Blood Pressure 93/42 - Labs CBC & Chem 7: 08/31/20 04:55 08/31/20 04:55 Labs: Abnormal Lab Results - Last 24 Hours (Table) 08/30/20 08/30/20 08/30/20 Range/Units 12:20 17:33 23:58 WBC (3.8-10.6) k/uL RBC (4.30-5.90) m/uL Hgb (13.0-17.5) gm/dL Hct (39.0-53.0) % MCHC (31.0-37.0) g/dL RDW (11.5-15.5) % Plt Count (150-450) k/uL Neutrophils # (Manual) (1.3-7.7) k/uL Lymphocytes # (Manual) (1.0-4.8) k/uL ABG pH (7.35-7.45) ABG pCO2 (35-45) mmHg ABG pO2 (83-108) mmHg ABG O2 Saturation (94-97) % Sodium (137-145) mmol/L Carbon Dioxide (22-30) mmol/L BUN (9-20) mg/dL Creatinine (0.66-1.25) mg/dL Glucose (74-99) mg/dL POC Glucose (mg/dL) 131 H 150 H 138 H (75-99) mg/dL Phosphorus (2.5-4.5) mg/dL Magnesium (1.6-2.3) mg/dL 08/31/20 08/31/20 08/31/20 Range/Units 04:55 04:55 05:10 WBC 11.6 H (3.8-10.6) k/uL RBC 2.73 L (4.30-5.90) m/uL Hgb 8.3 L (13.0-17.5) gm/dL Hct 27.1 L (39.0-53.0) % MCHC 30.8 L (31.0-37.0) g/dL RDW 16.4 H (11.5-15.5) % Plt Count 64 L (150-450) k/uL Neutrophils # (Manual) 11.20 H (1.3-7.7) k/uL Lymphocytes # (Manual) 0.12 L (1.0-4.8) k/uL ABG pH 7.24 L (7.35-7.45) ABG pCO2 48 H (35-45) mmHg ABG pO2 64 L (83-108) mmHg ABG O2 Saturation 90.1 L (94-97) % Sodium 135 L (137-145) mmol/L Carbon Dioxide 20 L (22-30) mmol/L BUN 123 H* (9-20) mg/dL Creatinine 4.23 H (0.66-1.25) mg/dL Glucose 139 H (74-99) mg/dL POC Glucose (mg/dL) (75-99) mg/dL Phosphorus 6.9 H (2.5-4.5) mg/dL Magnesium 2.4 H (1.6-2.3) mg/dL 08/31/20 Range/Units 06:10 WBC (3.8-10.6) k/uL RBC (4.30-5.90) m/uL Hgb (13.0-17.5) gm/dL Hct (39.0-53.0) % MCHC (31.0-37.0) g/dL RDW (11.5-15.5) % Plt Count (150-450) k/uL Neutrophils # (Manual) (1.3-7.7) k/uL Lymphocytes # (Manual) (1.0-4.8) k/uL ABG pH (7.35-7.45) ABG pCO2 (35-45) mmHg ABG pO2 (83-108) mmHg ABG O2 Saturation (94-97) % Sodium (137-145) mmol/L Carbon Dioxide (22-30) mmol/L BUN (9-20) mg/dL Creatinine (0.66-1.25) mg/dL Glucose (74-99) mg/dL POC Glucose (mg/dL) 147 H (75-99) mg/dL Phosphorus (2.5-4.5) mg/dL Magnesium (1.6-2.3) mg/dL Microbiology - Last 24 Hours (Table) 08/24/20 11:00 Blood Culture - Final Blood No Growth after 144 hours Assessment and Plan Plan: assessment: 1. Acute kidney injury secondary to ATN, currently hemodialysis dependent. oliguric. 2. acute hypoxic respiratory failure secondary to pneumonia. 3. Serratia marcescens pneumonia and bacteremia maintained on antibiotics. 4. Septic shock maintained on Levophed. 5. Acute blood loss anemia status post blood transfusion this admission. 6. A. fib with RVR maintain on Cardizem drip. 7. Volume overload. 8. Hyperphosphatemia secondary to acute kidney injury. Plan: SLED today with UF about 2 L as able to tolerate. Add Renvela 3 times a day. Wean FiO2 and vasopressors. Continue to monitor renal function and urine output. Add Aranesp.
[2020-08-31] MEDS ORDERED: DARBEPOETIN ALFA 40 MCG/0.4 ML SYRINGE SQ SCH (09:00)
[2020-08-31] MEDS: CHLORHEXIDINE GLUCONATE 15 ML CUP MUCOUS MEM SCH (09:03)
[2020-08-31] MEDS: PANTOPRAZOLE 40 MG/10 ML VIAL IVP SCH (09:03)
[2020-08-31] MEDS: ATORVASTATIN 40 MG TAB PO SCH (09:03)
--- NOTE | 2020-08-31 09:58 | P.PN ---
Subjective Progress Note Date: 08/31/20 74-year-old here patient with known history of abdominal aortic aneurysm and known history of coronary artery previous IA. The patient also known to have previous history of CVA, chronic atrial fibrillation, hypertension and [id number] smoking history. The patient has osteoarthritis. The patient und erwent an open repair of an abdominal aortic aneurysm with 30 mm sleeve graft. Note that the patient a large abdominal aortic aneurysm measuring 9.5 x 8.2 cm in size with internal thrombus. The aneurysm was extending into the right and left common iliac artery. The patient also known to have a 4.2 cm ascending aortic aneurysm and at 3.8 cm ascending thoracic aortic aneurysm with a mural thrombus. The patient lost approximately 4 L of blood and operating room. The patient was given a total of 1 L of Cell Saver, a lot of crystalloids and colloids and operating room and she also required packed RBC transfusion. She was kept intubated on a mechanical ventilator and following that she was t ransferred to the intensive care unit. The patient is currently postop day #5 following the abdominal aortic aneurysm repair. The patient remains on a mechanical ventilator. She is currently on assist control mode at the rate of 32 and a tidal volume of 500 and FiO2 of 60% with a PEEP of 13. The patient has been on normal saline at rate of 20 mL an hour and the patient is also requiring norepinephrine infusion which is running at 60 g per minute. She is on Cardizem drip for rate control at the rate of 10 mg an hour regarding her atrial fibrillation and she is also on vasopressin and the dose of 0.03 units per minute. She is was sedated with propofol and currently she is on 35 mcg/kg per minute. The patient remains in atrial fibrillation for now on a Cardizem drip. In terms of feeding, the patient is receiving TPN at the rate of 80 mL an hour. The patient continues to have a low urine output. She developed an acute kidney injury postop and she will possibly require hemodialysis. The patient is going gram-negative bacteria and this sputum and the chest x-ray is showing bilobar infiltrate affecting the lower lobes bilaterally. ET tube is in a good location and the patient has a PICC line in the right upper extremity. NG tube was also in place. Assess him of the abdomen from yesterday showed retained fecal material in the large bowel. NG tube is in the distal esophagus. There is evidence of constipation. Hemodialysis catheter was placed on 08/24/2020 and the patient was started on hemodialysis. There is some dark aspirate from the NG tube consistent possibly with an upper GI bleed. This sputum sample returned goods repairer to be positive for Serratia marcescens and the patient is currently on IV Zosyn. On the morning of , the patient is being seen for a follow-up. The patient remains sedated with propofol which is running at 20 mcg/kg per minute. The patient's is sedated on mechanical ventilator. The patient is an assist- control mode volume cycled with a tidal volume of 500 and FiO2 of 60% with a PEEP of 13 and the rate of 32. Peak air pressures around 35 and the static pressures 24. Chest x-ray showing lower lobe pulmonary infiltrates slightly wor se on the left. ET tube is in a good location. NG tube is in a good location and the patient continued to have a PICC line in his right upper extremity. The blood gases from this morning shows a pH of 7.23 with a pCO2 of 46 and pO2 of 147. He is still in acute kidney injury. Creatinine is up to 4.9. Hemodialysis catheter was inserted yesterday and he received his first session of hemodialysis 2 days ago He had no dialysis was done yesterday. Potassium level is up to 5.3, serum bicarb is down to 18 and the creatinine is up to 4.93. He also has urine output in order of 0 mL an hour. His platelet count has dropped down to 50 4K and the white cell count is at 11 with a hemoglobin of 8. 1. He remains in atrial fibrillation. He remains on a Cardizem drip for rate control at the rate of 5 mg an hour. His heart rate is under adequate control for now. He remains on norepinephrine at a dose of 0.4 mcg/kg per minute and he remains on nasal On today's evaluation of 08/27/2020 I'm seeing the patient for a follow-up. This morning, the patient remains sedated on propofol which is running at 20 mcg/kg per minute. He is sedated and he is adequately sedated and comfortable on a mechanical ventilator. He remains on assist control mode of ventilation. This morning, he is on a PEEP of 12 with an FiO2 of 50% and a tidal volume of 500 at a rate of 32. The blood. From today shows a pH of 7.34 with a pCO2 of 40 and pO2 of 107. The patient had Serratia marcescens in his sputum and the repeat chest x-ray shows bibasilar pulmonary infiltrates worse on the left. ET tube is in a good location. NG tube is also in a good location. No significant orotracheal secretions. He is quite secretions with the mechanical ventilator. Hemodynamically, the patient continues to be on pressors. Vasopressin is on a physiologic dose. Levo fed has been cut down to micrograms per minute and the patient is requiring less pressors. The patient remains on stress dose hydrocortisone. IV fluids with normal state rate of 20 mL an hour. He is not making any urine output. He received hemodialysis yesterday and repeat electrodesiccation with a potassium of 5.3 and a serum bicarb of 20. A total of 2.2 L of fluid was taken off yesterday. He remains in atrial fibrillation. Rate is controlled. The patient is off Cardizem drip. He is currently on no anticoagulation. At evaluation was stopped because of lower platelet count of 50,000 and the patient was having some bleeding from his orogastric tube. Abdomen is distended. Bowel sounds are sluggish. Lower rate enteral feeding was reinitiated yesterday. On today's evaluation the patient is postop day #6. I elected discussion with his son and [place] his name is Enoch and I updated them on the condition. He has adequate perfusion to his lower extremities and the pulses in the lower extremities are much better palpable today and he is less cyanotic. 08/28/2020 I'm seeing the patient for a follow-up. He remains sedated with propofol and asynchronous the mechanical ventilator. In terms of his vent support, were able to wean down the PEEP down to 6 yesterday with an FiO2 of 50% and a tidal volume of 450 with a rate of 26. The blood gases from today showed a pH of 7.29 with a pCO2 of 50 and pO2 of 94. His chest x-ray showing some pulmonary vessel congestion and some limited infiltration of the lung bases bilaterally. ET tube is in a good location. No significant orotracheal secretions at this point. There is cardiomegaly and some limited effusion the lung bases. Meanwhile, the patient is hemodynamically doing better. I was able to wean down his stresses gradually. Norepinephrine infusion is currently running at 0.03 g. KG per minute and it was reduced significantly to lower levels and he is still on a physiologic dose of vasopressin. His last ration of hemodialysis was yesterday which was able to tolerate. He remains in atrial fibrillation. Slightly more tachycardic on today's evaluation and he is off the Cardizem drip and his heart rate is ranging between 101 10, irregular. Also, the patient had a upper GI bleed again. The tube feeds was discontinued and the patient had a total of 1 L of coffee-ground/bloody/dark bloody gastric material aspirated from the stomach. His abdomen is nondistended this point in time. Bowel sounds are hypoactive. He remains on TPN for nutritional support which is currently running at the rate of 60 mL an hour. Along with his upper GI bleed, hemoglobin dropped down to 6.8. His platelet count is at 45 which is slightly lower compared to yesterday. His creatinine is at 3.3 with a BUN of 80 and a potassium level is at 4.8. His blood culture was also positive for Serratia consistent with gram-negative Serratia pneumonia cultured in the sputum and in the blood. His antibiotic coverage is IV Cefepime 08/29/2020, the patient is in the ICU, sedated with propofol intubated on a mechanical ventilator with assist control mode at the rate of 22 with a tidal volume of 450 and FiO2 of 40% with a PEEP of 5. Chest x-ray unchanged with small bilateral pleural effusions and infiltrates in the lung bases. The patient's blood gases showed a pH of 7.29 with a pCO2 of 49 and pO2 of 83. We have done some improvement in his oxygenation as his FiO2 has been weaned down to 40% and his PEEP is down to 5. He did have Serratia pneumonia with septice nighat and the patient is still on antibiotics and the patient is covered with IV cefepime. He is afebrile. He was then is some better. She is currently on NE infusion which is running at a dose of 0.03 Suppressant is a physiologic dose. He remains in the same antibiotic coverage. He is receiving TPN for nutritional support. Initial attempt to feed him enterally failed as the patient had increa sed residual and bleeding was suspected. He was given a unit of packed RBC and hemoglobin is up to 7.4. NG tube if it was suctioning and the patient has sluggish bowel movements. Discussed the case with general surgery and vascular surgery and we decided to proceed with Reglan and glycerin suppository and try to feed him again. Meanwhile the patient remains on IV Protonix. Platelet counts are at 42, essentially stable and the patient has developed some thrombocytopenia during his postoperative course. He is off the Cardizem drip. His cardiac rhythm is atrial fibrillation. Is postop day #8. Remains intubated on a mechanical ventilator. He is in the process of getting a sedation holiday. He had dialysis yesterday and he is supposed to have dialysis today. Continues to have increased volume overload. 08/30 2020 I'm seeing the patient for a follow-up in the intensive care unit. The patient is on a mechanical ventilator and based on today's vent setting, the patient on assist control mode rate of 22 with a tidal volume of 450 and FiO2 of 40% with a PEEP of 5. The chest x-rays unchanged showing bilateral pulmonary infiltrates in lung bases and ET tube and OG tube are both in good location. The blood gases from today showed a pH of 7.3 with a pCO2 of 49 and pO2 of 70. The patient has no orotracheal secretions. He was diagnosed having a saturation pneumonia with septicemia and he remains on IV Zosyn. The chest x-ray still showing persistent bilateral pulmonary infiltrates. He is afebrile. Meanwhile, he was given a session of dialysis yesterday with a total of 2 L of ultrafiltration. He continues to have edema in all 4 extremities and his scrotum although the edema is essentially improving. Hemodynamically, the patient is still on pressors. After cutting down his norepinephrine infusion to lower doses, he had to be increased back up to 0.18 mcg/kg per minute. He was taken off the vasopressin physiologic dose and he was started on Cardizem 7.5 mg per hour for rate control Specially that patient is in atrial fibrillation and he was having rapid ventricular response specially when he was taken off the sedation yesterday. Note that the patient was given a sedation holiday. He did not recovered his mentation. He got to the point where he was not following any commands and he was getting restless and tachypneic and tachycardic and he was biting on the orotracheal tube. Based on that, the sedation holiday was aborted and he was placed back on propofol which is running at 25 mcg/kg per minute. As far as nutrition, the patient on TPN for nutritional support running at the rate of 70 mL an hour. Gen. surgery and vascular surgery were concerned about him receiving TPN and they want to reinitiate the enteral feeding for nutritional support. There was a concern of ileus and an upper GI bleed. Were not ET tube is in place and output is minimal. I do not mind starting the patient on a tracheal tube feeding at a lower rate on today's evaluation a trial basis. His abdominal wound is dry clean and intact. He has sluggish bowel sounds. He does have diffuse edema and probably bowel edema contributing to his ileus. He was started on Reglan yesterday. Otherwise, no other significant events. On his blood work, he has a white cell count of 12.1 with a hemoglobin of 7.8 which is essentially stable. Weight is also stable at 45,000. The BUN is at 38 with a creatinine of 3.1. Potassium level is at 4.3. He is postop day #9 08/31/2020, I'm seeing the patient for a follow-up. This morning the patient remains sedated. We have cut down the propofol down to 10 g. He was receiving sedation holiday episodically. Nevertheless, he never got to the point where he was fully awake and we had to put him back on the sedation at the lower rate. He was not waking up appropriately. Based on that, a CAT scan of the brain was done that showed no evidence of any acute hemorrhage and there was an old infarct in the right MCA distribution. Meanwhile, the patient remains on a mechanical ventilator. He remains assist-control mode at the rate of 22 with a tidal volume of 450 and FiO2 of 40% with a PEEP of 5. His blood gases from today shows a pH of 7.24 with a pCO2 of 48 and pO2 of 64. He has become obviously more acidotic. He serum bicarb is down to 20. His chest x-ray is showing adequate positioning of the ET tube. The patient has lower lobe or the pulmonary infiltrates consistent with ongoing pneumonia and possibly some pleural effusion in addition. Has an NG tube in place. Overall chest x-ray findings are stable and there is no major change in the chest x-ray finding since yesterday. White cell count is 11. He is afebrile. He remains on IV cefepime regarding his previously diagnosed Serratia pneumonia with sepsis. I was quite pleased with his response with antibiotics and fluid resuscitation initially as I was able to cut down his pressors to lower levels. He never got to a point where he was off pressors. After reducing the pressors to lower levels, overnight the pressors requirements went up and the patient is currently up to 0.5 mcg/kg per minute of norepinephrine infusion. He is still on Cardizem drip for rate control regarding his chronic atrial fibrillation and is at the rate of 7.5 mg an hour. He did not undergo dialysis yesterday. He is much more swollen and edematous today. I'm not sure is going to be able to tolerate dialysis appropriately is with especially with his high pressor requirements. He does have upper and lower extremity swelling and scrotal edema. He was sta rted on gentle tube feeding yesterday and currently is on Nepro at 10 mL an hour. No bleeding. No increased residuals. He is also on TPN for nutritional support which is running at the rate of 55 mL an hour. Abdominal exam shows no cervical abnormalities. The wound is clear. He has adequate pulses in all 4 extremities. Objective - Vital Signs Vital signs: Vital Signs Temp 98.8 F 08/31/20 08:15 Pulse 87 08/31/20 09:00 Resp 25 H 08/31/20 09:00 BP 110/60 08/30/20 08:00 Pulse Ox 92 L 08/31/20 09:00 Intake & Output 08/30/20 08/31/20 08/31/20 18:59 06:59 18:59 Intake Total 1554.000 982.601 306.756 Output Total 5 12 0 Balance 1549.000 970.601 306.756 Weight 100 kg 103 kg Intake: IV 1169 466.5 201.5 0.9 KVO 250 240 60 Cardizem 82.5 22.5 Cefepime 1 gm In Sodium 100 50.0 Chloride 0.9% 50 ml @ 12. 5 mls/hr IVPB Q[facility]H [facility] Rx #:[id number] Mvi, Adult No.4 with Vit 110 K 10 ml Trace (Conc-1Ml/ Dose) 1 ml Sodium Acetate 40 meq Calcium Gluconate 1 gm In Amino Acid 4.25% -D10w 1,000 ml @ 55 mls/ hr IV .[id number] [facility] Rx#: [id number] Sodium Acetate 40 meq 750 55 Calcium Gluconate 1 gm In Amino Acid 5%-D15w 1,000 ml @ 70 mls/hr IV .BY DURATION [facility] Rx#: [id number] pressure bag 69 39 9 Intake, IV Titration 245.000 316.101 45.256 Amount Diltiazem 125 mg In 125 103.125 Sodium Chloride 0.9% 100 ml @ 7.5 MG/HR 7.5 mls/hr IV .[id number] [facility] Rx#: [id number] Norepinephrine 32 mg In 21.065 185.376 45.256 Sodium Chloride 0.9% 218 ml @ 0.05 MCG/KG/MIN 2.02 mls/hr IV .Q24H [facility] Rx#: [id number] propofoL 500 mg In Empty 98.935 27.6 Bag 1 bag @ Titrate IV . Q0M [facility] Rx#:[id number] Oral 60 Tube Feeding 50 110 30 Other 30 90 30 Output: Urine 5 12 0 Other: Voiding Method Indwelling Catheter Indwelling Catheter # Voids 0 ABP, PAP, CO, CI - Last Documented Arterial Blood Pressure 90/44 - Exam Sedated, and mechanically ventilated, with an orally placed endotracheal tube and NG tube. Head exam was generally normal. There was no scleral icterus or corneal arcus. Mucous membranes were moist. Neck was supple and without jugular venous distension, thyromegaly, or carotid bruits. Carotids were easily palpable bilaterally. There was no adenopathy. The patient continues to have a Cordis in his right IJ Cardiac exam revealed the PMI to be normally situated and sized. The rhythm was irregular and not consistent with atrial fibrillation and no extrasystoles were noted during several minutes of auscultation. The first and second heart sounds were normal and physiologic splitting of the second heart sound was noted. There were no murmurs, rubs, clicks, or gallops. Lungs reveal coarse bilateral rhonchi. No wheezes. Breath sounds equal bilat erally. Her sounds are diminished throughout. No crackles are appreciated. Abdomen is soft, without masses. No bowel sounds noted. The surgical wound site is dry clean and intact. There are no drains, and the bowel sounds are quite hypoactive and nearly absent on today's evaluation. No significant abdominal distention. Extremities are intact. No cyanosis clubbing and there is significant amount of edema in all 4 extremities. There is also scrotal edema. Extremities are warm and there is adequate pulses in all 4 extremities for now. the patient has a dialysis catheter in his right femoral vein.. The patient also has a PICC line in the right upper extremity. His Skin is without rash or lesion. Cyanotic in the toes bilaterally. Neurologic examination cannot be properly assessed. Sedated, comfortable - Labs CBC & Chem 7: 08/31/20 04:55 08/31/20 04:55 Labs: Abnormal Lab Results - Last 24 Hours (Table) 08/30/20 08/30/20 08/30/20 Range/Units 12:20 17:33 23:58 WBC (3.8-10.6) k/uL RBC (4.30-5.90) m/uL Hgb (13.0-17.5) gm/dL Hct (39.0-53.0) % MCHC (31.0-37.0) g/dL RDW (11.5-15.5) % Plt Count (150-450) k/uL Neutrophils # (Manual) (1.3-7.7) k/uL Lymphocytes # (Manual) (1.0-4.8) k/uL ABG pH (7.35-7.45) ABG pCO2 (35-45) mmHg ABG pO2 (83-108) mmHg ABG O2 Saturation (94-97) % Sodium (137-145) mmol/L Carbon Dioxide (22-30) mmol/L BUN (9-20) mg/dL Creatinine (0.66-1.25) mg/dL Glucose (74-99) mg/dL POC Glucose (mg/dL) 131 H 150 H 138 H (75-99) mg/dL Phosphorus (2.5-4.5) mg/dL Magnesium (1.6-2.3) mg/dL 08/31/20 08/31/20 08/31/20 Range/Units 04:55 04:55 05:10 WBC 11.6 H (3.8-10.6) k/uL RBC 2.73 L (4.30-5.90) m/uL Hgb 8.3 L (13.0-17.5) gm/dL Hct 27.1 L (39.0-53.0) % MCHC 30.8 L (31.0-37.0) g/dL RDW 16.4 H (11.5-15.5) % Plt Count 64 L (150-450) k/uL Neutrophils # (Manual) 11.20 H (1.3-7.7) k/uL Lymphocytes # (Manual) 0.12 L (1.0-4.8) k/uL ABG pH 7.24 L (7.35-7.45) ABG pCO2 48 H (35-45) mmHg ABG pO2 64 L (83-108) mmHg ABG O2 Saturation 90.1 L (94-97) % Sodium 135 L (137-145) mmol/L Carbon Dioxide 20 L (22-30) mmol/L BUN 123 H* (9-20) mg/dL Creatinine 4.23 H (0.66-1.25) mg/dL Glucose 139 H (74-99) mg/dL POC Glucose (mg/dL) (75-99) mg/dL Phosphorus 6.9 H (2.5-4.5) mg/dL Magnesium 2.4 H (1.6-2.3) mg/dL 08/31/20 Range/Units 06:10 WBC (3.8-10.6) k/uL RBC (4.30-5.90) m/uL Hgb (13.0-17.5) gm/dL Hct (39.0-53.0) % MCHC (31.0-37.0) g/dL RDW (11.5-15.5) % Plt Count (150-450) k/uL Neutrophils # (Manual) (1.3-7.7) k/uL Lymphocytes # (Manual) (1.0-4.8) k/uL ABG pH (7.35-7.45) ABG pCO2 (35-45) mmHg ABG pO2 (83-108) mmHg ABG O2 Saturation (94-97) % Sodium (137-145) mmol/L Carbon Dioxide (22-30) mmol/L BUN (9-20) mg/dL Creatinine (0.66-1.25) mg/dL Glucose (74-99) mg/dL POC Glucose (mg/dL) 147 H (75-99) mg/dL Phosphorus (2.5-4.5) mg/dL Magnesium (1.6-2.3) mg/dL Microbiology - Last 24 Hours (Table) 08/24/20 11:00 Blood Culture - Final Blood No Growth after 144 hours Assessment and Plan Plan: 1 abdominal aortic aneurysm, 8.8 cm involving the iliac arteries and involving an intraluminal thrombus status post open repair of abdominal aortic aneurysm, with 30 mm sleeve graft. The patient is postop day #10 2 acute hypoxic respiratory failure post abdominal aortic aneurysm repair. The patient has bilateral pulmonary infiltrates with Serratia marcescens and the patient is currently on IV cefepime. Chest x-ray from today showing limited infiltration of the lung bases and the pneumonia seems to have cleared up significantly and the patient is down to 40% FiO2 with a PEEP of 5. 3 shock, consider septic shock and the patient has been resuscitated aggressively with IV fluids. Upon further investigation, the patient was confirmed to be in septic shock with Serratia marcescens and the origin was an underlying pneumonia. The patient is currently on IV cefepime. The patient is overall hemodynamics improved with antibiotics and he was at the point where he was on minimal amount of pressors. Subsequently he decompensated and over the past 12 hours his pressor requirements of his gone up significantly. Consider reinfection/sepsis. He is afebrile. His white cell count is 11.6. Nevertheless, he has multiple catheters and catheter infection needs to be considered. No diarrhea. Surgical wound site is dry clean and intact. He is currently on higher dose of norepinephrine infusion which is running at 0.5 mcg/kg per minute. 4 altered mentation, probably related to metabolic encephalopathy. Given a sedation holiday that was not successful and the patient was given a CAT scan of the brain and showed a old right MCA distribution stroke. No acute abnormalities. He may have an underlying metabolic encephalopathy. The propofol dose was reduced down to 10 g per KG per minute. 5 Acute kidney injury, likely related to acute tubular necrosis, currently on hemodialysis, and he has signs of excessive fluid overload. The patient will need hemodialysis today as long as his be able to tolerate especially with his ongoing shock and high pressor requirements. 6 Serratia marcescens pneumonia with secondary septic shock with positive blood cultures,, currently on cefipime 7 CAD with a previous history of previous myocardial infarction. 8 History of CVA. 9 History of essential hypertension. 10 History of chronic atrial fibrillation. Patient is currently off the Cardizem drip 7.5 mg an hour 11 History of [id number]-oxdc history of tobacco use. 12 COPD. 13 Questionable history of alcohol abuse. 14 History of DJD. 15 TPN for nutritional support and enteral feeding for nutritional support was also initiated and the patient is currently on Nepro at the rate of 10 mL an hour 16 thrombocytopenia with drop in the platelet count down to 64. 17 upper GI bleed inactive in stable 18 acute on chronic anemia . Plan: Continue vent support , no changes Gradually advanced to feeds and if he reaches goals, I'm going to reduce TPN and discontinue gradually Obtain blood cultures 2 Add vancomycin Continue IV cefepime Restart vasopressin physiologic dose Continue titrating the norepinephrine infusion proceed another session of hemodialysis today as long as the patient is a tolerate Continue IV Protonix Monitor platelet counts Another sedation holiday and assess patient's mental status. . Echocardiogram showed is stable LV function with an ejection fraction of 55% CT of the brain showing an right MCA distribution old stroke. Nothing acute Condition is critical we'll continue to follow and monitor the patient will make further recommendations based on the progress. I'm going to contact the son and update on the condition Critically care evaluation, more than 30 minutes Time with Patient: Greater than 30
[2020-08-31] MEDS ORDERED: SODIUM CHLORIDE 0.9% 50 ML with VASOPRESSIN 20 UNIT IVPB SCH ×2 (10:00)
[2020-08-31] MEDS ORDERED: VANCOMYCIN IV PER PHARMACY 1 EACH MISC MISCELLANE PRN (10:06)
[2020-08-31] MEDS ORDERED: VANCOMYCIN 1,750 MG in SODIUM CHLORIDE 0.9% 500 ML 500 ML IVPB ONE (11:00)
--- NOTE | 2020-08-31 11:31 | P.PN ---
Subjective Progress Note Date: 08/31/20 Patient seen and examined. Postoperative aneurysm repair. He remained sedated and intubated. They trialed sedation yesterday, but he did not have significant meaningful responses therefore a CT brain was performed without any significant abnormalities. His tube feeds are at trickle. He did have a small bowel movement yesterday. He did have to go back up on his pressor support requirements through the night but no significant changes otherwise Objective - Vital Signs Vital signs: Vital Signs Temp 98.8 F 08/31/20 08:15 Pulse 85 08/31/20 11:00 Resp 28 H 08/31/20 11:00 BP 110/60 08/30/20 08:00 Pulse Ox 92 L 08/31/20 11:00 Intake & Output 08/30/20 08/31/20 08/31/20 18:59 06:59 18:59 Intake Total 1554.000 982.601 564.640 Output Total 5 12 0 Balance 1549.000 970.601 564.640 Weight 100 kg 103 kg Intake: IV 1169 466.5 357.5 0.9 KVO 250 240 100 Cardizem 82.5 22.5 Cefepime 1 gm In Sodium 100 50.0 Chloride 0.9% 50 ml @ 12. 5 mls/hr IVPB Q12H [facility] Rx #:[id number] Mvi, Adult No.4 with Vit 220 K 10 ml Trace (Conc-1Ml/ Dose) 1 ml Sodium Acetate 40 meq Calcium Gluconate 1 gm In Amino Acid 4.25% -D10w 1,000 ml @ 55 mls/ hr IV .[id number] [facility] Rx#: [id number] Sodium Acetate 40 meq 750 55 Calcium Gluconate 1 gm In Amino Acid 5%-D15w 1,000 ml @ 70 mls/hr IV .BY DURATION [facility] Rx#: [id number] pressure bag 69 39 15 Intake, IV Titration 245.000 316.101 137.140 Amount Diltiazem 125 mg In 125 103.125 26.375 Sodium Chloride 0.9% 100 ml @ 7.5 MG/HR 7.5 mls/hr IV .[id number] [facility] Rx#: [id number] Norepinephrine 32 mg In 21.065 185.376 60.765 Sodium Chloride 0.9% 218 ml @ 0.05 MCG/KG/MIN 2.02 mls/hr IV .Q24H [facility] Rx#: [id number] propofoL 500 mg In Empty 98.935 27.6 50 Bag 1 bag @ Titrate IV . Q0M [facility] Rx#:[id number] Oral 60 Tube Feeding 50 110 40 Other 30 90 30 Output: Urine 5 12 0 Other: Voiding Method Indwelling Catheter Indwelling Catheter # Voids 0 ABP, PAP, CO, CI - Last Documented Arterial Blood Pressure 119/50 - Exam intubated, sedated, on mechanical ventilation. NG tube in place with tube feeds. Heart distant but irregular. Coarse breath sounds, mild wheeze. Ab domen soft, rotund, no apparent tenderness. Incision clean, dry and intact. Right groin catheter intact with serous drainage. Scrotal edema. Anasarca. - Labs CBC & Chem 7: 08/31/20 04:55 08/31/20 04:55 Labs: Abnormal Lab Results - Last 24 Hours (Table) 08/30/20 08/30/20 08/30/20 Range/Units 12:20 17:33 23:58 WBC (3.8-10.6) k/uL RBC (4.30-5.90) m/uL Hgb (13.0-17.5) gm/dL Hct (39.0-53.0) % MCHC (31.0-37.0) g/dL RDW (11.5-15.5) % Plt Count (150-450) k/uL Neutrophils # (Manual) (1.3-7.7) k/uL Lymphocytes # (Manual) (1.0-4.8) k/uL ABG pH (7.35-7.45) ABG pCO2 (35-45) mmHg ABG pO2 (83-108) mmHg ABG O2 Saturation (94-97) % Sodium (137-145) mmol/L Carbon Dioxide (22-30) mmol/L BUN (9-20) mg/dL Creatinine (0.66-1.25) mg/dL Glucose (74-99) mg/dL POC Glucose (mg/dL) 131 H 150 H 138 H (75-99) mg/dL Phosphorus (2.5-4.5) mg/dL Magnesium (1.6-2.3) mg/dL 08/31/20 08/31/20 08/31/20 Range/Units 04:55 04:55 05:10 WBC 11.6 H (3.8-10.6) k/uL RBC 2.73 L (4.30-5.90) m/uL Hgb 8.3 L (13.0-17.5) gm/dL Hct 27.1 L (39.0-53.0) % MCHC 30.8 L (31.0-37.0) g/dL RDW 16.4 H (11.5-15.5) % Plt Count 64 L (150-450) k/uL Neutrophils # (Manual) 11.20 H (1.3-7.7) k/uL Lymphocytes # (Manual) 0.12 L (1.0-4.8) k/uL ABG pH 7.24 L (7.35-7.45) ABG pCO2 48 H (35-45) mmHg ABG pO2 64 L (83-108) mmHg ABG O2 Saturation 90.1 L (94-97) % Sodium 135 L (137-145) mmol/L Carbon Dioxide 20 L (22-30) mmol/L BUN 123 H* (9-20) mg/dL Creatinine 4.23 H (0.66-1.25) mg/dL Glucose 139 H (74-99) mg/dL POC Glucose (mg/dL) (75-99) mg/dL Phosphorus 6.9 H (2.5-4.5) mg/dL Magnesium 2.4 H (1.6-2.3) mg/dL 08/31/20 Range/Units 06:10 WBC (3.8-10.6) k/uL RBC (4.30-5.90) m/uL Hgb (13.0-17.5) gm/dL Hct (39.0-53.0) % MCHC (31.0-37.0) g/dL RDW (11.5-15.5) % Plt Count (150-450) k/uL Neutrophils # (Manual) (1.3-7.7) k/uL Lymphocytes # (Manual) (1.0-4.8) k/uL ABG pH (7.35-7.45) ABG pCO2 (35-45) mmHg ABG pO2 (83-108) mmHg ABG O2 Saturation (94-97) % Sodium (137-145) mmol/L Carbon Dioxide (22-30) mmol/L BUN (9-20) mg/dL Creatinine (0.66-1.25) mg/dL Glucose (74-99) mg/dL POC Glucose (mg/dL) 147 H (75-99) mg/dL Phosphorus (2.5-4.5) mg/dL Magnesium (1.6-2.3) mg/dL Microbiology - Last 24 Hours (Table) 08/24/20 11:00 Blood Culture - Final Blood No Growth after 144 hours Assessment and Plan Assessment: #1 postoperative abdominal aortic aneurysm repair for 8.8 cm aneurysm #2 hypotension remains on pressor support #3 acute ventilatory dependent respiratory failure #4 atrial fibrillation on Cardizem #5 coronary artery disease #6 history of tobacco abuse #COPD Plan: Continue supportive care discussed with ICU attending. Monitor labs. Continue gentle bowel stimulation and Reglan. Critical care team discussed patient status with family today. Continue hemodialysis per nephrology. Continue to follow closely
[2020-08-31 12:06] VITALS: TEMP 98.7
[2020-08-31 12:09] LABS: Glucose,Whole Blood 123 mg/dL (75-99)
[2020-08-31] MEDS ORDERED: SEVELAMER 800 MG TAB PO SCH (12:30)
[2020-08-31] MEDS: CEFEPIME 1 GM in SODIUM CHLORIDE 0.9% 50 ML IVPB SCH (12:47)
[2020-08-31] MEDS ORDERED: ATROPINE OPHTH SOLN 1% 5ML BTL SUBLINGUAL PRN (13:04)
[2020-08-31] MEDS ORDERED: LORazepam 2 MG/ML INJ IV PRN (13:04)
[2020-08-31] MEDS ORDERED: MORPHINE SULFATE 4 MG/ML SYRINGE IV PRN (13:04)
[2020-08-31] MEDS ORDERED: MORPHINE SULFATE 2 MG/ML SYRINGE IV PRN (13:04)
[2020-08-31] MEDS ORDERED: MORPHINE SULFATE (100 MG/2 ML) 100 MG in SODIUM CHLORIDE 0.9% 100 ML IV SCH (13:15)
[2020-08-31] MEDS ORDERED: SCOPOLAMINE 1.5MG/72HR PATCH TRANSDERM SCH (13:30)
--- NOTE | 2020-08-31 13:32 | PN ---
PROGRESS NOTE Taj is a 74-year-old gentleman that is admitted to ICU following abdominal aortic aneurysm surgery. He is anuric, anemic, thrombocytopenic, and is on vent requiring respiratory failure. He is currently in atrial fibrillation with controlled ventricular rate. Not a candidate for anticoagulation. Over nite, he became more and more hypotensive and is currently requiring Levophed. On exam, the heart rate is 80 beats per minute. Blood pressure is 119/50. Respiratory rate is 28. Chest exam reveals diminished air entry with occasional rhonchi. Heart exam reveals first and second heart sounds, irregular rhythm. Abdomen is soft. Exam of extremities reveals bilateral pitting edema and diminished pulses. Labs show white cell count 11.6, hemoglobin is 8.3, platelet count is 64. Potassium is 4.7, BUN is 123, creatinine is 4.2. ASSESSMENT: 1. Persistent atrial fibrillation with controlled ventricular rate. 2. Hypotension. 3. Acute renal failure. PLAN: We will continue with the current supportive care. Prognosis is guarded. MMODL / IJN: [id number] /
[2020-08-31 14:44] VITALS: PULSE 98; RESP 28
[2020-09-01] MEDS ORDERED: VANCOMYCIN 1,750 MG in SODIUM CHLORIDE 0.9% 500 ML 500 ML IVPB ONE (09:00)
== END 2020-08-31 17:40 | disposition expired | DRG 268 ==
LOC: 2ORMAIN 05:33 → 2SICU 14:14
PROVIDERS: ADMIT Surgery; ATTEND Surgery
PROC: 5A1955Z Respiratory Ventilation, Greater than 96 Consecutive Hours (ICD-10-PCS; 2020-08-21)
PROC: 30243N1 Transfusion of Nonautologous Red Blood Cells into Central Vein, Percutaneous Approach (ICD-10-PCS; 2020-08-21)
PROC: 3E033XZ Introduction of Vasopressor into Peripheral Vein, Percutaneous Approach (ICD-10-PCS; 2020-08-21)
PROC: 04R00JZ Replacement of Abdominal Aorta with Synthetic Substitute, Open Approach (ICD-10-PCS; principal; 2020-08-21 08:00)
PROC: 02HV33Z Insertion of Infusion Device into Superior Vena Cava, Percutaneous Approach (ICD-10-PCS; 2020-08-23)
PROC: 3E0436Z Introduction of Nutritional Substance into Central Vein, Percutaneous Approach (ICD-10-PCS; 2020-08-23)
PROC: 06HM33Z Insertion of Infusion Device into Right Femoral Vein, Percutaneous Approach (ICD-10-PCS; 2020-08-24)
PROC: 5A1D70Z Performance of Urinary Filtration, Intermittent, Less than 6 Hours Per Day (ICD-10-PCS; 2020-08-24)
PROC: 03HY32Z Insertion of Monitoring Device into Upper Artery, Percutaneous Approach (ICD-10-PCS; 2020-08-27)
PROC: 4A133B1 Monitoring of Arterial Pressure, Peripheral, Percutaneous Approach (ICD-10-PCS; 2020-08-27)
PROC: 4A133J1 Monitoring of Arterial Pulse, Peripheral, Percutaneous Approach (ICD-10-PCS; 2020-08-27)
DX: I71.4 Abdominal aortic aneurysm, without rupture (principal); J96.01 Acute respiratory failure with hypoxia; N17.0 Acute kidney failure with tubular necrosis; A41.50 Gram-negative sepsis, unspecified; R65.21 Severe sepsis with septic shock; G93.41 Metabolic encephalopathy; J15.6 Pneumonia due to other Gram-negative bacteria; E87.4 Mixed disorder of acid-base balance; I74.11 Embolism and thrombosis of thoracic aorta; K92.2 Gastrointestinal hemorrhage, unspecified; I48.21 Permanent atrial fibrillation; E27.40 Unspecified adrenocortical insufficiency; K56.7 Ileus, unspecified; D62 Acute posthemorrhagic anemia; R57.1 Hypovolemic shock; J43.9 Emphysema, unspecified; E83.39 Other disorders of phosphorus metabolism; E66.9 Obesity, unspecified; Z68.32 Body mass index [BMI] 32.0-32.9, adult; D69.59 Other secondary thrombocytopenia; I11.9 Hypertensive heart disease without heart failure; I71.2 Thoracic aortic aneurysm, without rupture; I73.9 Peripheral vascular disease, unspecified; Z66 Do not resuscitate; Z51.5 Encounter for palliative care; M19.90 Unspecified osteoarthritis, unspecified site; F17.210 Nicotine dependence, cigarettes, uncomplicated; L30.9 Dermatitis, unspecified; I83.90 Asymptomatic varicose veins of unspecified lower extremity; M10.9 Gout, unspecified; F10.10 Alcohol abuse, uncomplicated; I25.10 Atherosclerotic heart disease of native coronary artery without angina pectoris; E87.70 Fluid overload, unspecified; Z71.3 Dietary counseling and surveillance; I25.2 Old myocardial infarction; Z79.01 Long term (current) use of anticoagulants; Z79.51 Long term (current) use of inhaled steroids; Z79.899 Other long term (current) drug therapy; Z79.82 Long term (current) use of aspirin; Z86.73 Personal history of transient ischemic attack (TIA), and cerebral infarction without residual deficits; Z87.01 Personal history of pneumonia (recurrent); Z85.828 Personal history of other malignant neoplasm of skin; Z87.81 Personal history of (healed) traumatic fracture; Z98.890 Other specified postprocedural states; Z88.2 Allergy status to sulfonamides; Z91.040 Latex allergy status; Z82.49 Family history of ischemic heart disease and other diseases of the circulatory system
CPT/HCPCS: 36430; 36573; 36600; 64488; 70450; 71045; 74018; 76770; 80048; 80053; 82040; 82330; 82805; 83735; 84100; 84478; 85025; 85027; 85379; 85384; 85610; 85730; 86022; 86706; 86850; 86900; 86901; 86920; 87040; 87070; 87077; 87186; 87205; 87340; 90935; 93308; 94002; 94003; 94640